=== PATIENT | female | born 1950 | race Caucasian/White ===

== ENCOUNTER → 2017-04-21 | Outpatient (CLI) | payer MEDICARE, OTHER ==
[~2017-04-21] MED LIST: ALPR.5T PO; AMLO5TAB2 PO; BUDE6HFA IH; DULO60CA6 PO; ESTR1TAB24 PO; HYDR-34 PO; LISI-591 PO; LOVA10TA PO; MNTL10T PO; NAPR1TAB21 PO; OXYB10TA PO; RT-ALBUTEROL SULF 2.5 MG/3 ML PRE-MIX VIAL IH ONE
== END ==
LOC: RT 07:52
PROVIDERS: ATTEND Internal Medicine
DX: R06.02 Shortness of breath (principal)
CPT/HCPCS: 94060; 94640; 94726; 94729

== ENCOUNTER 2017-07-07 05:33 | Outpatient (CLI) | payer MEDICARE, OTHER ==
[~2017-07-07] VITALS: Ht 167.6 cm; Wt 76.2 kg
[~2017-07-07 05:33] MED LIST changes: -RT-ALBUTEROL SULF 2.5 MG/3 ML PRE-MIX VIAL IH ONE
[2017-07-07] MEDS ORDERED: TIOT4MIS3 IH (12:23)
[2017-07-07] MEDS ORDERED: HYDR-753 PO (12:23)
[2017-07-07] MEDS ORDERED: NF-ACI30T PO (12:23)
[2017-07-07] MEDS ORDERED: ALEN70TA2 PO (12:23)
[2017-07-07] MEDS ORDERED: LOVA20TA2 PO (12:23)
[2017-07-07] MEDS ORDERED: RANI-515 PO (12:23)
[2017-07-07] MEDS ORDERED: LISI1TAB8 PO (12:23)
[2017-07-07] MEDS ORDERED: DEXT10TA9 PO (12:23)
[2017-07-07] MEDS ORDERED: CYCL10TA9 PO (12:23)
[2017-07-07] MEDS ORDERED: CITA20TA12 PO (12:23)
[2017-07-07] MEDS ORDERED: SULI200T4 PO (12:23)
[2017-07-07] MEDS ORDERED: FLUT9.9S NS (12:23)
[2017-07-07] MEDS ORDERED: MECL-106 PO (12:23)
[2017-07-07] MEDS ORDERED: ESTR2TAB PO (12:23)
[2017-07-07] MEDS ORDERED: RT-ALBUINH IH (12:24)
== END 2017-07-07 12:29 ==
LOC: PREOP 05:33
PROVIDERS: ATTEND Surgery
DX: Z01.818 Encounter for other preprocedural examination (principal); Z12.11 Encounter for screening for malignant neoplasm of colon; Z86.010 Personal history of colon polyps

== ENCOUNTER 2017-07-12 09:50 | Day surgery (SDC) | payer MEDICARE, OTHER ==
[~2017-07-12] VITALS: Ht 167.6 cm; Wt 76.2 kg
[~2017-07-12 09:50] MED LIST changes: +ALEN70TA2 PO; +CITA20TA12 PO; +CYCL10TA9 PO; +DEXT10TA9 PO; +ESTR2TAB PO; +FLUT9.9S NS; +HYDR-753 PO; +LISI1TAB8 PO; +LOVA20TA2 PO; +MECL-106 PO; +NF-ACI30T PO; +RANI-515 PO; +RT-ALBUINH IH; +SULI200T4 PO; +TIOT4MIS3 IH
--- OUTSIDE RECORDS SUMMARY | 2017-07-12 09:54 | XMS REPORT | Continuity of Care Document ---
Author Author [facility] Organization [facility] Address Unknown Phone Unavailable Allergies Active Description Code Type Severity Reaction Onset Reported/Identified Relationship to Patient Clinical Status Yes No Known Drug Allergies [id number] Drug Allergy Unknown N/ A 10/09/2013 Medications Problems Date Dx Coded Attending Type Code Diagnosis Diagnosed By 10/09/2013 LLOYD LAI, RON Barraza Ot V76.51 SCREEN MAL NEOP-COLON 04/12/2017 RON DESAI MD Ot V72.84 EXAM PRE-OPERATIVE NOS 04/21/2017 RON DESAI MD Ot V72.84 EXAM PRE-OPERATIVE NOS 07/07/2017 RON DESAI MD Ot Z01.818 ENCOUNTER FOR OTHER PREPROCEDURAL EXAMIN 07/07/2017 RON DESAI MD Ot Z12.11 ENCOUNTER FOR SCREENING FOR MALIGNANT NE 07/07/2017 RON DESAI MD Ot Z86.010 PERSONAL HISTORY OF COLONIC POLYPS Procedures Results Encounters ACCT No. Visit Date/Time Discharge Status Pt. Type Provider Facility Loc./Unit Complaint [id number] 07/07/2017 05:33:00 2016 12:29:00 DIS Outpatient RON DESAI MD [facility] PREOP HISTORY POLYPS [id number] 04/21/2017 07:52:00 2016 23:59:59 CLS Outpatient NETTA GOYAL MD [facility] RT R06.02 [id number] 10/09/2013 06:41:00 2012 08:55:00 DIS Outpatient RON DESAI MD [facility] SDC SCREENING [id number] 10/05/2013 07:20:00 2012 23:59:59 CLS Outpatient RON DESAI MD [facility] PREOP SCREENING [id number] 07/12/2017 11:30:00 PEN Preadmit LLOYD LAI, RON Barraza [facility] ENDO HISTORY POLYPS
--- OUTSIDE RECORDS SUMMARY | 2017-07-12 09:54 | XMS REPORT ---
Author Author CALI FELIX [facility] Address Unknown Care Team Providers Care Welder Tack Name Role Phone CALI FELIX Unavailable PROBLEMS Unknown Problems ALLERGIES Substance Reaction Event Type Date Status N.K.D.A. Unknown Non Drug Allergy Sep, Unknown SOCIAL HISTORY No smoking Hx information available PLAN OF CARE Activity Details Follow Up prn Reason:SRP VITAL SIGNS Blood pressure systolic 125 mmHg 2016-10-20 Blood pressure diastolic 88 mmHg 2016-10-20 MEDICATIONS Medication Instructions Dosage Frequency Start Date End Date Duration Status Estradiol Active [place] Active Lisinopril Active Zantac Active Amlodipine Besy-Benazepril HCl Active Xanax Active Sulindac Active Aciphex Active Cymbalta Active Adderall Active RESULTS No Results PROCEDURES Procedure Date Ordered Related Diagnosis Body Site COMP ORAL EVALUATION - NEW/EST PT Oct 20, 2016 INTRAORL-PERIAPICAL 1 FILM [id number] Oct 20, 2016 BITEWINGS - FOUR FILMS Oct 20, 2016 INTRAORL-PERIAPICAL EA ADD FILM Oct 20, 2016 INTRAORL-PERIAPICAL EA ADD FILM Oct 20, 2016 INTRAORL-PERIAPICAL EA ADD FILM Oct 20, 2016 INTRAORL-PERIAPICAL EA ADD FILM Oct 20, 2016 IMMUNIZATIONS No Known Immunizations
[2017-07-12] MEDS ORDERED: NS IV 500 ML 500 ML ONE ×2 (10:00→13:45)
[2017-07-12] MEDS ORDERED: NS IV 500 ML 500 ML IV ONE ×2 (10:00→14:15)
[2017-07-12 10:09] VITALS: BP 134/77
[2017-07-12] MEDS ORDERED: MIDAZOLAM 2 MG/2 ML (VERSED) VIAL ONE ×3 (13:19)
[2017-07-12] MEDS ORDERED: fentaNYL INJECTION 100 MCG/2 ML AMP ONE ×2 (13:19→13:55)
--- NOTE | 2017-07-12 13:24 | Conscious Sedation/ASA ---
Conscious Sedation Pre-Proced Time Reviewed: 13:24 ASA Class: 2 Airway Mallampati Classification: (false pass appropriate class) I. II. III, IV Lungs Heart ASA score ASA 1: a normal healthy patient ASA 2: a patient with a mild systemic disease (mid diabetes, controlled hypertension, obesity ASA 3: a patient with a severe systemic disease that limits activity (angina , COPD, prior Myocardial infarction) ASA 4: a patient with an incapacitating disease that is a constant threat to life (CHF, renal failure) ASA 5: a moribund patient not expected to survive 24 hrs. (ruptured aneurysm) ASA 6: a declared brain patient whose organs are being harvested. For emergent operations, add the letter E after the classification Grade 1 Sedation Plan: Discussed options with patient/fam Note The patient is an appropriate candidate to undergo the planned procedure, sedation, and anesthesia. The patient immediately re-assessed prior to indication. RON DESAI MD Jul 12, 2017 1:24 pm
--- NOTE | 2017-07-12 13:24 | History & Physicial ---
History of Present Illness History of Present Illness Reason for visit/HPI to undergo surveillance colonoscopy. Previous history of polyps Date of Admission Date Seen by Provider: Jul 12, 2017 Time Seen by Provider: 13:23 I consulted on this patient on 07/12/17 13:22 Attending Physician Ron Desai MD Admitting Physician Marquise Goode MD Consult Allergies and Home Medications Allergies Coded Allergies: No Known Drug Allergies (Unverified , 10/09/13) Home Medications Albuterol Sulfate 1 Puff Puff, 2 PUFF IH Q4H PRN for WHEEZING, (Reported) 1 PUFF = 90 MCG Alendronate Sodium 70 Mg Tablet, 70 MG PO WEEK, (Reported) Alprazolam 0.5 Mg Tablet, 0.5 MG PO TID, (Reported) Amlodipine Besylate 5 Mg Tablet, 5 MG PO DAILY, (Reported) Citalopram Hydrobromide 20 Mg Tablet, 20 MG PO DAILY, (Reported) Cyclobenzaprine HCl 10 Mg Tablet, 10 MG PO TID, (Reported) Dextroamphetamine/Amphetamine 10 Mg Tablet, 10 MG PO DAILY, (Reported) Duloxetine Hcl 60 Mg Capsule.dr, 60 MG PO DAILY, (Reported) Estradiol 2 Mg Tablet, 2 MG PO DAILY, (Reported) Fluticasone Propionate 9.9 Ml [place].susp, 1 SPRAY NS DAILY, (Reported) Hydrocodone/Acetaminophen 1 Each Tablet, 1 EACH PO Q4H PRN for PAIN-MILD TO MODERATE, (Reported) Lisinopril/Hydrochlorothiazide 1 Each Tablet, 1 EACH PO DAILY, (Reported) Lovastatin 20 Mg Tablet, 20 MG PO DAILY, (Reported) Meclizine HCl 25 Mg Tablet, 25 MG PO BID, (Reported) Rabeprazole Sodium 20 Mg Tablet.dr, 20 MG PO DAILY, (Reported) Ranitidine HCl 150 Mg Tablet, 150 MG PO TID, (Reported) Sulindac 200 Mg Tablet, 200 MG PO BID, (Reported) Tiotropium Br/Olodaterol HCl 4 Gm Mist.inhal, 4 GM IH DAILY, (Reported) Past Lydnsmb-Braann-Aqlmwa Hx Patient Social History Marrital Status: Employed/Student: retired Alcohol Use: Denies Use Recreational Drug Use: No Smoking Status: Never a Smoker Recent Foreign Travel: No Contact w/other who traveled: No Recent Hopitalizations: No Recent Infectious Disease Expo: No Immunizations Up To Date Date of Pneumonia Vaccine: Oct 09, 2006 Seasonal Allergies Seasonal Allergies: Yes Surgeries Gallbladder, Hysterectomy, Tonsillectomy Cardiovascular Hypertension Gastrointestinal Polyps Musculoskeletal Arthritis Constitutional: no symptoms reported EENTM: no symptoms reported Cardiovascular: no symptoms reported Gastrointestinal: no symptoms reported Genitourinary: no symptoms reported Musculoskeletal: no symptoms reported Skin: no symptoms reported Psychiatric/Neurological: No Symptoms Reported Physical Exam Vital Signs Vital Sign - Last 12Hours 07/12/17 10:09 Temp 97.2 Pulse 94 Resp 18 B/P (MAP) 134/77 Pulse Ox 95 O2 Delivery Room Air Capillary Refill : General Appearance: No Apparent Distress HEENT: Normal ENT Inspection Neck: Normal Inspection Respiratory: Lungs Clear Cardiovascular: Regular Rate, Rhythm Gastrointestinal: Non Tender, Soft Rectal: Deferred Neurologic/Psychiatric: Alert, Oriented x3 Skin: Warm/Dry Assessment/Plan Assessment and Plan personal history of polyps. For surveillance colonoscopy Problems: RON DESAI MD Jul 12, 2017 1:24 pm
[2017-07-12] MEDS: fentaNYL INJECTION 100 MCG/2 ML AMP IVP PRN ×3 (13:35→14:00)
[2017-07-12] MEDS: MIDAZOLAM 2 MG/2 ML (VERSED) VIAL IVP PRN ×3 (13:36→13:55)
--- NOTE | 2017-07-12 14:16 | Endo Procedure Record ---
Endo Procedure Report Date of Procedure Jul 12, 2017 Surgeon (s) RON DESAI MD Post Procedure/Op Diagnosis very few sigmoid diverticula Procedure Performed colonoscopy to cecum Description of Procedure Anesthesia Type: Conscious Sedation Specimen(s) collected/removed none Description of the Procedure Indication for procedure: This lady reported a personal history of polyps and therefore returned for surveillance examination. Informed consent was obtained after reviewing the procedure in detail. Description of the procedure: She was placed in left lateral rectus position and her vital signs were monitored. Conscious sedation was achieved using Versed and fentanyl. Digital rectal examination was unremarkable. The colonoscope was then introduced in the rectum and advanced all the way up to cecum The quality of bowel preparation was excellent. The scope was then withdrawn slowly and the mucosa examined in a systematic fashion Finding: Very few sigmoid diverticula. No recurrent polyps were found She tolerated the procedure well and was taken back to the nursing area in a stable condition. Impression: Surveillance colonoscopy. No recurrence. Recommend repeating in 5 years. Copies To: JOSEPH OH MD, XAVIER M MD Jul 12, 2017 2:16 pm
--- NOTE | 2017-07-12 14:18 | Discharge Inst-Simple/Standard ---
Discharge Inst-Standard Discharge Medications New, Converted or Re-Newed RX: Other Patient Instructions/Follow Up Plan of Care/Instructions/FU: repeat colonoscopy in 5 years Activity as Tolerated: Yes Discharge Diet: No Restrictions RON DESAI MD Jul 12, 2017 2:18 pm
[2017-07-12 14:20] VITALS: BP 94/62
[2017-07-12 14:50] VITALS: BP 124/68
[2017-07-12 14:58] VITALS: BP 124/68
== END 2017-07-12 14:58 | disposition home or self-care (01) ==
LOC: ENDO 09:50
PROVIDERS: ATTEND Surgery
DX: K57.30 Diverticulosis of large intestine without perforation or abscess without bleeding (principal); Z86.010 Personal history of colon polyps; Z79.899 Other long term (current) drug therapy

== ENCOUNTER → 2018-03-09 | Outpatient (CLI) | payer MEDICARE, OTHER ==
[~2018-03-09] MED LIST changes: +ALPR0.5T7 PO; +AMLO10TA2 PO; +DULO60CA58 PO; +HYOS0.1281 PO; +NITR-65 PO; +PHEN-640 PO
--- NOTE | 2018-03-09 13:57 | Diagnostic Imaging Report ---
PROCEDURE: CT abdomen and pelvis without contrast. TECHNIQUE: Multiple contiguous axial images were obtained through the abdomen and pelvis without the use of intravenous contrast. INDICATION: One year's history of persistent hematuria. I have no previous for comparison. FINDINGS: There are no opaque kidney stones. There are pelvic phleboliths and gonadal vein phleboliths but no appreciable opaque ureteral stone or collecting system dilatation. The unopacified urinary bladder had an unremarkable appearance. There is tiny calcified granulomata within the nonenlarged spleen. Liver appeared nonfocal. There is no bile duct dilatation. The gallbladder contracted or absent. The adrenals are negative. The pancreas unremarkable. The calcified atherosclerotic aorta is nonaneurysmal. Uterus absent. There is no adnexal lesion. There is no ascites or fluid collection. There is no focal inflammatory process. Lung bases nonacute. IMPRESSION: Nonfocal unobstructed and unremarkable-appearing urinary tracts. No findings to explain the history of hematuria. No acute-appearing abnormality. Dictated by: Dictated on workstation # [id number]
== END ==
LOC: RAD 10:58
PROVIDERS: ATTEND Urology
DX: N02.9 Recurrent and persistent hematuria with unspecified morphologic changes (principal); Z87.440 Personal history of urinary (tract) infections
CPT/HCPCS: 74176

== ENCOUNTER 2018-03-17 13:16 | Outpatient (CLI) | payer MEDICARE, OTHER ==
[~2018-03-17] VITALS: Ht 167.6 cm; Wt 77.4 kg
[~2018-03-17 13:16] MED LIST changes: -ALPR0.5T7 PO; -AMLO10TA2 PO; -DULO60CA58 PO; -HYOS0.1281 PO; -NITR-65 PO; -PHEN-640 PO
[2018-03-17] MEDS ORDERED: AMLO10TA2 PO (13:32)
[2018-03-17] MEDS ORDERED: ALPR0.5T7 PO (13:32)
[2018-03-17] MEDS ORDERED: DULO60CA58 PO (13:32)
== END 2018-03-17 14:11 | disposition home or self-care (01) ==
LOC: PREOP 13:16
PROVIDERS: ATTEND Urology
DX: Z01.818 Encounter for other preprocedural examination (principal); D49.4 Neoplasm of unspecified behavior of bladder; Z11.2 Encounter for screening for other bacterial diseases
CPT/HCPCS: 87081

== ENCOUNTER 2018-03-22 07:00 | Day surgery (SDC) | payer MEDICARE, OTHER ==
[~2018-03-22] VITALS: Ht 167.6 cm; Wt 77.4 kg
[~2018-03-22 07:00] MED LIST changes: +ALPR0.5T7 PO; +AMLO10TA2 PO; +DULO60CA58 PO
--- OUTSIDE RECORDS SUMMARY | 2018-03-22 07:08 | XMS REPORT ---
Author Author KAE Donis Organization [facility] Address Unknown Care Team Providers Care Behavioral Instructor Name Role Phone KAE Donis Unavailable PROBLEMS Unknown Problems ALLERGIES No Known Allergies SOCIAL HISTORY Never Assessed PLAN OF CARE Activity Details Follow Up prn Reason:all left side fillings per Dr VITAL SIGNS Blood pressure systolic 131 mmHg 2017-01-13 Blood pressure diastolic 76 mmHg 2017-01-13 MEDICATIONS Medication Instructions Dosage Frequency Start Date End Date Duration Status Cymbalta Active Xanax Active Sulindac Active Zantac Active Estradiol Active Amlodipine Besy-Benazepril HCl Active Lisinopril Active [place] Active Adderall Active Aciphex Active RESULTS No Results PROCEDURES Procedure Date Ordered Result Body Site LTD ORAL EVALUATION - PROBLEM FOCUS Jan 13, 2017 INTRAORL-PERIAPICAL 1 FILM [id number] Jan 13, 2017 BITEWING - SINGLE FILM Jan 13, 2017 IMMUNIZATIONS No Known Immunizations MEDICAL (GENERAL) HISTORY Type Description Date Medical History angina Medical History asthma Medical History bronchitis Medical History fainting Medical History bone density medication Medical History arthritis Medical History back trouble Medical History high blood pressure Surgical History hernia & stomach repair 08-11-16 Hospitalization History surgery
--- OUTSIDE RECORDS SUMMARY | 2018-03-22 07:08 | XMS REPORT ---
Author Author KAE Donis [facility] Address Unknown Care Team Providers Care Wool Dyer Name Role Phone KAE Donis Unavailable PROBLEMS Unknown Problems ALLERGIES Substance Reaction Event Type Date Status N.K.D.A. Unknown Non Drug Allergy Nov, Unknown SOCIAL HISTORY No smoking Hx information available PLAN OF CARE Activity Details Follow Up prn Reason:surgical extraction VITAL SIGNS Blood pressure systolic 102 mmHg 2016-11-23 Blood pressure diastolic 56 mmHg 2016-11-23 MEDICATIONS Medication Instructions Dosage Frequency Start Date End Date Duration Status [place] Active Lisinopril Active Amlodipine Besy-Benazepril HCl Active Xanax Active Aciphex Active Adderall Active Cymbalta Active Zantac Active Sulindac Active Estradiol Active RESULTS No Results PROCEDURES Procedure Date Ordered Related Diagnosis Body Site LTD ORAL EVALUATION - PROBLEM FOCUS Nov 23, 2016 INTRAORL-PERIAPICAL 1 FILM [id number] Nov 23, 2016 BITEWING - SINGLE FILM Nov 23, 2016 IMMUNIZATIONS No Known Immunizations
--- OUTSIDE RECORDS SUMMARY | 2018-03-22 07:09 | XMS REPORT | Continuity of Care Document ---
Author Author [facility] Organization [facility] Address Unknown Phone Unavailable Allergies Active Description Code Type Severity Reaction Onset Reported/Identified Relationship to Patient Clinical Status Yes No Known Drug Allergies [id number] Drug Allergy Unknown N/A 03/17/2018 Medications There is no data. 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 07/12/2017 RON DESAI MD Ot Z86.010 PERSONAL HISTORY OF COLONIC POLYPS 07/15/2017 RON DESAI MD Ot K57.30 DVRTCLOS OF LG INT W/O PERFORATION OR AB 07/15/2017 RON DESAI MD Ot 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.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 07/15/2017 RON DESAI MD Ot Z86.010 PERSONAL HISTORY OF COLONIC POLYPS 07/19/2017 NETTA GOYAL MD Ot R06.02 SHORTNESS OF BREATH 08/10/2017 NETTA GOYAL MD Ot R06.02 SHORTNESS OF BREATH 03/03/2018 RON DESAI MD Ot V72.84 EXAM PRE-OPERATIVE NOS 03/03/2018 NETTA GOYAL MD Ot R06.02 SHORTNESS OF BREATH 03/10/2018 ARDEN ROLON MD Ot N02.9 RECURRENT AND PERST HEMATURIA W UNSP MOR 03/10/2018 ARDEN ROLON MD Ot Z87.440 PERSONAL HISTORY OF URINARY (TRACT) INFE 03/15/2018 ARDEN ROLON MD Ot N02.9 RECURRENT AND PERST HEMATURIA W UNSP MOR 03/15/2018 ARDEN ROLON MD, Ot Z87.440 PERSONAL HISTORY OF URINARY (TRACT) INFE Procedures There is no data. Results Test Result Range Methicillin resistant Staphylococcus aureus (MRSA) screening culture - 13:50 Methicillin resistant Staphylococcus aureus (MRSA) screening culture NEG NRG Encounters ACCT No. Visit Date/Time Discharge Status Pt. Type Provider Facility Loc./Unit Complaint [id number] 03/17/2018 13:16:00 03/17/2018 14:11:00 DIS Outpatient ARDEN ROLON MD [facility] PREOP LARGE BLADDER TUMOR [id number] 03/09/2018 10:58:00 03/09/2018 23:59:59 CLS Outpatient ARDEN ROLON MD [facility] RAD PERSISTENT HEMATURIA [id number] 07/12/2017 09:50:00 07/12/2017 14:58:00 DIS Outpatient RON DESAI MD [facility] ENDO HISTORY POLYPS [id number] 07/07/2017 05:33:00 07/07/2017 12:29:00 DIS Outpatient RON DESAI MD [facility] PREOP HISTORY POLYPS [id number] 04/21/2017 07:52:00 04/21/2017 23:59:59 CLS Outpatient NETTA GOYAL MD [facility] RT R06.02 [id number] 10/09/2013 06:41:00 10/09/2013 08:55:00 DIS Outpatient RON DESAI MD [facility] SCREENING [id number] 10/05/2013 07:20:00 10/05/2013 23:59:59 CLS Outpatient RON DESAI MD [facility] PREOP SCREENING [id number] 03/22/2018 09:45:00 PEN Preadmit ARDEN ROLON MD [facility] LARGE BLADDER TUMOR
--- OUTSIDE RECORDS SUMMARY | 2018-03-22 07:09 | XMS REPORT ---
Author Author KAE Donis [facility] Address Unknown Care Team Providers Care Warper Tender Name Role Phone KAE Donis Unavailable PROBLEMS Unknown Problems ALLERGIES Substance Reaction Event Type Date Status N.K.D.A. Unknown Non Drug Allergy Nov, Unknown SOCIAL HISTORY No smoking Hx information available PLAN OF CARE Activity Details Follow Up prn Reason:#[address] VITAL SIGNS Blood pressure systolic 132 mmHg 2016-12-08 Blood pressure diastolic 81 mmHg 2016-12-08 MEDICATIONS Medication Instructions Dosage Frequency Start Date End Date Duration Status Xanax Active Estradiol Active Cymbalta Active Sulindac Active [place] Active Aciphex Active Zantac Active Lisinopril Active Adderall Active Amlodipine Besy-Benazepril HCl Active RESULTS No Results PROCEDURES Procedure Date Ordered Related Diagnosis Body Site SURG REMOVAL ERUPTED TOOTH Dec 08, 2016 IMMUNIZATIONS No Known Immunizations
--- OUTSIDE RECORDS SUMMARY | 2018-03-22 07:09 | XMS REPORT ---
Author Author KAE Donis [facility] Address Unknown Care Team Providers Care Machine Crater Name Role Phone KAE Donis Unavailable PROBLEMS Unknown Problems ALLERGIES Substance Reaction Event Type Date Status N.K.D.A. Unknown Non Drug Allergy Nov, Unknown SOCIAL HISTORY No smoking Hx information available PLAN OF CARE VITAL SIGNS Blood pressure systolic 113 mmHg 2016-12-15 Blood pressure diastolic 88 mmHg 2016-12-15 MEDICATIONS Medication Instructions Dosage Frequency Start Date End Date Duration Status Amlodipine Besy-Benazepril HCl Active Adderall Active [place] 5-325 MG Orally every 6 hrs 1 tablet as needed 6h Nov, Nov, 5 days Active [place] Active Lisinopril Active Zantac Active Sulindac Active Cymbalta Active Aciphex Active Xanax Active Estradiol Active RESULTS No Results PROCEDURES Procedure Date Ordered Related Diagnosis Body Site LTD ORAL EVALUATION - PROBLEM FOCUS Dec 15, 2016 INTRAORL-PERIAPICAL 1 FILM [id number] Dec 15, 2016 IMMUNIZATIONS No Known Immunizations
[2018-03-22 07:20] VITALS: BP 129/77
[2018-03-22] MEDS ORDERED: LACTATED RINGERS 1,000 ML IV PRN ×2 (07:43→08:21)
[2018-03-22] MEDS ORDERED: cefTRIAXone INJECTION 1,000 MG in NS (IVPB) 100 ML IV ONE (07:45)
[2018-03-22] MEDS ORDERED: cefTRIAXone 1 GM/NS 100 ML IVPB IV ONE ×2 (07:45)
[2018-03-22] MEDS ORDERED: MIDAZOLAM 2 MG/2 ML (VERSED) VIAL ONE ×2 (08:16→09:23)
[2018-03-22] MEDS ORDERED: FAMOTIDINE 20MG/2ML IV (PEPCID) ONE (08:17)
[2018-03-22] MEDS ORDERED: RT-ALBUTEROL SULF 2.5 MG/3 ML PRE-MIX VIAL ONE (08:17)
--- NOTE | 2018-03-22 08:25 | Progress Note-Pre Operative ---
Pre-Operative Progress Note H&P Reviewed The H&P was reviewed, patient examined and no changes noted. Date Seen by Provider: March 22, 2018 Time Seen by Provider: 08:25 Date H&P Reviewed: March 22, 2018 Time H&P Reviewed: 08:25 Pre-Operative Diagnosis: LARGE BLADDER TUMOR FLOOR ARDEN ROLON MD March 22, 2018 8:25 am
[2018-03-22] MEDS ORDERED: FAMOTIDINE 20MG/2ML IV (PEPCID) IV ONE (08:30)
[2018-03-22] MEDS ORDERED: MIDAZOLAM 2 MG/2 ML (VERSED) VIAL IV ONE (08:30)
[2018-03-22] MEDS ORDERED: RT-ALBUTEROL SULF 2.5 MG/3 ML PRE-MIX VIAL INH ONE (08:30)
[2018-03-22] MEDS ORDERED: fentaNYL INJECTION 100 MCG/2 ML AMP ONE (09:23)
[2018-03-22] MEDS ORDERED: LIDOCAINE PF 2% 5 ML (XYLOCAINE) VIAL ONE (09:38)
[2018-03-22] MEDS ORDERED: SEVOFLURANE (ULTANE) 15 ML INHAL SOLN ONE ×3 (09:38→09:59)
[2018-03-22] MEDS ORDERED: ROCURONIUM 10 MG/ML 5 ML SYRINGE IV ONE (09:38)
[2018-03-22] MEDS ORDERED: proPOfol 200 MG/20 ML (DIPRIVAN) VIAL IV ONE (09:38)
[2018-03-22] MEDS ORDERED: ONDANSETRON 4 MG/2 ML (SDV) Z0FRAN ONE (09:38)
[2018-03-22] MEDS ORDERED: LIDOCAINE JELLY 2% (XYLOCAINE) 5 ML TUBE ONE (09:38)
--- NOTE | 2018-03-22 10:09 | Progress Note-Post Operative ---
Post-Operative Progess Note Surgeon (s)/Wooden Frame Builder (s) Surgeon ARDEN ROLON MD Wooden Frame Builder: N/A Pre-Operative Diagnosis LARGE BLADDER TUMOR FLOOR Post-Operative Diagnosis SAME Procedure & Operative Findings Date of Procedure 03/22/18 Procedure Performed/Findings TURBT Anesthesia Type GENERAL Estimated Blood Loss Estimated blood loss (mL): NEGLIGIBLE Specimens/Packing Specimens Removed 1. BLADDER TUMOR CHIPS 2. B.T BASE Packing: N/A ARDEN ROLON MD March 22, 2018 10:09 am
--- NOTE | 2018-03-22 10:11 | Discharge Inst-Urology ---
Discharge Inst-Urology Discharge Medications New, Converted, or Re-newed RX: RX on Chart Patient Instructions/Follow Up Plan Please make appointment to been seen in office in 2 weeks. Increase oral fluids for 48 hours and then as needed. Diet and Activity as tolerated. If questions or concerns contact your physician Or seek help at emergency department. ARDEN ROLON MD March 22, 2018 10:11 am
[2018-03-22] MEDS ORDERED: morphine INJ 10 MG/ML 1ML (SYR OR VIAL) IVP PRN (10:15)
[2018-03-22] MEDS ORDERED: ONDANSETRON 4 MG/2 ML (SDV) Z0FRAN IVP PRN (10:15)
[2018-03-22] MEDS ORDERED: MEPERIDINE (DEMEROL) INJ 50 MG/ML IVP PRN (10:15)
[2018-03-22 11:15] VITALS: BP 148/98
[2018-03-22 11:16] VITALS: BP 148/98
[2018-03-22] MEDS ORDERED: HYOS0.1281 PO (11:34)
[2018-03-22] MEDS ORDERED: NITR-65 PO (11:34)
[2018-03-22] MEDS ORDERED: PHEN-640 PO (11:34)
[2018-03-22 11:45] VITALS: BP 157/97
--- NOTE | 2018-03-22 12:08 | Anesthesia-General Post-Op ---
General Patient Condition Mental Status/LOC: Same as Preop Cardiovascular: Satisfactory Nausea/Vomiting: Absent Respiratory: Satisfactory Pain: Controlled Complications: Absent Post Op Complications Complications None Follow Up Care/Instructions Patient Instructions None needed. Anesthesia/Patient Condition Patient Condition Patient is doing well, no complaints, stable vital signs, no apparent adverse anesthesia problems. No complications reported per nursing. RICKY WALKER CRNA March 22, 2018 12:08
[2018-03-22 12:15] VITALS: BP 158/84
--- NOTE | 2018-03-22 18:52 | OPERATIVE REPORT ---
DATE OF SERVICE: 03/22/2018 PREOPERATIVE DIAGNOSIS: Large bladder tumor floor. POSTOPERATIVE DIAGNOSIS: Large bladder tumor floor. OPERATION PERFORMED: Transurethral resection of bladder tumor. SURGEON: Mikie Rolon MD ANESTHESIA: General. COMPLICATIONS: None. DESCRIPTION OF PROCEDURE: Under satisfactory general anesthesia, the patient in lithotomy position, genitalia were prepped and draped in the usual sterile fashion. Again, as noted the vaginal prolapse noted in the office. A resectoscope was introduced in the bladder again visualized a large bladder tumor involving the floor of the bladder starting from the left side, but a little bit more on the right side and just proximal to the right ureteral orifice. I went ahead and completely resected the tumor, obtained 3 bladder base biopsies for checking invasion, cauterized the bleeder and hemostasis was complete. There was no need for catheter. The bladder was evacuated and the resectoscope was removed. The patient tolerated the procedure and anesthesia well and was sent to recovery room in stable condition. Job ID: [id number] DocumentID: [id number] Dictated Date: 03/22/2018 10:13:06 Push Bench Operator Helper Date: 03/22/2018 18:52:23 Dictated By: MIKIE ROLON MD
== END 2018-03-22 12:20 | disposition home or self-care (01) ==
LOC: SDC 07:00
PROVIDERS: ATTEND Urology
DX: C67.0 Malignant neoplasm of trigone of bladder (principal); I10 Essential (primary) hypertension; E78.00 Pure hypercholesterolemia, unspecified; J45.909 Unspecified asthma, uncomplicated; F41.9 Anxiety disorder, unspecified; F32.9 Major depressive disorder, single episode, unspecified; K21.9 Gastro-esophageal reflux disease without esophagitis; M19.91 Primary osteoarthritis, unspecified site; Z79.899 Other long term (current) drug therapy
CPT/HCPCS: 88307

== ENCOUNTER → 2020-07-31 | Outpatient (CLI) | payer MEDICARE, OTHER ==
[~2020-07-31] MED LIST changes: -AMLO10TA2 PO; +AMLO10TA7 PO; -DULO60CA58 PO; +DULO60CA59 PO; +HYDR-4196 PO; -HYDR-753 PO; +HYOS0.1281 PO; +LISI1TAB46 PO; -LISI1TAB8 PO; -MECL-106 PO; +MECL-149 PO; +NITR-65 PO; +PHEN-640 PO; -RANI-515 PO; +RANI-609 PO
--- NOTE | 2020-07-31 15:07 | Diagnostic Imaging Report ---
INDICATION: Leukocytosis. COMPARISON: CT dated 03/09/2018 FINDINGS: 2 supine radiograph views of the abdomen were obtained and show nondistended loops of small bowel. Moderate air and stool is noted scattered throughout the colon. There is no large collection of free intraperitoneal air. Multiple extraosseous calcifications are noted projecting over the pelvis, bilaterally. No unexpected radiopaque foreign bodies are seen. 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 Included portions of lung bases are clear. IMPRESSION: 1. Nonobstructed small gas pattern. 2. Probable multiple pelvic phleboliths, although distal ureteral calculi cannot be entirely excluded. 3. Moderate colonic air and stool. Please correlate for constipation. Dictated by: Dictated on workstation # [id number]
== END ==
LOC: RAD 14:20
PROVIDERS: ATTEND Urology
DX: N20.1 Calculus of ureter (principal); D72.829 Elevated white blood cell count, unspecified
CPT/HCPCS: 74018

== ENCOUNTER → 2021-06-04 | Outpatient (CLI) | payer MEDICARE, OTHER ==
[~2021-06-04] MED LIST changes: +AMLO-251 PO; -AMLO10TA7 PO
[2021-06-04 15:23] LABS: BILIRUBIN,URINE NEGATIVE (NEGATIVE); CLARITY,URINE SL CLOUDY; COLOR,URINE DARK YELLOW; GLUCOSE, URINE (UA) NEGATIVE (NEGATIVE); KETONES,URINE NEGATIVE (NEGATIVE); LEUKOCYTE ESTERASE ,URINE NEGATIVE (NEGATIVE); NITRITE,URINE NEGATIVE (NEGATIVE); PH,URINE 5.5 (5-9); PROTEIN,URINE TRACE (NEGATIVE)
[2021-06-04 15:31] LABS: BACTERIA,URINE TRACE /HPF; RBC,URINE TNTC /HPF; SQUAMOUS EPITHELIAL CELL,UR 0-2 /HPF
== END ==
LOC: LAB 15:11
PROVIDERS: ATTEND Urology
DX: R82.5 Elevated urine levels of drugs, medicaments and biological substances (principal); R31.9 Hematuria, unspecified; Z85.51 Personal history of malignant neoplasm of bladder
CPT/HCPCS: 81000; 87088

== ENCOUNTER → 2021-06-13 | Outpatient (CLI) | payer MEDICARE, OTHER ==
--- NOTE | 2021-06-13 13:21 | Diagnostic Imaging Report ---
PROCEDURE: CT abdomen and pelvis without contrast. TECHNIQUE: Multiple contiguous axial images were obtained through the abdomen and pelvis without the use of intravenous contrast. Auto Exposure Controls were utilized during the CT exam to meet ALARA standards for radiation dose reduction. INDICATION: Gross hematuria. COMPARISON: 03/09/2018. FINDINGS: The heart is unremarkable. The lung bases are clear. Scattered calcified granulomas are again noted. The kidneys have an unremarkable noncontrast CT appearance without evidence of hydronephrosis or renal calculi. No perinephric fat stranding is seen. The urinary bladder is nondistended. No bladder calculi are seen. No evidence of intraluminal bladder mass on this noncontrast study. The liver, spleen, pancreas, and adrenal glands have a normal appearance. There is no pathologically enlarged mesenteric or retroperitoneal adenopathy. The bowel loops are nondilated. Scattered diverticuli are seen in the descending and sigmoid colon without evidence of acute diverticulitis There is no free fluid or free air. No acute osseous abnormalities. Endplate sclerotic changes are visualized at the L1-L2 level. There is minimal grade 1 anterolisthesis of L4 on L5. There is calcified aortic and iliac atherosclerotic plaque without aneurysm. There is no free air, loculated collection, or adenopathy in the pelvis. IMPRESSION: 1. Unremarkable noncontrast CT appearance of the kidneys and urinary bladder. No evidence of calculi or mass. No inflammatory changes. 2. Scattered diverticuli in the descending and sigmoid colon without evidence of acute diverticulitis. Dictated by: Dictated on workstation # [id number]
== END ==
LOC: RAD 12:15
PROVIDERS: ATTEND Urology
DX: K57.31 Diverticulosis of large intestine without perforation or abscess with bleeding (principal)
CPT/HCPCS: 74176

== ENCOUNTER 2022-11-24 20:03 | Emergency (ER) | payer MEDICARE, OTHER ==
[~2022-11-24 20:03] MED LIST changes: +ALBU8.5H6 IH; -ALEN70TA2 PO; +ALEN70TA85 PO; +CYCL10TA25 PO; -CYCL10TA9 PO; -ESTR2TAB PO; +ESTR2TAB3 PO; -RT-ALBUINH IH
[2022-11-24] MEDS ORDERED: ASPIRIN 81 MG CHEW (CHILDREN'S ASA) PO ONE (20:15)
[2022-11-24 20:21] LABS: BASOPHILS # (AUTO) 0.1 10^3/uL (0.0-0.1); BASOPHILS % (AUTO) 1 % (0-10); EOSINOPHILS # (AUTO) 0.2 10^3/uL (0.0-0.3); EOSINOPHILS % (AUTO) 2 % (0-10); HEMATOCRIT 34 % (35-52); HEMOGLOBIN 11.1 g/dL (11.5-16.0); LYMPHOCYTES # (AUTO) 2.1 10^3/uL (1.0-4.0); LYMPHOCYTES % (AUTO) 18 % (12-44); MEAN CORPUSCULAR HEMOGLOBIN 28 pg (25-34); MEAN CORPUSCULAR HGB CONC 33 g/dL (32-36); MEAN CORPUSCULAR VOLUME 84 fL (80-99); MEAN PLATELET VOLUME 10.1 fL (9.0-12.2); MONOCYTES # (AUTO) 0.8 10^3/uL (0.0-1.0); MONOCYTES % (AUTO) 7 % (0-12); NEUTROPHILS # (AUTO) 8.2 10^3/uL (1.8-7.8); NEUTROPHILS % (AUTO) 71 % (42-75); PLATELET COUNT 403 10^3/uL (130-400); WHITE BLOOD COUNT 11.6 10^3/uL (4.3-11.0)
--- NOTE | 2022-11-24 20:23 | ED Chest Pain ---
General Chief Complaint: Cardiac/General Problems Stated Complaint: CP,PAIN IN BOTH ARMS Nursing Triage Note: Pt complaining of bilateral shoulder tightness. Pt states the pain has been going on a couple of weeks, but progressed tonight. 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 It started at least a month ago was pain in her upper arms. Over the last couple of weeks it is progressed up into her shoulder area as well as the neck area. She describes this as a tightness. Denies any specific chest pain but has had some shortness of breath since she had COVID just before . No current fevers chills cough. No abdominal pain or change in bowel or bladder habits. She did have a nitroglycerin at home prior to arrival and states her pain is completely resolved at this time. Allergies and Home Medications Allergies Coded Allergies: No Known Drug Allergies (Unverified , 03/17/18) Patient Home Medication List Home Medication List Reviewed: Yes Albuterol Sulfate (Ventolin Hfa) 1 Puff Puff, 2 PUFF IH Q4H PRN for WHEEZING, (Reported) Entered as Reported by: JAYE LUTHER on 07/07/17 1224 Alendronate Sodium (Fosamax) 70 Mg Tablet, 70 MG PO WEEK, (Reported) Entered as Reported by: JAYE LUTHER on 07/07/17 1223 Alprazolam (Alprazolam) 0.5 Mg Tablet, 0.5 MG PO TID PRN for ANXIETY, (Reported) Entered as Reported by: RIRI VILLARREAL on 03/17/18 1332 Amlodipine Besylate (Amlodipine Besylate) 10 Mg Tablet, 10 MG PO DAILY, (Reported) Entered as Reported by: RIRI VILLARREAL on 03/17/18 1332 Dextroamphetamine/Amphetamine (Adderall 10 mg Tablet) 10 Mg Tablet, 10 MG PO DAILY, (Reported) Entered as Reported by: JAYE LUTHER on 07/07/17 1223 Duloxetine HCl (Duloxetine HCl) 60 Mg Capsule.dr, 60 MG PO DAILY, (Reported) Entered as Reported by: RIRI VILLARREAL on 03/17/18 1332 Estradiol (Estradiol Tablet) 2 Mg Tablet, 2 MG PO DAILY, (Reported) Entered as Reported by: JAYE LUTHER on 07/07/17 1223 Fluticasone Propionate (Flonase Allergy Relief) 9.9 Ml [place].susp, 1 SPRAY NS DAILY, (Reported) Entered as Reported by: JAYE LUTHER on 07/07/17 1223 Hydrocodone/Acetaminophen ([place] 10-325 Tablet) 1 Each Tablet, 1 EACH PO Q4H PRN for PAIN-MILD TO MODERATE, (Reported) Entered as Reported by: JAYE LUTHER on 07/07/17 1223 Hyoscyamine Sulfate (Levsin) 0.125 Mg Tablet, 1-2 TAB PO Q4H PRN for CRAMPS Prescribed by: JORJE VILLEGAS on 03/22/18 1134 Lisinopril/Hydrochlorothiazide (Lisinopril-Hctz 20-12.5 mg Tab) 1 Each Tablet, 1 EACH PO DAILY, (Reported) Entered as Reported by: JAYE LUTHER on 07/07/17 1223 Lovastatin (Lovastatin) 20 Mg Tablet, 20 MG PO DAILY, (Reported) Entered as Reported by: JAYE LUTHER on 07/07/17 1223 Meclizine HCl (Meclizine HCl) 25 Mg Tablet, 25 MG PO BID PRN for DIZZINESS, (Reported) Entered as Reported by: JAYE LUTHER on 07/07/17 1223 Nitrofurantoin Monohyd/M-Cryst (Macrobid 100 mg Capsule) 100 Mg Capsule, 1 TAB PO BID Prescribed by: JORJE VILLEGAS on 03/22/18 1134 Phenazopyridine HCl (Pyridium) 200 Mg Tablet, 1 TAB PO TID PRN for PAIN-MODERATE Prescribed by: JORJE VILLEGAS on 03/22/18 1134 Rabeprazole Sodium (Aciphex) 20 Mg Tablet.dr, 20 MG PO DAILY, (Reported) Entered as Reported by: JAYE LUTHER on 07/07/17 1223 Ranitidine HCl (Acid Welding Equipment Sales Representative (RANITIDINE)) 150 Mg Tablet, 150 MG PO TID, (Reported) Entered as Reported by: JAYE LUTHER on 07/07/17 1223 Sulindac (Sulindac) 200 Mg Tablet, 200 MG PO BID, (Reported) Entered as Reported by: JAYE LUTHER on 07/07/17 1223 Tiotropium Br/Olodaterol HCl (Stiolto Respimat Inhal [place]) 4 Gm Mist.inhal, 4 GM IH DAILY, (Reported) Entered as Reported by: JAYE LUTHER on 07/07/17 1223 Review of Systems Review of Systems Constitutional: no symptoms reported EENTM: No Symptoms Reported Respiratory: No Symptoms Reported Cardiovascular: No Symptoms Reported Gastrointestinal: No Symptoms Reported Genitourinary: No Symptoms Reported Musculoskeletal: no symptoms reported, other (Bilateral shoulder arm and neck pain) Skin: no symptoms reported Psychiatric/Neurological: No Symptoms Reported Endocrine: No Symptoms Reported Hematologic/Lymphatic: No Symptoms Reported Past Cmapakb-Lziejo-Jnjkle Hx Patient Social History Tobacco Use?: No Substance use?: No Alcohol Use?: No Pt feels they are or have been: No Immunizations Up To Date Tetanus Booster (TDap): Unknown PED Vaccines UTD: No Seasonal Allergies Seasonal Allergies: No Past Medical History Gallbladder, Hysterectomy, Tonsillectomy Asthma Hypertension, Irregular Heartbeat Seizure Disorder Reproductive Disorders: No 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 9.0oz. 77.094949nd; 27.5 BMI Method: General Appearance: No Apparent Distress, WD/WN HEENT: Normal ENT Inspection, Pharynx Normal Neck: Full Range of Motion, Normal Inspection, Non Tender, Supple Respiratory: Chest Non Tender, Lungs Clear, Normal Breath Sounds, No Accessory Muscle Use, No Respiratory Distress Cardiovascular: Regular Rate, Rhythm, No Edema, No Murmur, Normal Peripheral Pulses Gastrointestinal: Normal Bowel Sounds, No Organomegaly, No Pulsatile Mass, Non Tender, Soft Extremity: Normal Capillary Refill, Normal Inspection, Normal Range of Motion, Non Tender, No Calf Tenderness Neurologic/Psychiatric: Alert, Oriented x3, No Motor/Sensory Deficits Skin: Normal Color, Warm/Dry Progress/Results/Core Measures Results/Orders Lab Results Laboratory Tests Test 11/24/22 20:15 Range/Units White Blood Count 11.6 H 4.3-11.0 10^3/uL Red Blood Count 4.04 3.80-5.11 10^6/uL Hemoglobin 11.1 L 11.5-16.0 g/dL Hematocrit 34 L 35-52 % Mean Corpuscular Volume 84 80-99 fL Mean Corpuscular Hemoglobin 28 25-34 pg Mean Corpuscular Hemoglobin Concent 33 32-36 g/dL Red Cell Distribution Width 17.5 H 10.0-14.5 % Platelet Count 403 H 130-400 10^3/uL Mean Platelet Volume 10.1 9.0-12.2 fL Immature Granulocyte % (Auto) 2 % Neutrophils (%) (Auto) 71 42-75 % Lymphocytes (%) (Auto) 18 12-44 % Monocytes (%) (Auto) 7 0-12 % Eosinophils (%) (Auto) 2 0-10 % Basophils (%) (Auto) 1 0-10 % Neutrophils # (Auto) 8.2 H 1.8-7.8 10^3/uL Lymphocytes # (Auto) 2.1 1.0-4.0 10^3/uL Monocytes # (Auto) 0.8 0.0-1.0 10^3/uL Eosinophils # (Auto) 0.2 0.0-0.3 10^3/uL Basophils # (Auto) 0.1 0.0-0.1 10^3/uL Immature Granulocyte # (Auto) 0.2 H 0.0-0.1 10^3/uL Sodium Level 137 135-145 MMOL/L Potassium Level 4.2 3.6-5.0 MMOL/L Chloride Level 99 98-107 MMOL/L Carbon Dioxide Level 28 21-32 MMOL/L Anion Gap 10 5-14 MMOL/L Blood Urea Nitrogen 9 7-18 MG/DL Creatinine 1.02 0.60-1.30 MG/DL Estimat Glomerular Filtration Rate 58 BUN/Creatinine Ratio 9 Glucose Level 108 H 70-105 MG/DL Calcium Level 9.2 8.5-10.1 MG/DL Corrected Calcium 9.2 8.5-10.1 MG/DL Total Bilirubin < 0.2 0.1-1.0 MG/DL Aspartate Amino Transf (AST/SGOT) 18 5-34 U/L Alanine Aminotransferase (ALT/SGPT) 18 0-55 U/L Alkaline Phosphatase 62 40-136 U/L Troponin I < 0.30 <0.30 NG/ML Total Protein 6.5 6.4-8.2 GM/DL Albumin 4.0 3.2-4.5 GM/DL My Orders Orders - JUVENAL PENA DO Cbc With Automated Diff (11/24/22 20:14) Chest 1 View Ap/Pa Only (11/24/22 20:14) Comprehensive Metabolic Panel (11/24/22 20:14) Aspirin Chewable Tablet (Baby Aspirin Ch (11/24/22 20:15) Ed Iv/Invasive Line Start (11/24/22 20:14) Troponin I Fs (11/24/22 20:14) Ekg Tracing (11/24/22 20:19) Ketorolac Injection (Toradol Injection) (11/24/22 20:45) Medications Given in ED Current Medications Medications Dose Ordered Sig/Brynn Route Start Time Stop Time Status Last Admin Dose Admin Aspirin 324 mg ONCE ONCE PO 11/24/22 20:15 11/24/22 20:16 DC 11/24/22 20:21 324 MG Vital Signs/I&O 11/24/22 20:06 Pulse 91 Resp 20 B/P (MAP) 153/95 (114) Pulse Ox 98 O2 Delivery Room Air Blood Pressure Mean: 114 Comment Sinus rhythm with a rate of 90 bpm. Normal intervals. Normal axis. No ST or T wave abnormalities. No ectopy. No STEMI. Diagnostic Imaging Comments AP chest x-ray: Negative for any acute findings on my read Departure Communication (Admissions) The patient is hemodynamically stable. Heart score is 3. EKG is nonischemic, troponin is negative. She has had symptoms upward of 1 month. Believe her risk of major adverse cardiac events in the next 30 days is exceedingly low. Chest x-ray is negative, no evidence for pneumothorax, pneumonia or other acute medical condition. She has no evidence for PE. Believe her pain is musculoskeletal. She is treated with some Toradol which did improve her symptoms some. This was administered only after verifying her creatinine is normal. There is no evidence for for aortic dissection.. Impression Primary Impression: Bilateral shoulder pain Qualified Codes: M25.511 - Pain in right shoulder; M25.512 - Pain in left shoulder Disposition: 01 HOME, SELF-CARE Condition: Stable Departure-Patient Inst. Referrals: SELF,WILL LAI (PCP/Family) Primary Care Physician Patient Instructions: Chest Pain That Is Not Caused by the Heart (DC) Add. Discharge Instructions: Increase your fluids at home and rest. Alternate Tylenol Motrin as needed for pain. There is no indication that this is coming from your heart at this time. Your chest x-ray is normal with no pneumonia or other significant findings. Should your symptoms persist I recommend you follow-up with your primary care doctor for further evaluation and treatment recommendations. Return to the [facility] department should your symptoms change in any way concerning to you. All discharge instructions reviewed with patient and/or family. Voiced understanding. JUVENAL PENA DO Nov 24, 2022 20:23
--- NOTE | 2022-11-24 20:41 | Diagnostic Imaging Report ---
INDICATION: Chest pain. Time of Exam: 8:17 PM No prior studies are available for comparison. Heart size is normal. There appears to be a calcified nodule in the right base. Lungs are clear. No infiltrates are seen. There is no effusion or pneumothorax. IMPRESSION: No acute cardiopulmonary process is detected. Dictated by: Dictated on workstation # [id number]
[2022-11-24 20:43] LABS: CARBON DIOXIDE 28 MMOL/L (21-32); CHLORIDE 99 MMOL/L (98-107); POTASSIUM 4.2 MMOL/L (3.6-5.0); SODIUM 137 MMOL/L (135-145)
[2022-11-24 20:44] LABS: ALANINE AMINOTRANSFERASE 18 U/L (0-55); ALKALINE PHOSPHATASE 62 U/L (40-136); BILIRUBIN,TOTAL < 0.2 MG/DL (0.1-1.0); BUN/CREATININE RATIO 9; CALCIUM 9.2 MG/DL (8.5-10.1); CREATININE SERUM 1.02 MG/DL (0.60-1.30); GFR ESTIMATED 58; GLUCOSE 108 MG/DL (70-105); TOTAL PROTEIN 6.5 GM/DL (6.4-8.2)
[2022-11-24] MEDS ORDERED: KETOROLAC 15 MG/ML VIAL IVP ONE (20:45)
[2022-11-24 20:52] VITALS: BP 168/72
== END 2022-11-24 21:01 | disposition home or self-care (01) ==
LOC: EDUNIT# 20:03 → ER FS 20:05
DX: M25.511 Pain in right shoulder (principal); M25.512 Pain in left shoulder; Z28.310 Unvaccinated for COVID-19
CPT/HCPCS: 36415; 71045; 80053; 84484; 85025; 93005

== ENCOUNTER 2023-05-02 01:38 | Emergency (ER) | payer MEDICARE, OTHER ==
[~2023-05-02] VITALS: Ht 167.7 cm; Wt 81.2 kg
[2023-05-02] MEDS ORDERED: IOHEXOL 350 MG/ML 100 ML (OMNIPAQUE 350) VIAL IV ONE (02:15)
[2023-05-02] MEDS ORDERED: HOLD METFORMIN - RECEIVED CONTRAST 20 ML VIAL IV SCH (02:15)
[2023-05-02] MEDS ORDERED: CATHETER FLUSH 10 ML SYR IV PRN (02:15)
[2023-05-02] MEDS ORDERED: NS 100 ML (IVPB) BAG IV ONE (02:15)
--- NOTE | 2023-05-02 02:15 | ED Neurological Problem ---
General Chief Complaint: Neuro-Stroke Like Symptoms Stated Complaint: GENERAL Nursing Triage Note: PT TO FS 05 VIA [facility] FROM HOME W C/O LEFT SIDED WEAKNESS AND NUMBNESS SX 1900 YESTERDAY. PT A&O. EMS INITIATED 20G LEFT FS SL PATENT UPON ARRIVAL TO ED. Source: patient, family, EMS Exam Limitations: no limitations History of Present Illness Date Seen by Provider: May 02, 2023 Time Seen by Provider: 01:42 Initial Comments 72-year-old female with past medical history most notable for hypertension and dementia coming in via EMS from home due to left-sided weakness and numbness. She says she has had intermittent symptoms of numbness and weakness throughout her body for the past couple of weeks that gets better rapidly. Around 7 PM tonight, left side of her body began getting numb, and was more weak than usual. She took a total of 6 baby aspirin today, because she states this is helped in the past. Denies taking any blood thinners. Otherwise denies any history of strokes or trauma to her head. Denies any chest pain, shortness of breath, abdominal pain, nausea, vomiting, diarrhea, vision changes, headache, neck stiffness, or any other concerns. Allergies and Home Medications Allergies Coded Allergies: No Known Drug Allergies (Unverified , 03/17/18) Patient Home Medication List Home Medication List Reviewed: Yes Albuterol Sulfate (Ventolin Hfa) 1 Puff Puff, 2 PUFF IH Q4H PRN for WHEEZING, (Reported) Entered as Reported by: JAYE LUTHER on 07/07/17 1224 Alendronate Sodium (Fosamax) 70 Mg Tablet, 70 MG PO WEEK, (Reported) Entered as Reported by: JAYE LUTHER on 07/07/17 1223 Alprazolam (Alprazolam) 0.5 Mg Tablet, 0.5 MG PO TID PRN for ANXIETY, (Reported) Entered as Reported by: RIRI VILLARREAL on 03/17/18 1332 Amlodipine Besylate (Amlodipine Besylate) 10 Mg Tablet, 10 MG PO DAILY, (Reported) Entered as Reported by: RIRI VILLARREAL on 03/17/18 1332 Dextroamphetamine/Amphetamine (Adderall 10 mg Tablet) 10 Mg Tablet, 10 MG PO DAILY, (Reported) Entered as Reported by: JAYE LUTHER on 07/07/17 1223 Duloxetine HCl (Duloxetine HCl) 60 Mg Capsule.dr, 60 MG PO DAILY, (Reported) Entered as Reported by: RIRI VILLARREAL on 03/17/18 1332 Estradiol (Estradiol Tablet) 2 Mg Tablet, 2 MG PO DAILY, (Reported) Entered as Reported by: JAYE LUTHER on 07/07/17 1223 Fluticasone Propionate (Flonase Allergy Relief) 9.9 Ml Beatrice.susp, 1 SPRAY NS DAILY, (Reported) Entered as Reported by: JAYE LUTHER on 07/07/17 1223 Hydrocodone/Acetaminophen ([place] 10-325 Tablet) 1 Each Tablet, 1 EACH PO Q4H PRN for PAIN-MILD TO MODERATE, (Reported) Entered as Reported by: JAYE LUTHER on 07/07/17 1223 Hyoscyamine Sulfate (Levsin) 0.125 Mg Tablet, 1-2 TAB PO Q4H PRN for CRAMPS Prescribed by: JORJE VILLEGAS on 03/22/18 1134 Lisinopril/Hydrochlorothiazide (Lisinopril-Hctz 20-12.5 mg Tab) 1 Each Tablet, 1 EACH PO DAILY, (Reported) Entered as Reported by: JAYE LUTHER on 07/07/17 1223 Lovastatin (Lovastatin) 20 Mg Tablet, 20 MG PO DAILY, (Reported) Entered as Reported by: JAYE LUTHER on 07/07/17 1223 Meclizine HCl (Meclizine HCl) 25 Mg Tablet, 25 MG PO BID PRN for DIZZINESS, (Reported) Entered as Reported by: JAYE LUTHER on 07/07/17 1223 Nitrofurantoin Monohyd/M-Cryst (Macrobid 100 mg Capsule) 100 Mg Capsule, 1 TAB PO BID Prescribed by: JORJE VILLEGAS on 03/22/18 1134 Phenazopyridine HCl (Pyridium) 200 Mg Tablet, 1 TAB PO TID PRN for PAIN-MODERATE Prescribed by: JORJE VILLEGAS on 03/22/18 1134 Rabeprazole Sodium (Aciphex) 20 Mg Tablet.dr, 20 MG PO DAILY, (Reported) Entered as Reported by: JAYE LUTHER on 07/07/17 1223 Ranitidine HCl (Acid Scientist Propagator (RANITIDINE)) 150 Mg Tablet, 150 MG PO TID, (Reported) Entered as Reported by: JAYE LUTHER on 07/07/17 1223 Sulindac (Sulindac) 200 Mg Tablet, 200 MG PO BID, (Reported) Entered as Reported by: JAYE LUTHER on 07/07/17 1223 Tiotropium Br/Olodaterol HCl (Stiolto Respimat Inhal Beatrice) 4 Gm Mist.inhal, 4 GM IH DAILY, (Reported) Entered as Reported by: JAYE LUTHER on 07/07/17 1223 Review of Systems Review of Systems Constitutional: No fever Eyes: No Symptoms Reported Ears, Nose, Mouth, Throat: no symptoms reported Respiratory: no symptoms reported Cardiovascular: no symptoms reported Gastrointestinal: no symptoms reported Genitourinary: no symptoms reported Musculoskeletal: no symptoms reported Skin: no symptoms reported Psychiatric/Neurological: See HPI Past Capyclk-Hsuciq-Xpibmv Hx Patient Social History Tobacco Use?: No Use of E-Cig and/or Vaping dev: No Substance use?: No Alcohol Use?: No Immunizations Up To Date Tetanus Booster (TDap): Unknown PED Vaccines UTD: No Influenza Vaccine Up-to-Date: No; Not Current First/Initial COVID19 Vaccinat: 2020 Second COVID19 Vaccination Santana: NONE Third COVID19 Vaccination Date: NONE COVID19 Vaccine Bus Assistant: REGLA Davis Seasonal Allergies Seasonal Allergies: No Past Medical History Gallbladder, Hysterectomy, Tonsillectomy Asthma Hypertension, Irregular Heartbeat Seizure Disorder Reproductive Disorders: No 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 9.0oz. [id number]; 28.00 BMI Method: General Appearance: WD/WN, no apparent distress HEENT: PERRL/EOMI, normal ENT inspection, pharynx normal Neck: non-tender, full range of motion, supple, normal inspection Respiratory: chest non-tender, lungs clear, normal breath sounds, no respiratory distress, no accessory muscle use Cardiovascular: regular rate, rhythm, no edema, no murmur Gastrointestinal: normal bowel sounds, non tender, soft; No distended, No guarding, No rebound Back: normal inspection, no CVA tenderness, no vertebral tenderness Extremities: normal range of motion, non-tender, normal inspection, no pedal edema, no calf tenderness, normal capillary refill Neurologic/Psychiatric: director environmental II-XII nml as tested, alert, normal mood/affect, oriented x 3 Crainal Nerves: normal hearing, normal speech, PERRL Coordination/Gait: normal finger to nose Motor/Sensory: pronator drift (L), sensory deficit, weak motor strength LLE Skin: normal color, warm/dry Stroke Onset of Symptoms Date of Onset of Symptoms: May 01, 2023 Time of Symptom Onset: 19:00 Onset of Symptoms: Yes NIH Stroke Scale Assessment Select: Initial Level of Consciousness: 0=Alert (0), Level of Consciousness-Questions: 0=Answers both month/age (0), LOC Commands: 0=Performs both tasks (0), Gaze: Normal (0), Visual Reyez: 0=No visual loss (0), Facial Movement (Facial Paresis): 0=Normal symmetrical mnt (0), Motor Function-Arms Right: 0=No drift (0), Motor Function-Arms Left: 1=Drift (1), Motor Function-Legs Right: 0=No drift (0), Motor Function-Legs Left: 1=Drift (1), Limb Ataxia: 1=Present in one limb LUE with some difficulty with finger to nose (1), Sensory: 1=Mild to Moderate loss (1), Best Language: 0=No aphasia (0), Dysarthria: 0=Normal (0), Extinction & Inattention: 0=No abnormality (0), Total: 4 Stroke Thrombolytic Exclusion Age 18 or Over: Yes TPA Contraindication: Yes (more than 4 hours since start of symptoms) IV - TPa Received IV - TPa Procedure Performed?: No Progress/Results/Core Measures Results/Orders Lab Results Laboratory Tests Test 05/02/23 01:44 05/02/23 02:40 Range/Units White Blood Count 11.3 H 4.3-11.0 10^3/uL Red Blood Count 4.28 3.80-5.11 10^6/uL Hemoglobin 12.6 11.5-16.0 g/dL Hematocrit 38 35-52 % Mean Corpuscular Volume 88 80-99 fL Mean Corpuscular Hemoglobin 29 25-34 pg Mean Corpuscular Hemoglobin Concent 33 32-36 g/dL Red Cell Distribution Width 13.2 10.0-14.5 % Platelet Count 417 H 130-400 10^3/uL Mean Platelet Volume 10.5 9.0-12.2 fL Immature Granulocyte % (Auto) 1 % Neutrophils (%) (Auto) 76 H 42-75 % Lymphocytes (%) (Auto) 12 12-44 % Monocytes (%) (Auto) 8 0-12 % Eosinophils (%) (Auto) 3 0-10 % Basophils (%) (Auto) 1 0-10 % Neutrophils # (Auto) 8.6 H 1.8-7.8 10^3/uL Lymphocytes # (Auto) 1.3 1.0-4.0 10^3/uL Monocytes # (Auto) 0.9 0.0-1.0 10^3/uL Eosinophils # (Auto) 0.3 0.0-0.3 10^3/uL Basophils # (Auto) 0.1 0.0-0.1 10^3/uL Immature Granulocyte # (Auto) 0.1 0.0-0.1 10^3/uL Prothrombin Time 13.0 12.2-14.7 SEC INR Comment 0.9 0.8-1.4 Activated Partial Thromboplast Time 30 24-35 SEC Sodium Level 136 135-145 MMOL/L Potassium Level 4.0 3.6-5.0 MMOL/L Chloride Level 101 98-107 MMOL/L Carbon Dioxide Level 22 21-32 MMOL/L Anion Gap 13 5-14 MMOL/L Blood Urea Nitrogen 10 7-18 MG/DL Creatinine 0.64 0.60-1.30 MG/DL Estimat Glomerular Filtration Rate 94 BUN/Creatinine Ratio 16 Glucose Level 125 H 70-105 MG/DL Calcium Level 8.8 8.5-10.1 MG/DL Corrected Calcium 9.1 8.5-10.1 MG/DL Total Bilirubin 0.3 0.1-1.0 MG/DL Aspartate Amino Transf (AST/SGOT) 28 5-34 U/L Alanine Aminotransferase (ALT/SGPT) 21 0-55 U/L Alkaline Phosphatase 73 40-136 U/L Troponin I < 0.30 <0.30 NG/ML Total Protein 6.0 L 6.4-8.2 GM/DL Albumin 3.6 3.2-4.5 GM/DL Urine Color YELLOW Urine Clarity SLIGHTLY CLOUDY Urine pH 6.0 5-9 Urine Specific [place] 1.015 L 1.016-1.022 Urine Protein NEGATIVE NEGATIVE Urine Glucose (UA) NEGATIVE NEGATIVE Urine Ketones NEGATIVE NEGATIVE Urine Nitrite NEGATIVE NEGATIVE Urine Bilirubin NEGATIVE NEGATIVE Urine Urobilinogen 0.2 < = 1.0 MG/DL Urine Leukocyte Esterase NEGATIVE NEGATIVE Urine RBC (Auto) 2+ H NEGATIVE Urine RBC 5-10 H /HPF Urine WBC 10-25 H /HPF Urine Squamous Epithelial Cells 10-25 H /HPF Urine Crystals NONE /LPF Urine Bacteria LARGE H /HPF Urine Casts NONE /LPF Urine Mucus NEGATIVE /LPF Urine Culture Indicated YES My Orders Orders - GOGO GREWAL MD Cbc With Automated Diff (05/02/23 02:03) Protime With Inr (05/02/23 02:03) Partial Thromboplastin Time (05/02/23 02:03) Comprehensive Metabolic Panel (05/02/23 02:03) Troponin I Fs (05/02/23 02:03) Ua Culture If Indicated (05/02/23 02:03) Chest 1 View Ap/Pa Only (05/02/23 02:03) Ekg Tracing (05/02/23 02:03) Accucheck Stat ONCE (05/02/23 02:03) Ed Iv/Invasive Line Start (05/02/23 02:03) Ed Iv/Invasive Line Start (05/02/23 02:03) Vital Signs Stroke Patient Q15M (05/02/23 02:03) O2 (05/02/23 02:03) Intake & Output 06,14,22 (05/02/23 02:03) Monitor-Rhythm Ecg Trace Only (05/02/23 02:03) Dysphagia Screening Tool Q10MX1 (05/02/23 02:03) Ct Angio Head/Neck (05/02/23 02:03) Iohexol Injection (Omnipaque 350 Mg/Ml 1 (05/02/23 02:15) Received Contrast (Hold Metformin- Contr (05/02/23 02:15) Sodium Chloride Flush (Catheter Flush Sy (05/02/23 02:15) Ns (Ivpb) (Sodium Chloride 0.9% Ivpb Bag (05/02/23 02:15) Urine Culture (05/02/23 02:40) Medications Given in ED Current Medications Medications Dose Ordered Sig/Brynn Route Start Time Stop Time Status Last Admin Dose Admin Iohexol 100 ml ONCE ONCE IV 05/02/23 02:15 05/02/23 02:16 DC 05/02/23 02:40 75 ML Sodium Chloride 10 ml NEEDED PRN IV 05/02/23 02:15 05/02/23 02:40 10 ML Sodium Chloride 100 ml ONCE ONCE IV 05/02/23 02:15 05/02/23 02:16 DC 05/02/23 02:40 100 ML Vital Signs/I&O 05/02/23 01:40 Temp 36.6 Pulse 93 Resp 20 B/P (MAP) 142/89 (106) Pulse Ox 95 O2 Delivery Room Air Blood Pressure Mean: 106 FSBG Bedside Testing Finger Stick Blood Glucose: 150 Progress Progress Note : Progress Note 72-year-old female with above history coming in due to left-sided weakness and numbness. ABCs were intact and vitals were stable on presentation. Physical exam with an NIH of 4 due to drift in her left upper and lower extremity as well as loss of sensation moderately on her left upper and lower extremity. She does have some potential ataxia with her left upper extremity with her [id number], difficult to tell with her weakness. Glucose was 150. EKG on my interpretation showing sinus rhythm with no acute ischemic changes. An IV was placed and basic labs were obtained and were significant for normal creatinine, normal white blood cell count, negative troponin. Chest x-ray ordered and interpreted by me showing no obvious pneumonia. CT head and CTA head and neck ordered and on my interpretation I do not see any obvious intracranial hemorrhage. I discussed the case with the overnight stat rad radiologist, CT head negative, CTA head negative, CTA head neck with 60% luminal narrowing of the right ICA. I contacted the stroke neurologist at [facility], Dr. Garcia. He states that there is no large vessel occlusion, he would recommend loading with Plavix 300 mg now followed by 75 mg daily. He also recommends an echo and an MRI being admitted to the hospital. Unfortunately we do not have any MedSurg beds available tonight, and patient is threatening to leave AGAINST MEDICAL ADVICE because she wants to go to [facility]. I contacted again, and they are willing to admit her to the telemetry unit. Transport is not available right now in our [place], all helicopter crew was denied due to weather, and the patient's son is willing to drive her. If we wait for potential transport via our EMS or helicopter, she likely will not be up to [facility] until roughly 10 in the morning. If we have her son come pick her up, she would be able to be to [facility] by likely just after 6 AM. The patient will be a tier 2 stroke alert at [facility], and timing is critical, I believe it is most prudent to have her go with her son to get her there sooner so that she could potentially have intervention sooner if needed. Also, given she is not requiring any medication drips, vitals have been unremarkable, and she has been stable since arrival with no changes, I think this is the most reasonable option. Additionally, the patient was again stating she was going to leave AGAINST MEDICAL ADVICE if we did not let her son take her. I think the best thing for this patient in this moment would be to allow this so that she will get the care that she needs. Initial ECG Impression Date: May 02, 2023 Initial ECG Impression Time: 02:45 Initial ECG Rate: 83 Initial ECG Rhythm: Normal Sinus Comment Narrow QRS, normal axis, no significant ST changes or T wave abnormalities Diagnostic Imaging Diagonstic Imaging: Xray (chest), CT (head, CTA head and neck) Comments Stat rad read reviewed by me showing a CT head with no acute findings, CT angio head with no acute findings, CT angio neck with 60% luminal narrowing of the right ICA. Departure Impression Primary Impression: Ischemic stroke Disposition: 02 XFER SHT-TRM HOSP Condition: Stable Admissions Decision to Admit/Date: May 02, 2023 Time/Decision to Admit Time: 03:15 Transfer Transfer Reason: Exceeds level of care (no med surg beds at our facility tonight, also patient stating she will only go to [facility] otherwise will leave AMA) Time Spoke to Accepting Phy: 03:20 Transfer Progress Notes Spoke with the stroke neurologist Dr. Garcia who accepted the patient for transfer. [facility] unable to transport for several hours. [employer] unable to fly due to weather/fog predictions. Due to concern for delay in a time sensitive issue with her ischemic stroke, the fastest way the patient will be able to get up there will be via her son taking her private vehicle. Transfer Facility: [facility] Method of Transfer: Private Vehicle Departure-Patient Inst. Referrals: SELF,WILL LAI (PCP/Family) Primary Care Physician GOGO GREWAL MD May 02, 2023 02:15
[2023-05-02 02:32] LABS: BASOPHILS # (AUTO) 0.1 10^3/uL (0.0-0.1); BASOPHILS % (AUTO) 1 % (0-10); EOSINOPHILS # (AUTO) 0.3 10^3/uL (0.0-0.3); EOSINOPHILS % (AUTO) 3 % (0-10); HEMATOCRIT 38 % (35-52); HEMOGLOBIN 12.6 g/dL (11.5-16.0); LYMPHOCYTES # (AUTO) 1.3 10^3/uL (1.0-4.0); LYMPHOCYTES % (AUTO) 12 % (12-44); MEAN CORPUSCULAR HEMOGLOBIN 29 pg (25-34); MEAN CORPUSCULAR HGB CONC 33 g/dL (32-36); MEAN CORPUSCULAR VOLUME 88 fL (80-99); MEAN PLATELET VOLUME 10.5 fL (9.0-12.2); MONOCYTES # (AUTO) 0.9 10^3/uL (0.0-1.0); MONOCYTES % (AUTO) 8 % (0-12); NEUTROPHILS # (AUTO) 8.6 10^3/uL (1.8-7.8); NEUTROPHILS % (AUTO) 76 % (42-75); PLATELET COUNT 417 10^3/uL (130-400); WHITE BLOOD COUNT 11.3 10^3/uL (4.3-11.0)
[2023-05-02 02:50] LABS: INR 0.9 (0.8-1.4)
[2023-05-02 02:53] LABS: BILIRUBIN,URINE NEGATIVE (NEGATIVE); COLOR,URINE YELLOW; GLUCOSE, URINE (UA) NEGATIVE (NEGATIVE); KETONES,URINE NEGATIVE (NEGATIVE); LEUKOCYTE ESTERASE ,URINE NEGATIVE (NEGATIVE); NITRITE,URINE NEGATIVE (NEGATIVE); PROTEIN,URINE NEGATIVE (NEGATIVE)
[2023-05-02 02:56] LABS: BACTERIA,URINE LARGE /HPF; CLARITY,URINE SLIGHTLY CLOUDY
[2023-05-02 02:58] LABS: ALANINE AMINOTRANSFERASE 21 U/L (0-55); ALKALINE PHOSPHATASE 73 U/L (40-136); BILIRUBIN,TOTAL 0.3 MG/DL (0.1-1.0); BUN/CREATININE RATIO 16; CALCIUM 8.8 MG/DL (8.5-10.1); CARBON DIOXIDE 22 MMOL/L (21-32); CHLORIDE 101 MMOL/L (98-107); CREATININE SERUM 0.64 MG/DL (0.60-1.30); GFR ESTIMATED 94; GLUCOSE 125 MG/DL (70-105); SODIUM 136 MMOL/L (135-145)
[2023-05-02 02:59] LABS: ALBUMIN 3.6 GM/DL (3.2-4.5)
[2023-05-02 04:48] VITALS: BP 118/76
--- NOTE | 2023-05-02 06:46 | Diagnostic Imaging Report ---
PROCEDURE: CT angiography of the head and CT angiography of the neck with and without contrast. TECHNIQUE: Contiguous noncontrast images were obtained from the skull base through the vertex. After intravenous contrast administration, helical CT angiography of the neck was performed. Source data was reformatted into 3D MIP projections. Delayed post contrast acquisition was also obtained. Auto Exposure Controls were utilized during the CT exam to meet ALARA standards for radiation dose reduction. INDICATION: Left-sided weakness and numbness. Precontrast portions of the brain does show the ventricles and sulci to be within normal limits. No sulcal effacement or midline shift is identified. No acute intra-axial or extra-axial hemorrhage is detected. Cisterns are patent. The visualized paranasal sinuses are clear. No abnormal enhancement is identified on the delayed postcontrast imaging. CT angiographic portion of the study demonstrates a three-vessel branching pattern to the aortic arch. Common carotid arteries are patent. There is a large amount of plaque at the right carotid bifurcation and proximal right ICA approximately 60% narrowing of the proximal right ICA. Distal right internal carotid artery is moderately tortuous but patent. Left ICA is widely patent. The left vertebral artery is dominant. Right vertebral artery is very small. Basilar artery is patent. Right and left posterior cerebral arteries are patent. Right and left middle cerebral arteries are widely patent. No large vessel occlusion or thromboembolism is identified. Right and left anterior cerebral arteries are widely patent. IMPRESSION: 1. No evidence of thromboembolism or large vessel occlusion. 2. Moderate calcified plaque at the right carotid bifurcation and proximal right ICA producing approximately 60% diameter stenosis of the proximal right ICA. Dictated by: Dictated on workstation # [id number]
--- NOTE | 2023-05-02 07:54 | Diagnostic Imaging Report ---
Indication: Stroke. Time of Exam: 2:43 AM Correlation is made with prior chest 11/24/2022. Heart size normal. Calcific granuloma right lower lobe is noted. Lungs are clear of acute infiltrates. There is no effusion or pneumothorax. IMPRESSION: No acute cardiopulmonary process is detected. Dictated by: Dictated on workstation # [id number]
== END 2023-05-02 04:48 | disposition short-term general hospital (02) ==
LOC: EDUNIT# 01:38 → ER FS 01:40
DX: I63.9 Cerebral infarction, unspecified (principal); G81.94 Hemiplegia, unspecified affecting left nondominant side; R27.0 Ataxia, unspecified; I10 Essential (primary) hypertension; R29.704 NIHSS score 4; I65.21 Occlusion and stenosis of right carotid artery; Z28.311 Partially vaccinated for COVID-19
CPT/HCPCS: 36415; 70496; 70498; 71045; 80053; 81000; 84484; 85025; 85610; 85730; 87088; 93005; 93041

== ENCOUNTER 2023-05-05 10:46 | Inpatient (IN) | payer MEDICARE, OTHER ==
[~2023-05-05] VITALS: Ht 167 cm; Wt 77.6 kg
--- NOTE | 2023-05-05 12:21 | PM&R Post Admission Assessment ---
PM&R Date of Visit: May 05, 2023 Time of Visit: 16:00 History of Present Illness Chief complaint: Debility from CVA HPI: This is a 72-year-old female clinic patient of Dr. Olvera who presented from following an acute ischemic stroke of the right thalamus due to small vessel occlusion. She remained on telemetry to monitor for any arrhythmia. She continues to have left-sided weakness and numbness. She has a past medical history of a CVA and hypertension and a stomach ulcer. Currently she is able to walk 25 feet with a 4 wheeled walker and prior level of functioning was living home alone with no assistive devices. I have restarted all of her medications from . Her son and grandson are at the bedside. She does have irritable bowel syndrome and she has been having a diarrhea episode. Imodium will be maintained. Past Tsnwfex-Dvitzn-Rikchk Hx Past Med/Social Hx: Reviewed Nursing Past Med/Soc Hx, Reviewed and Corrections made Patient Social History Marrital Status: Employed/Student: retired Alcohol Use: Denies Use Smoking Status: Former Smoker Recent Hopitalizations: No Immunizations Up To Date Tetanus Booster (TDap): Unknown Pediatric: No Date of Pneumonia Vaccine: Sep 06, 2017 Date of Influenza Vaccine: Sep 06, 2017 Seasonal Allergies Seasonal Allergies: No Past Medical History Surgeries: Gallbladder, Hysterectomy, Tonsillectomy Cardiac: Hypertension, Irregular Heartbeat Neurological: Seizure Disorder, Stroke Reproductive: No Sexually Transmitted Disease: No HIV/AIDS: No Hysterectomy Genitourinary: UTI-Chronic Gastrointestinal: Gastroesophageal Reflux, Chronic Constipation, Chronic Diarrhea, Polyps, Ulcer Musculoskeletal: Arthritis, Chronic Back Pain Loss of Vision: Bilateral Hearing Impairment: Denies Psychosocial: Anxiety, Depression Adverse Reaction to Blood Hernandez: No (N/A) Family History No Pertinent Family Hx PM&R Allergy/Meds/Data Review Allergies Coded Allergies: No Known Drug Allergies (Unverified , 03/17/18) Home Medications Scheduled Amlodipine Besylate (Amlodipine Besylate), 5 MG PO DAILY, (Reported) Aspirin (Aspirin EC), 81 MG PO DAILY W/FOOD, (Reported) Atorvastatin Calcium (Atorvastatin Calcium), 40 MG PO DAILY, (Reported) Bupropion HCl (Bupropion HCl), 37.5 MG PO DAILY, (Reported) Calcium Carbonate (Calcium), 500 MG PO DAILY, (Reported) Cetirizine HCl (Cetirizine HCl), 10 MG PO DAILY, (Reported) Cholecalciferol (Vitamin D3) (Vitamin D3), 50 MCG PO DAILY, (Reported) Clopidogrel Bisulfate (Plavix), 75 MG PO DAILY, (Reported) Cyanocobalamin (Cyanocobalamin Injection), 1,000 MCG IM MONTHLY, (Reported) Diclofenac Sodium (Diclofenac Sodium), 2-4 GM TP QID, (Reported) Donepezil HCl (Donepezil HCl), 10 MG PO HS, (Reported) Duloxetine HCl (Duloxetine HCl), 60 MG PO DAILY, (Reported) Duloxetine HCl (Duloxetine HCl), 30 MG PO DAILY, (Reported) Estrogens, Conjugated (Premarin), 0.625 MG PO DAILY, (Reported) Famotidine (Famotidine), 20 MG PO HS, (Reported) Fluticasone Propionate (Fluticasone Propionate), 1 SPRAY NSEACH DAILY, (Reported) Gabapentin (Gabapentin), 200 MG PO Q8H, (Reported) Lidocaine (Lidocaine 5% Patch), 1 EACH TD DAILY, (Reported) Lisinopril (Lisinopril), 20 MG PO DAILY, (Reported) Potassium Gluconate (Potassium), 99 MG PO DAILY, (Reported) Quinine Sulfate (Quinine Sulfate), 324 MG PO HS, (Reported) Rabeprazole Sodium (Rabeprazole Sodium), 20 MG PO DAILY, (Reported) Sulindac (Sulindac), 200 MG PO Q12H, (Reported) Tiotropium Br/Olodaterol HCl (Stiolto Respimat Inhal [place]), 2 PUFF IH DAILY, (Reported) Vibegron (Gemtesa), 75 MG PO DAILY, (Reported) Scheduled PRN Acetaminophen (Tylenol 8 Hour), 1,850 MG PO Q4H PRN for PAIN-MILD (1-4), (R eported) Artificial Tears (Artificial Tears), 1-2 DROPS OU UD PRN for DRY EYES, (Reported) Cyclobenzaprine HCl (Cyclobenzaprine HCl), 10 MG PO DAILY PRN for MUSCLE CRAMPS, (Reported) Loperamide HCl (Anti-Diarrheal), 2 MG PO UD PRN for DIARRHEA, (Reported) Nitroglycerin (Nitroglycerin), 0.4 MG SL UD PRN for CHEST PAIN, (Reported) Ondansetron HCl (Ondansetron HCl), 4 MG PO Q8H PRN for NAUSEA/VOMITING-1ST LINE, (Reported) Tramadol HCl (Tramadol HCl), 150 MG PO Q8H PRN for PAIN-MODERATE (5-7), (Reported) Discontinued Medications Albuterol Sulfate (Ventolin Hfa), 2 PUFF IH Q4H PRN for WHEEZING, (Reported) Discontinued Reason: No Longer Taking Alendronate Sodium (Fosamax), 70 MG PO WEEK, (Reported) Discontinued Reason: No Longer Taking Alprazolam (Alprazolam), 0.5 MG PO TID PRN for ANXIETY, (Reported) Discontinued Reason: No Longer Taking Amlodipine Besylate (Amlodipine Besylate), 10 MG PO DAILY, (Reported) Discontinued Reason: No Longer Taking Dextroamphetamine/Amphetamine (Adderall 10 mg Tablet), 10 MG PO DAILY, (Reported) Discontinued Reason: No Longer Taking Estradiol (Estradiol Tablet), 2 MG PO DAILY, (Reported) Discontinued Reason: No Longer Taking Fluticasone Propionate (Flonase Allergy Relief), 1 SPRAY NS DAILY, (Reported) Discontinued Reason: No Longer Taking Hydrocodone/Acetaminophen (Walling 10-325 Tablet), 1 EACH PO Q4H PRN for PAIN-MILD TO MODERATE, (Reported) Discontinued Reason: No Longer Taking Hyoscyamine Sulfate (Levsin), 1-2 TAB PO Q4H PRN for CRAMPS Discontinued Reason: No Longer Taking Lisinopril/Hydrochlorothiazide (Lisinopril-Hctz 20-12.5 mg Tab), 1 EACH PO DAILY, (Reported) Discontinued Reason: No Longer Taking Lovastatin (Lovastatin), 20 MG PO DAILY, (Reported) Discontinued Reason: No Longer Taking Meclizine HCl (Meclizine HCl), 25 MG PO BID PRN for DIZZINESS, (Reported) Discontinued Reason: No Longer Taking Nitrofurantoin Monohyd/M-Cryst (Macrobid 100 mg Capsule), 1 TAB PO BID Discontinued Reason: No Longer Taking Phenazopyridine HCl (Pyridium), 1 TAB PO TID PRN for PAIN-MODERATE Discontinued Reason: No Longer Taking Rabeprazole Sodium (Aciphex), 20 MG PO DAILY, (Reported) Discontinued Reason: No Longer Taking Ranitidine HCl (Acid Manager Administration (RANITIDINE)), 150 MG PO TID, (Reported) Discontinued Reason: No Longer Taking Current Medications Current Medications Reviewed Review of Systems Constitutional: see HPI, malaise, weakness EENTM: no symptoms reported Respiratory: no symptoms reported, dyspnea on exertion Cardiovascular: no symptoms reported Gastrointestinal: diarrhea Genitourinary: no symptoms reported Musculoskeletal: no symptoms reported Skin: no symptoms reported Psychiatric/Neurological: Anxiety, Numbness, Tremors, Weakness All Other Systems Reviewed Negative Unless Noted: Yes Physical Exam Physical Exam Vital Signs Capillary Refill : Height, Weight, BMI Height: 5'6.00" Weight: 170lbs. 9.0oz. 77.617089pv; 28.00 BMI Method: General Appearance: No Apparent Distress, WD/WN, Chronically ill Eyes: Bilateral Eye Normal Inspection, Bilateral Eye PERRL HEENT: PERRL/EOMI, Normal ENT Inspection, Pharynx Normal Neck: Full Range of Motion, Normal Inspection, Non Tender, Supple, Carotid Bruit Respiratory: Chest Non Tender, Lungs Clear, Normal Breath Sounds, No Accessory Muscle Use, No Respiratory Distress Cardiovascular: Regular Rate, Rhythm, No Edema, No Gallop, No JVD, No Murmur, Normal Peripheral Pulses Gastrointestinal: Normal Bowel Sounds, No Organomegaly, No Pulsatile Mass, Non Tender, Soft Back: Normal Inspection, No CVA Tenderness, No Vertebral Tenderness Extremity: Normal Capillary Refill, Normal Inspection, Normal Range of Motion, Non Tender, No Calf Tenderness, No Pedal Edema Neurologic/Psychiatric: Alert, Oriented x3, Normal Mood/Affect, 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 professor 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 Norm as Tested, Abnormal Gait, Depressed Affect, Motor Weakness (Left-sided weakness 3/5 upper and lower extremities) Skin: Normal Color, Warm/Dry Lymphatic: No Adenopathy PM&R Medical Assessment & Plan REHAB/MEDICAL ASSESSMENT AND PLAN: REHAB IMPAIRMENT GROUP: CVA ETIOLOGIC DIAGNOSIS: CVA The comorbidities that impact the patients function and/or functional outcome by: hypertension, bladder cancer, history of CVA, left-sided weakness REHAB PLAN: The patient is being admitted to our comprehensive inpatient rehabilitation facility and can tolerate the intensity of service consisting of at least: 180 minutes of therapy a day, 5 out of 7 days a week Rehab treatment will consist of: PT and OT will focus on use of assistive devices in order to increase stamina with ambulation and increase independence in ADLs The patient/family has a good understanding of our discharge process and will benefit from an interdisciplinary inpatient rehabilitation program. The patient has potential to make improvement and is in need of at least two of the following multidisciplinary therapies including but not limited to physical, occupational, speech, and prosthetics and orthotics. Additionally the patient will need services from respiratory, nutritional services, wound care, psychology, etc. (Customize this to each patient). Given the patients complex condition and risk of further medical complications, rehabilitation services cannot be safely or effectively provided at a lower level of care such as a group home facility. BARRIERS TO DISCHARGE: lives alone ESTIMATED LOS: 7 days DISPOSITION: home RELEVANT CHANGES SINCE PREADMISSION SCREENING: I have compared the patients medical and functional status at the time of the preadmission screening and there are: no changes PROGNOSIS: good good REHABILITATION GOALS: 1. PT and OT will focus on use of assistive devices in order to increase stamina with ambulation and increase independence in ADLs All the above goals were reviewed with the patient and he/she is in agreement. By signing this document, I acknowledge that I have personally performed a full physical examination on this patient within 24 hours of admission to this [facility] rehabilitation facility and have determined the patient to be able to tolerate the above course of treatment at an intensive level for a reasonable period of time. I will be completing a detailed individualized Plan of Care for this patient by day #4 of the patients stay based upon the Preadmission Screen, the Post-Admission Evaluation, and the therapy evaluations. Admission Dx/Comorbidities: (1) Ischemic stroke Status: Acute ICD Codes: I63.9 - Cerebral infarction, unspecified Assessment/Plan Assessment and Plan Assess & Plan/Chief Complaint Assessment: CVA with left-sided weakness History of CVA Hypertension Bladder cancer Stomach ulcer history Irritable bowel syndrome Plan: Supportive care Blood pressure Imodium PT and OT JOHN AGUIRRE DO May 05, 2023 12:21
[2023-05-05] MEDS ORDERED: CALCIUM CARBONATE 500 MG (TUMS) TAB.CHEW PO PRN (12:30)
[2023-05-05] MEDS ORDERED: diphenhydrAMINE 25 MG TAB (BENADRYL) PO PRN (12:30)
[2023-05-05] MEDS ORDERED: ONDANSETRON 4 MG (ZOFRAN) ORAL DISSOLVE TAB PO PRN ×2 (12:30→18:15)
[2023-05-05] MEDS ORDERED: FLEET ENEMA ADULT 1 EA BTL PR PRN (12:30)
[2023-05-05] MEDS ORDERED: DOCUSATE SODIUM 100 MG (COLACE) CAP PO PRN (12:30)
[2023-05-05] MEDS ORDERED: LACTULOSE SYRUP 10GM/15ML (ENULOSE) 30ML UDC PO PRN (12:30)
[2023-05-05] MEDS ORDERED: ACETAMINOPHEN 325 MG TABLET PO PRN (12:30)
[2023-05-05] MEDS ORDERED: LOPERAMIDE 2 MG (IMODIUM) TABLET PO PRN ×2 (12:30→17:30)
[2023-05-05] MEDS ORDERED: ALPRAZolam 0.25 MG (XANAX) TAB PO PRN (12:30)
[2023-05-05] MEDS ORDERED: guaiFENesin/CODEINE (ROBITUSSIN AC) 10ML UDC PO PRN (12:30)
[2023-05-05] MEDS ORDERED: BISACODYL 10 MG SUPP (DULCOLAX) PR PRN (12:30)
[2023-05-05] MEDS ORDERED: RABE20TA30 PO (14:16)
[2023-05-05] MEDS ORDERED: LOPE2CAP14 PO (14:16)
[2023-05-05] MEDS ORDERED: POLY15DR27 OU (14:16)
[2023-05-05] MEDS ORDERED: ESTR0.62 PO (14:16)
[2023-05-05] MEDS ORDERED: VIBE75TA PO (14:16)
[2023-05-05] MEDS ORDERED: TRM50T PO (14:16)
[2023-05-05] MEDS ORDERED: DICL100G13 TP (14:16)
[2023-05-05] MEDS ORDERED: CLOP-31 PO (14:16)
[2023-05-05] MEDS ORDERED: CYCL10TA25 PO (14:16)
[2023-05-05] MEDS ORDERED: ATOR40TA70 PO (14:16)
[2023-05-05] MEDS ORDERED: ASPI-1238 PO (14:16)
[2023-05-05] MEDS ORDERED: QUIN324C4 PO (14:16)
[2023-05-05] MEDS ORDERED: DONE10TA41 PO (14:16)
[2023-05-05] MEDS ORDERED: CHOL20003 PO (14:16)
[2023-05-05] MEDS ORDERED: LISI20TA26 PO (14:16)
[2023-05-05] MEDS ORDERED: FLUT16SP22 NSEACH (14:16)
[2023-05-05] MEDS ORDERED: BUPR-168 PO (14:16)
[2023-05-05] MEDS ORDERED: CETI10TA17 PO (14:16)
[2023-05-05] MEDS ORDERED: CALC-823 PO (14:16)
[2023-05-05] MEDS ORDERED: AMLO-250 PO (14:16)
[2023-05-05] MEDS ORDERED: GABA-486 PO (14:16)
[2023-05-05] MEDS ORDERED: NITR0.4T39 SL (14:16)
[2023-05-05] MEDS ORDERED: ACET-2840 PO (14:16)
[2023-05-05] MEDS ORDERED: LIDO700A45 TD (14:16)
[2023-05-05] MEDS ORDERED: FAMO20TA5 PO (14:16)
[2023-05-05] MEDS ORDERED: ONDA-105 PO (14:16)
[2023-05-05] MEDS ORDERED: CNC1KV IM (14:16)
[2023-05-05 15:30] VITALS: BP 151/76
[2023-05-05] MEDS ORDERED: POTA99TA26 PO (15:51)
[2023-05-05] MEDS ORDERED: DULO30CA49 PO (15:51)
--- OUTSIDE RECORDS SUMMARY | 2023-05-05 16:16 | XMS REPORT | Clinical Summary ---
Author Author [facility] Organization [facility] Address Unknown Phone Unavailable Care Team Providers Care Marketing Intern Name Role Phone Marquise Goode MD PCP Allergies No known active allergies Medications End Date Status Medication Sig Dispensed Refills Start Date Active NAPROXEN/ESOMEPRAZOLE MAG Take by mouth 0 (VIMOVO ORAL) 2 (two) times a day. Active amLODIPine (NORVASC) 5 MG Take 5 mg by 0 tablet mouth daily. Active DULoxetine (CYMBALTA) 60 Take 60 mg by 0 MG capsule mouth daily. Active dextroamphetamine-ampheta Take 10 mg by 0 mine (ADDERALL) 10 mg mouth daily. tablet Active oxybutynin (DITROPAN-XL) Take 10 mg by 0 10 MG 24 hr tablet mouth daily. Active cetirizine (ZYRTEC) 10 MG Take 10 mg by 0 tablet mouth as needed. Active ALPRAZolam (XANAX) 0.25 Take 0.5 mg 0 MG tablet by mouth 3 (three) times a day. Active citalopram (CELEXA) 20 MG Take 20 mg by 0 tablet mouth daily. Active GLYCOPYRROLATE (ROBINUL Take by 0 ORAL) mouth. Active lovastatin (MEVACOR) 20 Take 20 mg by 0 MG tablet mouth nightly. Active estradiol (ESTRACE) 2 MG Take 4 mg by 0 tablet mouth daily. Active MECLIZINE HCL (MOTION Take 25 mg by 0 RELIEF, MECLIZINE, ORAL) mouth 2 (two) times a day. Active ranitidine (ZANTAC) 150 Take 150 mg 0 MG tablet by mouth 2 (two) times a day. Active BUDESONIDE/FORMOTEROL Inhale as 0 FUMARATE (SYMBICORT INHL) needed. Active ALBUTEROL, REFILL, INHL Inhale. 0 Active lisinopril-hydrochlorothi Take by mouth 0 azide (ZESTORETIC daily. 09/02.5) combination tablet Active RABEPRAZOLE SODIUM Take by 0 (ACIPHEX ORAL) mouth. Active cyclobenzaprine Take 10 mg by 0 (FLEXERIL) 10 MG tablet mouth 3 (three) times a day as needed for muscle spasms. Active HYDROcodone-acetaminophen Take 2 40 tablet 0 (NORCO) 10-325 mg per tablets by 6 tablet mouth every 6 (six) hours as needed for pain. Active cyclobenzaprine Take 1 tablet 30 tablet 0 08/14/20 1 (FLEXERIL) 10 MG (10 mg total) 6 tabletIndications: Back by mouth 3 pain, unspecified back (three) times location, unspecified a day as back pain laterality, needed for unspecified chronicity muscle spasms. Active Problems Problem Noted Date Diagnosed Date Hiatal hernia 08/11/2016 Emesis 07/10/2016 Dysphagia 07/10/2016 Family History Medical History Relation Name Comments Diabetes Brother Heart disease Brother Diabetes Mother Heart disease Mother Diabetes Son Relation Name Status Comments Brother Mother Son Social History Date Tobacco Use Types Packs/Day Years Used Smoking Tobacco: Never Smokeless Tobacco: Never Comments Alcohol Use Standard Drinks/Week No 0 (1 standard drink = 0.6 o z pure alcohol) Date Recorded Sex and Gender Information Value Sex Assigned at Not on file Gender Identity Not on file Sexual Orientation Not on file Last Filed Vital Signs Reading Time Taken Comments Vital Sign 123/80 08/25/2016 11:03 AM CDT Blood Pressure 93 08/25/2016 11:03 AM CDT Pulse 36.6 C (97.8 F) 08/13/2016 1:04 PM CDT Temperature 18 08/13/2016 1:04 PM CDT Respiratory Rate 96% 08/13/2016 1:04 PM CDT Oxygen Saturation - - Inhaled Oxygen Concentration 79.4 kg (175 lb) 08/25/2016 11:03 AM CDT Weight 167.6 cm (5' 6") 08/25/2016 11:03 AM CDT Height 28.25 08/25/2016 11:03 AM CDT Body Mass Index Plan of Treatment Health Maintenance Due Date Last Done Comments Td/Tdap# 1950 Zoster Vaccine# (1 of 2) 2000 Fall Risk Assessment # 2015 Pneumococcal Vaccine: 65+ 2015 Years (1 - PCV) Influenza Vaccine (Season 08/22/2023 Ended) Medical Devices Device Identifier Shelf Expiration Date Model / Serial / L ot Implanted Type Area Manufactur er 02/19/2018 [id number] / [id number] Implant Graft Recon Tissue Matrix Non-Tissue N/A: Abdomen LIFE CELL Strattice Pliable 6cm X 8cm Porcine Implant [id number] - [id number] Implanted: Qty: 1 on 08/11/2016 by Gregg Pabon MD at [facility] Results Not on filefrom Last 3 Months Insurance Type Payer Benefit Subscriber ID Effective Phone Address Plan / Dates Group Medicare RAILROAD MEDICARE RAILROAD [id number] 2015-P [phone] [address]ARE [address] [address] [place] [address] COMMERCIAL-NONCONTRACTED [facility] [place] [id number] 2015-P [phone] [address] [place] [address] Advance Directives For more information, please contact: [phone] Date Inactivated Comments Code Status Date Activated 08/13/2016 6:15 PM Full Code 08/11/2016 6:56 PM Care Teams Start Date End Date Marketing Intern Relationship Specialty 12/20/15 Marquise Goode MD PCP - General Family Medicine [address] [place] [id number]
--- OUTSIDE RECORDS SUMMARY | 2023-05-05 16:17 | XMS REPORT ---
Author Author [facility] Address Unknown Phone Unavailable Care Team Providers Care Monogram And Letter Paster Name Role Phone WILL CASIANO Unavailable PROBLEMS Type Condition ICD9-CM Code QVD34-LP Code Onset Dates Condition S tatus W/U Status Risk SNOMED Code Notes Problem Mixed hyperlipidemia E78.2 confirmed 540942784 Problem Nocturnal leg cramps G47.62 confirmed 440782289 Problem Anxiety F41.9 confirmed 13505931 Problem Essential hypertension I10 confirmed 54869684 Problem Arthritis M19.90 confirmed 4262116 Problem Coronary artery disease with angina pectoris, unspecified vessel or lesion type, unspecified whether [place] or transplanted heart I25.1 19 confirmed 904337680 Problem Primary osteoarthritis of left hip M16.12 confirmed [id number] Problem Primary insomnia F51.01 confirmed 397 2004 Problem History of bladder cancer Z85.51 confirmed 188915717 Problem Tension headache G44.209 confirmed 39 0945394 Problem Mild intermittent asthma without complication J45.20 confirmed 277371544 Problem Mild asthma with exacerbation, unspecified whether per sistent J45.901 confirmed 300328044 Problem Arthritis of shoulder region, right M19.011 confirmed [id number] Problem COPD exacerbation J44.1 confirmed 19 7705422 Problem Hypoglycemia E16.2 confirmed 5602794 03 Problem Major depressive disorder, s dimitrios episode, 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 confirmed 74388722 Problem Bulging lumbar disc M51.36 confirmed 834797161 Problem Irritable bowel syndrome with diarrhea K58.0 confirmed 346895957 Problem Overactive bladder N32.81 confirmed 7 [id number] ALLERGIES No Known Allergies ENCOUNTERS from 1950 to 2023-03-27 Encounter Location Date Provider Diagnosis [facility] [place] [facility] [address] [facility] [id number] [place] [address] March, WILL SELF IMMUNIZATIONS Vaccine Route Administration Date Status prevnar pcv 13 (history) Unknown Sep 07, 2017 Adminis tered COVID-19 Moderna (history) Unknown February 04, 2021 Admin istered influenza (history) Unknown Aug 26, 2020 Administered SOCIAL HISTORY Sex Assigned At : Social History Observation Description Sex Assigned At Female PHQ2 Question Answer Notes In the last 2 weeks, how often have you had little interest or pleasure in doing things? Nearly every day In the last 2 weeks, how often have you been feeling down, depressed, or hopeless? Nearly every day Total PHQ2 Score 6 REASON FOR REFERRAL No Information VITAL SIGNS No information MEDICATIONS Medication SIG (Take, Route, Frequency, Duration) Notes Start Da te End Date Status Sulindac 200 MG TAKE ONE TABLET BY MOUTH TWICE A DAY WITH FOOD for 90 Active Cyclobenzaprine HCl 10 MG TAKE ONE HALF (1/2) TO ONE ( 1) TABLET BY MOUTH DAILY NEEDED for 30 days Active Magnesium 500 MG 1 tablet with a meal Orally Once a day Active RABEprazole Sodium 20 MG 1 tablet Orally Once a day Active traMADol HCl 50 MG 2 tablet as needed Orally 3 times a day Active Famotidine 20 MG TAKE ONE TABLET BY MOUTH EVERY NIGHT AT BEDTIME for 90 days Active Benzonatate 200 MG 1 capsule Orally Three times a day for 7 days May cause drowsiness, use caution when driving. Dec, Ac tive buPROPion HCl 75 MG TAKE 1/2 TABLET BY MOUTH DAILY for 90 Active DULoxetine HCl 60 MG 1 capsule Orally Twice a day for 90 days Active Aspirin 81 81 MG 1 tablet Orally every other day Active DULoxetine HCl 30 MG TAKE ONE (1) CAPSULE BY MOUTH ONCE DAILY for 90 Active Diphenoxylate-Atropine 2.5-0.025 MG 2 tablets Orally F our times a day for 3 days PRN Oct, Active Ondansetron HCl 4 MG 1 tablet as needed Orally every 6 hours for 7 da ys PRN Active quiNINE Sulfate 324 MG 1 capsules with food Orally at bedtime as needed for 90 days Active Xanax 0.5 MG 1 tablet Orally Twice a day for 28 days 10 Ap r, 2023 Active Diclofenac Sodium 1 % 2-4 grams Transdermal Four times a day for 30 day(s) Jan, Active Sucralfate 1 GM 1/2 tablet Orally 4 times a day for 30 day(s) Active amLODIPine Besylate 5 MG 1 tablet Orally Once a day for 90 days Active Nitroglycerin 0.4 MG as directed Sublingual Once a day for 30 da ys PRN Dec, Active Aricept 5 MG 1 tablet at bedtime Orally Once a day Active Stiolto Respimat 2.5-2.5 MCG/ACT 2 puffs Inhalation Once a day f or 90 days Dec, Active Fluticasone Propionate 50 MCG/ACT SPRAY ONE SPRAY IN E ACH NOSTRIL ONCE DAILY for 60 Active Meclizine HCl 25 MG 1 tablet as needed Orally 3 times a day Active Albuterol Sulfate (2.5 MG/3ML) 0.083% 3 mL as needed I nhalation every 6 hrs for 5 days Dec, Active Gabapentin 300 MG 1 capsule Orally 3 times a day for 30 da ys put on hold, pt will call when ready for refill Active Glucocard Expression Monitor w/Device as directed once daily as needed for 3 days Asset Tag [id number] Oct, Active Gemtesa 75 MG TAKE 1 TABLET BY MOUTH ONCE DAILY for 30 Active Lasix 20 MG 0.5-1 tablet as needed Orally Once a day for 30 days PRN Sep, Active Lovastatin 20 MG 1 tablet with the evening meal Orally Once a day Active PROCEDURES No Information RESULTS No Results REASON FOR VISIT Controlled Med Refill* MEDICAL (GENERAL) HISTORY Type Description Date Medical History angina Medical History asthma Medical History bronchitis Medical History fainting Medical History bone density medication Medical History arthritis Medical History back trouble Medical History high blood pressure Surgical History hernia & stomach repair 08-11-16 Surgical History hysterectomy Surgical History cholecystectomy Surgical History nasal reconstruction Surgical History bladder cancer removed 09/25/2021 Hospitalization History surgery Goals Section No Information Health Concerns No Information MEDICAL EQUIPMENT No Information MENTAL STATUS No Information FUNCTIONAL STATUS No Information ASSESSMENTS No Information PLAN OF TREATMENT Medication Medication Name Sig Start Date Stop Date Fluticasone Propionate 50 MCG/ACT SPRAY ONE SPRAY IN E ACH NOSTRIL ONCE DAILY for 60 Xanax 0.5 MG 1 tablet Orally Twice a day for 28 days Feb, Sulindac 200 MG TAKE ONE TABLET BY MOUTH TWICE A DAY WITH FOOD f or 90 Diclofenac Sodium 1 % 2-4 grams Transdermal Four times a day for 30 day(s) Jan, buPROPion HCl 75 MG TAKE 1/2 TABLET BY MOUTH DAILY for 90 Cyclobenzaprine HCl 10 MG TAKE ONE HALF (1/2) TO ONE ( 1) TABLET BY MOUTH DAILY NEEDED for 30 days Insurance Providers Payer Name Payer Address Payer Phone Insured Name Patient Relati onship to Insured Coverage Start Date Coverage End Date Subscriber Number [facility] Part A [address] [place] [phone] Cheryl Parkinson Self - patient is the insured [id number] AARP Medicare Advantage Choice Plan 2 (PPO) [address] [facility] [id number] Cheryl Parkinson Self - patient is the insured [id number] MEDICATIONS ADMINISTERED Medication Instructions Date of Administration Dosage Rocephin Feb, 1 g Rocephin Feb, 1 g Dexamethasone Apr, 4 mg methylPREDNISolone Acetate Jan, 40 mg DEPO-Medrol Jan, 1 mL Dexamethasone Sep, 4 mg methylPREDNISolone Acetate Sep, 40 mg cefTRIAXone Sodium Dec, 1 g Dexamethasone Jul, 1 mL DEPO-Medrol Jul, 1 mL Rocephin Feb, 1 g methylPREDNISolone Acetate Apr, 80 mg Dexamethasone Jan, 4 mg Dexamethasone Jan, 1 mL
--- OUTSIDE RECORDS SUMMARY | 2023-05-05 16:17 | XMS REPORT ---
Author Author [facility] Address Unknown Phone Unavailable Care Team Providers Care Stores Despatch Hand Name Role Phone WILL CASIANO Unavailable PROBLEMS Type Condition ICD9-CM Code BQT30-NO Code Onset Dates Condition S tatus W/U Status Risk SNOMED Code Notes Problem Mixed hyperlipidemia E78.2 confirmed 432685337 Problem Nocturnal leg cramps G47.62 confirmed 765916669 Problem Anxiety F41.9 confirmed 71794382 Problem Essential hypertension I10 confirmed 82912888 Problem Arthritis M19.90 confirmed 8831492 Problem Coronary artery disease with angina pectoris, unspecified vessel or lesion type, unspecified whether [place] or transplanted heart I25.1 19 confirmed 478727542 Problem Primary osteoarthritis of left hip M16.12 confirmed [id number] Problem Primary insomnia F51.01 confirmed 397 2004 Problem History of bladder cancer Z85.51 confirmed 262291729 Problem Tension headache G44.209 confirmed 39 8870018 Problem Mild intermittent asthma without complication J45.20 confirmed 171223924 Problem Mild asthma with exacerbation, unspecified whether per sistent J45.901 confirmed 645804523 Problem Arthritis of shoulder region, right M19.011 confirmed [id number] Problem COPD exacerbation J44.1 confirmed 19 0321980 Problem Hypoglycemia E16.2 confirmed 5125102 03 Problem Major depressive disorder, s dimitrios episode, 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 confirmed 08077638 Problem Bulging lumbar disc M51.36 confirmed 404530958 Problem Irritable bowel syndrome with diarrhea K58.0 confirmed 284292949 Problem Overactive bladder N32.81 confirmed 7 [id number] ALLERGIES No Known Allergies ENCOUNTERS from 1950 to 2023-04-25 Encounter Location Date Provider [facility] [id number] [place] [address] [facility] Vaccine Route Administration Date Status COVID-19 Moderna (history) Unknown February 04, 2021 Admin istered influenza (history) Unknown Aug 26, 2020 Administered prevnar pcv 13 (history) Unknown Sep 07, 2017 Adminis tered SOCIAL HISTORY Sex Assigned At : Social [...] Notes Start Da te End Date Status Xanax 0.5 MG 1 tablet Orally Twice a day for 28 days 2022 Active Cyclobenzaprine HCl 10 MG TAKE ONE HALF (1/2) TO ONE ( 1) TABLET BY MOUTH DAILY NEEDED for 30 days Active Sulindac 200 MG TAKE ONE TABLET BY MOUTH TWICE A DAY WITH FOOD for 90 Active RABEprazole Sodium 20 MG 1 tablet [...] TABLET BY MOUTH DAILY for 90 Active Diphenoxylate-Atropine 2.5-0.025 MG 2 tablets Orally F our times a day for 3 days PRN Oct, Active Aspirin 81 81 MG 1 tablet Orally every other day Active DULoxetine HCl 30 MG TAKE ONE (1) CAPSULE BY MOUTH ONCE DAILY for 90 Active Gemtesa 75 MG TAKE 1 TABLET BY MOUTH ONCE DAILY for 30 days Active Nitroglycerin 0.4 MG as directed Sublingual Once a day for 30 da ys PRN Dec, Active quiNINE Sulfate 324 MG 1 capsules with food Orally at bedtime as needed for 90 days Active Stiolto Respimat 2.5-2.5 MCG/ACT 2 puffs Inhalation Once a day f or 90 days Dec, Active Meclizine HCl 25 MG 1 tablet as needed Orally 3 times a day Active Aricept 5 MG 1 tablet at bedtime Orally Once a day Active amLODIPine Besylate 5 MG 1 tablet Orally Once a day for 90 days Active Diclofenac Sodium 1 % 2-4 grams Transdermal Four times a day for 30 day(s) Jan, Active DULoxetine HCl 60 MG 1 capsule Orally Twice a day for 90 days Active Sucralfate 1 GM 1/2 tablet Orally 4 times a day for 30 day(s) Active Fluticasone Propionate 50 MCG/ACT SPRAY ONE SPRAY IN E ACH NOSTRIL ONCE DAILY for 60 Active Magnesium 500 MG 1 tablet with a meal Orally Once a day Active Albuterol Sulfate (2.5 MG/3ML) 0.083% 3 mL as needed I nhalation every 6 hrs for 5 days Dec, Active Gabapentin 300 MG 1 capsule Orally 3 times a day for 30 da ys put on hold, pt will call when ready for refill Active Lasix 20 MG 0.5-1 tablet as needed Orally Once a day for 30 days PRN Sep, Active Glucocard Expression Monitor w/Device as directed once daily as needed for 3 days Asset Tag [id number] Oct, Active Ondansetron HCl 4 MG 1 tablet as needed Orally every 6 hours for 7 da ys PRN Active Lovastatin 20 MG 1 tablet with [...] Medication Name Sig Start Date Stop Date Stiolto Respimat 2.5-2.5 MCG/ACT 2 puffs Inhalation Once a d ay for 90 days Dec, Ondansetron HCl 4 MG 1 tablet as needed Orally every 6 hours for 7 days Diclofenac Sodium 1 % 2-4 grams Transdermal Four times a day for 30 day(s) Jan, Fluticasone Propionate 50 MCG/ACT SPRAY ONE SPRAY IN E ACH NOSTRIL ONCE DAILY for 60 Gemtesa 75 MG TAKE 1 TABLET BY MOUTH ONCE DAILY for 30 days buPROPion HCl 75 MG TAKE 1/2 TABLET BY MOUTH DAILY for 90 Xanax 0.5 MG 1 tablet Orally Twice a day for 28 days March, Sulindac 200 MG TAKE ONE TABLET BY MOUTH TWICE A DAY WITH FOOD f or 90 Cyclobenzaprine HCl 10 MG TAKE ONE HALF (1/2) TO ONE ( 1) TABLET BY MOUTH DAILY NEEDED for 30 days DULoxetine HCl 60 MG 1 capsule Orally Twice a day for 90 days Insurance Providers Payer Name Payer Address Payer Phone Insured Name Patient Relati onship to Insured Coverage Start Date Coverage End Date Subscriber Number Group Nu mber [facility] Part A [address] [place] [address] Cheryl Parkinson E Self - patient is the insured [id number] [employer] Medicare Advantage Choice Plan 2 (PPO) [address] [facility] [id number] Cheryl Parkinson E Self - patient is the insured [id number] MEDICATIONS ADMINISTERED Medication Instructions Date of Administration Dosage DEPO-Medrol Jan, 1 mL Rocephin Feb, 1 g Rocephin Feb, 1 g Dexamethasone Sep, 4 mg DEPO-Medrol Jul, 1 mL Dexamethasone Apr, 4 mg methylPREDNISolone Acetate Sep, 40 mg methylPREDNISolone Acetate Jan, 40 mg cefTRIAXone Sodium Dec, 1 g methylPREDNISolone Acetate Apr, 80 mg Dexamethasone Jul, 1 mL Rocephin Feb, 1 g Dexamethasone Jan, 4 mg Dexamethasone Jan, 1 mL
--- OUTSIDE RECORDS SUMMARY | 2023-05-05 16:17 | XMS REPORT | Encounter Summary ---
Author Author [facility] Organization [facility] Address Unknown Phone Unavailable Care Team Providers Care Track Broom Operator Name Role Phone Self, Pawel LAI PCP Mikie Garrett MD Unavailable Colette Ontiveros MD Unavailable King Downing MD Unavailable Reason for Visit * Auth/Cert (Routine) Diagnoses / Procedures Referred By Contact Referred To Conta ct Specialty Diagnoses Acute ischemic stroke (HCC) Ischemic Stroke Referral ID Status Reason Start Date Expiration Visits Vi sits Date Requested Authorized [id number] 1 1 Encounter Details Care Team Description Date Type Department Oriana Villagomez, DO [address] [place] [address] 05/02/2023 Hospital Vascular Access Tea m: 7:55 AM Encounter [facility] CDT [address] [place] [address] Social History Date Tobacco Use Types Packs/Day Years Used Smoking Tobacco: Never Smokeless Tobacco: Never Comments Alcohol Use Standard Drinks/Week Not Currently 0 (1 standard drink = 0.6 o z pure alcohol) Date Recorded Alcohol Use Answer Alcohol Use No Male: 9+ ounces (15+ Standard Drinks) per week Not o n file Threshold Female: 4.8+ ounces (8+ Standard Drinks) per week 0 Threshold Date Recorded Sex and Gender Information Value 09/15/2021 9:30 AM CDT Sex Assigned at Female 09/15/2021 9:30 AM CDT Gender Identity Female Sexual Orientation Not on file documented as of this encounter Plan of Treatment Not on filedocumented as of this encounter Goals Goal Patient Associated Recent Progress Patient-Stat Aut hor Goal Type Problems ed? Recover from illness Hospital On track (05/03/2023 No Carisa Valverde, 11:22 AM CDT) RN Note: Get stronger and get out of here documented as of this encounter Procedures Comments Procedure Name Priority Date/Time Associated Diag nosis CONSULT VASCULAR ACCESS Routine 05/02/2023 TEAM 6:56 AM CDT documented in this encounter Visit Diagnoses Not on filedocumented in this encounter Orders First Ordered Date Procedures Count Last Ordered Date CONSULT VASCULAR ACCESS TEAM 1 3 documented in this encounter Additional Health Concerns Noted Time Assessment 05/02/2023 8:20 PM CDT A fall risk assessment has been complet ed for the patient documented as of this encounter Care Teams Start Date End Date Track Broom Operator Relationship Specialty 08/04/21 Pawel Olvera MD PCP - General Family [address] [address] 08/09/21 Mikie Garrett MD Urology [address] [place] [id number] 08/09/21 Colette Ontiveros MD Cardiovascul ar Disease [address] [place] [address] 08/09/21 King Downing MD Internal [address] [address] documented as of this encounter
--- OUTSIDE RECORDS SUMMARY | 2023-05-05 16:17 | XMS REPORT ---
Author Author [facility] Address Unknown Phone Unavailable Care Team Providers Care Mulcher Operator Name Role Phone PAWEL OLVERA Unavailable PROBLEMS Type Condition ICD9-CM Code DEX22-ZE Code Onset Dates Condition S tatus W/U Status Risk SNOMED Code Notes Problem Mixed hyperlipidemia E78.2 confirmed 755639130 Problem Nocturnal leg cramps G47.62 confirmed 831141459 Problem Anxiety F41.9 confirmed 60186966 Problem Essential hypertension I10 confirmed 39140453 Problem Arthritis M19.90 confirmed 9958621 Problem Coronary artery disease with angina pectoris, unspecified vessel or lesion type, unspecified whether [place] or transplanted heart I25.1 19 confirmed 898875167 Problem Primary osteoarthritis of left hip M16.12 confirmed 515854071282970 Problem Primary insomnia F51.01 confirmed 397 2004 Problem History of bladder cancer Z85.51 confirmed 895708267 Problem Tension headache G44.209 confirmed 39 6323336 Problem Mild intermittent asthma without complication J45.20 confirmed 047454631 Problem Mild asthma with exacerbation, unspecified whether per sistent J45.901 confirmed 660660089 Problem Arthritis of shoulder region, right M19.011 confirmed 6794974407501008 Problem COPD exacerbation J44.1 confirmed 19 2225132 Problem Hypoglycemia E16.2 confirmed 2578104 03 Problem Major depressive disorder, s dimitrios episode, 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 confirmed 47172853 Problem Bulging lumbar disc M51.36 confirmed 402995944 Problem Irritable bowel syndrome with diarrhea K58.0 confirmed 987615615 Problem Overactive bladder N32.81 confirmed 7 34970388 ALLERGIES No Known Allergies ENCOUNTERS from 1950 to 2023-03-28 Encounter Location Date Provider Diagnosis [facility] [address] [facility] [id number] [place] [address] March, PAWEL SELF Other prison (cur rent) drug therapy Z79.899 ; Encounter for Medicare annual wellness exam Z00.00 ; Essential hypertension I10 ; Mixed hyperlipidemia E78.2 ; Anxiety F41.9 ; Coronary artery disease with angina pectoris, unspecified vessel or lesion type, unspecified whether [place] or transplanted heart I25.119 and Situational depression F43.21 IMMUNIZATIONS Vaccine Route Administration Date Status COVID-19 [...] REASON FOR REFERRAL No Information VITAL SIGNS Height 5'4" in March, Height-cm 162.56 cm March, Weight 166 lbs March, Weight-kg 75.3 kg March, Temperature 97.5 degrees Fahrenheit March, Heart Rate 92 bpm March, Respiratory Rate 20 bpm March, Oximetry 99 % March, BMI 28.49 kg/m2 March, Blood pressure systolic 122 mmHg March, Blood pressure diastolic 70 mmHg March, MEDICATIONS Medication SIG (Take, Route, Frequency, Duration) [...] a day for 28 days 2022 Active Diclofenac Sodium 1 % 2-4 grams [...] as needed for 3 days Asset Tag [id number] Oct, Active Gemtesa 75 MG TAKE 1 TABLET BY MOUTH ONCE DAILY for 30 Active Lasix 20 MG 0.5-1 tablet as needed Orally Once a day for 30 days PRN Sep, Active Lovastatin 20 MG 1 tablet with the evening meal Orally Once a day Active PROCEDURES No Information RESULTS No Results REASON FOR VISIT MAWV-6 mo f/u (Patrick Miramontes MA), needs updated contract et PDM Letitia MARTINEZ, needs phq -9 MEDICAL (GENERAL) HISTORY Type Description Date Medical [...] No Information FUNCTIONAL STATUS No Information ASSESSMENTS Encounter Date Diagnosis Assessment Notes Treatment Notes Treatm ent Clinical Notes March, Encounter for Medicare annual wellness exam (ICD -10 - Z00.00) doing ok having some situational depression vitals reviewed medicare questions reviewed March, Other prison (current) drug therapy ( ICD-10 - Z79.899) March, Essential hypertension (ICD-10 - I10) stable no changes continue same medications March, Mixed hyperlipidemia (ICD-10 - E78.2) will get labs will call with results/rec March, Anxiety (ICD-10 - F41.9) stable no changes continue same medications March, Coronary artery disease with angina pectoris, unspecified vessel or lesion type, unspecified whether [place] or transplanted heart (ICD-10 - I25.119) no changes March, Situational depression (ICD-10 - F43.21) phq score 19 discussed with patient lost son 3 months ago has cancer rec increase Duloxetine to bid March, Other This progress n ote was scribed by Morena Pelaez MA under the direct supervision of Dr Pawel Olvera who directed the entire visit and performed the physical exam. PLAN OF TREATMENT Medication Medication Name Sig Start Date Stop Date Fluticasone Propionate 50 MCG/ACT SPRAY ONE SPRAY IN E ACH NOSTRIL ONCE DAILY for 60 Xanax 0.5 MG 1 tablet Orally Twice a day for 28 days Feb, Sulindac 200 MG TAKE ONE TABLET BY MOUTH TWICE A DAY WITH FOOD or 90 Diclofenac Sodium 1 % 2-4 grams Transdermal Four times a day for 30 day(s) Jan, buPROPion HCl 75 MG TAKE 1/2 TABLET BY MOUTH DAILY for 90 Cyclobenzaprine HCl 10 MG TAKE ONE HALF (1/2) TO ONE ( 1) TABLET BY MOUTH DAILY NEEDED for 30 days Treatment Notes Assessment Notes Clinical Notes Encounter for Medicare annual wellness exam doing ok having some situational depression vitals reviewed medicare questions reviewed Essential hypertension stable no changes continue same medications Mixed hyperlipidemia will get labs will call with results/rec Anxiety stable no changes continue same medications Coronary artery disease with angina pect marilee, unspecified vessel or lesion type, unspecified whether [place] or transplanted heart no changes Situational depression phq score 19 discussed with patient lost son 3 months ago has cancer rec increase Duloxetine to bid Future Test Test Name Order Date LIPID PANEL [id number] CBC w/AUTO DIFF [id number] CMP [id number] Next Appt Details 4 Weeks Reason:fu depression & labs prio r Follow Up:4 Weeksfu depression & labs prior Insurance Providers Payer Name Payer Address Payer Phone Insured Name Patient Relati onship to Insured Coverage Start Date Coverage End Date Subscriber Number Group Nu mber [facility] Medicare Advantage Choice Plan 2 (PPO) [address] [facility] [id number] Cheryl Parkinson E Self - patient is the insured [id number] [facility] Part A [address] [place] [address] Cheryl Parkinson E Self - patient is the insured [id number] MEDICATIONS ADMINISTERED Medication Instructions Date of Administration [...]
--- OUTSIDE RECORDS SUMMARY | 2023-05-05 16:17 | XMS REPORT | Encounter Summary ---
Author Author [facility] Organization [facility] Address Unknown Phone Unavailable Care Team Providers Care Accounts Payable Analyst Name Role Phone Self, Pawel LAI PCP Mikie Garrett MD Unavailable Colette Ontiveros MD Unavailable King Downing MD Unavailable Reason for Visit * Auth/Cert (Routine) Diagnoses / Procedures Referred By Contact Referred To Conta ct Specialty Diagnoses Acute ischemic stroke (HCC) Ischemic Stroke Referral ID Status Reason Start Date Expiration Visits Vi sits Date Requested Authorized [id number] 1 1 Encounter Details Care Team Description Date Type Department Manny Garcia MD [address] [place] [address] Oriana Villagomez DO [address] [place] [address] Mau Kohler MD [address] [place] [address] Thalamic stroke (HCC) Discharge Disposition: Rehab Facility (Not [facility]) 05/02/2023 Hospital Patient Care Unit C A6: 6:48 AM Encounter Lizzy Yee Cleary T - [address] [facility] 05/05/2023 Level 6 12:49 PM [place], [place] CDT [id number] Social History Date Tobacco Use Types Packs/Day [...] on file documented as of this encounter Last Filed Vital Signs Reading Time Taken Comments Vital Sign 159/86 05/05/2023 9:37 AM CDT Blood Pressure 90 05/05/2023 9:37 AM CDT Pulse 36.7 C (98.1 F) 05/05/2023 9:37 AM CDT Temperature - - Respiratory Rate 98% 05/05/2023 9:37 AM CDT Oxygen Saturation - - Inhaled Oxygen Concentration 78 kg (172 lb) 05/03/2023 9:34 AM CDT Weight 162.6 cm (5' 4") 05/03/2023 9:34 AM CDT Height 29.52 05/03/2023 9:34 AM CDT Body Mass Index documented in this encounter Functional Status Date of Assessment Functional Status Response 05/03/2023 Does the patient have a hearing impairment: No documented as of this encounter Discharge Summaries * Payton Pugh - 05/05/2023 11:14 AM CDT CRUSHER LOADER OPERATOR Note: Printed and placed transfer packet in the pt's wall unit per request from BEN Stuart. Payton Pugh Screen Tender Helper For additional assistance please contact [facility] * * Yaima Moore - 05/05/2023 7:56 AM CDT Case Management Progress Note NAME:Cheryl Parkinson :1949 AGE: 72 y.o. ADMISSION DATE: 05/02/2023 DAYS ADMITTED: LOS: 2 days Today's Date: 05/05/2023 PLAN: Pt will dc to [facility] in [place] at 1230 via family transport. Expected Discharge Date: 05/05/2023 Is Patient Medically Stable: Yes Are there Barriers to Discharge? no INTERVENTION/DISPOSITION: Discharge Planning Discharge Planning: Inpatient Rehabilitation BEN reviewed EMR and met with NCM and Neuro Stroke team for huddle to discuss ramesh n of care. Pt is stable for dc. SW was informed by February at [facility] that pt has been approved by marito gautam. She reported that pt must be at facility by 1500. SW contacted pt's son to discuss transportation. He reported that able to pick-u p pt at 1230. SW updated pt. She was agreeable with dc plan. SW updated medical team. SW updated bedside RN. BEN tasked CRUSHER LOADER OPERATOR to make and deliver transfer packet. RN report: [phone] Fax dc orders: [phone] SW faxed dc orders to [facility]. SW will continue to remain available and assist with discharge needs as they denisse se. Transportation Does the Patient Need Case Management to Arrange Discharge Transport ? (ex: facility, ambulance, wheelchair/stretcher, Medicaid, cab, other): No Will the Patient Use Family Transport?: Yes Transportation Name, Phone and Availability #1: Casey Valderrama ([phone]) Support Info or Referral Positive SDOH Domains and Potential Barriers Medication Needs Financial Legal Other Discharge Disposition Selected Continued Care - Admitted Since 05/02/2023 [facility] Destination Coordination complete. Service Provider Selected Services Address Phone Fax Patient Preferred [facility] Inpatient Rehabilitation [address] [place] [address] [phone] -- Yaima Moore LMSW Inpatient [employer] Laminator General Neurology/Epilepsy [facility] Available via Vo[employer] * Melanie Guillory - 05/04/2023 9:25 AM CDT CRUSHER LOADER OPERATOR Note: Checked IPR auth request through [employer] online portal per request of KIM Castillo. Status is still pending. [employer] auth ID: [id number] Plan Auth ID: [id number] Melanie Guillory Screen Tender Helper For additional assistance please contact [facility] * Yaima Moore - 05/04/2023 9:14 AM CDT Case Management Progress Note NAME:Cheryl Parkinson :1949 AGE: 72 y.o. ADMISSION DATE: 05/02/2023 DAYS ADMITTED: LOS: 1 day Today's Date: 05/04/2023 PLAN: Anticipate dc to [facility] in [place], pending insurance auth. Expected Discharge Date: 05/05/2023 Is Patient Medically Stable: Yes Are there Barriers to Discharge? no INTERVENTION/DISPOSITION: Discharge Planning Discharge Planning: Inpatient Rehabilitation SW reviewed EMR and met with NCM and Neuro Stroke team for huddle to discuss ramesh n of care. Pt is stable for dc. SW inquired about family transporting pt to [facility]. Medical team and RN agreed that pt would be able to transport via POV. BEN tasked CRUSHER LOADER OPERATOR to check [place] auth status. It is pending. SW updated February at [facility] ([phone]) that auth is pendin g and family will transport. She verified. Update: BEN tasked CRUSHER LOADER OPERATOR to check NH auth. It is still pending. BEN updated pt. SW updated pt's son. SW will continue to remain available and assist with discharge needs as they denisse se. Transportation Does the Patient Need Case Management to Arrange Discharge Transport ? (ex: facility, ambulance, wheelchair/stretcher, Medicaid, cab, other): No Will the Patient Use Family Transport?: Yes Transportation Name, Phone and Availability #1: Casey Valderrama ([phone]) Support Info or Referral Positive SDOH Domains and Potential Barriers Medication Needs Financial Legal Other Discharge Disposition Selected Continued Care - Admitted Since 05/02/2023 [facility] Destination Coordination complete. Service Provider Selected Services Address Phone Fax Patient Preferred [facility] Inpatient Rehabilitation [address] [place] [address] [phone] -- Yaima Moore LMSW Inpatient [employer] Laminator General Neurology/Epilepsy [facility] Available via [employer] * Payton Pugh - 05/03/2023 3:38 PM CDT [facility] Note: Request from KIM Ramirez to start a [employer] auth for IPR. Payton Pugh Screen Tender Helper For additional assistance please contact [facility] * * Rafaela Ball LMSW - 05/03/2023 8:52 AM CDT Case Management Progress Note NAME:Cheryl Parkinson :1949 AGE: 72 y.o. ADMISSION DATE: 05/02/2023 DAYS ADMITTED: LOS: 0 days Today's Date: 05/03/2023 PLAN: Anticipate d/c to [facility] pending insurance [facility]. Expected Discharge Date: 05/04/2023 Is Patient Medically Stable: Yes Are there Barriers to Discharge? Yes (pending insurance auth for IPR) INTERVENTION/DISPOSITION: Discharge Planning Discharge Planning: Inpatient Rehabilitation BEN reviewed EMR and participated in huddle. Pt still needs ECHO to complete stroke work-up, but primary team anticipates she will be medically stable for d/ c later today. PT is recommending IP setting and rehab medicine consult. Recomme ndations from OT and rehab medicine consult team are still pending. BEN met with pt at bedside to complete CM assessment (see below) and discuss d/c planning. SW reviewed recommendation for IP setting and provided education o n IPR level of care. Pt was agreeable. SW provided her with CM IPR list with [employer] data for review, and pt voiced preference for [facility]. SW faxed referral via [employer]. UPDATE SW received message from February ([phone]) at [facility] stating facility can clinically accept referral and has beds available . SW tasked [facility] to submit IPR auth request for [facility] g through [employer]. SW met with pt at bedside again to discuss d/c planning. Pt's son, sg Peña s also present for the discussion. SW informed them that [facility] has accepted referral and insurance auth is pending. They voiced a greement with d/c plan. Casey would like to drive pt to IPR at d/c if approved b y PT/OT. SW continuing to follow and assist with d/c planning. Transportation Does the Patient Need Case Management to Arrange Discharge Transport ? (ex: facility, ambulance, wheelchair/stretcher, Medicaid, cab, other): No Will the Patient Use Family Transport?: Yes Transportation Name, Phone and Availability #1: Casey Valderrama ([phone]) Support Info or Referral Positive SDOH Domains and Potential Barriers Medication Needs Financial Legal Other Discharge Disposition Selected Continued Care - Admitted Since 05/02/2023 [facility] Destination Coordination complete. Service Provider Selected Services Address Phone Fax Patient Preferred [facility] Inpatient Rehabilitation [address] [facility] [address] [phone] -- Case Management Admission Assessment NAME:Cheryl Parkinson : [birth year] AGE: 72 y.o. ADMISSION DATE: 05/02/2023 DAYS ADMITTED: LOS: 0 days Todays Date: 05/03/2023 Source of Information: Patient and EMR Plan Plan: Case Management Assessment, Assist PRN with SW/NCM Services, Discharge Ramesh nning for Post-Acute Facility Most recent therapy recommendations: o PT: IP setting; recommend rehab medicine consult o OT: IP setting; recommend rehab medicine consult o ST: Not consulted o Rehab medicine: Consult pending CM needs are not fully known but may include IPR vs. SNF placement. SW/NCM will continue to follow pt's POC via EMR and team huddle and will ass ist with d/c planning needs as indicated. Notes This CM met with pt at bedside for assessment on this date. Provided contact information and explanation of SW/NCM roles. Provided opportunity for questions and discussion. Pt/family encouraged to contact Case Management team with quest ions and concerns during hospitalization and until patient is able to transition back to the patient's primary care physician. Pt lives alone in house with 2STE. Pt's bedroom and bathroom (walk-in shower ) are on main level. Pt is typically independent with ADLs and uses shower chair for bathing. Pt utilized OP PT services in the past, but pt has no hx of HH, NH, SNF, IPR , LTACH, or hospice. Pt does not have DPOA and declined to complete at this time. Pt's PCP is Pawel Olvera and last appointment was 3mos ago. Pt has [facility] Medicare coverage. Pt will have support from her son, brother, and nieces at d/c if needed. Patient Address/Phone [address] [facility] [address] (home) Emergency Contact Extended Emergency Contact Information Primary Emergency Contact: Lavelle, Casey Mobile Relation: Son Healthcare Directive Healthcare Directive: No, patient does not have a healthcare directive Would patient like to fill out a (a new) Healthcare Directive?: No, patient decl ined Psych Advance Directive (Psych unit only): No, patient does not have a Psych Adv ance Directive Transportation Does the Patient Need Case Management to Arrange Discharge Transport? (ex: facil ity, ambulance, wheelchair/stretcher, Medicaid, cab, other): No Will the Patient Use Family Transport?: Yes Transportation Name, Phone and Availability #1: Casey Valderrama ([phone]) Expected Discharge Date 05/04/2023 Living Situation Prior to Admission Living Arrangements Type of Residence: Home, independent Living Arrangements: Alone Bathroom Shower / Tub: Walk-in Shower How many levels in the residence?: 1 Can patient live on one level if needed?: Yes Does residence have entry and/or inside stairs?: Yes (2STE) Assistance needed prior to admit or anticipated on discharge: Yes Who provides assistance or could if needed?: Pt's son, brother, and nieces Are they in good health?: Yes Can support system provide 24/7 care if needed?: Yes Level of Function Prior level of function: Independent Cognitive Abilities Cognitive Abilities: Alert and Oriented, Engages in problem solving and planning , Participates in decision making Financial Resources Coverage Primary Insurance: Medicare Replacement Secondary Insurance: Commercial insurance Additional Coverage: RX Source of Income Source Of Income: Other fdc income Financial Assistance Needed? No Psychosocial Needs Mental Health Mental Health History: No Substance Use History Substance Use History Screen: No Other N/A Current/Previous Services PCP Self, Pawel, , Pharmacy [facility] [phone] - [facility] [address] [facility] [address] [facility] [place] [address] [facility] [address] [facility], [address] [facility] [address] Durable Medical Equipment Durable Medical Equipment at home: Shower Chair Home Health Receiving home health: No Hemodialysis or Peritoneal Dialysis Undergoing hemodialysis or peritoneal dialysis: No Tube/Enteral Feeds Receive tube/enteral feeds: No Infusion Receive infusions: No Private Duty Private duty help used: No Home and Community Based Services Home and community based services: No Drew Russell White: N/A Hospice Hospice: No Outpatient Therapy PT: In the past When did patient receive care?: Unk Name of rehab location/group: Unk OT: No EMOTIONAL DISABILITIES TEACHER: No Half-Way Facility/Snf SNF: No NH: No Inpatient Rehab IPR: No Long-Term Acute Care Hospital LTACH: No Acute Hospital Stay Acute Hospital Stay: In the past Was patient's stay within the last 30 days?: No Rafaela Ball LMSW Available on [employer] documented in this encounter Medications at Time of Discharge Start Date End Date Medication Sig Dispensed Refills acetaminophen SR (TYLENOL Take 1,850 mg 0 8 HOUR) 650 mg tablet by mouth every 4 hours as needed for Pain. amLODIPine (NORVASC) 5 mg Take one 0 tablet tablet by mouth daily. 05/05/2023 aspirin EC 81 mg tablet Take one 30 tablet 0 tablet by mouth daily. Take with food. Take aspirin 81 mg daily and clopidogrel 75 mg daily for 21 days, then stop clopidogrel and just take aspirin 81 mg daily thereafter. 05/05/2023 atorvastatin (LIPITOR) 40 Take one 30 tablet 0 mg tablet tablet by mouth daily. 08/12/2021 buPROPion HCL one-half 0 (WELLBUTRIN) 75 mg tablet tablet every 24 hours. CALCIUM PO Take 1 tablet 0 by mouth daily. cetirizine (ZYRTEC) 10 mg Take one 0 tablet tablet by mouth every morning. 05/05/2023 clopiDOGreL (PLAVIX) 75 Take one 18 tablet 0 mg tablet tablet by mouth daily. Take aspirin 81 mg daily and clopidogrel 75 mg daily for 21 days, then stop clopidogrel and just take aspirin 81 mg daily thereafter. cyanocobalamin (vit B-12) Inject 1 mL 0 (RUBRAMIN PC) 1,000 into the mcg/mL injection solution muscle every 30 days. cyclobenzaprine Take one 0 (FLEXERIL) 10 mg tablet tablet by mouth daily as needed for Muscle Cramps. dext Place 1-2 0 70/polycarbophil/peg/NaCl drops into or (ARTIFICIAL TEAR SOLUTION around eye(s) OP) daily as needed. diclofenac sodium Apply two g 0 (VOLTAREN) 1 % topical to four g gel topically to affected area four times daily. donepeziL (ARICEPT) 10 mg Take one 0 tablet tablet by mouth at bedtime daily. duloxetine DR (CYMBALTA) Take two 0 30 mg capsule capsules by mouth daily. duloxetine DR (CYMBALTA) Take one 0 60 mg capsule capsule by mouth twice daily. ergocalciferol (vitamin Take 1 tablet 0 D2) (VITAMIN D PO) by mouth daily. estrogens, conjugated Take 0.625 mg 0 (PREMARIN PO) by mouth daily. famotidine (PEPCID) 20 mg Take one 0 tablet tablet by mouth at bedtime daily. 10/18/2017 fluticasone propionate Apply one 0 (FLONASE) 50 spray to each mcg/actuation nasal nostril as spray, suspension directed every 24 hours. gabapentin (NEURONTIN) Take two 0 100 mg capsule capsules by mouth every 8 hours. lidocaine (LIDODERM) 5 % Apply one 0 topical patch patch topically to affected area daily. Apply patch for 12 hours, then remove for 12 hours before repeating. 05/06/2023 lisinopriL (ZESTRIL) 20 Take one 30 tablet 0 mg tablet tablet by mouth daily. loperamide (IMODIUM A-D) Take one 0 2 mg capsule capsule by mouth as Needed for Diarrhea. 01/15/2018 nitroglycerin (NITROSTAT) as Needed. 0 0.4 mg tablet ondansetron HCL (ZOFRAN) Take one 0 4 mg tablet tablet by mouth every 8 hours as needed for Nausea or Vomiting. POTASSIUM PO Take 1 tablet 0 by mouth daily. quiNINE sulfate Take one 0 (QUALAQUIN) 324 mg capsule by capsule mouth at bedtime daily. 08/16/[address] (ACIPHEX) Take one 0 20 mg tablet tablet by mouth every morning. sulindac (CLINORIL) 200 Take one 0 mg tablet tablet by mouth every 12 hours. tiotropium-olodateroL Inhale two 0 (STIOLTO RESPIMAT) puffs by 2.5-2.5 mcg/actuation mouth into inhaler the lungs daily. traMADoL (ULTRAM) 50 mg Take three 0 tablet tablets by mouth every 8 hours as needed for Pain. vibegron (GEMTESA) 75 mg Take one 0 tablet tablet by mouth daily. documented as of this encounter Ordered Prescriptions Start Date End Date Prescription Sig Dispensed Refills 05/06/2023 lisinopriL (ZESTRIL) 20 Take one 30 tablet 0 mg tablet tablet by mouth daily. 05/05/2023 aspirin EC 81 mg tablet Take one 30 tablet 0 tablet by mouth daily. Take with food. Take aspirin 81 mg daily and clopidogrel 75 mg daily for 21 days, then stop clopidogrel and just take aspirin 81 mg daily thereafter. 05/05/2023 clopiDOGreL (PLAVIX) 75 Take one 18 tablet 0 mg tablet tablet by mouth daily. Take aspirin 81 mg daily and clopidogrel 75 mg daily for 21 days, then stop clopidogrel and just take aspirin 81 mg daily thereafter. 05/05/2023 atorvastatin (LIPITOR) 40 Take one 30 tablet 0 mg tablet tablet by mouth daily. documented in this encounter Discharge Disposition Code Departure Means Destination Disposition Wheelchair Rehab Facility (Not [facility]) documented in this encounter Progress Notes * Luiz Rodriguez RN - 05/05/2023 12:49 PM CDT I have reviewed the notes, assessment, and/or procedures performed by MICHELLE Haddad and concur with her/his documentation unless otherwise noted. * Kandi Galeana RN - 05/04/2023 7:43 PM CDT I have reviewed the notes, assessments, and/or procedures performed by Daniel waldron RN, and concur with her/his documentation unless otherwise noted. * KiaSharon, PT - 05/04/2023 1:48 PM CDT PHYSICAL THERAPY PROGRESS NOTE Name: Cheryl Parkinson : 1950 Age: 72 y.o. Admission Date: 05/02/2023 LOS: 1 day Date of Service: 05/04/2023 Mobility Patient Turn/Position: Self Progressive Mobility Level: Walk in hallway Distance Walked (feet): 250 ft Level of Assistance: Assist X1 Assistive Device: Hand Held Activity Limited By: Fatigue Subjective Significant hospital events: Admitted from OSH with new L sided weakness. Strok e response activated. MRI "Small recent right thalamic infarct. No evidence of h emorrhagic conversion or significant mass effect" Mental / Cognitive Status: Alert;Cooperative;Follows Commands Persons Present: Nursing Staff Pain: Patient has no complaint of pain Pain Interventions: Patient agrees to participate in therapy;Patient assisted in to position of comfort Ambulation Assist: Independent Mobility in Community without Device Home Situation: Lives Alone Type of Home: House Entry Stairs: 1-2 Stairs In-Home Stairs: No Stairs Comments: Pt reports that she has a hx of R knee arthritis that sometimes limits her tolerance to longer distance mobility. Does have some access to equipment from spouse. Reports fall last night immediately prior to admission fr om new L sided weakness Bed Mobility/Transfer Bed Mobility: Supine to Sit: Modified Independent;Head of Bed Elevated Bed Mobility: Sit to Supine: Modified Independent;HOB Elevated Transfer Type: Sit to/from Stand Transfer: Assistance Level: To/From;Bed;Minimal Assist (Contact guard) Transfer: Assistive Device: Hand Hold Assist Transfers: Type Of Assistance: For Safety Considerations End Of Activity Status: In Bed;Nursing Notified;Instructed Patient to Request As sist with Mobility;Instructed Patient to Use Call Light (bed alarm active, all n eeds met) Gait Gait Distance: 250 feet Gait: Assistance Level: Minimal Assist;Safety Considerations Gait: Assistive Device: Hand Hold Assist Gait: Descriptors: Decreased foot clearance LLE;Decreased heel strike LLE Comments: Left knee mildly soft in stance phase however no overt buckling noted. Decreased control during heel strike resulting in harder foot contact, decreased eccentric control of dorsiflexors. Likely due to general fatigue. Activity Limited By: Complaint of Fatigue Assessment/Progress Impaired Mobility Due To: Medical Status Limitation;Decreased Strength;Impaired Balance Assessment/Progress: Should Improve w/ Continued PT AM-PAC 6 Clicks Basic Mobility Inpatient Turning from your back to your side while in a flat bed without using bed rails: None Moving from lying on your back to sitting on the side of a flat bed without usin g bedrails : None Moving to and from a bed to a chair (including a wheelchair): A Little Standing up from a chair using your arms (e.g. wheelchair, or bedside chair): A Little To walk in hospital room: A Little Climbing 3-5 steps with a railing: A Lot Basic Mobility Inpatient Raw Score: 19 Standardized (T-scale) Score: 42.48 AM-PAC Basic Mobility Functional Stage: 34-51 Limited Mobility Indoors Goals Goal Formulation: With Patient Patient Will Go Supine To/From Sit: Independently Patient Will Transfer Bed/Chair: Independently Patient Will Transfer Sit to Stand: Independently Patient Will Ambulate: Greater than 200 Feet, Independently Patient Will Go Up / Down Stairs: 1-2 Stairs, w/ Stand By Assist Plan Treatment Interventions: Mobility Training;Balance Activities;Neuromuscular Hai ucation Plan Frequency: 5 Days per Week PT Plan for Next Visit: gait quality/tolerance, sit <> stand reps for strengthening, stairs PT Discharge Recommendations Recommendation: Inpatient setting (Discharging to [facility] pending insura nce) Patient Currently Requires Physical Assist With: Ambulation;In and out of house; Stairs;Transfers Patient Currently Requires Supervision For: Mobility Therapist: [place] [id number] Date: 05/04/2023 * Luiz Rodriguez RN - 05/04/2023 1:00 PM CDT Patient Health Questionnaire - 2 (PHQ2): The patient completed the PHQ2 questionnaire with a score of 0 (? 3 indicating p otential depression). The patient scored less than 3 and requires no further fo llow-up at this time. Stroke Education : The patient was given the stroke education informational booklet which was subse quently reviewed with the patient.. Stroke Risk Factors Form: The patient was provided with the Stroke Risk Factors Form. This form was revie wed with the patient. and completed by the patient, with the assistance of this RN, to the best of their ability.. * Asmita More, OT - 05/04/2023 9:10 AM CDT OCCUPATIONAL THERAPY PROGRESS NOTE Name: Cheryl Parkinson : 1950 Age: 72 y.o. Admission Date: 05/02/2023 LOS: 1 day Date of Service: 05/04/2023 Mobility Patient Turn/Position: Weight shifted (Bed) Progressive Mobility Level: Walk in hallway Distance Walked (feet): 250 ft Level of Assistance: Assist X1 Assistive Device: None Activity Limited By: Fatigue Subjective Pertinent Dx per Physician: Admitted from OSH with new L sided weakness. Stroke response activated. MRI "Small recent right thalamic infarct. No evidence of he morrhagic conversion or significant mass effect" Precautions: Falls Pain / Complaints: Patient agrees to participate in therapy;Patient has no c/o p ain Pain Level Current: No pain Comments: Pt pleasant and agreeable to therapy. Objective Psychosocial Status: Willing and Cooperative to Participate Home Living Type of Home: House Home Layout: One Level Bathroom Shower / Tub: Walk-in Shower Bathroom Equipment: Shower Chair Home Equipment: Cane Prior Function Level Of [place]: Independent with ADLs and functional transfers;Independen t with homemaking w/ ambulation Lives With: Alone Receives Help From: Family Other Function Comments: Patient reports that she lives alone, however, her neic e lives across the street and her son lives in a different town. Both are able t o assist if/when needed. Reports that she is able to discharge to her Son's hous e and her son's is able to provide consistent assist. Vision Current Vision: Wears Glasses All of the Time Comment: Reports no acute changes in vision. ADL's Eating Assist: Independent Eating Deficits: No Assist Needed Grooming Assist: Stand By Assist Grooming Deficits: Wash/Dry Hands;Brushing Hair LE Dressing Assist: Stand By Assist LE Dressing Deficits: Don/Doff R Sock;Don/Doff L Sock Toileting Assist: Stand By Assist Toileting Deficits: Clothing Management Up;Clothing Management Down;Perineal Hyg iene;Grab Bar Use ADL Mobility Bed Mobility: Supine to Sit: Modified independent Bed Mobility: Sit to Supine: Modified independent Transfer Type: Sit to/from stand Transfer: Assistance Level: To/from;Bed;Standby assist Transfer: Assistive Device: None Transfer: Type of Assistance: For safety considerations End of Activity Status: In bed;Instructed patient to request assist with mobilit y;Instructed patient to use call light;Nursing notified Sitting Balance: Standby assist Standing Balance: 2 UE support;Standby assist Gait Distance: 250 feet Gait: Assistance Level: Minimal assist Gait: Assistive Device: None Gait Comments: steady gait with no device, decreased left foot clearance but pt states shes working on quality of gait because now she has to consciously think about walking Activity Tolerance Endurance: 4/5 Tolerates 30+ Minutes Exercise W/O Fatigue Cognition Overall Cognitive Status: WFL to Adequately Complete Self Care Tasks Safely Orientation: Alert & Oriented x4 Attention: Awake/Alert ROM R UE ROM: WFL R UE ROM Method: Active L UE ROM: WFL L UE ROM Method: Active R LE ROM: WFL L LE ROM: WFL Coordination: Mild Delay ROM Comments: Mild delay in LUE with AROM. Sensory Overall Sensory: L UE Decreased/Impaired UE Strength / Tone R UE Strength: WFL R LE Strength: WFL L LE Strength: Not WFL L Hip Flexion: 2-/5 L Hip Abduction: 2+/5 L Knee Flexion: 2/5 L Knee Extension: 2/5 L Ankle Dorsiflexion: 2/5 L Ankle Plantarflexion: 2/5 Strength Comments: LUE grossly 3/5. Dynamometer Um Nurse Assessment: 3 Trial Average L Hand (lbs) R Hand (lbs) Trial 1 33 45 Trial 2 41 38 Trial 3 38 39 Average 37.3 40.6 Um Nurse Assessment norms according to age grouping: Female: 70-74 R AV.6; SD: 11.7 -- L AV.5; SD: 10.2 Um Nurse strength testing is the one of the most sensitive assessments of the upper extremity and can be a good prognostic factor for recovery in acute stroke. Education Persons Educated: Patient Barriers To Learning: None Noted Teaching Methods: Verbal Instruction;Demonstration;Provided Printed Instructions Patient Response: Verbalized and Demo Understanding Topics: Role of OT, Goals for Therapy;Home safety;UE Exercises Home Exercise Program: Theraputty Therex;UE Home Exer Program Goal Formulation: With Patient Assessment Assessment: Decreased ADL Status;Decreased Endurance;Decreased UE Strength;Decre ased Self-Care Trans;Decreased High-Level ADLs Prognosis: Good;w/Cont OT s/p Acute Discharge Goal Formulation: Patient Comments: Patient is currently limited by weakness and change in sensation. Anti cipate patient will benefit from ongoing skilled OT to address ADL's and functio nal mobility. AM-PAC 6 Clicks Daily Activity Inpatient Putting on and taking off regular lower body clothes: A Little Bathing (Including washing, rinsing, drying): A Little Toileting, which includes using toilet, bedpan, or urinal: None Putting on and taking off regular upper body clothing: None Taking care of personal grooming such as brushing teeth: None Eating meals: None Daily Activity Raw Score: 22 Standardized (T-scale) Score: 47.1 Plan OT Frequency: 5x/week OT Plan for Next Visit: progress mobility, LB dressing, sensory compensatory str ategies ADL Goals Patient Will Perform All ADL's: w/ Modified [place] Functional Transfer Goals Pt Will Perform All Functional Transfers: Modified Independent Arm Goals Other Arm Goal 1: Pt will complete LUE coordinaton activities x5 sets of 10 with good signs of activity tolerance OT Discharge Recommendations Recommendation: Inpatient setting;Recommend rehab medicine consult Therapist: ELIZABETH Jones/L Date: 05/04/2023 * Donis Romeo MD - 05/04/2023 7:53 AM CDT Neurology Progress Note Admission Date: 05/02/2023 LOS: 1 day Assessment/Plan: Cheryl Parkinson is a 72 y.o. female with a PMH significant for HTN who presented to an OSH with left sided weakness/numbness and speech changes and was subsequen tly stroke activated. Initial NIHSS of 5. OSH CT head w/o contrast showed no acu te intracranial abnormality. OSH CTA head/neck showed R proximal ICA stenosis of 60%. She received a Plavix load prior to transfer to [facility] for MRI and stroke wo rkup. Acute ischemic stroke of right thalamus - Patient presented with left face, arm, and leg weakness/numbness with speech c hanges - NIHSS: 4 - Suspected localization of Stroke Sx: Right thalamus - Suspected etiology: Small - Vessel Occlusion - Pre-event mRS: 0 - No symptoms at all - MRI head without contrast: acute ischemic stroke of right thalamus - Vessel imaging at OSH showed R proximal ICA stenosis 60%, repeat carotid doppl ers here showed ~50% stenosis bilaterally - Echo (TTE): LVEF 60%, no PFO, no chamber enlargement. Plan: > Stroke risk factor modification: HLD: LDL goal <70, (not at goal with LDL 113) HgbA1c goal <7.0 (at goal with HgbA1c 5.8) HTN: long-term SBP goal of 130/80 Tobaccoism: encouraged continued abstinence Continue telemetry while admitted > Antiplatelet therapy: DAPT with aspirin 81 mg daily and clopidogrel 75 mg daily for 21 day course, and then continue aspirin monotherapy thereafter. > PT/OT/EMOTIONAL DISABILITIES TEACHER consult eval and treat > Rehab consult for assessment of post stroke care: recommending acute inpatient rehabilitation. HTN > Amlodipine 5 mg daily > Lisinopril 10 mg daily HLD > Atorvastatin 40 mg daily MDD > LOAN SECRETARY Duloxetine 90 mg daily and gabapentin 200 mg TID FEN: no IVF, repleting electrolytes PRN, NPO until speech eval PPX: Lovenox and SCDs Code Status: Full Code (discussed at admission on 05/02). Dispo: Medically stable for discharge to [facility]. Patient seen and discussed with Dr. Kohler. Samy Romeo MD Neurology Resident, PGY2 Available on Voalte Subjective: No acute events overnight. Patient seen at bedside. She continues to note improv ement on her left side. Her sensation is almost back to normal and her strength is better today. She has had some looser stools though this she has chronic IBS. She has some nausea that responds to Zofran which is also usual for her. She is looking forward to more rehabilitation. Patient denies headache, visual changes, hearing changes, or vomiting. Scheduled Meds:amLODIPine (NORVASC) tablet 5 mg, 5 mg, Oral, QDAY aspirin chewable tablet 81 mg, 81 mg, Oral, QDAY atorvastatin (LIPITOR) tablet 40 mg, 40 mg, Oral, QDAY clopiDOGreL (PLAVIX) tablet 75 mg, 75 mg, Oral, QDAY donepeziL (ARICEPT) tablet 10 mg, 10 mg, Oral, QHS duloxetine DR (CYMBALTA) capsule 90 mg, 90 mg, Oral, QDAY enoxaparin (LOVENOX) syringe 40 mg, 40 mg, Subcutaneous, QDAY(21) gabapentin (NEURONTIN) capsule 200 mg, 200 mg, Oral, Q8H lisinopriL (ZESTRIL) tablet 10 mg, 10 mg, Oral, QDAY melatonin tablet 5 mg, 5 mg, Oral, QHS pantoprazole DR (PROTONIX) tablet 40 mg, 40 mg, Oral, QDAY(21) senna/docusate (SENOKOT-S) tablet 1 tablet, 1 tablet, Oral, QDAY Continuous Infusions: PRN and Respiratory Meds:acetaminophen Q6H PRN, loperamide PRN, ondansetron Q6H PRN OR ondansetron (ZOFRAN) IV Q6H PRN, polyethylene glycol 3350 QDAY PRN, s imethicone Q6H PRN, traZODone QHS PRN Review of Systems: A comprehensive 14 point review of systems was reviewed and negative except as i n HPI. Vital Signs: Last Filed in 24 hours Vital Signs: 24 hour Range BP: 150/82 (05/04 512) Temp: 36.7 C (98.1 F) (05/04 512) Pulse: 88 (05/04 512) Respirations: 16 PER MINUTE (05/04 512) SpO2: 98 % (05/04 512) O2 Device: None (Room air) (05/04 512) Height: 162.6 cm (5' 4") (05/03 0934) BP: (125-180)/(75-90) Temp: [36.7 C (98 F)-37.2 C (98.9 F)] Pulse: [88-92] Respirations: [14 PER MINUTE-18 PER MINUTE] SpO2: [97 %-99 %] O2 Device: None (Room air) Physical Exam: General physical exam: General appearance: alert, no acute distress HEENT: normocephalic, eyes open with no discharge, nares patent, oropharynx is c lear with no lesions, palate intact Carotids: No bruits CV: regular rate and rhythm, no murmur, distal pulses palpable Chest: normal configuration, lungs are clear bilaterally Ab: soft, non-tender, no masses, no organomegaly Skin: no rashes or lesions Neuro exam: Mental status: Awake, alert, and oriented to person, place, time and location/si tuation Speech: Normal Abnormal Fluency x Comprehension x Articulation x Repetition Naming Cranial Nerves: Normal Abnormal II Pupils equal (3mm), round, reactive. III, IV, EOMI, no nystagmus V Intact to LT in V1-3 VII Face symmetrical, eye closure symmetrical VIII Hearing intact to finger rub IX, X Uvula midline and palate elevation symmetrical XI Shrug equal XII Tongue midline Muscle/motor: Tone: nml Bulk: nml Fasciculations: none No abnormal movements, rigidity or spasticity NF NE SA EF EE WF WE FF FE Patricia TAb HF HE HAb KF KE DF PF TE TF R 5 5 5 5 5 5 5 5 5 L 5- 5 4+ 5 4 4 5 4 5 Sensation: Normal RUE LUE RLE LLE Light Touch x Pin Prick Temperature x Vibration Proprioception Coordination: Normal Abnormal Right Abnormal Left Finger to Nose x Rapid alternating Heel to [place] x Finger tap Foot tap Gait and Station: deferred Lab/Radiology/Other Diagnostic Tests: 24-hour labs: Results for orders placed or performed during the hospital encounter of 05/02/23 (from the past 24 hour(s)) CBC Collection Time: 05/04/23 5:37 AM Result Value Ref Range White Blood Cells 9.1 4.5 - 11.0 K/UL RBC 4.30 4.0 - 5.0 M/UL Hemoglobin 12.8 12.0 - 15.0 GM/DL Hematocrit 38.4 36 - 45 % MCV 89.4 80 - 100 FL MCH 29.8 26 - 34 PG MCHC 33.3 32.0 - 36.0 G/DL RDW 14.1 11 - 15 % Platelet Count 363 150 - 400 K/UL MPV 8.1 7 - 11 FL BASIC METABOLIC PANEL Collection Time: 05/04/23 5:37 AM Result Value Ref Range Sodium 136 (L) 137 - 147 MMOL/L Potassium 3.0 (L) 3.5 - 5.1 MMOL/L Chloride 102 98 - 110 MMOL/L CO2 23 21 - 30 MMOL/L Anion Gap 11 3 - 12 Glucose 170 (H) 70 - 100 MG/DL Blood Urea Nitrogen 6 (L) 7 - 25 MG/DL Creatinine 0.73 0.4 - 1.00 MG/DL Calcium 8.4 (L) 8.5 - 10.6 MG/DL eGFR >60 >60 mL/min Pertinent radiology reviewed. 2D + DOPPLER ECHO Final Result US DUPLEX SCAN CAROTID BILATERAL Final Result No hemodynamically significant CCA or ICA stenosis. Calcified plaque in both car otid bulbs and bifurcations results in up to 50% luminal narrowing. Finalized by Lilia Oliva M.D. on 05/03/2023 11:38 AM. Dictated by Jose Alejandro Linda on 05/03/2023 8:59 AM. MRI HEAD WO CONTRAST Final Result 1. Small recent right thalamic infarct. No evidence of hemorrhagic conversion o r significant mass effect. 2. Mild generalized cerebral volume loss and supratentorial white matter FLAIR hyperintense foci, unspecific, though likely related to chronic microvascular is chemic changes. Dr. Smith discussed these findings with Dr. Romeo via phone at 12:29 PM. By my electronic signature, I attest that I have personally reviewed the images for this examination and formulated the interpretations and opinions expressed i n this report Finalized by Pearl Schroeder D.O. on 05/02/2023 12:32 PM. Dictated by Randal Smith M.D. on 05/02/2023 12:20 PM. Associated attestation - Mau Kohler MD - 05/04/2023 1:03 PM CDT ATTESTATION I personally performed the santos portions of the E/M visit, discussed case with re sident and concur with resident documentation of history, physical exam, assessm ent, and treatment plan unless otherwise noted. 72 y o with h/o HTN, HLD presented with acute onset L sided numbness, weakness. Small R thalamic infarct. Small vessel disease. DAPT for 3 weeks followed by asp irin. Lipitor 40 mg. Exam with mild sensory appendicular ataxia, able to walk with minimal assistance . PT/OT, pending disposition Staff name: Mau Kohler MD Date: 05/04/2023 * Kandi Galeana RN - 05/03/2023 10:54 PM CDT I have reviewed the notes, assessments, and/or procedures performed by Daniel waldron RN, and concur with her/his documentation unless otherwise noted. * Mago Ballesteros PT - 05/03/2023 2:48 PM CDT PHYSICAL THERAPY PROGRESS NOTE Name: Cheryl Parkinson : 1950 Age: 72 y.o. Admission Date: 05/02/2023 LOS: 0 days Date of Service: 05/03/2023 Mobility Patient Turn/Position: Self Progressive Mobility Level: Walk in hallway Distance Walked (feet): 125 ft Level of Assistance: Assist X1 Assistive Device: Hand Held Subjective Significant hospital events: Admitted from OSH with new L sided weakness. Strok e response activated. MRI "Small recent right thalamic infarct. No evidence of h emorrhagic conversion or significant mass effect" Pain: Patient does not rate pain (Chronic back pain) Pain Interventions: Treatment altered to patient's pain tolerance;Patient assist ed into position of comfort Ambulation Assist: Independent Mobility in Community without Device Home Situation: Lives Alone Type of Home: House Entry Stairs: 1-2 Stairs In-Home Stairs: No Stairs Comments: Pt reports that she has a hx of R knee arthritis that sometimes limits her tolerance to longer distance mobility. Does have some access to equipment from spouse. Reports fall last night immediately prior to admission fr om new L sided weakness Bed Mobility/Transfer Bed Mobility: Supine to Sit: Standby Assist;Head of Bed Elevated Bed Mobility: Sit to Supine: Standby Assist;HOB Elevated Transfer Type: Sit to/from Stand Transfer: Assistance Level: To/From;Bed;Minimal Assist Transfer: Assistive Device: Hand Hold Assist Gait Gait Distance: 125 feet Gait: Assistance Level: Minimal Assist Gait: Assistive Device: Hand Hold Assist Gait: Descriptors: Decreased step length;Pace: Slow Assessment/Progress Impaired Mobility Due To: Medical Status Limitation;Decreased Strength;Impaired Balance Assessment/Progress: Should Improve w/ Continued PT AM-PAC 6 Clicks Basic Mobility Inpatient Turning from your back to your side while in a flat bed without using bed rails: None Moving from lying on your back to sitting on the side of a flat bed without usin g bedrails : A Little Moving to and from a bed to a chair (including a wheelchair): A Little Standing up from a chair using your arms (e.g. wheelchair, or bedside chair): A Little To walk in hospital room: A Little Climbing 3-5 steps with a railing: A Lot Basic Mobility Inpatient Raw Score: 18 Standardized (T-scale) Score: 41.05 AM-PAC Basic Mobility Functional Stage: 34-51 Limited Mobility Indoors Goals Goal Formulation: With Patient/Family Patient Will Go Supine To/From Sit: Independently Patient Will Transfer Bed/Chair: Independently Patient Will Transfer Sit to Stand: Independently Patient Will Ambulate: Greater than 200 Feet, Independently Patient Will Go Up / Down Stairs: 1-2 Stairs, w/ Stand By Assist Plan Treatment Interventions: Mobility Training;Balance Activities;Neuromuscular Hai ucation Plan Frequency: 5-7 Days per Week PT Plan for Next Visit: gait quality/tolerance, sit <> stand reps for strengthening, stairs PT Discharge Recommendations Recommendation: Inpatient setting;Recommend rehab medicine consult Therapist: Mago Ballesteros, PT Date: 05/03/2023 * Donis Romeo MD - 05/03/2023 12:06 PM CDT Neurology Progress Note Admission Date: 05/02/2023 LOS: 0 days Assessment/Plan: Cheryl Parkinson is a 72 y.o. female with a PMH significant for HTN who presented to an OSH with left sided weakness/numbness and speech changes and was subsequen tly stroke activated. Initial NIHSS of 5. OSH CT head w/o contrast showed no acu te intracranial abnormality. OSH CTA head/neck showed R proximal ICA stenosis of 60%. She received a Plavix load prior to transfer to [facility] for MRI and stroke wo rkup. Acute ischemic stroke of right thalamus - Patient presented with left face, arm, and leg weakness/numbness with speech c hanges - NIHSS: 4 - Suspected localization of Stroke Sx: Right thalamus - Suspected etiology: Small - Vessel Occlusion - Pre-event mRS: 0 - No symptoms at all - MRI head without contrast: acute ischemic stroke of right thalamus - Vessel imaging at OSH showed R proximal ICA stenosis 60%, repeat carotid doppl ers here showed ~50% stenosis bilaterally - Echo (TTE): LVEF 60%, no PFO, no chamber enlargement. Plan: > Stroke risk factor modification: HLD: LDL goal <70, (not at goal with LDL 113) HgbA1c goal <7.0 (at goal with HgbA1c 5.8) HTN: long-term SBP goal of 130/80 Tobaccoism: encouraged continued abstinence Continue telemetry while admitted > Antiplatelet therapy: DAPT with aspirin 81 mg daily and clopidogrel 75 mg daily for 21 day course, and then continue aspirin monotherapy thereafter. > PT/OT/EMOTIONAL DISABILITIES TEACHER consult eval and treat > Rehab consult for assessment of post stroke care: patient may qualify for inpatient rehab HTN > Amlodipine 5 mg daily > Lisinopril 10 mg daily HLD > Atorvastatin 40 mg daily MDD > LOAN SECRETARY Duloxetine 90 mg daily and gabapentin 200 mg TID FEN: no IVF, repleting electrolytes PRN, NPO until speech eval PPX: Lovenox and SCDs Code Status: Full Code (discussed at admission on 05/02). Dispo: Medically stable for discharge to [facility]. Patient seen and discussed with Dr. Kohler. Samy Romeo MD Neurology Resident, PGY2 Available on Voalte Subjective: No acute events overnight. Patient seen at bedside. The patient reports her left sided symptoms continue to improve. Her numbness is nearly gone in her face and her arm. She still notices the weakness but it is also improving. She is looking forward to more rehabilitation. Patient denies headache, visual changes, hearing changes, nausea, or vomiting. Scheduled Meds:aspirin chewable tablet 81 mg, 81 mg, Oral, QDAY atorvastatin (LIPITOR) tablet 40 mg, 40 mg, Oral, QDAY clopiDOGreL (PLAVIX) tablet 75 mg, 75 mg, Oral, QDAY donepeziL (ARICEPT) tablet 10 mg, 10 mg, Oral, QHS duloxetine DR (CYMBALTA) capsule 90 mg, 90 mg, Oral, QDAY enoxaparin (LOVENOX) syringe 40 mg, 40 mg, Subcutaneous, QDAY(21) melatonin tablet 5 mg, 5 mg, Oral, QHS pantoprazole DR (PROTONIX) tablet 40 mg, 40 mg, Oral, QDAY(21) senna/docusate (SENOKOT-S) tablet 1 tablet, 1 tablet, Oral, QDAY Continuous Infusions: PRN and Respiratory Meds:acetaminophen Q6H PRN, ondansetron Q6H PRN OR ondan setron (ZOFRAN) IV Q6H PRN, polyethylene glycol 3350 QDAY PRN, simethicone Q6H P RN, traZODone QHS PRN Review of Systems: A comprehensive 14 point review of systems was reviewed and negative except as i n HPI. Vital Signs: Last Filed in 24 hours Vital Signs: 24 hour Range BP: 179/90 (05/03 934) Temp: 36.7 C (98.1 F) (05/03 934) Pulse: 88 (05/03 934) Respirations: 18 PER MINUTE (05/03 934) SpO2: 99 % (05/03 934) O2 Device: None (Room air) (05/03 934) Height: 162.6 cm (5' 4") (06/12 0934) BP: (146-179)/(77-97) Temp: [36.5 C (97.7 F)-36.8 C (98.2 F)] Pulse: [81-88] Respirations: [18 PER MINUTE-19 PER MINUTE] SpO2: [95 %-99 %] O2 Device: None (Room air) Physical Exam: General physical exam: General appearance: alert, no acute distress HEENT: normocephalic, eyes open with no discharge, nares patent, oropharynx is c lear with no lesions, palate intact Carotids: No bruits CV: regular rate and rhythm, no murmur, distal pulses palpable Chest: normal configuration, lungs are clear bilaterally Ab: soft, non-tender, no masses, no organomegaly Skin: no rashes or lesions Neuro exam: Mental status: Awake, alert, and oriented to person, place, time and location/si tuation Speech: Normal Abnormal Fluency x Comprehension x Articulation x Repetition Naming Cranial Nerves: Normal Abnormal II Pupils equal (3mm), round, reactive. III, IV, EOMI, no nystagmus V Intact to LT in R V1-3 Dec to LT in L V1-V3 VII Face symmetrical, eye closure symmetrical VIII Hearing intact to finger rub IX, X Uvula midline and palate elevation symmetrical XI Shrug equal XII Tongue midline Muscle/motor: Tone: nml Bulk: nml Fasciculations: none No abnormal movements, rigidity or spasticity NF NE SA EF EE WF WE FF FE Patricia TAb HF HE HAb KF KE DF PF TE TF R 5 5 5 5 5 5 5 5 5 L 4 5- 4 4 4 4 5 4 5 Sensation: Normal RUE LUE RLE LLE Light Touch Normal Dec Normal Dec Pin Prick Temperature Vibration Proprioception Coordination: Normal Abnormal Right Abnormal Left Finger to Nose x Rapid alternating Heel to [place] x Finger tap Foot tap Gait and Station: deferred Lab/Radiology/Other Diagnostic Tests: 24-hour labs: Results for orders placed or performed during the hospital encounter of 05/02/23 (from the past 24 hour(s)) LIPID PROFILE Collection Time: 05/03/23 5:54 AM Result Value Ref Range Cholesterol 170 <200 MG/DL Triglycerides 271 (H) <150 MG/DL HDL 37 (L) >40 MG/DL LDL 113 (H) <100 mg/dL VLDL 54 MG/DL Non HDL Cholesterol 133 MG/DL CBC Collection Time: 05/03/23 5:54 AM Result Value Ref Range White Blood Cells 8.5 4.5 - 11.0 K/UL RBC 4.23 4.0 - 5.0 M/UL Hemoglobin 12.5 12.0 - 15.0 GM/DL Hematocrit 37.4 36 - 45 % MCV 88.3 80 - 100 FL MCH 29.5 26 - 34 PG MCHC 33.4 32.0 - 36.0 G/DL RDW 14.2 11 - 15 % Platelet Count 346 150 - 400 K/UL MPV 8.5 7 - 11 FL BASIC METABOLIC PANEL Collection Time: 05/03/23 5:54 AM Result Value Ref Range Sodium 136 (L) 137 - 147 MMOL/L Potassium 3.3 (L) 3.5 - 5.1 MMOL/L Chloride 101 98 - 110 MMOL/L CO2 22 21 - 30 MMOL/L Anion Gap 13 (H) 3 - 12 Glucose 146 (H) 70 - 100 MG/DL Blood Urea Nitrogen 8 7 - 25 MG/DL Creatinine 0.59 0.4 - 1.00 MG/DL Calcium 8.6 8.5 - 10.6 MG/DL eGFR >60 >60 mL/min CHEM 7 ADD ON Collection Time: 05/03/23 5:54 AM Result Value Ref Range Total Protein 5.9 (L) 6.0 - 8.0 G/DL Total Bilirubin 0.3 0.3 - 1.2 MG/DL Albumin 3.3 (L) 3.5 - 5.0 G/DL Alk Phosphatase 57 25 - 110 U/L AST (SGOT) 27 7 - 40 U/L ALT (SGPT) 19 7 - 56 U/L MAGNESIUM Collection Time: 05/03/23 5:54 AM Result Value Ref Range Magnesium 1.7 1.6 - 2.6 mg/dL Pertinent radiology reviewed. 2D + DOPPLER ECHO Final Result US DUPLEX SCAN CAROTID BILATERAL Final Result No hemodynamically significant CCA or ICA stenosis. Calcified plaque in both car otid bulbs and bifurcations results in up to 50% luminal narrowing. Finalized by Lilia Oliva M.D. on 05/03/2023 11:38 AM. Dictated by Jose Alejandro Linda on 05/03/2023 8:59 AM. MRI HEAD WO CONTRAST Final Result 1. Small recent right thalamic infarct. No evidence of hemorrhagic conversion o r significant mass effect. 2. Mild generalized cerebral volume loss and supratentorial white matter FLAIR hyperintense foci, unspecific, though likely related to chronic microvascular is chemic changes. Dr. Smith discussed these findings with Dr. Romeo via phone at 12:29 PM. By my electronic signature, I attest that I have personally reviewed the images for this examination and formulated the interpretations and opinions expressed i n this report Finalized by Pearl Schroeder D.O. on 05/02/2023 12:32 PM. Dictated by Randal Smith M.D. on 05/02/2023 12:20 PM. Associated attestation - Mau Kohler MD - 05/04/2023 1:03 PM CDT ATTESTATION I personally performed the santos portions of the E/M visit, discussed case with re sident and concur with resident documentation of history, physical exam, assessm ent, and treatment plan unless otherwise noted. GARRETT 05/03/2023 72 y o with h/o HTN, HLD presented with acute onset L sided numbness, weakness. Small R thalamic infarct. Small vessel disease. DAPT for 3 weeks followed by asp irin. LDL 110, Lipitor 40 mg. Resume home meds - amlo, losartan for HTN. Exam with mild sensory appendicular ataxia PT/OT, pending disposition Staff name: Mau Kohler MD Date: 05/04/2023 * Brynn Vogt, OT - 05/03/2023 9:10 AM CDT OCCUPATIONAL THERAPY ASSESSMENT NOTE Name: Cheryl Parkinson : 1950 Age: 72 y.o. Admission Date: 05/02/2023 LOS: 0 days Date of Service: 05/03/2023 Mobility Patient Turn/Position: Chair Progressive Mobility Level: Walk in room Distance Walked (feet): 30 ft Level of Assistance: Assist X1 Assistive Device: Walker Activity Limited By: Weakness Subjective Pertinent Dx per Physician: Admitted from OSH with new L sided weakness. Stroke response activated. MRI "Small recent right thalamic infarct. No evidence of he morrhagic conversion or significant mass effect" Precautions: Falls Pain / Complaints: Patient agrees to participate in therapy;Patient has no c/o p ain Pain Level Current: No pain Comments: RN cleared patient for OT session. Patient up in chair at departure wi th chair alarm activated and call light within reach. Objective Psychosocial Status: Willing and Cooperative to Participate Persons Present: Nursing Staff Home Living Type of Home: House Home Layout: One Level Bathroom Shower / Tub: Walk-in Shower Bathroom Equipment: Shower Chair Home Equipment: Cane Prior Function Level Of [place]: Independent with ADLs and functional transfers;Independen t with homemaking w/ ambulation Lives With: Alone Receives Help From: Family Other Function Comments: Patient reports that she lives alone, however, her neic e lives across the street and her son lives in a different town. Both are able t o assist if/when needed. Reports that she is able to discharge to her Son's zaheer e and her son's is able to provide consistent assist. Vision Current Vision: Wears Glasses All of the Time Comment: Reports no acute changes in vision. ADL's Where Assessed: In Bathroom;Standing at Sink Grooming Assist: Stand By Assist Grooming Deficits: Wash/Dry Hands;Brushing Hair Toileting Assist: Stand By Assist Toileting Deficits: Clothing Management Up;Clothing Management Down;Perineal Hyg iene;Grab Bar Use Comment: Patient completed toileting with close standby assist. Able to manage c lothign up/down maintaining good balance. Uses hand rail for sit to stand. ADL Mobility Bed Mobility Comments: Patient ambulating to bathroom with nursing staff upon ar rival, up in chair at departure. Transfer Type: Sit to stand Transfer: Assistance Level: From;Toilet;Standby assist Transfer: Assistive Device: Roller walker Transfer: Type of Assistance: For safety considerations Other Transfer Type: Stand pivot Other Transfer: Assistance Level: To;Bedside chair;Minimal assist (CGA) Other Transfer: Assistive Device: Roller walker Other Transfer: Type of Assistance: For safety considerations End of Activity Status: Up in chair;Instructed patient to request assist with mo bility;Instructed patient to use call light;Nursing notified Sitting Balance: Standby assist Standing Balance: 2 UE support;Standby assist Gait Distance: 30 feet Gait: Assistance Level: Minimal assist Gait: Assistive Device: Roller walker Gait Comments: Slow gait, verbal cues for walker management with turns to the le ft. Activity Tolerance Endurance: 3/5 Tolerates 25-30 Minutes Exercise w/Multiple Rests Cognition Overall Cognitive Status: WF to Adequately Complete Self Care Tasks Safely Orientation: Alert & Oriented x4 Attention: Awake/Alert ROM R UE ROM: WFL R UE ROM Method: Active L UE ROM: WFL L UE ROM Method: Active Coordination: Mild Delay ROM Comments: Mild delay in LUE with AROM. Sensory Comment: Reports numbness/tingling in LLE and buttocks. Reports "I know that I a m sitting, but I don't feel the chair underneath me." UE Strength / Tone R UE Strength: WFL Strength Comments: LUE grossly 3/5. Education Persons Educated: Patient Teaching Methods: Verbal Instruction Patient Response: Verbalized Understanding Topics: Role of OT, Goals for Therapy;Home safety Goal Formulation: With Patient Assessment Assessment: Decreased ADL Status;Decreased Endurance;Decreased UE Strength;Decre ased Self-Care Trans;Decreased High-Level ADLs Prognosis: Good;w/Cont OT s/p Acute Discharge Goal Formulation: Patient Comments: Patient is currently limited by weakness and change in sensation. Anti cipate patient will benefit from ongoing skilled OT to address ADL's and functio nal mobility. AM-PAC 6 Clicks Daily Activity Inpatient Putting on and taking off regular lower body clothes: A Little Bathing (Including washing, rinsing, drying): A Little Toileting, which includes using toilet, bedpan, or urinal: None Putting on and taking off regular upper body clothing: None Taking care of personal grooming such as brushing teeth: None Eating meals: None Daily Activity Raw Score: 22 Standardized (T-scale) Score: 47.1 Plan OT Frequency: 5x/week OT Plan for Next Visit: Outcome measure, progress mobility, LB dressing. ADL Goals Patient Will Perform All ADL's: w/ Modified [place] Functional Transfer Goals Pt Will Perform All Functional Transfers: Modified Independent OT Discharge Recommendations Recommendation: Inpatient setting;Recommend rehab medicine consult Patient Currently Requires Physical Assist With: All home functioning ADLs;Ambul ation Patient Currently Requires Supervision For: ADLs;Mobility Patient Currently Requires Equipment: Walker with wheels Comments: If patient were to discharge home, would require consistent assist upo n discharge. Patient requires the use of a walker with wheels to complete ADLs in the home in cluding meal preparation, ambulation to the bathroom for toileting, bathing and grooming, and safe home mobility. Patient is unable to complete these ADLs with a cane or crutch and can safely use the walker. Therapist: Brynn Vogt OTR/L [id number] Date: 05/03/2023 * Negin Palacios, PT - 05/02/2023 1:50 PM CDT PHYSICAL THERAPY ASSESSMENT Name: Cheryl Parkinson : 1950 Age: 72 y.o. Admission Date: 05/02/2023 LOS: 0 days Date of Service: 05/02/2023 Mobility Patient Turn/Position: Self;Supine Progressive Mobility Level: Walk in room Distance Walked (feet): 25 ft Level of Assistance: Assist X1 Assistive Device: Walker Activity Limited By: Weakness Subjective Significant hospital events: Admitted from OSH with new L sided weakness. Strok e response activated. MRI "Small recent right thalamic infarct. No evidence of h emorrhagic conversion or significant mass effect" Mental / Cognitive Status: Alert;Cooperative;Follows Commands Persons Present: Son Pain: Patient has no complaint of pain Ambulation Assist: Independent Mobility in Community without Device Home Situation: Lives Alone Type of Home: House Entry Stairs: 1-2 Stairs In-Home Stairs: No Stairs Comments: Pt reports that she has a hx of R knee arthritis that sometimes limits her tolerance to longer distance mobility. Does have some access to equipment from spouse. Reports fall last night immediately prior to admission fr om new L sided weakness. Lives alone but has a niece that lives across the stre et from her home who could provide some intermittent PRN assist or a supportive son who lives in a different town but does voice that pt could come and stay wit h him at [place] if needed. ROM R LE ROM: WFL L LE ROM: WFL Strength R LE Strength: WFL L LE Strength: Not WFL L Hip Flexion: 2-/5 L Hip Abduction: 2+/5 L Knee Flexion: 2/5 L Knee Extension: 2/5 L Ankle Dorsiflexion: 2/5 L Ankle Plantarflexion: 2/5 Posture/Neurological Clonus L Ankle: None Clonus R Ankle: None Posture/Neuro Comments: Pt endorses new numbness in entire L leg and bottom. R LE intact Bed Mobility/Transfer Bed Mobility: Supine to Sit: Standby Assist Bed Mobility: Sit to Supine: Standby Assist Transfer Type: Sit to/from Stand Transfer: Assistance Level: To/From;Bed;Minimal Assist Transfer: Assistive Device: None;Roller Walker Transfers: Type Of Assistance: For Safety Considerations;For Strength Deficit Other Transfer Type: Stand Pivot Other Transfer: Assistance Level: To/From;Bed;Minimal Assist Other Transfer: Assistive Device: Hand Hold Assist;Roller Walker Other Transfer: Type Of Assistance: For Safety Considerations;For Balance;For St rength Deficit End Of Activity Status: In Bed;Instructed Patient to Request Assist with Mobilit y;Instructed Patient to Use Call Light;Nursing Notified Comments: Transfers completed without AD and later with RW. RW added to provide some increased stability and safety with transfers Balance Standing Balance: Dynamic Standing Balance;2 UE support;Minimal Assist [place] Balance Scale: Assessed Sit to Stand: Needs minimal aid to stand or to stabilize Standing Unsupported: Unable to stand 30 seconds unsupported Sitting w/o Back Support, Feet Supported: Able to sit safely and securely 2 min utes Stand to Sit: Sits independently. but has uncontrolled descent Transfers: Needs one person to assist Standing Unsupported Eyes Closed: Needs help to keep from falling Standing Unsupported Feet Together: Needs help to attain position and unable to hold for 15 seconds Reaching Forward While Standing: Loses balance while trying/requires external nunez pport Binding Bench Worker Object From Floor While Standing: Unable to try/needs assist to keep fro m losing balance or falling Standing, Looking Over L/R Shoulders: Needs assist to keep from losing balance o r falling Turn 360 Degrees: Needs assistance while turning Alternate Foot on Step, Standing Unsuppo: Needs assistance to keep from falling/ unable to try Tandem Standing: Loses balance while stepping or standing Single Leg Stance: Unable to try or needs assist to prevent fall [place] Balance Score: 7 out of 56 [place] Balance Score (Old Row): 7 [place] Fall Risk: At Risk for Falls Gait Gait Distance: 25 feet (x 2 bouts) Gait: Assistance Level: Minimal Assist Gait: Assistive Device: Hand Hold Assist;Roller Walker Comments: Gait x 25' wit JIG FITTER and minimal assist. Greatly decreased L step lengt h and foot clearance with pt reaching R hand out for additional external support duirng gait. Trial RW x 25' with minimal assist however noting pt appears more stable with use and displays a greater ability to weight shift for L LE advance. L knee remains soft during mobility tasks and further distances deferred due to increasing instability during gait activities (fall risk). Activity/Exercise Sit Edge Of Bed Assist: Stand By Assist Education Persons Educated: Patient/Family Patient Barriers To Learning: Anxiety Interventions: Family Education;Repetition of Instructions Teaching Methods: Verbal Instruction Patient Response: Verbalized Understanding;More Instruction Required Topics: Plan/Goals of PT Interventions;Use of Assistive Device/Orthosis;Mobility Progression;Safety Awareness;Up with Assist Only;Recommend Continued Therapy Assessment/Progress Impaired Mobility Due To: Medical Status Limitation;Decreased Strength;Impaired Balance Assessment/Progress: Should Improve w/ Continued PT Pt with new L sided LE weakness impacting her functional independence. Anticipa te while she may have some spontaneous recovery over the next several days, she will likely require a brief post acute rehabilitations stay prior to DC to [facility] her functional independence as pt was living alone and fully independent vidhya or to this admission. Current [place]A score 7/56 indicating high risk for falls. AM-PAC 6 Clicks Basic Mobility Inpatient Turning from your back to your side while in a flat bed without using bed rails: None Moving from lying on your back to sitting on the side of a flat bed without usin g bedrails : A Little Moving to and from a bed to a chair (including a wheelchair): A Little Standing up from a chair using your arms (e.g. wheelchair, or bedside chair): A Little To walk in hospital room: A Little Climbing 3-5 steps with a railing: A Lot Basic Mobility Inpatient Raw Score: 18 Standardized (T-scale) Score: 41.05 AM-PAC Basic Mobility Functional Stage: 34-51 Limited Mobility Indoors Goals Goal Formulation: With Patient/Family Patient Will Go Supine To/From Sit: Independently Patient Will Transfer Bed/Chair: Independently Patient Will Transfer Sit to Stand: Independently Patient Will Ambulate: Greater than 200 Feet, Independently, w/ Walker Patient Will Go Up / Down Stairs: 1-2 Stairs, w/ Stand By Assist Plan Treatment Interventions: Mobility Training;Balance Activities;Neuromuscular Hai ucation Plan Frequency: 5-7 Days per Week PT Plan for Next Visit: continue gait- consider chair follow for increased dista nces pending L knee control, transfer progression, sit <> stand reps for strengthening, stairs, consider 10MWT vs TUG PT Discharge Recommendations Recommendation: Inpatient setting;Recommend rehab medicine consult Patient Currently Requires Physical Assist With: All mobility If DC to home, would recommend consistent assistance, RW and continued HHPT Patient Currently Requires Equipment: Walker with wheels Patient requires the use of a walker with wheels to complete ADLs in the home in cluding meal preparation, ambulation to the bathroom for toileting, bathing and grooming, and safe home mobility. Patient is unable to complete these ADLs with a cane or crutch and can safely use the walker. Therapist Negin Palacios, PT Date 05/02/2023 * Lis Neves RN - 05/02/2023 9:30 AM CDT Vascular Access Team consulted to obtain lab specimen. Ultrasound Used: Yes How Many Attempts: 1 Location of Unsuccessful Attempts: na At 0811 approximately 4 ml of blood obtained from newly inserted PIV in LFA. Pat ient tolerated the procedure well. Specimen labeled and sent to lab. documented in this encounter H&P Notes * Donis Romeo MD - 05/02/2023 12:09 PM CDT For full H&P with plan, please see my Acute Stroke Response note from 05/02. Samy Romeo MD Neurology Resident, PGY2 Available on Voalte (preferred) documented in this encounter Consult Notes * Herminio Mojica MD - 05/03/2023 9:48 AM CDTAssociated Order(s): CONSULT REHABILITATION MEDICINE PHYSICIAN Physical Medicine & Rehabilitation Consult Service Name: Cheryl Parkinson : 1950 Age: 72 y.o. Admission Date: 05/02/2023 LOS: 0 days Date of Service: 05/03/2023 Date of Service: 05/03/2023 Financial Class: Payor: [facility] MEDICARE / Plan: [facility] MEDICARE REPLACEMENT - LIFE1 / Product Type: Medicare / Referring Physician: Mau Kohler, * Reason for Consult: evaluate for Post-Acute Rehab/Placement Precautions: Fall Weight Bearing Precautions: WBAT Assessment & Plan: Principal Problem: Acute ischemic stroke (HCC) Active Problems: Acute ischemic cerebrovascular accident (CVA) involving internal carotid arter y territory (HCC) Gait abnormality Impaired mobility/ADLs Impaired transfers Cognitive Deficits Cheryl Parkinson is a 72 y.o. year old female admitted to [facility] on 05/02/2023 with the following issues: R thalamic stroke Impairments: cognitive impairments, hemiplegia, loss of coordination, neurogenic bladder, neurogenic bowel and weakness Activity Limitations: grooming, bathing, dressing - lower, toileting, transfers , ambulation, stairs, problem solving and memory Participation Restrictions: unable to return home safely Family / Patient Dispositional Goals: return home to previous level of function Overall Functional Goals Gait and mobility Independent Transfers Independent Upper body dressing Independent Lower body dressing Independent Toileting Independent Bathing Independent Cognition / Communication Speech therapy will evaluate and treat cognition and c ommunication deficits and assess for safe swallow Recommendations: Post-acute care rehabilitation needs: acute inpatient rehabilitation Patient s medical complexity in the setting of R thalamic stroke and additional comorbid ities warrants daily physician oversight, and she has functional goals consisten t with intensive rehabilitation in acute inpatient rehabilitation. Barriers/Facilitators: Barriers: High burden of care Facilitators: improving strength / endurance and improving medical condition Rehabilitation Prognosis: Good Tolerance for three hours of therapy a day: Good Impaired gait/mobility/transfers: The patient will benefit from continued work with PT to address mobility deficit s Impaired ADLs: The patient will benefit from ongoing OT to address functional deficits Thank you for this consultation. Please call our consult pager with questions o r concerns. Herminio Mojica MD Available on Voalte History of Present Illness: CC: Weakness Hospital Course: Ms. Parkinson is a pleasant 72 y.o. female with PMH of arthriti s, bladder cancer, hypertension, stroke, GI ulcer, who presented as a transfer f rom an outside hospital with new onset left-sided weakness on 05/02. Stroke resp onse was activated. MRI demonstrated a small recent right thalamic infarct. Th ere is no evidence of hemorrhagic conversion or significant mass effect. She wa s admitted to the neurology stroke service on telemetry for further work-up and management. The primary team has consulted PT and OT, and will continue working with therapi es to address functional and mobility deficits, rehab is now consulted for post- acute rehab/placement recommendations. The patient's family/social support consists of: Family members who live nearby, including a niece who lives across the street who to provide intermittent nate tance on discharge, along with a son who lives out of town but may be able to st ay and provide support if needed. Medical History: Diagnosis Date Arthritis Bladder cancer (HCC) Blood clotting disorder (HCC) Hypertension Stroke (HCC) Ulcer of the stomach and intestine Vision abnormalities Surgical History: Procedure Laterality Date CYSTOURETHROSCOPY WITH FULGURATION/ RESECTION BLADDER TUMOR N/A 09/18/2021 Performed by Don Melvin MD at [facility] OR gemcitabine instillation N/A 09/18/2021 Performed by Don Melvin MD at [facility] OR bilateral retrograde pyelograms Bilateral 09/18/2021 Performed by Don Melvin MD at [facility] OR HX APPENDECTOMY HX CHOLECYSTECTOMY HX HYSTERECTOMY Social History Socioeconomic History Marital status: Tobacco Use Smoking status: Never Smokeless tobacco: Never Substance and Sexual Activity Alcohol use: Not Currently Drug use: Never Family history reviewed; non-contributory Scheduled Meds:aspirin chewable tablet 81 mg, 81 mg, Oral, QDAY clopiDOGreL (PLAVIX) tablet 75 mg, 75 mg, Oral, QDAY donepeziL (ARICEPT) tablet 10 mg, 10 mg, Oral, QHS duloxetine DR (CYMBALTA) capsule 90 mg, 90 mg, Oral, QDAY enoxaparin (LOVENOX) syringe 40 mg, 40 mg, Subcutaneous, QDAY(21) melatonin tablet 5 mg, 5 mg, Oral, QHS pantoprazole DR (PROTONIX) tablet 40 mg, 40 mg, Oral, QDAY(21) senna/docusate (SENOKOT-S) tablet 1 tablet, 1 tablet, Oral, QDAY Continuous Infusions: PRN and Respiratory Meds:acetaminophen Q6H PRN, ondansetron Q6H PRN OR ondan setron (ZOFRAN) IV Q6H PRN, polyethylene glycol 3350 QDAY PRN, traZODone QHS PRN No Known Allergies Prior Level of Function: The patient was independent for all mobility/ambulation and activities of daily living. Home Environment: Home Situation: Lives Alone (05/02/2023 2:00 PM) No data recorded Type of Home: House (05/02/2023 2:00 PM) Entry Stairs: 1-2 Stairs (05/02/2023 2:00 PM) In-Home Stairs: No Stairs (05/02/2023 2:00 PM) Comments: Pt reports that she has a hx of R knee arthritis that sometimes limits her tolerance to longer distance mobility. Does have some access to equipment from spouse. Reports fall last night immediately prior to admission fr om new L sided weakness (05/02/2023 2:00 PM) No data recorded [address] [facility] [id number] Current Level Of Function: PT Gait:Gait Distance: 25 feet (x 2 bouts) Gait: Assistance Level: Minimal Nate t Gait: Assistive Device: Hand Hold Assist, Roller Walker Bed Mobility/Transfers Bed Mobility: Supine to Sit: Standby Assist Bed Mobility: Sit to Supine: Standby Assist Transfer Type: Sit to/from Stand Transfer: Assistance Level: To/From, Bed, Minimal Assist Transfer: Assistive Device: None, Roller Walker Transfers: Type Of Assistance: For Safety Considerations, For Strength Deficit Other Transfer Type: Stand Pivot Other Transfer: Assistance Level: To/From, Bed, Minimal Assist Other Transfer: Assistive Device: Hand Hold Assist, Roller Walker Other Transfer: Type Of Assistance: For Safety Considerations, For Balance, For Strength Deficit End Of Activity Status: In Bed, Instructed Patient to Request Assist with Mobili ty, Instructed Patient to Use Call Light, Nursing Notified Comments: Transfers completed without AD and later with RW. 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 Gen: Alert & Oriented X 3 HEENT: EOMI Neck: Supple, no elevated JVP Heart: Extremities well perfused Lungs: non labored breathing Abdomen: Soft, non-distended : - Rae Skin: no gross lesions appreciated Ext: purposeful movement of extremities MS: Root Right Left Shoulder Abduction C5 5 4 Elbow Flexion C5 5 4 Elbow Extension C7 5 4 Wrist Extension C6 5 4 Finger Flexion C8 5 4 Finger Abduction T1 5 4 Hip Flexion L2 4 3 Knee Flexion L5/S1 4 3 Knee Extension L3 4 3 Dorsiflexion L4 5 3 Plantarflexion S1 5 3 EHL Extension L5 5 3 Neuro: Cranial Nerves Diminished sensation to light touch throughout L face DTR's 1+ throughout Babinski Plantar Reflex is Downgoing Bilaterally Upper Extremity Tone Normal Lower Extremity Tone Normal Upper Extremity Sensation Intact to light touch bilaterally Lower Extremity Sensation Intact to light touch bilaterally Clonus Negative Bilaterally Memory/Cognition/Speech Within limits in casual conversation No intake or output data in the 24 hours ending 05/03/23947 Hematology: Lab Results Component Value Date HGB 12.5 05/03/2023 HCT 37.4 05/03/2023 PLTCT 346 05/03/2023 WBC 8.5 05/03/2023 MCV 88.3 05/03/2023 MCHC 33.4 05/03/2023 MPV 8.5 05/03/2023 RDW 14.2 05/03/2023 , Coagulation: No results found for: PT, PTT, INR and General Chemistry: Lab Results Component Value Date NA 136 05/03/2023 K 3.3 05/03/2023 CL 101 05/03/2023 GAP 13 05/03/2023 BUN 8 05/03/2023 CR 0.59 05/03/2023 GLU 146 05/03/2023 CA 8.6 05/03/2023 ALBUMIN 3.3 05/03/2023 MG 1.7 05/03/2023 TOTBILI 0.3 05/03/2023 Radiology: Reviewed Herminio Mojica MD Associated attestation - Alli Richards MD - 05/03/2023 3:11 PM CDT Rehabilitation Medicine Attending Physician Attestation: I personally performed santos portions of the history and exam. I discussed the foreign e with the resident and agree with the resident's documentation of history, phys ical assessment and treatment plan unless otherwise noted. Thank you for allowing us to participate in the care of this patient. Gregory Richards MD Rehabilitation Medicine documented in this encounter Miscellaneous Notes * Care Plan - Luiz Rodriguez RN - 05/05/2023 12:49 PM CDT Problem: Discharge Planning Goal: Participation in plan of care Flowsheets (Taken 05/03/[id number] by Kandi Galeana, RN) Participation in Plan of Care: Involve patient/caregiver in care planning decisi on making Goal: Knowledge regarding plan of care Flowsheets (Taken 05/03/[id number] by Kandi Galeana, RN) Knowledge regarding plan of care: Provide procedural and treatment education Provide admission education to parent/caregiver Provide infection prevention education Provide medication management education Provide fall prevention education Provide plan of care education Goal: Prepared for discharge Flowsheets (Taken 05/03/20232241 by Kandi Galeana, RN) Prepared for discharge: Provide safe use medical equipment education Complete ADL ability assessment Provide diet and oral health education Collaborate with multidisciplinary team for hospital discharge coordination Problem: Neurological Status, Impaired/Altered Goal: Progress toward maximizing functional outcomes Flowsheets (Taken 05/03/2023245 by Bety Chavez, MICHELLE) Progress toward maximizing functional outcomes: Establish therapeutic relationship Provide safety precautions education Provide stroke risk factors, warning signs and symptoms education Observe patient activities Promote functional status Address etiologies Manage environmental safety Goal: Cognitive status restored to baseline Flowsheets (Taken 05/03/2023245 by Bety Chavez, RN) Cognitive status restored to baseline: Assess patient history Reduce delirium risk Observe patient acitvities Complete delirium assessment scale Promote rest Problem: High Fall Risk Goal: High Fall Risk Flowsheets (Taken 05/03/2023245 by Bety Chavez, MICHELLE) High Fall Risk: All patients will receive: High fall risk sign, yellow wristband, yellow socks, gait belt, and shower shoes Engage bed alarm - middle setting Engage chair alarm Stay with the patient while toileting/showering PT/OT consult for fall prevention assessment if scoring in Unsteady Gait or Vis ual or Auditory impairment Remove excess equipment/supplies Educate patient to use call-light if tethered Maximize bed functionality (optimize bed height, firm/flat surface) Use safe patient handling equipment as appropriate RN provided discharge paperwork and reviewed with RN. Pt has no concerns about t ransfer to [facility]. Report called to accepting facility, all questions answered and unit number provided. PIV removed and tele returned and pt left via WC to family transport with discharge packet. * Care Plan - Kandi Galeana RN - 05/04/2023 11:02 PM CDT Problem: Discharge Planning Goal: Participation in plan of care Outcome: Goal Ongoing Flowsheets (Taken 05/03/20232241) Participation in Plan of Care: Involve patient/caregiver in care planning decisi on making Goal: Knowledge regarding plan of care Outcome: Goal Ongoing Flowsheets (Taken 05/03/20232241) Knowledge regarding plan of care: Provide procedural and treatment education Provide admission education to parent/caregiver Provide infection prevention education Provide medication management education Provide fall prevention education Provide plan of care education Goal: Prepared for discharge Outcome: Goal Ongoing Flowsheets (Taken 05/03/20232241) Prepared for discharge: Provide safe use medical equipment education Complete ADL ability assessment Provide diet and oral health education Collaborate with multidisciplinary team for hospital discharge coordination Problem: Neurological Status, Impaired/Altered Goal: Progress toward maximizing functional outcomes Outcome: Goal Ongoing Flowsheets (Taken 05/03/2023 0246 by Bety Chavez, RN) Progress toward maximizing functional outcomes: Establish therapeutic relationship Provide safety precautions education Provide stroke risk factors, warning signs and symptoms education Observe patient activities Promote functional status Address etiologies Manage environmental safety Goal: Cognitive status restored to baseline Outcome: Goal Ongoing Flowsheets (Taken 05/03/2023 024 by Bety Chavez, RN) Cognitive status restored to baseline: Assess patient history Reduce delirium risk Observe patient acitvities Complete delirium assessment scale Promote rest Problem: High Fall Risk Goal: High Fall Risk Outcome: Goal Ongoing Flowsheets (Taken 05/03/2023245 by Bety Chavez, RN) High Fall Risk: All patients will receive: High fall risk sign, yellow wristband, yellow socks, gait belt, and shower shoes Engage bed alarm - middle setting Engage chair alarm Stay with the patient while toileting/showering PT/OT consult for fall prevention assessment if scoring in Unsteady Gait or Vis ual or Auditory impairment Remove excess equipment/supplies Educate patient to use call-light if tethered Maximize bed functionality (optimize bed height, firm/flat surface) Use safe patient handling equipment as appropriate * Care Plan - Kandi Galeana RN - 05/03/2023 10:43 PM CDT Problem: Discharge Planning Goal: Participation in plan of care Outcome: Goal Ongoing Flowsheets (Taken 05/03/20232241) Participation in Plan of Care: Involve patient/caregiver in care planning decisi on making Goal: Knowledge regarding plan of care Outcome: Goal Ongoing Flowsheets (Taken 05/03/20232241) Knowledge regarding plan of care: Provide procedural and treatment education Provide admission education to parent/caregiver Provide infection prevention education Provide medication management education Provide fall prevention education Provide plan of care education Goal: Prepared for discharge Outcome: Goal Ongoing Flowsheets (Taken 05/03/2023 2242) Prepared for discharge: Provide safe use medical equipment education Complete ADL ability assessment Provide diet and oral health education Collaborate with multidisciplinary team for hospital discharge coordination Problem: Neurological Status, Impaired/Altered Goal: Progress toward maximizing functional outcomes Outcome: Goal Ongoing Flowsheets (Taken 05/03/2023 024 by Bety Chavez, RN) Progress toward maximizing functional outcomes: Establish therapeutic relationship Provide safety precautions education Provide stroke risk factors, warning signs and symptoms education Observe patient activities Promote functional status Address etiologies Manage environmental safety Goal: Cognitive status restored to baseline Outcome: Goal Ongoing Flowsheets (Taken 05/03/2023245 by Bety Chavez, RN) Cognitive status restored to baseline: Assess patient history Reduce delirium risk Observe patient acitvities Complete delirium assessment scale Promote rest Problem: High Fall Risk Goal: High Fall Risk Outcome: Goal Ongoing Flowsheets (Taken 05/03/2023245 by Bety Chavez, RN) High Fall Risk: All patients will receive: High fall risk sign, yellow wristband, yellow socks, gait belt, and shower shoes Engage bed alarm - middle setting Engage chair alarm Stay with the patient while toileting/showering PT/OT consult for fall prevention assessment if scoring in Unsteady Gait or Vis ual or Auditory impairment Remove excess equipment/supplies Educate patient to use call-light if tethered Maximize bed functionality (optimize bed height, firm/flat surface) Use safe patient handling equipment as appropriate * Care Plan - Bety Chavez RN - 05/03/2023 2:47 AM CDT Problem: Neurological Status, Impaired/Altered Goal: Progress toward maximizing functional outcomes Outcome: Goal Ongoing Flowsheets (Taken 05/03/2023245) Progress toward maximizing functional outcomes: Establish therapeutic relationship Provide safety precautions education Provide stroke risk factors, warning signs and symptoms education Observe patient activities Promote functional status Address etiologies Manage environmental safety Goal: Cognitive status restored to baseline Outcome: Goal Ongoing Flowsheets (Taken 05/03/2023 024) Cognitive status restored to baseline: Assess patient history Reduce delirium risk Observe patient acitvities Complete delirium assessment scale Promote rest Problem: High Fall Risk Goal: High Fall Risk Outcome: Goal Ongoing Flowsheets (Taken 05/03/2023 0246) High Fall Risk: All patients will receive: High fall risk sign, yellow wristband, yellow socks, gait belt, and shower shoes Engage bed alarm - middle setting Engage chair alarm Stay with the patient while toileting/showering PT/OT consult for fall prevention assessment if scoring in Unsteady Gait or Vis ual or Auditory impairment Remove excess equipment/supplies Educate patient to use call-light if tethered Maximize bed functionality (optimize bed height, firm/flat surface) Use safe patient handling equipment as appropriate * Acute Stroke Response - Donis Romeo MD - 05/02/2023 12:08 PM CDT NAME:Cheryl Parkinson : 1950 AGE: 72 y.o. ADMISSION DATE: 05/02/2023 DAYS ADMITTED: LOS: 0 days Date of Service: 05/02/2023 Allergies: Patient has no known allergies. Type of Acute Stroke Response Team note: H&P Stroke Activation Tier: Tier 2 Assessment & Plan Chief Complaint: Left sided weakness/numbness Assessment: Cheryl Parkinson is a 72 y.o. female with a PMH significant for HTN wh o presented to an OSH with left sided weakness/numbness and speech changes and w as subsequently stroke activated. Initial NIHSS of 5. OSH CT head w/o contrast s howed no acute intracranial abnormality. OSH CTA head/neck showed R proximal ICA stenosis of 60%. She received a Plavix load prior to transfer to [facility] for MRI a nd stroke workup. Acute ischemic stroke of right thalamus - NIHSS: 4 - Suspected localization of Stroke Sx: Right thalamus - Suspected etiology: Small - Vessel Occlusion - Pre-event mRS: 0 - No symptoms at all Plan: > Admit to neurology stroke on telemetry > MRI head without contrast: acute ischemic stroke of right thalamus > Stroke risk factor assessment Labs to include FLP, A1c Echocardiogram Vascular Imaging: completed at OSH Telemetry to monitor for arrhythmia Evaluation of smoking history and smoking cessation consult if tobaccoism prese nt Antiplatelet therapy: DAPT with aspirin 81 mg daily and Plavix 75 mg daily > CBC, BMP routine > PT/OT/EMOTIONAL DISABILITIES TEACHER consult eval and treat > Rehab consult for assessment of post stroke care FEN: no IVF, repleting electrolytes PRN, NPO until speech eval PPX: Lovenox and SCDs Code Status: Full Code (discussed at admission on 05/02). The patient was seen and discussed with Dr. Villagomez. Samy Romeo MD Neurology Resident, PGY2 Available on Voal[employer] History of Present Ilness History of Present Illness: Cheryl Parkinson is a 72 y.o. female with a PMH signif icant for HTN who presented to an OSH with left sided weakness/numbness and spee ch changes and was subsequently stroke activated. Initial NIHSS of 5. OSH CT hea d w/o contrast showed no acute intracranial abnormality. OSH CTA head/neck showe d R proximal ICA stenosis. She received a Plavix load prior to transfer to [facility] for MRI and stroke workup. She reports 5 episodes of transient neurologic deficits including R arm weakness , R hemibody numbness, dizziness, and L sided weakness that have occurred over t he last 3-4 weeks. She started taking a baby aspirin every day with these sympto ms over the last month. The episodes all resolved up until her left sided weakne ss/numbness began. Patient denies dysarthria, diplopia, dysphagia, or headache. Review of Systems A comprehensive 14 point ROS was negative except as in HPI. Stroke Activation Summary ASRT Arrival: 0800 Location of Response: [id number] Page Received: N/A Clinical Presentation: Left sided numbness/weakness CT/CTP/CTA: OSH CT head w/o contrast showed no acute intracranial abnormality. O CTA head/neck showed no LVO. BP: 151/77 (05/02 1348) Temp: 36.5 C (97.7 F) (05/02 134) Pulse: 81 (05/02 134) Respirations: 18 PER MINUTE (05/02 134) SpO2: 98 % (05/02 1348) O2 Device: None (Room air) (05/02 1348) NIHSS Completed at: 0810 NIH Stroke Scale Item Scoring Definition Score 1a. LOC 0=alert and responsive 1=arousable to minor stimulation 2=arousable only to painful stimulation 3=reflex responses or unrousable 0 1b. LOC questions-as patients age and month. Must be exact. 0=both correct 1=one correct (or dysarthria, intubated, foreign language) 2=neither correct 0 1c. Commands-open/close eyes, sports book writer and release non-paretic hand (other 1 step co mmands or mimic OK) 0=both correct (ok if impaired by weakness) 1=one correct 2=neither correct 0 2. Best Gaze-horizontal EOM by voluntary or Dolls 0=normal 1=partial gaze palsy (abnormal gaze in one or both eyes) 2=forced eye deviation or total paresis which cannot be overcome by Dolls 0 3. Visual Field-use visual threat if necessary. If monocular, score field of goo d eye 0=no visual loss 1=partial hemianopia, quadrantanopia, extinction 2=complete hemianopia 3=bilateral hemianopia or blindness 0 4. Facial Palsy-if stuporous, check symmetry of grimace to pain 0=normal 1=minor paralysis, flat NLF, asymm smile 2=partial paralysis (lower face=UMN) 3=complete paralysis (upper and lower face) 0 5. Motor Arm-arms outstretched 90 deg (sitting) or 45 deg (supine) for 10 second s. Encourage best effort. 0=no drift x 10 seconds 1=drift but doesnt hit bed 2=some antigravity effort, but cant sustain 3=no antigravity effort, but even minimal mvt counts 4=no movement at all X=unable to assess due to amputation, fusion, etc L/R 1/0 6. Motor Leg-raise leg to 30 degrees supine x 5 seconds 0=no drift x 5 seconds 1=drift but doesnt hit bed 2=some antigravity effort, but cant sustain 3=no antigravity effort, but even minimal mvt counts 4=no movement at all X=unable to assess due to amputation, fusion, etc L/R 1/0 7. Limb Ataxia-check finger-nose- finger; heel-lunsford; and score only if out of pr oportion to paralysis 0=no ataxia (or aphasic, hemiplegic) 1=ataxia in upper or lower extremity 2=ataxia in upper AND lower extremity X=unable to assess due to amputation, fusion, etc 0 8. Sensory-use safety pin. Check grimace or withdrawal if stuporous. Score only stroke- related losses 0=normal 1=mild-mod unilateral loss but patient aware of touch (or aphasic, confused) 2=total loss, pt unaware of touch. Coma, bilateral loss 1 9. Best Language-describe cookie jar picture, name objects, read sentences. May use repeating, writing, stereognosis 0=normal 1=mild-mod aphasia (diff but partly comprehensible) 2=severe aphasia (almost no info exchanged) 3=mute, global aphasia, coma. No 1 step commands 0 10. Dysarthria-read list of words 0=normal 1=mild-mod; slurred but intelligible 2=severe; unintelligible or mute 0 11. Extinction/Neglect- simultaneously touch patient on both hands, show fingers in both visual farris, ask about deficit, left hand 0=normal, none detected. ( visual loss alone) 1=neglects or extinguishes to double simult stimulation in any modality 2=profound neglect in more than one modality 0 Score 3 Was the patient 4.5-9 hrs from last known well or a wake-up stroke? No Was IV thrombolytic given? No The patient was not a thrombolytic candidate due to Time of onset of symptoms or last known normal >4.5 hours Advanced imaging was interpreted at the OSH The patient was not a thrombectomy candidate due to no LVO. Dysphagia screen: Did Patient Pass The Swallow Screen Part I?: Yes Performed by nursing staff and passed Cardiac rhythm on presentation: Sinus Health History Medical History: Diagnosis Date Arthritis Bladder cancer (HCC) Blood clotting disorder (HCC) Hypertension Stroke (HCC) Ulcer of the stomach and intestine Vision abnormalities Surgical History: Procedure Laterality Date CYSTOURETHROSCOPY WITH FULGURATION/ RESECTION BLADDER TUMOR N/A 09/18/2021 Performed by Don Melvin MD at [facility] OR gemcitabine instillation N/A 09/18/2021 Performed by Don Melvin MD at [facility] OR bilateral retrograde pyelograms Bilateral 09/18/2021 Performed by Don Melvin MD at [facility] OR HX APPENDECTOMY HX CHOLECYSTECTOMY HX HYSTERECTOMY Family History Problem Relation Age of Onset Cancer Mother Heart Disease Mother Hypertension Mother Cancer Father Heart Disease Father Hypertension Father Stroke Father Social History Socioeconomic History Marital status: Tobacco Use Smoking status: Never Smokeless tobacco: Never Substance and Sexual Activity Alcohol use: Not Currently Drug use: Never No current facility-administered medications on file prior to encounter. Current Outpatient Medications on File Prior to Encounter Medication Sig Dispense Refill ALPRAZolam (XANAX) 0.5 mg tablet every 12 hours. amLODIPine-benazepriL (LOTREL) 10-40 mg capsule buPROPion HCL (WELLBUTRIN) 75 mg tablet every 24 hours. donepeziL (ARICEPT) 5 mg tablet Take 10 mg by mouth at bedtime daily. duloxetine DR (CYMBALTA) 30 mg capsule 60 mg daily. estradioL (ESTRACE) 2 mg tablet every 24 hours. fluticasone propionate (FLONASE) 50 mcg/actuation nasal spray, suspension ev willie 24 hours. gabapentin (NEURONTIN) 100 mg capsule every 8 hours. hyoscyamine sulfate (LEVSIN) 0.125 mg tablet as Needed. hyoscyamine sulfate (LEVSIN/SL) 0.[address] one tablet under tongue every 4 hours as needed for Cramps. 30 tablet 0 lovastatin (MEVACOR) 20 mg tablet Take 20 mg by mouth daily with dinner. meclizine (ANTIVERT) 25 mg tablet every 8 hours. nitroglycerin (NITROSTAT) 0.4 mg tablet as Needed. phenazopyridine (PYRIDIUM) 200 mg tablet Take one tablet by mouth three time s daily as needed for Pain. Take after meals for up to 2 days. 6 tablet 0 quinapriL (ACCUPRIL) 10 mg tablet Take 10 mg by mouth at bedtime daily. RABEprazole DR (ACIPHEX) 20 mg tablet every 24 hours. sulindac (CLINORIL) 200 mg tablet every 12 hours. traMADoL (ULTRAM) 50 mg tablet every 8 hours. Physical Exam HEENT: normocephalic, eyes open with no discharge, nares patent, oropharynx is c lear with no lesions, palate intact CV: regular rate, distal pulses palpable Chest: normal configuration, equal chest rise bilaterally Ab: soft, non-tender, no masses, no organomegaly Skin: no rashes or lesions Extended Neuro Exam: Mental status: alert, oriented to person/place/time Speech: Normal Abnormal Fluency x Comprehension x Articulation x Repetition x Naming x Cranial Nerves: Normal Abnormal II x III, IV, x V Normal to LT in R V1-V3 Dec to LT in L V1-V3 VII x VIII x IX, X x XI x XII x Muscle/motor: Tone: nml Bulk: nml Fasciculations: none No abnormal movements, rigidity or spasticity NF NE SA EF EE WF WE FF FE Patricia TAb HF HE HAb KF KE DF PF TE TF R 5 5 5 5 5 5 5 5 5 L 4 5- 4 4 4 4 5 4 5 Sensation: Normal RUE LUE RLE LLE Light Touch Normal Dec Normal Dec Pin Prick Temperature Vibration Proprioception Coordination: Normal Abnormal Right Abnormal Left Finger to Nose x Rapid alternating Heel to Lunsford x Finger tap Foot tap Gait and Station: deferred Lab/Radiology/Other Diagnostic Tests: 24-hour labs: Results for orders placed or performed during the hospital encounter of 05/02/23 (from the past 24 hour(s)) HEMOGLOBIN A1C Collection Time: 05/02/23 8:11 AM Result Value Ref Range Hemoglobin A1C 5.8 (H) 4.0 - 5.7 % MAGNESIUM Collection Time: 05/02/23 8:11 AM Result Value Ref Range Magnesium 1.9 1.6 - 2.6 mg/dL PHOSPHORUS Collection Time: 05/02/23 8:11 AM Result Value Ref Range Phosphorus 3.8 2.0 - 4.5 MG/DL TSH WITH FREE T4 REFLEX Collection Time: 05/02/23 8:11 AM Result Value Ref Range TSH 2.91 0.35 - 5.00 MCU/ML Glucose: 93 (03/09/22 0928) POC Glucose (Download): 98 (03/09/22 0969) Pertinent radiology reviewed. MRI HEAD WO CONTRAST Final Result 1. Small recent right thalamic infarct. No evidence of hemorrhagic conversion o r significant mass effect. 2. Mild generalized cerebral volume loss and supratentorial white matter FLAIR hyperintense foci, unspecific, though likely related to chronic microvascular is chemic changes. Dr. Smith discussed these findings with Dr. Romeo via phone at 12:29 PM. By my electronic signature, I attest that I have personally reviewed the images for this examination and formulated the interpretations and opinions expressed i n this report Finalized by Pearl Schroeder D.O. on 05/02/2023 12:32 PM. Dictated by Randal Smith M.D. on 05/02/2023 12:20 PM. 2D + DOPPLER ECHO (Results Pending) Associated attestation - Oriana Villagomez DO - 05/02/2023 6:42 PM CDT I personally performed the santos portions of the E/M visit, reviewed vitals, labs, and pertinent radiological imaging. I have discussed the case and concur with the documentation of the history, physical exam, assessment, and plan of care as outlined below unless otherwise noted. documented in this encounter Plan of Treatment Not on filedocumented as of this encounter Goals Goal Patient Associated Recent Progress Patient-Stat Aut hor Goal Type Problems ed? Recover from illness Hospital On track (05/03/2023 No Carisa Valverde, 11:22 AM CDT) RN Note: Get stronger and get out of here documented as of this encounter Procedures Comments Procedure Name Priority Date/Time Associated Diag nosis CBC Routine 05/05/2023 6:01 AM CDT MAGNESIUM Routine 05/05/2023 6:01 AM CDT BASIC METABOLIC PANEL Routine 05/05/2023 6:01 AM CDT HC CBC,AUTOMATED Routine 05/04/2023 5:37 AM CDT HC MAGNESIUM Add on 05/04/2023 5:37 AM CDT HC BASIC METABOLIC PANEL Routine 05/04/2023 5:37 AM CDT 2D + DOPPLER ECHO W/ Routine 05/03/2023 CONTRAST 9:55 AM CDT CHEM 7 ADD ON Add on 05/03/2023 5:54 AM CDT HC CBC,AUTOMATED Routine 05/03/2023 5:54 AM CDT HC MAGNESIUM Add on 05/03/2023 5:54 AM CDT HC Routine 05/03/2023 LIPID-5:CHOL/TRG/HDL/LDL+ 5:54 AM CDT VLDL HC BASIC METABOLIC PANEL Routine 05/03/2023 5:54 AM CDT US DUPLEX SCAN CAROTID Routine 05/02/2023 BILATERAL 5:55 PM CDT MRI HEAD WO CONTRAST Routine 05/02/2023 12:01 PM CDT HC TSH SCREEN Routine 05/02/2023 8:11 AM CDT HC PHOSPHOROUS, SERUM Routine 05/02/2023 8:11 AM CDT HC MAGNESIUM Routine 05/02/2023 8:11 AM CDT HC HEMOGLOBIN A1C Routine 05/02/2023 8:11 AM CDT CONSULT VASCULAR ACCESS Routine 05/02/2023 TEAM 6:56 AM CDT TELEMETRY STRIPS-SCAN 05/02/2023 12:00 AM CDT TELEMETRY STRIPS-SCAN 05/02/2023 12:00 AM CDT TELEMETRY STRIPS-SCAN 05/02/2023 12:00 AM CDT TELEMETRY STRIPS-SCAN 05/02/2023 12:00 AM CDT TELEMETRY STRIPS-SCAN 05/02/2023 12:00 AM CDT TELEMETRY STRIPS-SCAN 05/02/2023 12:00 AM CDT TELEMETRY STRIPS-SCAN 05/02/2023 12:00 AM CDT TELEMETRY STRIPS-SCAN 05/02/2023 12:00 AM CDT TELEMETRY STRIPS-SCAN 05/02/2023 12:00 AM CDT TELEMETRY STRIPS-SCAN 05/02/2023 12:00 AM CDT TELEMETRY STRIPS-SCAN 05/02/2023 12:00 AM CDT documented in this encounter Results * CBC (05/05/2023 6:01 AM CDT) Pathologist Signature Component Value Ref Test Method Analysis Performed A t Range Time White Blood Cells 9.2 4.5 - 05/05/2023 [facility] PT PATH AND 11.0 6:31 AM LAB MEDICINE K/UL CDT RBC 4.42 4.0 - 05/05/2023 [facility] DEPT PAT H AND 5.0 M/UL 6:31 AM LAB MEDICINE CDT Hemoglobin 13.2 12.0 - 05/05/2023 [facility] PAT H AND 15.0 6:31 AM LAB MEDICINE GM/DL CDT Hematocrit 40.0 36 - 45 05/05/2023 [facility] DEPT PAT H AND % 6:31 AM LAB MEDICINE CDT MCV 90.3 80 - 100 05/05/2023 [facility] PAT H AND FL 6:31 AM LAB MEDICINE CDT MCH 29.8 26 - 34 05/05/2023 [facility] DEPT PAT H AND PG 6:31 AM LAB MEDICINE CDT MCHC 33.0 32.0 - 05/05/2023 [facility] DEPT PAT H AND 36.0 6:31 AM LAB MEDICINE G/DL CDT RDW 14.4 11 - 15 05/05/2023 [facility] DEPT PAT H AND % 6:31 AM LAB MEDICINE CDT Platelet Count 362 150 - 05/05/2023 [facility] PATH AND 400 K/UL 6:31 AM LAB MEDICINE CDT MPV 8.0 7 - 11 05/05/2023 [facility] DEPT PAT H AND FL 6:31 AM LAB MEDICINE CDT Anatomical Location / Laterality Collection Method / Volume Andres ection Time Received Time Specimen (Source) BLOOD / Unknown 05/05/2023 6:01 AM CDT 05/05/20 6:02 AM CDT Mau Gay LABORATORY ORDERABLES Edita LAI City/State/ZIP Code Phone Number Performing [place] [address] [facility] DEPT PATH AND [address] [facility] LAB MEDICINE * (ABNORMAL) BASIC METABOLIC PANEL (05/05/2023 6:01 AM CDT) Pathologist Signature Component Value Ref Test Method Analysis Performed A t Range Time Sodium 139 137 - 05/05/2023 [facility] DEPT PAT H AND 147 6:56 AM LAB MEDICINE MMOL/L CDT Potassium 3.8 3.5 - 05/05/2023 [facility] DEPT PAT H AND 5.1 6:56 AM LAB MEDICINE MMOL/L CDT Chloride 104 98 - 110 05/05/2023 [facility] DEPT PAT H AND MMOL/L 6:56 AM LAB MEDICINE CDT CO2 22 21 - 30 05/05/2023 [facility] DEPT PAT H AND MMOL/L 6:56 AM LAB MEDICINE CDT Anion Gap 13 (H) 3 - 12 05/05/2023 [facility] PAT H AND 6:56 AM LAB MEDICINE CDT Glucose 121 (H) 70 - 100 05/05/2023 [facility] DEPT PAT H AND MG/DL 6:56 AM LAB MEDICINE CDT Blood Urea Nitrogen 7 7 - 25 05/05/2023 [facility] DEPT PATH AND MG/DL 6:56 AM LAB MEDICINE CDT Creatinine 0.64 0.4 - 05/05/2023 [facility] PAT H AND 1.00 6:56 AM LAB MEDICINE MG/DL CDT Calcium 8.3 (L) 8.5 - 05/05/2023 [facility] PAT H AND 10.6 6:56 AM LAB MEDICINE MG/DL CDT eGFR >60 >60 05/05/2023 [facility] PAT H AND mL/min 6:56 AM LAB MEDICINE CDT Comment: eGFR calculated using the CKD-EPIcr_R equation Anatomical Location / Laterality Collection Method / Volume Andres ection Time Received Time Specimen (Source) BLOOD / Unknown 05/05/2023 6:01 AM CDT 05/05/20 6:02 AM CDT Mau Gay LABORATORY ORDERABLES Edita LAI City/State/ZIP Code Phone Number Performing [place] [address] [facility] DEPT PATH AND [address] LAB MEDICINE * MAGNESIUM (05/05/2023 6:01 AM CDT) Pathologist Signature Component Value Ref Test Method Analysis Performed A t Range Time Magnesium 2.0 1.6 - 05/05/2023 [facility] DEPT PAT H AND 2.6 6:56 AM LAB MEDICINE mg/dL CDT Anatomical Location / Laterality Collection Method / Volume Andres ection Time Received Time Specimen (Source) BLOOD / Unknown 05/05/2023 6:01 AM CDT 05/05/20 6:02 AM CDT Mau Gay LABORATORY ORDERABLES Edita LAI City/State/ZIP Code Phone Number Performing [place] [address] [facility] AND [address] LAB MEDICINE * MAGNESIUM (05/04/2023 5:37 AM CDT) Pathologist Signature Component Value Ref Test Method Analysis Performed A t Range Time Magnesium 1.7 1.6 - 05/04/2023 [facility] DEPT PAT H AND 2.6 8:15 AM LAB MEDICINE mg/dL CDT Anatomical Location / Laterality Collection Method / Volume Andres ection Time Received Time Specimen (Source) 05/04/2023 5:37 AM CDT 05/04/20 5:38 AM CDT Caty Tamayo DO LABORATORY ORDERABLES City/State/ZIP Code Phone Number Performing [place] [address] [facility] AND [address] [facility] LAB MEDICINE * (ABNORMAL) BASIC METABOLIC PANEL (05/04/2023 5:37 AM CDT) Pathologist Signature Component Value Ref Test Method Analysis Performed A t Range Time Sodium 136 (L) 137 - 05/04/2023 [facility] DEPT PAT H AND 147 6:37 AM LAB MEDICINE MMOL/L CDT Potassium 3.0 (L) 3.5 - 05/04/2023 [facility] DEPT PAT H AND 5.1 6:37 AM LAB MEDICINE MMOL/L CDT Chloride 102 98 - 110 05/04/2023 [facility] DEPT PAT H AND MMOL/L 6:37 AM LAB MEDICINE CDT CO2 23 21 - 30 05/04/2023 [facility] DEPT PAT H AND MMOL/L 6:37 AM LAB MEDICINE CDT Anion Gap 11 3 - 12 05/04/2023 [facility] DEPT PAT H AND 6:37 AM LAB MEDICINE CDT Glucose 170 (H) 70 - 100 05/04/2023 [facility] DEPT PAT H AND MG/DL 6:37 AM LAB MEDICINE CDT Blood Urea Nitrogen 6 (L) 7 - 25 05/04/2023 [facility] DEPT PATH AND MG/DL 6:37 AM LAB MEDICINE CDT Creatinine 0.73 0.4 - 05/04/2023 [facility] DEPT PAT H AND 1.00 6:37 AM LAB MEDICINE MG/DL CDT Calcium 8.4 (L) 8.5 - 05/04/2023 [facility] DEPT PAT H AND 10.6 6:37 AM LAB MEDICINE MG/DL CDT eGFR >60 >60 05/04/2023 [facility] DEPT PAT H AND mL/min 6:37 AM LAB MEDICINE CDT Comment: eGFR calculated using the CKD-EPIcr_R equation Anatomical Location / Laterality Collection Method / Volume Andres ection Time Received Time Specimen (Source) BLOOD / Unknown 05/04/2023 5:37 AM CDT 05/04/20 5:38 AM CDT Manny Garcia MD LABORATORY ORDERABLES City/State/ZIP Code Phone Number Performing [place] [address] [facility] DEPT PATH AND [address] [facility] LAB MEDICINE * CBC (05/04/2023 5:37 AM CDT) Pathologist Signature Component Value Ref Test Method Analysis Performed A t Range Time White Blood Cells 9.1 4.5 - 05/04/2023 [facility] DE PT PATH AND 11.0 6:14 AM LAB MEDICINE K/UL CDT RBC 4.30 4.0 - 05/04/2023 [facility] DEPT PAT H AND 5.0 M/UL 6:14 AM LAB MEDICINE CDT Hemoglobin 12.8 12.0 - 05/04/2023 [facility] DEPT PAT H AND 15.0 6:14 AM LAB MEDICINE GM/DL CDT Hematocrit 38.4 36 - 45 05/04/2023 [facility] DEPT PAT H AND % 6:14 AM LAB MEDICINE CDT MCV 89.4 80 - 100 05/04/2023 [facility] DEPT PAT H AND FL 6:14 AM LAB MEDICINE CDT MCH 29.8 26 - 34 05/04/2023 [facility] DEPT PAT H AND PG 6:14 AM LAB MEDICINE CDT MCHC 33.3 32.0 - 05/04/2023 [facility] DEPT PAT H AND 36.0 6:14 AM LAB MEDICINE G/DL CDT RDW 14.1 11 - 15 05/04/2023 [facility] DEPT PAT H AND % 6:14 AM LAB MEDICINE CDT Platelet Count 363 150 - 05/04/2023 [facility] DEPT PATH AND 400 K/UL 6:14 AM LAB MEDICINE CDT MPV 8.1 7 - 11 05/04/2023 [facility] DEPT PAT H AND FL 6:14 AM LAB MEDICINE CDT Anatomical Location / Laterality Collection Method / Volume Andres ection Time Received Time Specimen (Source) BLOOD / Unknown 05/04/2023 5:37 AM CDT 05/04/20 5:38 AM CDT Manny Garcia MD LABORATORY ORDERABLES City/State/ZIP Code Phone Number Performing [place] [address] [facility] [address] [facility] LAB MEDICINE * 2D + DOPPLER ECHO W/ CONTRAST (05/03/2023 9:55 AM CDT) Pathologist Signature Component Value Ref Test Method Analysis Performed A t Range Time Left Ventricle 101.00 46 - 106 OTHER OUTSIDE L AB Diastolic Volume mL Left Ventricle 32.00 14 - 42 OTHER OUTSIDE L AB Systolic Volume mL IVS 1.00 0.6 - OTHER OUTSIDE L AB 0.9 cm LVIDD 4.00 3.8 - OTHER OUTSIDE L AB 5.2 cm LVIDS 2.70 2.2 - OTHER OUTSIDE L AB 3.5 cm LVOT diameter 2.00 cm OTHER OUTSIDE L AB LVOT peak VTI 24.80 cm OTHER OUTSIDE L AB PW 1.00 0.6 - OTHER OUTSIDE L AB 0.9 cm TDI lateral e' 0.09 m/s OTHER OUTSIDE L AB TDI Medial e' 0.08 m/s OTHER OUTSIDE L AB LA volume 39.50 22 - 52 OTHER OUTSIDE L AB mL LA size 4.10 2.7 - OTHER OUTSIDE L AB 3.8 cm AV peak velocity 1.30 m/s OTHER OUTSIDE LAB Sinus 2.80 2.4 - OTHER OUTSIDE L AB 3.6 cm E wave decelartion 213.00 ms OTHER OUTSI DE LAB time MV Peak A Luz 1.12 m/s OTHER OUTSIDE L AB MV Peak E Luz PW 0.63 m/s OTHER OUTSIDE LAB Right Heart Systolic 1.98 >1.7 cm OTHER OUT SIDE LAB Mmode TAPSE Right Ventricular 2.40 1.9 - OTHER OUTSID E LAB Mid Diameter 3.5 cm Right Ventricular 2.70 2.5 - OTHER OUTSID E LAB Basal Diameter 4.1 cm Right Atrial Area 7.88 <18 cm2 OTHER OUTSID E LAB Right Heart Systolic 0.13 m/s OTHER OUT SIDE LAB TDI S' BSA 1.88 m2 OTHER OUTSIDE L AB CV ECHO PV SUPPORT MICHELLE Bryant OTHER OUTSIDE LAB STAFF FS 32.50 28 - 44 OTHER OUTSIDE L AB % Teichholtz 55.25 % OTHER OUTSIDE L AB LV mass 127 67 - 162 OTHER OUTSIDE L AB g RWT 0.50 <=0.42 OTHER OUTSIDE L AB AV index (ak chin) 0.85 OTHER OUTSIDE LAB E/A ratio 0.56 OTHER OUTSIDE LAB LVOT area 3.14 cm2 OTHER OUTSIDE L AB LVOT peak luz 1.1 m/s OTHER OUTSIDE L AB LVOT stroke volume 77.91 cm3 OTHER OUTSI DE LAB Lateral E/E' ratio 7.00 OTHER OUTSIDE LAB Left Atrium Index 21.01 16 - 34 OTHER OUTSID E LAB mL/m2 Cardiology Haley Epiq OTHER OUTSIDE LAB Ultrasound Machine Left Ventricle Mass 68 43 - 95 OTHER OUTS JAMIN LAB Index g/m2 Left Ventricle 54 29 - 61 OTHER OUTSIDE L AB Diastolic Volume mL/m2 Index Left Ventricle 17 8 - 24 OTHER OUTSIDE L AB Systolic Volume mL/m2 Index Medial E/E' ratio 7.88 OTHER OUTSIDE LAB ECHO EF 65 % OTHER OUTSIDE L AB RA PRESSURE 3 OTHER OUTSIDE LAB AV Stroke Volume 42 OTHER OUTSIDE LAB Index Modality Anatomical Region Laterality Ultrasound Anatomical Location / Laterality Collection Method / Volume Andres ection Time Received Time Specimen (Source) Narrative 05/03/2023 10:08 AM CDT 1. Normal left ventricular cavitary dimensions with concentric remodeling 2. Normal left ventricular systolic func tion with a visually estimated ejection fraction of ~60-65%. 3. Normal right ventricular cavitary siz e and systolic function. 4. Mild/grade 1 LV diastolic dysfunction with normal left atrial pressure. 5. No left ventricular focal regional wa ll motion abnormality. 6. No chamber enlargement. 7. No hemodynamically significant valvul ar stenosis or regurgitation. 8. No obvious intracardiac vegetation 9. No LV apical mural thrombus 10. Agitated saline bubble infusion with and without Valsalva failed to demonstrate evidence of right to left interatrial shunting. No color Doppler evidence of interatrial shunting either 11. Suboptimal TR jet precludes precise estimation of PA systolic pressure. 12. No pericardial effusion. No prior transthoracic echocardiograms available for direct visual comparison. Left Ventricle The left ventricular size is normal. Wall thickness is increased. Concentric remodeling. The left ventricular systolic function is normal. The visually estimated ejection fraction is 65%. There are no segmental wall motion abnormalities. Grade I (mild) left ventricular diastolic dysfunction. Normal left atrial pressure. Right Ventricle The right ventricular size, wall thickness and systolic function are normal. Left Atrium Normal size. There is no interatrial shunting by color flow Doppler and saline contrast studies. Right Atrium Normal size. IVC/SVC Normal central venous pressure (0-5 mm Hg). Mitral Valve Mild regurgitation. There is mitral annular calcification without stenosis. Tricuspid Valve Normal valve structure. No stenosis. Trace regurgitation. Aortic Valve The valve is sclerotic and is calcified. No stenosis. No regurgitation. Pericardium No pericardial effusion. Pulmonary The pulmonic valve was not seen well but no Doppler evidence of stenosis. No regurgitation. Aorta The aorta was not well seen. Wall Scoring Resting Score Index: 1.000 Percent Normal: 100.0% The left ventricular wall motion is normal. Manny Garcia MD ECHO ORDERABLES * MAGNESIUM (05/03/2023 5:54 AM CDT) Pathologist Signature Component Value Ref Test Method Analysis Performed A t Range Time Magnesium 1.7 1.6 - 05/03/2023 [facility] DEPT PAT H AND 2.6 9:10 AM LAB MEDICINE mg/dL CDT Anatomical Location / Laterality Collection Method / Volume Andres ection Time Received Time Specimen (Source) 05/03/2023 5:54 AM CDT 05/03/20 23 5:55 AM CDT Caty Tamayo DO LABORATORY ORDERABLES City/State/ZIP Code Phone Number Performing [place] [address] [facility] DEPT PATH AND [address] [facility]. LAB MEDICINE * (ABNORMAL) CHEM 7 ADD ON (05/03/2023 5:54 AM CDT) Pathologist Signature Component Value Ref Test Method Analysis Performed A t Range Time Total Protein 5.9 (L) 6.0 - 05/03/2023 [facility] DEPT P ATH AND 8.0 G/DL 9:10 AM LAB MEDICINE CDT Total Bilirubin 0.3 0.3 - 05/03/2023 [facility] DEPT PATH AND 1.2 9:10 AM LAB MEDICINE MG/DL CDT Albumin 3.3 (L) 3.5 - 05/03/2023 [facility] DEPT PAT H AND 5.0 G/DL 9:10 AM LAB MEDICINE CDT Alk Phosphatase 57 25 - 110 05/03/2023 [facility] DEPT PATH AND U/L 9:10 AM LAB MEDICINE CDT AST (SGOT) 27 7 - 40 05/03/2023 [facility] DEPT PAT H AND U/L 9:10 AM LAB MEDICINE CDT ALT (SGPT) 19 7 - 56 05/03/2023 [facility] DEPT PAT H AND U/L 9:10 AM LAB MEDICINE CDT Anatomical Location / Laterality Collection Method / Volume Andres ection Time Received Time Specimen (Source) 05/03/2023 5:54 AM CDT 05/03/20 5:55 AM CDT Caty LOMELI LABORATORY City/State/ZIP Code Phone Number Performing [place] [address] [facility] DEPT PATH AND [address] [facility] LAB MEDICINE * (ABNORMAL) BASIC METABOLIC PANEL (05/03/2023 5:54 AM CDT) Pathologist Signature Component Value Ref Test Method Analysis Performed A t Range Time Sodium 136 (L) 137 - 05/03/2023 [facility] DEPT PAT H AND 147 7:11 AM LAB MEDICINE MMOL/L CDT Potassium 3.3 (L) 3.5 - 05/03/2023 [facility] DEPT PAT H AND 5.1 7:11 AM LAB MEDICINE MMOL/L CDT Chloride 101 98 - 110 05/03/2023 [facility] DEPT PAT H AND MMOL/L 7:11 AM LAB MEDICINE CDT CO2 22 21 - 30 05/03/2023 [facility] DEPT PAT H AND MMOL/L 7:11 AM LAB MEDICINE CDT Anion Gap 13 (H) 3 - 12 05/03/2023 [facility] DEPT PAT H AND 7:11 AM LAB MEDICINE CDT Glucose 146 (H) 70 - 100 05/03/2023 [facility] DEPT PAT H AND MG/DL 7:11 AM LAB MEDICINE CDT Blood Urea Nitrogen 8 7 - 25 05/03/2023 [facility] DEPT PATH AND MG/DL 7:11 AM LAB MEDICINE CDT Creatinine 0.59 0.4 - 05/03/2023 [facility] DEPT PAT H AND 1.00 7:11 AM LAB MEDICINE MG/DL CDT Calcium 8.6 8.5 - 05/03/2023 [facility] DEPT PAT H AND 10.6 7:11 AM LAB MEDICINE MG/DL CDT eGFR >60 >60 05/03/2023 [facility] DEPT PAT H AND mL/min 7:11 AM LAB MEDICINE CDT Comment: eGFR calculated using the CKD-EPIcr_R equation Anatomical Location / Laterality Collection Method / Volume Andres ection Time Received Time Specimen (Source) BLOOD / Unknown 05/03/2023 5:54 AM CDT 05/03/20 5:55 AM CDT Manny Garcia MD LABORATORY ORDERABLES City/State/ZIP Code Phone Number Performing [place] [address] [facility] DEPT PATH AND [address] [facility] LAB MEDICINE * CBC (05/03/2023 5:54 AM CDT) Pathologist Signature Component Value Ref Test Method Analysis Performed A t Range Time White Blood Cells 8.5 4.5 - 05/03/2023 [facility] DE PT PATH AND 11.0 6:47 AM LAB MEDICINE K/UL CDT RBC 4.23 4.0 - 05/03/2023 [facility] DEPT PAT H AND 5.0 M/UL 6:47 AM LAB MEDICINE CDT Hemoglobin 12.5 12.0 - 05/03/2023 [facility] DEPT PAT H AND 15.0 6:47 AM LAB MEDICINE GM/DL CDT Hematocrit 37.4 36 - 45 05/03/2023 [facility] DEPT PAT H AND % 6:47 AM LAB MEDICINE CDT MCV 88.3 80 - 100 05/03/2023 [facility] DEPT PAT H AND FL 6:47 AM LAB MEDICINE CDT MCH 29.5 26 - 34 05/03/2023 [facility] DEPT PAT H AND PG 6:47 AM LAB MEDICINE CDT MCHC 33.4 32.0 - 05/03/2023 [facility] DEPT PAT H AND 36.0 6:47 AM LAB MEDICINE G/DL CDT RDW 14.2 11 - 15 05/03/2023 [facility] DEPT PAT H AND % 6:47 AM LAB MEDICINE CDT Platelet Count 346 150 - 05/03/2023 [facility] DEPT PATH AND 400 K/UL 6:47 AM LAB MEDICINE CDT MPV 8.5 7 - 11 05/03/2023 [facility] DEPT PAT H AND FL 6:47 AM LAB MEDICINE CDT Anatomical Location / Laterality Collection Method / Volume Andres ection Time Received Time Specimen (Source) BLOOD / Unknown 05/03/2023 5:54 AM CDT 05/03/20 5:55 AM CDT Manny Garcia MD LABORATORY ORDERABLES City/State/ZIP Code Phone Number Performing [place] [address] [facility] DEPT PATH AND [address] [facility]. LAB MEDICINE * (ABNORMAL) LIPID PROFILE (05/03/2023 5:54 AM CDT) Pathologist Signature Component Value Ref Test Method Analysis Performed A t Range Time Cholesterol 170 <200 05/03/2023 [facility] DEPT PAT H AND MG/DL 7:11 AM LAB MEDICINE CDT Triglycerides 271 (H) <150 05/03/2023 [facility] DEPT P ATH AND MG/DL 7:11 AM LAB MEDICINE CDT HDL 37 (L) >40 05/03/2023 [facility] DEPT PAT H AND MG/DL 7:11 AM LAB MEDICINE CDT LDL 113 (H) <100 05/03/2023 [facility] DEPT PAT H AND mg/dL 7:11 AM LAB MEDICINE CDT VLDL 54 MG/DL 05/03/2023 [facility] DEPT PAT H AND 7:11 AM LAB MEDICINE CDT Non HDL Cholesterol 133 MG/DL 05/03/2023 [facility] DEPT PATH AND 7:11 AM LAB MEDICINE CDT Comment: Calculated non-HDL Cholesterol (non-HDL-C) indirectly measures LDL-C, Lp(a), IDL-C, and VLDL-C. It is a surrogate marker for Apoprotein B. Goal should be less than 130 mg/dL. Anatomical Location / Laterality Collection Method / Volume Andres ection Time Received Time Specimen (Source) BLOOD / Unknown 05/03/2023 5:54 AM CDT 05/03/20 5:55 AM CDT Manny Garcia MD LABORATORY ORDERABLES City/State/ZIP Code Phone Number Performing [place] [address] [facility] [address] [facility] MEDICINE * US DUPLEX SCAN CAROTID BILATERAL (05/02/2023 5:55 PM CDT) Modality Anatomical Region Laterality Ultrasound NECK/VASC Bilateral Anatomical Location / Laterality Collection Method / Volume Andres ection Time Received Time Specimen (Source) 05/03/2023 8:59 AM CDT Bilateral Impressions 05/03/2023 11:38 AM CDT No hemodynamically significant CCA or ICA stenosis. Calcified plaque in both carotid bulbs and bifurcations results in up to 50% luminal narrowing. Finalized by Lilia Oliva M.D. on 05/03/2023 11:38 AM. Dictated by Lilia Oliva M.D. on 05/03/2023 8:59 AM. Narrative 05/03/2023 11:38 AM CDT CAROTID DOPPLER CLINICAL INDICATION: Female, 72 years old; right ICA stenosis TECHNIQUE: Multiple grayscale, color Doppler and spectral Doppler ultrasound images were obtained throughout both carotid systems. COMPARISON: None FINDINGS: RIGHT: CCA PSV: 61 cm/s ECA PSV: 76 cm/s ICA PSV: 75 cm/s ICA EDV: 19 cm/s ICA/CCA Ratio: 1.2 Vertebral artery: Antegrade, low resistive waveform. Grayscale images demonstrate densely calcified, irregular plaque in the bulb and proximal bifurcation. This visibly results in up to 50% luminal narrowing. However, there is no velocity elevation to indicate hemodynamically significant stenosis. LEFT: CCA PSV: 71 cm/s ECA PSV: 70 cm/s ICA PSV: 82 cm/s ICA EDV: 28 cm/s ICA/CCA ratio: 1.2 Vertebral artery: Antegrade, low resistive waveform. Grayscale images demonstrate mild, calcified plaque at the bulb and proximal bifurcation, visibly less than 50% luminal narrowing. Spectral analysis demonstrates no hemodynamically significant CCA or ICA stenosis. Procedure Note Lilia Oliva MD - 05/03/2023 CAROTID DOPPLER CLINICAL INDICATION: Female, 72 years old; right ICA stenosis TECHNIQUE: Multiple grayscale, color Doppler and spectral Doppler ultrasound images were obtained throughout both carotid systems. COMPARISON: None FINDINGS: RIGHT: CCA PSV: 61 cm/s ECA PSV: 76 cm/s ICA PSV: 75 cm/s ICA EDV: 19 cm/s ICA/CCA Ratio: 1.2 Vertebral artery: Antegrade, low resistive waveform. Grayscale images demonstrate densely calcified, irregular plaque in the bulb and proximal bifurcation. This visibly results in up to 50% luminal narrowing. However, there is no velocity elevation to indicate hemodynamically significant stenosis. LEFT: CCA PSV: 71 cm/s ECA PSV: 70 cm/s ICA PSV: 82 cm/s ICA EDV: 28 cm/s ICA/CCA ratio: 1.2 Vertebral artery: Antegrade, low resistive waveform. Grayscale images demonstrate mild, calcified plaque at the bulb and proximal bifurcation, visibly less than 50% luminal narrowing. Spectral analysis demonstrates no hemodynamically significant CCA or ICA stenosis. IMPRESSION No hemodynamically significant CCA or ICA stenosis. Calcified plaque in both carotid bulbs and bifurcations results in up to 50% luminal narrowing. Finalized by Lilia Oliva M.D. on 05/03/2023 11:38 AM. Dictated by Lilia Oliva M.D. on 05/03/2023 8:59 AM. Oriana T Hernando DO ORDERABLES * MRI HEAD WO CONTRAST (05/02/2023 12:01 PM CDT) Modality Anatomical Region Laterality Magnetic Resonance Head Anatomical Location / Laterality Collection Method / Volume Andres ection Time Received Time Specimen (Source) 05/02/2023 12:20 PM CDT Impressions 05/02/2023 12:32 PM CDT 1. Small recent right thalamic infarct . No evidence of hemorrhagic conversion or significant mass effect. 2. Mild generalized cerebral volume lo ss and supratentorial white matter FLAIR hyperintense foci, unspecific, though likely related to chronic microvascular ischemic changes. Dr. Smith discussed these findings with Dr. Romeo via phone at 12:29 PM. By my electronic signature, I attest that I have personally reviewed the images for this examination and formulated the interpretations and opinions expressed in this report Finalized by [place] Schroeder D.O. on 05/02/2023 12:32 PM. Dictated by Randal Smith M.D. on 05/02/2023 12:20 PM. Narrative 05/02/2023 12:32 PM CDT EXAM: MRI BRAIN HISTORY: right ica occlusion, stroke, left sided weakness TECHNIQUE: Multiplanar and multisequence MR imaging of the head was performed. COMPARISON: External CT-CTA head 05/02/2023 FINDINGS: Mildly motion degraded exam. Small focus of diffusion restriction and FLAIR hyperintensity within the right thalamus, consistent with recent infarct, likely hours to days in age. No evidence of hemorrhagic conversion or significant mass effect. Additional mild scattered foci of FLAIR hyperintensity within the supratentorial white matter. No midline shift or herniation. Mild generalized cerebral volume loss with concordant prominence of the ventricles and extra-axial spaces. The major dural intracranial flow voids are preserved. Opacification of the left anterior ethmoid air cell. Procedure Note [place] Schroeder, DO - 05/02/2023 EXAM: MRI BRAIN HISTORY: right ica occlusion, stroke, left sided weakness TECHNIQUE: Multiplanar and multisequence MR imaging of the head was performed. COMPARISON: External CT-CTA head 05/02/2023 FINDINGS: Mildly motion degraded exam. Small focus of diffusion restriction and FLAIR hyperintensity within the right thalamus, consistent with recent infarct, likely hours to days in age. No evidence of hemorrhagic conversion or significant mass effect. Additional mild scattered foci of FLAIR hyperintensity within the supratentorial white matter. No midline shift or herniation. Mild generalized cerebral volume loss with concordant prominence of the ventricles and extra-axial spaces. The major dural intracranial flow voids are preserved. Opacification of the left anterior ethmoid air cell. IMPRESSION 1. Small recent right thalamic infarct. No evidence of hemorrhagic conversion or significant mass effect. 2. Mild generalized cerebral volume los s and supratentorial white matter FLAIR hyperintense foci, unspecific, though likely related to chronic microvascular ischemic changes. Dr. Smith discussed these findings with Dr. Romeo via phone at 12:29 PM. By my electronic signature, I attest that I have personally reviewed the images for this examination and formulated the interpretations and opinions expressed in this report Finalized by [place] Schroeder D.O. on 05/02/2023 12:32 PM. Dictated by Randal Smith M.D. on 05/02/2023 12:20 PM. Manny Garcia MD MR ORDERABLES * (ABNORMAL) HEMOGLOBIN A1C (05/02/2023 8:11 AM CDT) Pathologist Signature Component Value Ref Test Method Analysis Performed A t Range Time Hemoglobin A1C 5.8 (H) 4.0 - 05/02/2023 [facility] DEPT PATH AND 5.7 % 9:57 AM LAB MEDICINE CDT Comment: The ADA recommends that most patients with type 1 and type 2 diabetes maintain an A1c level <7%. Anatomical Location / Laterality Collection Method / Volume Andres ection Time Received Time Specimen (Source) BLOOD / Unknown 05/02/2023 8:11 AM CDT 05/02/20 8:21 AM CDT Manny Garcia MD LABORATORY ORDERABLES City/State/ZIP Code Phone Number Performing [place] [address] [facility] DEPT PATH AND [address] LAB MEDICINE * TSH WITH FREE T4 REFLEX (05/02/2023 8:11 AM CDT) Pathologist Signature Component Value Ref Test Method Analysis Performed A t Range Time TSH 2.91 0.35 - 05/02/2023 [facility] DEPT PAT H AND 5.00 9:22 AM LAB MEDICINE MCU/ML CDT Anatomical Location / Laterality Collection Method / Volume Andres ection Time Received Time Specimen (Source) BLOOD / Unknown 05/02/2023 8:11 AM CDT 05/02/20 8:21 AM CDT Manny Garcia MD LABORATORY ORDERABLES [facility]/State/ZIP Code Phone Number Performing [place] [address] [facility] DEPT PATH AND [address] LAB MEDICINE * PHOSPHORUS (05/02/2023 8:11 AM CDT) Pathologist Signature Component Value Ref Test Method Analysis Performed A t Range Time Phosphorus 3.8 2.0 - 05/02/2023 [facility] DEPT PAT H AND 4.5 9:11 AM LAB MEDICINE MG/DL CDT Anatomical Location / Laterality Collection Method / Volume Andres ection Time Received Time Specimen (Source) BLOOD / Unknown 05/02/2023 8:11 AM CDT 05/02/20 8:21 AM CDT Manny Garcia MD LABORATORY ORDERABLES City/State/ZIP Code Phone Number Performing [place] [address] [facility] DEPT PATH AND [address] [facility]. LAB MEDICINE * MAGNESIUM (05/02/2023 8:11 AM CDT) Pathologist Signature Component Value Ref Test Method Analysis Performed A t Range Time Magnesium 1.9 1.6 - 05/02/2023 [facility] DEPT PAT H AND 2.6 9:11 AM LAB MEDICINE mg/dL CDT Anatomical Location / Laterality Collection Method / Volume Andres ection Time Received Time Specimen (Source) BLOOD / Unknown 05/02/2023 8:11 AM CDT 05/02/20 8:21 AM CDT Manny Garcia MD LABORATORY ORDERABLES City/State/ZIP Code Phone Number Performing [place] [address] [facility] [address] [facility] LAB MEDICINE * TELEMETRY STRIPS-SCAN (05/02/2023 12:00 AM CDT) Narrative 05/02/2023 12:00 AM CDT Ordered by an unspecified provider. Scanned Document PROCEDURE DUMMY ORDERS * TELEMETRY STRIPS-SCAN (05/02/2023 12:00 AM CDT) Narrative 05/02/2023 12:00 AM CDT Ordered by an unspecified provider. Scanned Document PROCEDURE DUMMY ORDERS * TELEMETRY STRIPS-SCAN (05/02/2023 12:00 AM CDT) Narrative 05/02/2023 12:00 AM CDT Ordered by an unspecified provider. Scanned Document PROCEDURE DUMMY ORDERS * TELEMETRY STRIPS-SCAN (05/02/2023 12:00 AM CDT) Narrative 05/02/2023 12:00 AM CDT Ordered by an unspecified provider. Scanned Document PROCEDURE DUMMY ORDERS * TELEMETRY STRIPS-SCAN (05/02/2023 12:00 AM CDT) Narrative 05/02/2023 12:00 AM CDT Ordered by an unspecified provider. Scanned Document PROCEDURE DUMMY ORDERS * TELEMETRY STRIPS-SCAN (05/02/2023 12:00 AM CDT) Narrative 05/02/2023 12:00 AM CDT Ordered by an unspecified provider. Scanned Document PROCEDURE DUMMY ORDERS * TELEMETRY STRIPS-SCAN (05/02/2023 12:00 AM CDT) Narrative 05/02/2023 12:00 AM CDT Ordered by an unspecified provider. Scanned Document PROCEDURE DUMMY ORDERS * TELEMETRY STRIPS-SCAN (05/02/2023 12:00 AM CDT) Narrative 05/02/2023 12:00 AM CDT Ordered by an unspecified provider. Scanned Document PROCEDURE DUMMY ORDERS * TELEMETRY STRIPS-SCAN (05/02/2023 12:00 AM CDT) Narrative 05/02/2023 12:00 AM CDT Ordered by an unspecified provider. Scanned Document PROCEDURE DUMMY ORDERS * TELEMETRY STRIPS-SCAN (05/02/2023 12:00 AM CDT) Narrative 05/02/2023 12:00 AM CDT Ordered by an unspecified provider. Scanned Document PROCEDURE DUMMY ORDERS * TELEMETRY STRIPS-SCAN (05/02/2023 12:00 AM CDT) Narrative 05/02/2023 12:00 AM CDT Ordered by an unspecified provider. Scanned Document PROCEDURE DUMMY ORDERS documented in this encounter Visit Diagnoses Diagnosis Thalamic stroke (HCC) - Primary Acute ischemic stroke (HCC) Unspecified cerebral artery occlusion w ith cerebral infarction Acute ischemic cerebrovascular accident (CVA) involving internal carotid artery territory (HCC) Acute ischemic stroke (HCC) Unspecified cerebral artery occlusion w ith cerebral infarction Primary hypertension Unspecified essential hypertension Mixed hyperlipidemia Asymptomatic stenosis of right carotid artery documented in this encounter Admitting Diagnoses Diagnosis Acute ischemic stroke (HCC) Unspecified cerebral artery occlusion w ith cerebral infarction documented in this encounter Administered Medications Action Date Dose Rate Site Medication Order MAR Action 05/05/2023 9:39 AM CDT 650 mg acetaminophen (TYLENOL) tablet 650 mg Given 650 mg, Oral, EVERY 6 HOURS PRN, Starting on Wed05/02/23 at 0649, Until Wed05/05/23 at 1449, Pain non-opioid: may be used alone or in combination wit h opioid analgesia, TOTAL ACETAMINOPHEN DOSE NOT TO EXCEED 4GM DAILY, Admission/Obs/Extended Recovery 650 mg Given 05/04/2023 9:30 PM CDT 650 mg Given 05/04/2023 9:12 AM CDT 650 mg Given 05/03/2023 9:24 PM CDT 650 mg Given 05/03/2023 12:08 PM CDT 650 mg Given 05/03/2023 5:13 AM CDT 05/05/2023 9:40 AM CDT 5 mg amLODIPine (NORVASC) tablet 5 mg Given 5 mg, Oral, DAILY, First dose on Wed05/03/23 at 1430, Until Discontinued, NURSING: Please educate patient and document: Do not give with grapefruit juice. 5 mg Given 05/04/2023 9:12 AM CDT 5 mg Given 05/03/2023 2:11 PM CDT 05/05/2023 9:39 AM CDT 81 mg aspirin chewable tablet 81 mg Given 81 mg, Oral, DAILY, First dose on Wed05/02/23 at 2000, Until Discontinued, If patient received IV thrombolytic, DO NO T give this medication until 24 hours after infusion completed., Admission/Obs/Extended Recovery 81 mg Given 05/04/2023 9:12 AM CDT 81 mg Given 05/03/2023 8:53 AM CDT 81 mg Given 05/02/2023 8:27 PM CDT 05/05/2023 9:43 AM CDT 40 mg atorvastatin (LIPITOR) tablet 40 mg Given 40 mg, Oral, DAILY, First dose on Wed05/03/23 at 1315, Until Discontinued 40 mg Given 05/04/2023 9:12 AM CDT 40 mg Given 05/03/2023 1:13 PM CDT 05/05/2023 9:40 AM CDT 75 mg clopiDOGreL (PLAVIX) tablet 75 mg Given 75 mg, Oral, DAILY, First dose on Wed05/02/23 at 2000, Until Discontinued, If patient received IV thrombolytic, DO NO T give this medication until 24 hours after infusion completed. This Medication can increase the risk of bleeding and may need to be held prior to surgery or invasive procedures. Consult physician in advance., Admission/Obs/Extended Recovery 75 mg Given 05/04/2023 9:12 AM CDT 75 mg Given 05/03/2023 8:53 AM CDT 75 mg Given 05/02/2023 8:27 PM CDT 05/04/2023 9:33 PM CDT 10 mg donepeziL (ARICEPT) tablet 10 mg Given 10 mg, Oral, AT BEDTIME DAILY, First dose on Wed05/02/23 at 2100, Until Discontinued 10 mg Given 05/03/2023 9:24 PM CDT 10 mg Given 05/02/2023 8:27 PM CDT 05/05/2023 9:40 AM CDT [address] (CYMBALTA) capsule 90 mg Given 90 mg, Oral, DAILY, First dose on Wed05/02/23 at 1800, Until Discontinued 90 mg Given 05/04/2023 9:12 AM CDT 90 mg Given 05/03/2023 8:53 AM CDT 90 mg Given 05/02/2023 6:37 PM CDT 05/04/2023 9:31 PM CDT 40 mg Abdomina l Tissue enoxaparin (LOVENOX) syringe 40 mg Given 40 mg, Subcutaneous, DAILY, First dose on Wed05/02/23 at 2100, Until Discontinued, For patients undergoing surgery: Consult physician in advance - - enoxaparin is an anticoagulant and may need to be held for 12hr prior to surgery or invasive procedures. NOTE: This is a HIGH ALERT Medication., Admission/Obs/Extended Recovery 40 mg Abdominal Tissue Given 05/03/2023 9:25 PM CDT 40 mg Abdominal Tissue Given 05/02/2023 8:28 PM CDT 05/05/2023 6:00 AM CDT 200 mg gabapentin (NEURONTIN) capsule 200 mg Given 200 mg, Oral, EVERY 8 HOURS, First dos e on 05/03/23 at 1445, Until Discontinued, Capsules may be opened an d mixed with liquid or sprinkled on food 200 mg Given 05/04/2023 9:31 PM CDT 200 mg Given 05/04/2023 1:52 PM CDT 200 mg Given 05/04/2023 5:07 AM CDT 200 mg Given 05/03/2023 9:24 PM CDT 200 mg Given 05/03/2023 2:11 PM CDT 05/03/2023 7:30 AM CDT 1 suppository hydrocortisone acetate (ANUSOL-HC) Given rectal suppository 1 suppository 1 suppository, Rectal, ONCE, 1 dose, On Wed05/03/23 at 0545 05/03/2023 2:12 PM CDT 1 suppository hydrocortisone acetate (ANUSOL-HC) Given rectal suppository 1 suppository 1 suppository, Rectal, ONCE, 1 dose, On Wed05/03/23 at 1400 05/04/2023 9:12 AM CDT 10 mg lisinopriL (ZESTRIL) tablet 10 mg Given 10 mg, Oral, DAILY, First dose on Wed05/03/23 at 1430, Until Discontinued, Admission/Obs/Extended Recovery 10 mg Given 05/03/2023 2:11 PM CDT 05/05/2023 9:39 AM CDT 20 mg lisinopriL (ZESTRIL) tablet 20 mg Given 20 mg, Oral, DAILY, First dose (after last modification) on Wed05/05/23 at 0900, Until Discontinued, Admission/Obs/Extended Recovery 05/05/2023 10:21 AM CDT 2 mg loperamide (IMODIUM A-D) capsule 2 mg Given 2 mg, Oral, NEEDED, Starting on Wed05/03/23 at 1330, Until Wed05/05/23 at 1449, Diarrhea, GIVE WITH EACH LOOSE STOOL; NOT TO EXCEED 16MG/24HRS 2 mg Given 05/04/2023 10:37 PM CDT 2 mg Given 05/04/2023 1:48 PM CDT 2 mg Given 05/04/2023 9:12 AM CDT 2 mg Given 05/04/2023 5:07 AM CDT 2 mg Given 05/03/2023 2:58 PM CDT 2 mg Given 05/03/2023 1:13 PM CDT 05/04/2023 11:12 AM CDT 1 g 25 mL/hr magnesium sulfate 1 g/D5W 100 mL IVPB Given - New 1 g, Intravenous, 100 mL, Administer Bag over 4 Hours, EVERY 4 HOURS, 1 dose, First dose on Wed05/04/23 at 1045, Each 1gm delivers 8.1 mEq Magnesium. 05/04/2023 3:06 PM CDT 1 g 25 mL/hr magnesium sulfate 1 g/D5W 100 mL IVPB Given - New 1 g, Intravenous, 100 mL, Administer Bag over 4 Hours, EVERY 4 HOURS, 1 dose, First dose on Wed05/04/23 at 1445, Each 1gm delivers 8.1 mEq Magnesium. 05/04/2023 9:30 PM CDT 5 mg melatonin tablet 5 mg Given 5 mg, Oral, AT BEDTIME DAILY, First dos e on Wed05/02/23 at 2100, Until Discontinued, Admission/Obs/Extended Recovery 5 mg Given 05/03/2023 9:24 PM CDT 5 mg Given 05/02/2023 8:27 PM CDT 05/03/2023 4:46 AM CDT 4 mg ondansetron (ZOFRAN ODT) rapid dissolve Given tablet 4 mg 4 mg, Oral, EVERY 6 HOURS PRN, Startin g on Wed05/02/23 at 0649, Until Wed05/05/23 at 1449, Nausea/Vomiting PO, Nausea/Vomiting - First Line, Place on tongue and allow to dissolve., Admission/Obs/Extended Recovery 05/05/2023 6:03 AM CDT 4 mg ondansetron (ZOFRAN) injection 4 mg Given 4 mg, Intravenous, EVERY 6 HOURS PRN, Starting on Wed05/02/23 at 0649, Until Wed05/05/23 at 1449, Nausea/Vomiting Injectable, Nausea/Vomiting - First Line, Admission/Obs/Extended Recovery 4 mg Given 05/04/2023 10:36 PM CDT 4 mg Given 05/04/2023 4:25 PM CDT 4 mg Given 05/04/2023 8:27 AM CDT 4 mg Given 05/04/2023 1:21 AM CDT 4 mg Given 05/03/2023 7:29 PM CDT 4 mg Given 05/03/2023 11:11 AM CDT 05/04/2023 9:31 PM CDT [address] (PROTONIX) tablet 40 mg Given 40 mg, Oral, DAILY, First dose on Wed05/02/23 at 2100, Until Discontinued, Do not crush or chew tablet. 40 mg Given 05/03/2023 9:24 PM CDT 40 mg Given 05/02/2023 8:28 PM CDT 05/03/2023 8:52 AM CDT 1.2 Diluted mL perflutren lipid microspheres (DEFINITY) Given injection 1-10 Diluted mL 1-10 Diluted mL, Intravenous, ONCE PRN, 1 dose, Starting on Wed05/03/23 at 0847 , Until Wed05/03/23 at 0852, For Procedure, A millinery blocker may only administer Definity through a saline lock. If IV is in use or a port, PICC, or central line is being used a nurse must administer. NOTE: This is a HIGH ALERT Medication., MAC Procedure Area Only - Medications 05/03/2023 8:52 AM CDT 40 mEq potassium chloride SR (K-DUR) tablet 40 Given mEq 40 mEq, Oral, ONCE, 1 dose, On Wed05/03/23 at 0915, - Tablet may be dispersed in water. Place tab in 30 mL of water for 40-60 seconds. - Gently swirl until fully dispersed. If particles remain after admin, add small amount of water and admin remaining content. - DO NOT CRUSH. Tablet may be split in half. Give with meal or full glass of water 05/04/2023 9:12 AM CDT 60 mEq potassium chloride SR (K-DUR) tablet 60 Given mEq 60 mEq, Oral, ONCE, 1 dose, On Wed05/04/23 at 0845, - Tablet may be dispersed in water. Place tab in 30 mL of water for 40-60 seconds. - Gently swirl until fully dispersed. If particles remain after admin, add small amount of water and admin remaining content. - DO NOT CRUSH. Tablet may be split in half. Give with meal or full glass of water 05/05/2023 9:39 AM CDT 80 mg simethicone (MYLICON) chew tablet 80 mg Given 80 mg, Oral, EVERY 6 HOURS PRN, Starting on Wed05/03/23 at 1133, Until Wed05/05/23 at 1449, Flatulence 80 mg Given 05/04/2023 8:27 AM CDT 80 mg Given 05/03/2023 12:08 PM CDT 05/04/2023 11:13 AM CDT 250 mL 30 mL/hr SODIUM CHLORIDE 0.9 % IV SOLP (Cabinet Given - New Override) Bag NOW, 1 dose, On Wed05/04/23 at 1115, Created by gerardinet override, Created by cabinet override traZODone (DESYREL) tablet 25 mg 25 mg, Oral, AT BEDTIME PRN, Starting o n 05/02/23 at 1655, Until Wed05/05/23 at 1449, Insomnia documented in this encounter Discontinued Medications Start Date End Date Medication Sig Discontinue Reason 05/03/2023 donepeziL (ARICEPT) 5 mg Take 10 mg Removed from tablet by mouth at [facility] Med List bedtime daily. 05/03/2023 MUPIROCIN TP Apply Removed from topically to [facility] Med List affected area twice daily. Apply to right side of nostril 05/03/2023 quinapriL (ACCUPRIL) 10 Take 10 mg Removed from mg tablet by mouth at [facility] Med List bedtime daily. 05/04/2023 amLODIPine-benazepriL Removed from (LOTREL) 10-40 mg capsule [facility] Med List 09/24/2017 05/04/2023 estradioL (ESTRACE) 2 mg every 24 Removed from tablet hours. [facility] Med List 03/22/2018 05/05/2023 hyoscyamine sulfate as Needed. Removed from (LEVSIN) 0.125 mg tablet [facility] Med List 09/18/2021 05/05/[address] one Removed from (LEVSIN/SL) 0.125 mg tablet under [facility] Med List sublingual tablet tongue every 4 hours as needed for Cramps. 05/05/2023 meclizine (ANTIVERT) 25 every 8 Removed from mg tablet hours. [facility] Med List 05/05/2023 naproxen sodium (ALEVE) Take two Removed from 220 mg tablet tablets by [facility] [facility] Med List mouth three times daily. Take with food. 09/18/2021 05/05/2023 phenazopyridine Take one Removed from (PYRIDIUM) 200 mg tablet tablet by [facility] Med List mouth three times daily as needed for Pain. Take after meals for up to 2 days. 05/16/2018 05/05/2023 ALPRAZolam (XANAX) 0.5 mg Take one tablet tablet by mouth twice daily as needed. 05/05/2023 lovastatin (MEVACOR) 20 Take one mg tablet tablet by mouth daily with dinner. 05/05/2023 magnesium hydroxide Take 1 (MAGNESIA PO) tablet by mouth daily. 05/04/2023 aspirin EC 81 mg tablet Take one Reorder tablet by mouth daily. Take with food. 05/05/[address] one Removed from (SUBUTEX) 8 mg sublingual tablet under [facility] [facility] Med List tablet tongue every 24 hours. documented as of this encounter Historical Medications * This list may reflect changes made after this encounter. Start Date End Date Medication Sig Dispensed Refills ergocalciferol (vitamin Take 1 tablet 0 D2) (VITAMIN D PO) by mouth daily. CALCIUM PO Take 1 tablet 0 by mouth daily. POTASSIUM PO Take 1 tablet 0 by mouth daily. lidocaine (LIDODERM) 5 % Apply one 0 topical patch patch topically to affected area daily. Apply patch for 12 hours, then remove for 12 hours before repeating. cyanocobalamin (vit B-12) Inject 1 mL 0 (RUBRAMIN PC) 1,000 into the mcg/mL injection solution muscle every 30 days. loperamide (IMODIUM A-D) Take one 0 2 mg capsule capsule by mouth as Needed for Diarrhea. dext Place 1-2 0 70/polycarbophil/peg/NaCl drops into or (ARTIFICIAL TEAR SOLUTION around eye(s) OP) daily as needed. cetirizine (ZYRTEC) 10 mg Take one 0 tablet tablet by mouth every morning. cyclobenzaprine Take one 0 (FLEXERIL) 10 mg tablet tablet by mouth daily as needed for Muscle Cramps. acetaminophen SR (TYLENOL Take 1,850 mg 0 8 HOUR) 650 mg tablet by mouth every 4 hours as needed for Pain. famotidine (PEPCID) 20 mg Take one 0 tablet tablet by mouth at bedtime daily. ondansetron HCL (ZOFRAN) Take one 0 4 mg tablet tablet by mouth every 8 hours as needed for Nausea or Vomiting. quiNINE sulfate Take one 0 (QUALAQUIN) 324 mg capsule by capsule mouth at bedtime daily. diclofenac sodium Apply two g 0 (VOLTAREN) 1 % topical to four g gel topically to affected area four times daily. tiotropium-olodateroL Inhale two 0 (STIOLTO RESPIMAT) puffs by 2.5-2.5 mcg/actuation mouth into inhaler the lungs daily. vibegron (GEMTESA) 75 mg Take one 0 tablet tablet by mouth daily. estrogens, conjugated Take 0.625 mg 0 (PREMARIN PO) by mouth daily. duloxetine DR (CYMBALTA) Take one 0 60 mg capsule capsule by mouth twice daily. donepeziL (ARICEPT) 10 mg Take one 0 tablet tablet by mouth at bedtime daily. amLODIPine (NORVASC) 5 mg Take one 0 tablet tablet by mouth daily. 05/05/2023 magnesium hydroxide Take 1 tablet 0 (MAGNESIA PO) by mouth daily. 05/04/2023 aspirin EC 81 mg tablet Take one 0 tablet by mouth daily. Take with food. 05/05/2023 naproxen sodium (ALEVE) Take two 0 220 mg tablet tablets by mouth three times daily. Take with food. 05/03/2023 MUPIROCIN TP Apply 0 topically to affected area twice daily. Apply to right side of nostril 05/05/[address] one 0 (SUBUTEX) 8 mg sublingual tablet under tablet tongue every 24 hours. added in this encounter Active and Recently Administered Medications Times are shown in CDT. 05/04/2023 05/05/2023 Medication Order 05/03/2023 0912 (Given - Provider: Luiz Rodriguez RN) 0940 (Given - Provider: Luiz Rodriguez RN) amLODIPine (NORVASC) tablet 5 mg 1411 (Given - 5 mg, Oral, DAILY, First dose on Mon Provider: Kandi delgado 05/03/23 at 1430, Until Discontinued, MICHELLE Rodriguez) NURSING: Please educate patient and document: Do not give with grapefruit juice. 0912 (Given - Provider: Luiz Rodriguez RN) 0939 (Given - Provider: Luiz Rodriguez RN) aspirin chewable tablet 81 mg 0853 (Given - 81 mg, Oral, DAILY, First dose on Sun Provider: Jourdan yi 05/02/23 at 2000, Until Discontinued, If MICHELLE Rodriguez) patient received IV thrombolytic, DO NO T give this medication until 24 hours after infusion completed., Admission/Obs/Extended Recovery 0912 (Given - Provider: Luiz Rodriguez RN) 0939 (Wasted - Provider: Luiz Rodriguez RN - Comment: dropped)0943 (Given - Provider: Luiz Rodriguez RN - Comment: dropped, second encounter) atorvastatin (LIPITOR) tablet 40 mg 1313 (Given - 40 mg, Oral, DAILY, First dose on Mon Provider: Jourdan yi 05/03/23 at 1315, Until Discontinued MICHELLE Rodriguez) 0912 (Given - Provider: Luiz Rodriguez RN) 0940 (Given - Provider: Luiz Rodriguez RN) clopiDOGreL (PLAVIX) tablet 75 mg 0853 (Given - 75 mg, Oral, DAILY, First dose on [place] Provider: Jourdan yi 05/02/23 at 2000, Until Discontinued, If MICHELLE Rodriguez) patient received IV thrombolytic, DO NO T give this medication until 24 hours after infusion completed. This Medication can increase the risk of bleeding and may need to be held prior to surgery or invasive procedures. Consult physician in advance., Admission/Obs/Extended Recovery 2132 (Given - Provider: Daniel Rodríguez RN ) donepeziL (ARICEPT) tablet 10 mg 2123 (Given - 10 mg, Oral, AT BEDTIME DAILY, First Provider: Daniel dose on [place] 05/02/23 at 2100, Until MICHELLE Rodríguez) Discontinued 09 (Given - Provider: Luiz Rodriguez RN) 0940 (Given - Provider: Luiz Rodriguez RN) duloxetine DR (CYMBALTA) capsule 90 mg 0853 (Given - 90 mg, Oral, DAILY, First dose on [place] Provider: Jourdan yi 05/02/23 at 1800, Until Discontinued MICHELLE Rodriguez) 2130 (Given - Provider: Daniel Rodríguez RN ) enoxaparin (LOVENOX) syringe 40 mg 2124 (Given - 40 mg, Subcutaneous, DAILY, First dose Provider: Saurabh cheatham on [place] 05/02/23 at 2100, Until MICHELLE Rodríguez) Discontinued, For patients undergoing surgery: Consult physician in advance - - enoxaparin is an anticoagulant and may need to be held for 12hr prior to surgery or invasive procedures. NOTE: This is a HIGH ALERT Medication., Admission/Obs/Extended Recovery 0507 (Given - Provider: Daniel Rodríguez RN )1352 (Given - Provider: Luiz Rodriguez RN)2130 (Given - Provider: Daniel Rodríguez RN) 0600 (Given - Provider: Daniel Rodríguez RN ) gabapentin (NEURONTIN) capsule 200 mg 1411 (Given - 200 mg, Oral, EVERY 8 HOURS, First dose Provider: Michael matthews on [facility] 05/03/23 at 1445, Until MICHELLE Rodriguez)2123 Discontinued, Capsules may be opened and (Given - Pr ovider: mixed with liquid or sprinkled on food Daniel Rodríguez RN) hydrocortisone acetate (ANUSOL-HC) 0635 (Planned Hol d - rectal suppository 1 suppository Provider: Bety (COMPLETED) MICHELLE Chavez)0730 1 suppository, Rectal, ONCE, 1 dose, On (Given - Pro vider: Wed05/03/23 at 0545 Luiz Rodriguez RN) hydrocortisone acetate (ANUSOL-HC) 1412 (Given - rectal suppository 1 suppository Provider: Luiz (COMPLETED) MICHELLE Rodriguez) 1 suppository, Rectal, ONCE, 1 dose, On Wed05/03/23 at 1400 0912 (Given - Provider: Luiz Rodriguez RN) lisinopriL (ZESTRIL) tablet 10 mg 141 (Given - (CANCELED) Provider: Luiz 10 mg, Oral, DAILY, First dose on Wed MICHELLE Rodriguez) 05/03/23 at 1430, Until Discontinued, Admission/Obs/Extended Recovery 0939 (Given - Provider: Luiz Rodriguez RN) lisinopriL (ZESTRIL) tablet 20 mg 20 mg, Oral, DAILY, First dose (after last modification) on Wed05/05/23 at 0900, Until Discontinued, Admission/Obs/Extended Recovery 1112 (Given - New Bag - Provider: Lupillo Rodriguez RN) magnesium sulfate 1 g/D5W 100 mL IVPB (COMPLETED) 1 g, Intravenous, 100 mL, Administer over 4 Hours, EVERY 4 HOURS, 1 dose, First dose on Wed05/04/23 at 1045, Each 1gm delivers 8.1 mEq Magnesium. 150 (Given - New Bag - Provider: Lupillo Rodriguez RN) magnesium sulfate 1 g/D5W 100 mL IVPB (COMPLETED) 1 g, Intravenous, 100 mL, Administer over 4 Hours, EVERY 4 HOURS, 1 dose, First dose on Wed05/04/23 at 1445, Each 1gm delivers 8.1 mEq Magnesium. 2129 (Given - Provider: Daniel Rodríguez RN ) melatonin tablet 5 mg 2123 (Given - 5 mg, Oral, AT BEDTIME DAILY, First dose Provider: Fe figueroa on Wed05/02/23 at 2100, Until MICHELLE Rodríguez) Discontinued, Admission/Obs/Extended Recovery 2130 (Given - Provider: Daniel Rodríguez RN ) pantoprazole DR (PROTONIX) tablet 40 mg 2123 (Given - 40 mg, Oral, DAILY, First dose on Sun Provider: Monica burgos 05/02/23 at 2100, Until Discontinued, Do MICHELLE Rodríguez) not crush or chew tablet. potassium chloride SR (K-DUR) tablet 40 0852 (Given - mEq (COMPLETED) Provider: Luiz 40 mEq, Oral, ONCE, 1 dose, On Mon MICHELLE Rodriguez) 05/03/23 at 0915, - Tablet may be dispersed in water. Place tab in 30 mL of water for 40-60 seconds. - Gently swirl until fully dispersed. If particles remain after admin, add small amount of water and admin remaining content. - DO NOT CRUSH. Tablet may be split in half. Give with meal or full glass of water 0912 (Given - Provider: Luiz Rodriguez RN) potassium chloride SR (K-DUR) tablet 60 mEq (COMPLETED) 60 mEq, Oral, ONCE, 1 dose, On Wed05/04/23 at 0845, - Tablet may be dispersed in water. Place tab in 30 mL of water for 40-60 seconds. - Gently swirl until fully dispersed. If particles remain after admin, add small amount of water and admin remaining content. - DO NOT CRUSH. Tablet may be split in half. Give with meal or full glass of water 0800 (Med Not Given - Provider: Luiz Rodriguez RN - Reason: Loose stools) 0941 (Med Not Given - Provider: Luiz Rodriguez RN - Reason: Loose stools) senna/docusate (SENOKOT-S) tablet 1 0851 (Med Not Gi jaguar tablet - Provider: Luiz 1 tablet, Oral, DAILY, First dose on Sun MICHELLE Rodriguez - Reason: 05/02/23 at 0900, Until Discontinued, Patient Refused - First and Second Line medications can be Comment: pt replied used concurrently if the patient "oh god no") requests and has not had a bowel movement., Admission/Obs/Extended Recovery 1113 (Given - New Bag - Provider: Lupillo Rodriguez RN - Comment: ivpb) SODIUM CHLORIDE 0.9 % IV SOLP (Cabinet Override) (COMPLETED) NOW, 1 dose, On Wed05/04/23 at 1115, Created by cabinet override, Created by cabinet override 05/04/2023 05/05/2023 Medication Order 05/03/2023 0912 (Given - Provider: Luiz Rodriguez RN)2130 (Given - Provider: Daniel Rodríguez RN) 0939 (Given - Provider: Luiz Rodriguez RN) acetaminophen (TYLENOL) tablet 650 mg 0513 (Given - 650 mg, Oral, EVERY 6 HOURS PRN, Provider: Bety Starting on 05/02/23 at 0649, Until Scott RN) 1208 05/05/23 at 1449, Pain non-opioid: (Given - Provi alex: may be used alone or in combination with Luiz sales, opioid analgesia, TOTAL ACETAMINOPHEN RN)2124 (Given - DOSE NOT TO EXCEED 4GM DAILY, Provider: Daniel Admission/Obs/Extended Recovery MICHELLE Rodríguez) 0507 (Given - Provider: Daniel Rodríguez RN )0912 (Given - Provider: Luiz Rodriguez RN)1348 (Given - Provider: Luiz Rodriguez RN)2237 (Given - Provider: Daniel Rodríguez RN) 1021 (Given - Provider: Luiz Rodriguez RN)1023 (Canceled Entry - Provider: Luiz Rodriguez RN) loperamide (IMODIUM A-D) capsule 2 mg 1313 (Given - 2 mg, Oral, NEEDED, Starting on Mon Provider: [place] porter 05/03/23 at 1330, Until Wed05/05/23 at MICHELLE Rodriguez)145 8 1449, Diarrhea, GIVE WITH EACH LOOSE (Given - Provid er: STOOL; NOT TO EXCEED 16MG/24HRS Luiz Rodriguez RN)1721 (Med Not Given - Provider: Luiz Rodriguez RN - Reason: Patient Refused) 0121 (See Alternative - Provider: Daniel Rodríguez RN)0136 (See Alternative - Provider: Kandi Galeana RN)0827 (See Alternative - Provider: Luiz Rodriguez RN)1625 (See Alternative - Provider: Luiz Rodriguez RN)2236 (See Alternative - Provider: Daniel Rodríguez RN) 0603 (See Alternative - Provider: Daniel Rodríguez RN) ondansetron (ZOFRAN ODT) rapid dissolve 0446 (Given - tablet 4 mg(Linked Group 1) Provider: Bety 4 mg, Oral, EVERY 6 HOURS PRN, Starting Michael Chavez)1111 on 05/02/23 at 0649, Until Wed (See Alternative - 05/05/23 at 1449, Nausea/Vomiting PO, Provider: Kandi delgado Nausea/Vomiting - First Line, Place on MICHELLE Rodriguez)19 29 (See tongue and allow to dissolve., Alternative - Admission/Obs/Extended Recovery Provider: Luiz Rodriguez RN) 0121 (Given - Provider: Daniel Rodríguez, MICHELLE )0136 (Canceled Entry - Provider: Kandi Galeana, MICHELLE)0827 (Given - Provider: Luiz Rodriguez, MICHELLE)1625 (Given - Provider: Luiz Rodriguez, MICHELLE)2236 (Given - Provider: Daniel Rodríguez, MICHELLE) 0603 (Given - Provider: Daniel oRdríguez, MICHELLE ) ondansetron (ZOFRAN) injection 4 0446 (See mg(Linked Group 1) Alternative - 4 mg, Intravenous, EVERY 6 HOURS PRN, Provider: Alena ekvivi Starting on Wed05/02/23 at 0649, Until MICHELLE Chavez) 1111 Wed05/05/23 at 1449, Nausea/Vomiting (Given - Provid er: Injectable, Nausea/Vomiting - First Char Rus[place], 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 If IV is in use or a port, PICC, or central line is being used a nurse must administer. NOTE: This is a HIGH ALERT Medication., MAC Procedure Area Only - Medications polyethylene glycol 3350 (MIRALAX) packet 17 g 17 g (1 packet), Oral, DAILY PRN, Starting on 05/02/23 at 0649, Until Wed05/05/23 at 1449, Constipation PO, Constipation - Second Line, Use Second Line therapy if patient has not had a bowel movement at 60 minutes after Firs t Line agent administration. First and Second Line medications can be used concurrently if the patient requests an d has not had a bowel movement., Admission/Obs/Extended Recovery 0827 (Given - Provider: Luiz Rodriguez RN) 0939 (Given - Provider: Luiz Rodriguez RN) simethicone (MYLICON) chew tablet 80 mg 1208 (Given - 80 mg, Oral, EVERY 6 HOURS PRN, Provider: Luiz Starting on 05/03/23 at 1133, Until MICHELLE Rodriguez) Wed05/05/23 at 1449, Flatulence traZODone (DESYREL) tablet 25 mg 25 mg, Oral, AT BEDTIME PRN, Starting o n 05/02/23 at 1655, Until Wed05/05/23 at 1449, Insomnia Order Group 1: ondansetron (ZOFRAN ODT) rapid dissolve tablet 4 mgJump to med 4 mg, Oral, EVERY 6 HOURS PRN, Startin g on 05/02/23 at 0649, Until Wed05/05/23 at 1449, Nausea/Vomiting PO, Nausea/Vomiting - F irst Line
Place on tongue and allow to dissolve.
Admission/Obs/Extended Rec overy Or ondansetron (ZOFRAN) injection 4 mgJump to med 4 mg, Intravenous, EVERY 6 HOURS PRN, Starting on 05/02/23 at 0649, Until Wed05/05/23 at 1449, Nausea/Vomiting Injectable, Nausea/Vomi ting - First Line, Admission/Obs/Extended Recovery documented in this encounter Orders First Ordered Date Medications Ordered That Might Not Have Count Last Ordered Date Been Administered phenazopyridine (PYRIDIUM) tablet 200 mg 1 05/02/2023 polyethylene glycol 3350 (MIRALAX) 1 09/2023 packet 17 g senna/docusate (SENOKOT-S) tablet 1 1 tablet traZODone (DESYREL) tablet 25 mg 1 05/02 First Ordered Date Procedures Count Last Ordered Date CONSULT VASCULAR ACCESS TEAM 1 3 First Ordered Date Diet Count Last Ordered Date DISCHARGE DIET CARDIAC 1 05/05/2023 First Ordered Date Nursing Count Last Ordered Date DISCHARGE ACTIVITY NORMAL 1 05/05/2023 DISCHARGE CONTACT 1 05/05/2023 DISCHARGE SIGNS/SYMPTOMS 1 05/05/2023 RISK REDUCTION PLAN 1 05/05/2023 First Ordered Date Consult Count Last Ordered Date CONSULT REHABILITATION MEDICINE 1 2022 PHYSICIAN First Ordered Date OT Count Last Ordered Date OT CONSULT OCCUPATIONAL THERAPY 1 2022 First Ordered Date PT Count Last Ordered Date PT CONSULT PHYSICAL THERAPY 1 05/02/2023 First Ordered Date Admission Count Last Ordered Date PLACE PATIENT OBSERVATION CLASS (NO 1 05/02/2023 BED REQUEST) First Ordered Date Discharge Count Last Ordered Date DISCHARGE PATIENT NOW 1 05/05/2023 First Ordered Date Equipment Count Last Ordered Date PUMP IV CONTROL UNIT W/MODULES 1 023 HEATING, MACHINE AK WITH PAD 1 First Ordered Date Vital Signs Count Last Ordered Date VITAL SIGNS 1 05/02/2023 First Ordered Date Activity Count Last Ordered Date MOBILITY 1 05/02/2023 First Ordered Date SPECIALITY EQUIPMENT Count Last Ordered Date FAN 1 05/03/2023 First Ordered Date Order Set Communication Count Last Ordered D ate ADD AGITATE SALINE BUBBLE STUDY TO ECHO 1 05/03/2023 First Ordered Date Intake & Output Count Last Ordered Date INTAKE AND OUTPUT 1 05/02/[address] & Maintain Count Last Ordered Date PLACE AND MAINTAIN SCD 1 05/02/2023 First Ordered Date ADT Patient Update Count Last Ordered Date CHANGE PATIENT CLASS 1 05/03/2023 documented in this encounter Additional Health Concerns Noted Time Assessment 05/05/2023 7:45 AM CDT A fall risk assessment has been complet ed for the patient documented as of this encounter Care Teams Start Date End Date Accounts Payable Analyst Relationship Specialty 08/04/21 Pawel Olvera MD PCP - General Family Medicine [address] [place] [id number] 08/09/21 Mikie Garrett MD Urology [address] [place] [id number] 08/09/21 Colette Ontiveros MD Cardiovascul ar Disease [address] [place] [address] 08/09/21 King Downing MD Internal [address] [address] documented as of this encounter
--- OUTSIDE RECORDS SUMMARY | 2023-05-05 16:17 | XMS REPORT ---
Author Author [facility] Address Unknown Phone Unavailable Care Team Providers Care Sap Senior Developer Name Role Phone WILL CASIANO Unavailable PROBLEMS Type Condition ICD9-CM Code [id number] Code Onset Dates Condition S tatus W/U Status Risk SNOMED Code Notes Problem Mixed hyperlipidemia E78.2 confirmed 407116770 Problem Nocturnal leg cramps G47.62 confirmed 826985508 Problem Anxiety F41.9 confirmed 43746532 Problem Essential hypertension I10 confirmed 72949738 Problem Arthritis M19.90 confirmed 8814907 Problem Coronary artery disease with angina pectoris, unspecified vessel or lesion type, unspecified whether yocha dehe or transplanted heart I25.1 19 confirmed 583704084 Problem Primary osteoarthritis of left hip M16.12 confirmed [id number] Problem Primary insomnia F51.01 confirmed 397 2004 Problem History of bladder cancer Z85.51 confirmed 719951576 Problem Tension headache G44.209 confirmed 39 3601734 Problem Mild intermittent asthma without complication J45.20 confirmed 926471831 Problem Mild asthma with exacerbation, unspecified whether per sistent J45.901 confirmed 390922257 Problem Arthritis of shoulder region, right M19.011 confirmed [id number] Problem COPD exacerbation J44.1 confirmed 19 6316005 Problem Hypoglycemia E16.2 confirmed 4658937 03 Problem Major depressive disorder, s dimitrios episode, 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 confirmed 22294080 Problem Bulging lumbar disc M51.36 confirmed 765887160 Problem Irritable bowel syndrome with diarrhea K58.0 confirmed 691503835 Problem Overactive bladder N32.81 confirmed 7 [id number] ALLERGIES No Known Allergies ENCOUNTERS from 1950 to 2023-03-23 Encounter Location Date Provider Diagnosis [facility] [address] [facility] [id number] [place] [address] March, WILL SELF IMMUNIZATIONS Vaccine Route Administration Date Status COVID-19 [...] as needed for 3 days Asset Tag [id number] Oct, Active Gemtesa 75 MG TAKE 1 TABLET BY MOUTH ONCE DAILY for 30 Active Lasix 20 MG 0.5-1 tablet as needed Orally Once a day for 30 days PRN Sep, Active Lovastatin 20 MG 1 tablet with the evening meal Orally Once a day Active PROCEDURES No Information RESULTS No Results REASON FOR VISIT Status of Order MEDICAL (GENERAL) HISTORY Type Description Date Medical [...] Start Date Coverage End Date Subscriber Number [facility] Nu mber AARP Medicare Advantage Choice Plan 2 (PPO) [address] [facility] [id number] Cheryl Parkinson Self - patient is the insured [id number] [facility] Part A [address] [place] [phone] Cheryl Parkinson Self - patient is the insured [id number] MEDICATIONS ADMINISTERED Medication Instructions Date of Administration Dosage Dexamethasone Sep, 4 mg methylPREDNISolone Acetate Sep, 40 mg Dexamethasone Apr, 4 mg methylPREDNISolone Acetate Apr, 80 mg Dexamethasone Jul, 1 mL Dexamethasone Jan, 1 mL Rocephin Feb, 1 g DEPO-Medrol Jan, 1 mL Rocephin Feb, 1 g Rocephin Feb, 1 g Dexamethasone Jan, 4 mg methylPREDNISolone Acetate Jan, 40 mg cefTRIAXone Sodium Dec, 1 g DEPO-Medrol Jul, 1 mL
--- OUTSIDE RECORDS SUMMARY | 2023-05-05 16:17 | XMS REPORT | Clinical Summary ---
Author Author [facility] Organization [facility] Address Unknown Phone Unavailable Care Team Providers Care Heavy Equipment Rental Manager Name Role Phone Self, Pawel LAI PCP Mikie Garrett MD Unavailable Coeltte Ontiveros MD Unavailable King Downing MD Unavailable Source Comments Some departments are not documenting in the electronic medical record. If you d o not see the information that you expected, contact Release of Information in [facility] [email or web address] Information Management department at [phone] for further assistan ce in locating additional records.[facility] Allergies Comments Active Allergy Reactions Criticality Noted Date Cauliflower URTICARIA Medium 05/03/2023 Medications End Date Status Medication Sig Dispensed Refills Start Date Active buPROPion HCL one-half 0 (WELLBUTRIN) 75 mg tablet tablet every 1 [address] (CYMBALTA) Take two 0 30 mg capsule capsules by mouth daily. Active fluticasone propionate Apply one 0 01 (FLONASE) 50 spray to each 7 mcg/actuation nasal nostril as spray, suspension directed every 24 hours. Active gabapentin (NEURONTIN) Take two 0 100 mg capsule capsules by mouth every 8 hours. Active nitroglycerin (NITROSTAT) as Needed. 0 12/24 0.4 mg tablet [address] (ACIPHEX) Take one 0 08/16 20 mg tablet tablet by 7 mouth every morning. Active sulindac (CLINORIL) 200 Take one 0 mg tablet tablet by mouth every 12 hours. Active traMADoL (ULTRAM) 50 mg Take three 0 tablet tablets by mouth every 8 hours as needed for Pain. Active amLODIPine (NORVASC) 5 mg Take one 0 tablet tablet by mouth daily. Active donepeziL (ARICEPT) 10 mg Take one 0 tablet tablet by mouth at bedtime daily. Active duloxetine DR (CYMBALTA) Take one 0 60 mg capsule capsule by mouth twice daily. Active estrogens, conjugated Take 0.625 mg 0 (PREMARIN PO) by mouth daily. Active vibegron (GEMTESA) 75 mg Take one 0 tablet tablet by mouth daily. Active tiotropium-olodateroL Inhale two 0 (STIOLTO RESPIMAT) puffs by 2.5-2.5 mcg/actuation mouth into inhaler the lungs daily. Active diclofenac sodium Apply two g 0 (VOLTAREN) 1 % topical to four g gel topically to affected area four times daily. Active quiNINE sulfate Take one 0 (QUALAQUIN) 324 mg capsule by capsule mouth at bedtime daily. Active ondansetron HCL (ZOFRAN) Take one 0 4 mg tablet tablet by mouth every 8 hours as needed for Nausea or Vomiting. Active famotidine (PEPCID) 20 mg Take one 0 tablet tablet by mouth at bedtime daily. Active acetaminophen SR (TYLENOL Take 1,850 mg 0 8 HOUR) 650 mg tablet by mouth every 4 hours as needed for Pain. Active cyclobenzaprine Take one 0 (FLEXERIL) 10 mg tablet tablet by mouth daily as needed for Muscle Cramps. Active cetirizine (ZYRTEC) 10 mg Take one 0 tablet tablet by mouth every morning. Active dext Place 1-2 0 70/polycarbophil/peg/NaCl drops into or (ARTIFICIAL TEAR SOLUTION around eye(s) OP) daily as needed. Active loperamide (IMODIUM A-D) Take one 0 2 mg capsule capsule by mouth as Needed for Diarrhea. Active cyanocobalamin (vit B-12) Inject 1 mL 0 (RUBRAMIN PC) 1,000 into the mcg/mL injection solution muscle every 30 days. Active lidocaine (LIDODERM) 5 % Apply one 0 topical patch patch topically to affected area daily. Apply patch for 12 hours, then remove for 12 hours before repeating. Active POTASSIUM PO Take 1 tablet 0 by mouth daily. Active CALCIUM PO Take 1 tablet 0 by mouth daily. Active ergocalciferol (vitamin Take 1 tablet 0 D2) (VITAMIN D PO) by mouth daily. Active atorvastatin (LIPITOR) 40 Take one 30 tablet 0 05/05/202 mg tablet tablet by 3 mouth daily. Active clopiDOGreL (PLAVIX) 75 Take one 18 tablet 0 /202 mg tablet tablet by 3 mouth daily. Take aspirin 81 mg daily and clopidogrel 75 mg daily for 21 days, then stop clopidogrel and just take aspirin 81 mg daily thereafter. Active aspirin EC 81 mg tablet Take one 30 tablet 0 tablet by 3 mouth daily. Take with food. Take aspirin 81 mg daily and clopidogrel 75 mg daily for 21 days, then stop clopidogrel and just take aspirin 81 mg daily thereafter. Active lisinopriL (ZESTRIL) 20 Take one 30 tablet 0 /202 mg tablet tablet by 3 mouth daily. 05/04/2023 Discontinued (Removed from P TA Med List) amLODIPine-benazepriL 0 (LOTREL) 10-40 mg capsule 05/05/2023 Discontinued ALPRAZolam (XANAX) 0.5 mg Take one 0 04/23 tablet tablet by 8 mouth twice daily as needed. 05/04/2023 Discontinued (Removed from P TA Med List) estradioL (ESTRACE) 2 mg every 24 0 09/24 tablet hours. 7 05/05/2023 Discontinued (Removed from P TA Med List) hyoscyamine sulfate as Needed. 0 (LEVSIN) 0.125 mg tablet 8 05/05/2023 Discontinued (Removed from P TA Med List) meclizine (ANTIVERT) 25 every 8 0 mg tablet hours. 05/05/2023 Discontinued lovastatin (MEVACOR) 20 Take one 0 mg tablet tablet by mouth daily with dinner. 05/03/2023 Discontinued (Removed from P TA Med List) quinapriL (ACCUPRIL) 10 Take 10 mg by 0 mg tablet mouth at bedtime daily. 05/05/2023 Discontinued (Removed from P TA Med List) phenazopyridine Take one 6 tablet 0 (PYRIDIUM) 200 mg tablet tablet by 1 mouth three times daily as needed for Pain. Take after meals for up to 2 days. 05/05/2023 Discontinued (Removed from P TA Med List) hyoscyamine sulfate Place one 30 tablet 0 (LEVSIN/SL) 0.125 mg tablet under 1 sublingual tablet tongue every 4 hours as needed for Cramps. 05/03/2023 Discontinued (Removed from P TA Med List) donepeziL (ARICEPT) 5 mg Take 10 mg by 0 tablet mouth at bedtime daily. 05/05/2023 Discontinued (Removed from P TA Med List) buprenorphine HCL Place one 0 (SUBUTEX) 8 mg sublingual tablet under tablet tongue every 24 hours. 05/03/2023 Discontinued (Removed from P TA Med List) MUPIROCIN TP Apply 0 topically to affected area twice daily. Apply to right side of nostril 05/05/2023 Discontinued (Removed from P TA Med List) naproxen sodium (ALEVE) Take two 0 220 mg tablet tablets by mouth three times daily. Take with food. 05/04/2023 Discontinued (Reorder) aspirin EC 81 mg tablet Take one 0 tablet by mouth daily. Take with food. 05/05/2023 Discontinued magnesium hydroxide Take 1 tablet 0 (MAGNESIA PO) by mouth daily. Active Problems Problem Noted Date Diagnosed Date Thalamic stroke 05/04/2023 Primary hypertension 05/04/2023 Mixed hyperlipidemia 05/04/2023 Asymptomatic stenosis of right carotid artery 2022 Acute ischemic cerebrovascular accident (CVA) involvi ng 05/02/2023 internal carotid artery territory Malignant neoplasm of urinary bladder 09/12/2021 Overview: - 71 y/o female who was diagnosed with bladder cancer March 2018, for which she received BCG 6 dose s. May 2021 Ms. Parkinson presented with gross hematuri a, urine cytology revealed no evidence of high grade urot helial carcinoma, abundant benign squamous and urothelial cells, with numerous scattered fungal organisms consistent w ith Janie and abundant blood. Cystoscopy was also co mpleted and no masses or areas of concern was found. CT scan abd/pelvis was completed May 2021 and it was unremark able. She is being referred for a bluelight cystoscopy. S he denies history tobacco use. - 03/22/2018 PATHOLOGY - A. Urinary b ladder, tumor floor and B. Urinary bladder, tumor base: U rinary bladder, transurethral resection of tumor: Pred ominantly low grade papillary urothelial carcinoma with foc al high grade papillary urothelial carcinoma. No adrian dence of lamina propria or muscle wall invasion. - 04/12/2018 - 05/17/2018 Received BCG 6 doses - 07/18/2020 CT SCAN ABD/PELVIS - Enla rged fatty liver. Calcifications in the spleen are unchan ged in suggest remote granulomatous disease. Possible small stones in the distal left ureter. There is no evidence for hydroureter or hydronephrosis. Atherosclerotic diseas e with levoscoliosis and degenerative disc disease. Prior h ysterectomy without evidence for acute intrapelvic patholog y. - 07/31/2020 KUB - Nonobstructed small gas pattern. Probable multiple pelvis phleboliths, a lthough distal ureteral calculi cannot be entirely exc luded. Moderate colonic air and stool. - 04/29/2021 CT SCAN CHEST - Stable ca lcified and noncalcified parenchymal nodules. Stab le calcified mediastinal lymph nodes, suggestive of prior granulomatous exposure. No new or interim pathology. - 06/04/2021 CYTOLOGY - Urine, voided: No evidence of high grade urothelial carcinoma, abundant be nign squamous and urothelial cells, with numerous scatter ed fungal organisms consistent with Janie, mild to modera te acute inflammation and abundant blood. - 06/09/2021 CYSTOSCOPY - WNL - 06/13/2021 CT SCAN ABD/PELVIS - Unre markable non-contrast CT appearance of the kidneys and urinar y bladder. No evidence of calculi or mass. No inflamm atory changes. Scattered diverticuli in the descending and sigmoid colon without evidence of acute diverticuliti s. Last Assessment & Plan: Formatting of t his note might be different from the original. Patient presents for evaluation of fabienne s hematuria in the setting of known bladder cancer. She pr eviously has undergone 6 doses of BCG without a main tenance phase in 2017. Since then has had reportedly neg ative cystoscopy with negative urine cytology and noncontrast ed CT scan in May 2021. Today we discussed various etiolo gies of gross hematuria including concerns for bladde r cancer recurrence. Repeat cystoscopic evaluation in clinic today (09/12) demonstrated a tumor which was visualiz ed. We will plan for obtain a urine cytology and plan for a TURBT, retrograde pyelograms and gemcitabine instillation 09/18. Resolved Problems Resolved Date Problem Noted Date Diagnosed Date 05/04/2023 Acute ischemic stroke 05/02/2023 Encounters Care Team Description Date Type Department Oriana Villagomez DO 05/02/2023 Hospital Vascular Access Tea m: 7:55 AM Encounter [facility] CDT [address], [address] [place] [address] Manny Garcia MD Barkley, Tiffany T, DO Vanguru, Husitha Reddy, MD Thalamic stroke (HCC) Discharge Disposition: Rehab Facility (Not [facility]) 05/02/2023 Hospital Patient Care Unit C A6: 6:48 AM Encounter [facility] A CDT - [address] 05/05/2023 Level 6 12:49 PM [place] CDT [id number] from Last 3 Months Surgical History Surgery Date Site/Laterality Comments HX APPENDECTOMY HX HYSTERECTOMY HX CHOLECYSTECTOMY CYSTOURETHROSCOPY 09/18/2021 N/A CYSTOURETHRO SCOPY WITH FULGURATION/ RESECTION BLADDER TUMOR performed by Don Soto MD at [facility] OR CYSTOSCOPY 09/18/2021 N/A gemcitabine ins tillation performed by Don Melvin MD at [facility] OR CYSTOURETHROSCOPY 09/18/2021 Bilateral bilateral re trograde pyelograms performed by Don Melvin MD at [facility] OR Medical History Medical History Date Comments Bladder cancer (HCC) Arthritis Blood clotting disorder (HCC) Hypertension Ulcer of the stomach and intestine Stroke (HCC) Vision abnormalities Family History Medical History Relation Name Comments Cancer Father Heart Disease Father Hypertension Father Stroke Father Cancer Mother Heart Disease Mother Hypertension Mother Relation Name Status Comments Father Mother Social History Date Tobacco Use Types Packs/Day [...] Identity Female Sexual Orientation Not on file Obstetrics History Last Filed Vital Signs Reading Time Taken [...] 05/03/2023 9:34 AM CDT Body Mass Index Plan of Treatment Health Maintenance Due Date Last Done Comments MEDICARE ANNUAL WELLNESS 1950 VISIT DTAP/TDAP VACCINES (1 - 1968 Tdap) HEPATITIS C SCREENING 1968 PHYSICAL (COMPREHENSIVE) 1968 EXAM BREAST CANCER SCREENING 1990 COLORECTAL CANCER 1995 SCREENING SHINGLES RECOMBINANT 2000 VACCINE (1 of 2) OSTEOPOROSIS 2015 SCREENING/MONITORING PNEUMOCOCCAL VACCINE 65+ 09/07/2018 09/07/2017 YRS (2 - PPSV23 if available, else PCV20) COVID-19 VACCINE (2 - 04/01/2021 02/04/2021 Booster for Moderna series) ADVANCED CARE PLANNING 11/22/2022 DISCUSSION AND DOCUMENTATION DEPRESSION SCREENING 11/22/2022 INFLUENZA VACCINE (Season 08/22/2023 09/06/2020, Ended) 08/26/2020, 10/21/2018, Additional history exists Goals Goal Patient Associated Recent Progress Patient-Stat Aut hor Goal Type Problems ed? Recover from illness Hospital On track (05/03/2023 No Carisa Valverde, 11:22 AM CDT) RN Note: Get stronger and get out of here Procedures Comments Procedure Name Priority Date/Time Associated Diag nosis CBC Routine 05/05/2023 6:01 AM CDT BASIC METABOLIC PANEL Routine 05/05/2023 6:01 AM CDT MAGNESIUM Routine 05/05/2023 6:01 AM CDT HC MAGNESIUM Add on 05/04/2023 5:37 AM CDT HC BASIC METABOLIC PANEL Routine 05/04/2023 5:37 AM CDT HC CBC,AUTOMATED Routine 05/04/2023 5:37 AM CDT 2D + DOPPLER ECHO W/ Routine 05/03/2023 CONTRAST 9:55 AM CDT HC MAGNESIUM Add on 05/03/2023 5:54 AM CDT CHEM 7 ADD ON Add on 05/03/2023 5:54 AM CDT HC BASIC METABOLIC PANEL Routine 05/03/2023 5:54 AM CDT HC CBC,AUTOMATED Routine 05/03/2023 5:54 AM CDT HC Routine 05/03/2023 LIPID-5:CHOL/TRG/HDL/LDL+ 5:54 AM CDT VLDL US DUPLEX SCAN CAROTID Routine 05/02/2023 BILATERAL [...] CDT TELEMETRY STRIPS-SCAN 05/02/2023 12:00 AM CDT from Last 3 Months Results * CBC (05/05/2023 6:01 AM CDT) Only the most recent of 3 results within the time period is included. Pathologist Signature Component Value Ref Test Method Analysis Performed A t Range Time White Blood Cells 9.2 4.5 - 05/05/2023 [facility] DE PT PATH AND 11.0 6:31 AM LAB MEDICINE K/UL CDT RBC 4.42 4.0 - 05/05/2023 [facility] DEPT PAT H AND 5.0 M/UL 6:31 AM LAB MEDICINE CDT Hemoglobin 13.2 12.0 - 05/05/2023 [facility] DEPT PAT H AND 15.0 6:31 AM LAB MEDICINE GM/DL CDT Hematocrit 40.0 36 - 45 05/05/2023 [facility] DEPT PAT H AND % 6:31 AM LAB MEDICINE CDT MCV 90.3 80 - 100 05/05/2023 [facility] DEPT PAT H AND FL 6:31 AM LAB MEDICINE CDT MCH 29.8 26 - 34 05/05/2023 [facility] DEPT PAT H AND PG 6:31 AM LAB MEDICINE CDT MCHC 33.0 32.0 - 05/05/2023 [facility] DEPT PAT H AND 36.0 6:31 AM LAB MEDICINE G/DL CDT RDW 14.4 11 - 15 05/05/2023 [facility] DEPT PAT H AND % 6:31 AM LAB MEDICINE CDT Platelet Count 362 150 - 05/05/2023 [facility] DEPT PATH AND 400 K/UL 6:31 AM LAB MEDICINE CDT MPV 8.0 7 - 11 05/05/2023 [facility] DEPT PAT H AND FL 6:31 AM LAB MEDICINE CDT Anatomical Location / Laterality Collection Method / Volume Andres ection Time Received Time Specimen (Source) BLOOD / Unknown 05/05/2023 6:01 AM CDT 05/05/20 6:02 AM CDT Mau Gay LABORATORY ORDERABLES Edita LAI [facility]/State/ZIP Code Phone Number Performing Address Organization [address] DEPT PATH AND [address] [facility] LAB MEDICINE * MAGNESIUM (05/05/2023 6:01 AM CDT) Only the most recent of 4 results within the time period is included. Pathologist Signature Component Value Ref Test Method Analysis Performed A t Range Time Magnesium 2.0 1.6 - 05/05/2023 [facility] DEPT PAT H AND 2.6 6:56 AM LAB MEDICINE mg/dL CDT Anatomical Location / Laterality Collection Method / Volume Andres ection Time Received Time Specimen (Source) BLOOD / Unknown 05/05/2023 6:01 AM CDT 05/05/20 6:02 AM CDT Mau Gay LABORATORY ORDERABLES Edita LAI [facility]/ZIP Code Phone Number Performing Address [address] [facility] LAB MEDICINE * (ABNORMAL) BASIC METABOLIC PANEL (05/05/2023 6:01 AM CDT) Only the most recent of 3 results within the time period is included. Pathologist Signature Component Value Ref Test Method Analysis Performed A t Range Time Sodium 139 137 - 05/05/2023 [facility] DEPT PAT H AND 147 6:56 AM LAB MEDICINE MMOL/L CDT Potassium 3.8 3.5 - 05/05/2023 [facility] DEPT PAT H AND 5.1 6:56 AM LAB MEDICINE MMOL/L CDT Chloride 104 98 - 110 05/05/2023 [facility] DEPT PAT H AND MMOL/L 6:56 AM LAB MEDICINE CDT CO2 22 21 - 30 05/05/2023 [facility] DEPT PAT H AND MMOL/L 6:56 AM LAB MEDICINE CDT Anion Gap 13 (H) 3 - 12 05/05/2023 [facility] DEPT PAT H AND 6:56 AM LAB MEDICINE CDT Glucose 121 (H) 70 - 100 05/05/2023 [facility] DEPT PAT H AND MG/DL 6:56 AM LAB MEDICINE CDT Blood Urea Nitrogen 7 7 - 25 05/05/2023 [facility] DEPT PATH AND MG/DL 6:56 AM LAB MEDICINE CDT Creatinine 0.64 0.4 - 05/05/2023 [facility] DEPT PAT H AND 1.00 6:56 AM LAB MEDICINE MG/DL CDT Calcium 8.3 (L) 8.5 - 05/05/2023 [facility] DEPT PAT H AND 10.6 6:56 AM LAB MEDICINE MG/DL CDT eGFR >60 >60 05/05/2023 [facility] DEPT PAT H AND mL/min 6:56 AM LAB MEDICINE CDT Comment: eGFR calculated using the CKD-EPIcr_R equation Anatomical Location / Laterality Collection Method / Volume Andres ection Time Received Time Specimen (Source) BLOOD / Unknown 05/05/2023 6:01 AM CDT 05/05/20 6:02 AM CDT Mau Gay LABORATORY ORDERABLES Edita LAI City/State/ZIP Code Phone Number Performing [place] [address] [facility] DEPT PATH AND [address] [facility] LAB MEDICINE * 2D + DOPPLER [...] OUTSI DE LAB time MV Peak A Antione 1.12 m/s OTHER OUTSIDE L AB MV Peak E Antione PW 0.63 m/s OTHER OUTSIDE LAB Right [...] <=0.42 OTHER OUTSIDE L AB AV index ([place]) 0.85 OTHER OUTSIDE LAB E/A ratio 0.56 OTHER OUTSIDE LAB LVOT area 3.14 cm2 OTHER OUTSIDE L AB LVOT peak antione 1.1 m/s OTHER OUTSIDE L AB LVOT [...] normal. Manny Garcia MD ECHO ORDERABLES * (ABNORMAL) CHEM 7 ADD ON (05/03/2023 5:54 AM CDT) Pathologist Signature Component Value Ref Test Method Analysis Performed A t Range Time Total Protein 5.9 (L) 6.0 - 05/03/2023 [facility] DEPT P ATH AND 8.0 G/DL 9:10 [...] CDT 05/03/20 23 5:55 AM CDT Caty LOMELI LABORATORY City/State/ZIP Code Phone Number Performing [place] [address] [facility] DEPT PATH AND [address] [facility] LAB MEDICINE * (ABNORMAL) LIPID PROFILE (05/03/2023 5:54 AM CDT) Pathologist Signature Component Value Ref Test Method Analysis Performed A t Range Time Cholesterol 170 <200 05/03/2023 [facility] DEPT PAT H AND MG/DL 7:11 AM LAB MEDICINE CDT Triglycerides 271 (H) <150 05/03/2023 [facility] DEPT P ATH AND MG/DL 7:11 AM LAB MEDICINE CDT HDL 37 (L) >40 05/03/2023 [facility] DEPT PAT H AND MG/DL 7:11 AM LAB MEDICINE CDT LDL 113 (H) <100 05/03/2023 [facility] DEPT PAT H AND mg/dL 7:11 AM LAB MEDICINE CDT VLDL 54 MG/DL 05/03/2023 [facility] DEPT PAT H AND 7:11 AM LAB MEDICINE CDT Non HDL Cholesterol 133 MG/DL 05/03/2023 [facility] DEPT PATH AND 7:11 AM LAB MEDICINE [...] City/State/ZIP Code Phone Number Performing [place] [address] [facility] DEPT PATH AND [address] [facility] MEDICINE * US DUPLEX SCAN CAROTID [...] Oliva M.D. on 05/03/2023 8:59 AM. Oriana Villagomez DO US ORDERABLES * MRI HEAD WO CONTRAST (05/02/2023 [...] anterior ethmoid air cell. Procedure Note Pearl Schrodeer, DO - 05/02/2023 EXAM: MRI BRAIN HISTORY: [...] PM. Manny Garcia MD MR ORDERABLES * TSH WITH FREE T4 REFLEX (05/02/2023 [...] AM CDT Manny Garcia MD LABORATORY ORDERABLES City/[facility]/ZIP Code Phone Number Performing [place] [address] [email or web address] DEPT PATH AND [address] LAB MEDICINE * PHOSPHORUS (05/02/2023 8:11 AM [...] AM CDT Manny Garcia MD LABORATORY ORDERABLES [facility]/State/ZIP Code Phone Number Performing [place] [address] [email or web address] DEPT PATH AND [address] LAB MEDICINE * (ABNORMAL) HEMOGLOBIN A1C (05/02/2023 8:11 AM [...] City/State/ZIP Code Phone Number Performing [place] [address] [facility] PATH AND [address] [facility] LAB MEDICINE * TELEMETRY STRIPS-SCAN (05/02/2023 [...] unspecified provider. Scanned Document PROCEDURE DUMMY ORDERS from Last 3 Months Insurance Type Payer Benefit Subscriber ID Effective Phone Address Plan / Dates Group Medicare UHC MEDICARE UHC [id number] 2022-P [phone] [address] MEDICARE resent [id number] [address] INDIVIDUAL ASSURANCE INDIVIDUAL [id number] 2020-P [address] COMPANY ASSURANCE resent [id number] [place] [address] [id number] Cheryl Parkinson Personal/F Self 1950 [address] amily (Home) [place] [address] Advance Directives Date Inactivated Comments Code Status Date Activated 05/05/2023 2:54 PM Full Code 05/02/2023 6:49 AM Comments Question Answer Provider has No, more discussion needed discussed Code Status w/Patient or Family? Care Teams Start Date End Date Heavy Equipment Rental Manager Relationship Specialty 08/04/21 Pawel Olvera MD PCP - General Family Medicine [address] [place] [address] [id number] 08/09/21 Mikie Garrett MD Urology [address] [place] [address] 08/09/21 Colette Ontiveros MD Cardiovascul ar Disease [address] [place] [address] 08/09/21 King Downing MD Internal [address] [address]
--- OUTSIDE RECORDS SUMMARY | 2023-05-05 16:19 | XMS REPORT | Encounter Summary ---
Author Author [facility] Organization [facility] Address Unknown Phone Unavailable Care Team Providers Care Bit Tripoler Name Role Phone Self, Pawel LAI PCP Mikie Garrett MD Unavailable Colette Ontiveros MD Unavailable King Downing MD Unavailable Reason for Visit * Auth/Cert (Routine) Diagnoses / Procedures Referred By Contact Referred To Conta ct Specialty Diagnoses Acute ischemic stroke (HCC) Ischemic Stroke Referral ID Status Reason Start Date Expiration Visits Vi sits Date Requested Authorized [id number] 1 1 Encounter Details Care Team Description Date Type Department Oriana Villagomez, DO [address] [place] [address] 05/02/2023 Hospital Vascular Access Tea m: 7:55 AM Encounter [facility] CDT [address] [facility]. [address], [address] [place] [address] Social History Date Tobacco Use Types Packs/Day [...] encounter Care Teams Start Date End Date Bit Tripoler Relationship Specialty 08/04/21 Pawel Olvera MD PCP - General Family [address] [address] 08/09/21 Mikie Garrett MD Urology [address] [place] [address] [phone] 08/09/21 Colette Ontiveros MD Cardiovascul ar Disease [address] [place] [address] 08/09/21 King Downing MD Internal [address] [address] documented as of this encounter
--- OUTSIDE RECORDS SUMMARY | 2023-05-05 16:19 | XMS REPORT | Encounter Summary ---
Author Author [facility] Organization [facility] Address Unknown Phone Unavailable Care Team Providers Care Senior Ui Ux Designer Name Role Phone Self, Pawel LAI PCP Mikie Garrett MD Unavailable Colette Ontiveros MD Unavailable King Downing MD Unavailable Reason for Visit * Auth/Cert (Routine) Diagnoses / Procedures Referred By Contact Referred To Conta ct Specialty Diagnoses Acute ischemic stroke (HCC) Ischemic Stroke Referral ID Status Reason Start Date Expiration Visits Vi sits Date Requested Authorized [id number] 1 1 Encounter Details Care Team Description Date Type Department Manny Garcia MD [address] [place] [address] Oriana Villagomez DO [address] [place] [address] Mau Kohler MD [address] [place] [address] Thalamic stroke (HCC) Discharge Disposition: Rehab Facility (Not [facility]) 05/02/2023 Hospital Patient Care Unit C A6: 6:48 AM Encounter Lizzy Yee Cleary T - [address] [facility] 05/05/2023 Level 6 12:49 PM [place], [place] CDT [id number] Social History Date Tobacco Use Types Packs/Day [...] Payton Pugh - 05/05/2023 11:14 AM CDT PLEATING MACHINE OPERATOR Note: Printed and placed transfer packet in the pt's wall unit per request from BEN Stuart. Payton Pugh Cell Tuber Machine For additional assistance please contact [facility] * * Yaima Moore - 05/05/2023 7:56 AM CDT Case Management Progress Note NAME:Cheryl Parkinson :1949 AGE: 72 y.o. ADMISSION DATE: 05/02/2023 DAYS ADMITTED: LOS: 2 days Today's Date: 05/05/2023 PLAN: Pt will dc to [facility] in [place] at 1230 via family transport. Expected Discharge Date: 05/05/2023 Is Patient Medically Stable: Yes Are there Barriers to Discharge? no INTERVENTION/DISPOSITION: Discharge Planning Discharge Planning: Inpatient Rehabilitation BEN reviewed EMR and met with NCM and Neuro Stroke team for huddle to discuss ramesh n of care. Pt is stable for dc. SW was informed by February at [facility] that pt has been approved by marito gautam. She reported that pt must be at facility by 1500. SW contacted pt's son to discuss transportation. He reported that able to pick-u p pt at 1230. SW updated pt. She was agreeable with dc plan. SW updated medical team. SW updated bedside RN. BEN tasked PLEATING MACHINE OPERATOR to make and deliver transfer packet. RN report: [phone] Fax dc orders: [phone] SW faxed dc orders to [facility]. SW will continue to remain available and assist with discharge needs as they denisse se. Transportation Does the Patient Need Case Management to Arrange Discharge Transport ? (ex: facility, ambulance, wheelchair/stretcher, Medicaid, cab, other): No Will the Patient Use Family Transport?: Yes Transportation Name, Phone and Availability #1: Casey Valderrama ([phone]) Support Info or Referral Positive SDOH Domains and Potential Barriers Medication Needs Financial Legal Other Discharge Disposition Selected Continued Care - Admitted Since 05/02/2023 [facility] Destination Coordination complete. Service Provider Selected Services Address Phone Fax Patient Preferred [facility] Inpatient Rehabilitation [address] [place] [address] [phone] -- Yaima Moore LMSW Inpatient Corporate Specialist General Neurology/Epilepsy [facility] Available via Voalte * Melanie Guillory - 05/04/2023 9:25 AM CDT PLEATING MACHINE OPERATOR Note: Checked IPR auth request through [employer] online portal per request of KIM Castillo. Status is still pending. [employer] auth ID: [id number] Plan Auth ID: [id number] Melanie Guillory Cell Tuber Machine For additional assistance please contact [facility] * Yaima Moore - 05/04/2023 9:14 AM CDT Case Management Progress Note NAME:Cheryl Parkinson :1949 AGE: 72 y.o. ADMISSION DATE: 05/02/2023 DAYS ADMITTED: LOS: 1 day Today's Date: 05/04/2023 PLAN: Anticipate dc to [facility] in [place], pending insurance auth. Expected Discharge Date: 05/05/2023 Is Patient Medically Stable: Yes Are there Barriers to Discharge? no INTERVENTION/DISPOSITION: Discharge Planning Discharge Planning: Inpatient Rehabilitation SW reviewed EMR and met with NCM and Neuro Stroke team for huddle to discuss ramesh n of care. Pt is stable for dc. SW inquired about family transporting pt to [facility]. Medical team and RN agreed that pt would be able to transport via POV. BEN tasked PLEATING MACHINE OPERATOR to check [place] auth status. It is pending. SW updated February at [facility] ([phone]) that auth is pendin g and family will transport. She verified. Update: BEN tasked PLEATING MACHINE OPERATOR to check NH auth. It is [...] Name, Phone and Availability #1: Casey Valderrama ([phone]) Support Info or Referral Positive SDOH Domains and Potential Barriers Medication Needs Financial Legal Other Discharge Disposition Selected Continued Care - Admitted Since 05/02/2023 [facility]U Destination Coordination complete. Service Provider Selected Services Address Phone Fax Patient Preferred [facility] Inpatient Rehabilitation [address] [place] [address] [phone] -- Yaima Moore LMSW Inpatient Corporate Specialist General Neurology/Epilepsy [facility] Available via Voalte * Payton Pugh - 05/03/2023 3:38 PM CDT [facility] Note: Request from KIM Ramirez to start a [employer] auth for IPR. Payton Pugh Cell Tuber Machine For additional assistance please contact [facility] * * Rafaela Ball LMSW - 05/03/2023 8:52 AM CDT Case Management Progress Note NAME:Cheryl Parkinson :1949 AGE: 72 y.o. ADMISSION DATE: 05/02/2023 DAYS ADMITTED: LOS: 0 days Today's Date: 05/03/2023 PLAN: Anticipate d/c to [facility] pending insurance a [facility]. Expected Discharge Date: 05/04/2023 Is Patient Medically [...] her with CM IPR list with [employer] data for review, and pt voiced preference for [facility]. SW faxed referral via [employer]. UPDATE SW received message from February ([phone]) at [facility] stating facility can clinically accept referral and has beds available . SW tasked [facility] to submit IPR auth request for [facility] g through [employer]. SW met with pt at bedside again to discuss d/c planning. Pt's son, sg Peña s also present for the discussion. SW informed them that [facility] has accepted referral and insurance auth is [...] Name, Phone and Availability #1: Casey Valderrama ([phone]) Support Info or Referral Positive SDOH Domains and Potential Barriers Medication Needs Financial Legal Other Discharge Disposition Selected Continued Care - Admitted Since 05/02/2023 KU Destination Coordination complete. Service Provider Selected Services Address Phone Fax Patient Preferred [facility] Inpatient Rehabilitation [address] [facility] [address] [phone] -- Case Management Admission Assessment NAME:Cheryl Parkinson [...] last appointment was 3mos ago. Pt has [facility] Medicare coverage. Pt will have support from her son, brother, and nieces at d/c if needed. Patient Address/Phone [address] [facility] [address] (home) Emergency Contact Extended Emergency [...] Name, Phone and Availability #1: Casey Valderrama ([phone]) Expected Discharge Date 05/04/2023 Living Situation Prior [...] Source of Income Source Of Income: Other usp income Financial Assistance Needed? No Psychosocial Needs Mental Health Mental Health History: No Substance Use History Substance Use History Screen: No Other N/A Current/Previous Services PCP Self, Pawel, , Pharmacy [facility] [phone] - [facility] [place] [address] [facility] [address] [facility] [address] [facility] [address] [facility], [address] [facility] [address] Durable Medical Equipment Durable Medical Equipment at [...] Name of rehab location/group: Unk OT: No MAC ARTIST: No Custodial Facility/Intermediate SNF: No NH: No Inpatient Rehab IPR: No [facility] LTACH: No Acute Hospital Stay Acute Hospital Stay: In the past Was patient's stay within the last 30 days?: No Rafaela Ball LMSW Available on MediaSite documented in this encounter Medications at Time [...] Means Destination Disposition Wheelchair Rehab Facility (Not [facility]) documented in this encounter Progress Notes * [...] Recommendations Recommendation: Inpatient setting (Discharging to [facility] pending insura nce) Patient Currently Requires Physical Assist With: Ambulation;In and out of house; Stairs;Transfers Patient Currently Requires Supervision For: Mobility Therapist: [place] [id number] Date: 05/04/2023 * Luiz Rodriguez RN - [...] Home Equipment: Cane Prior Function Level Of Otoe: Independent with ADLs and functional transfers;Independen t [...] 2/5 Strength Comments: LUE grossly 3/5. Dynamometer Biomedical Engineering Technician Assessment: 3 Trial Average L Hand (lbs) R Hand (lbs) Trial 1 33 45 Trial 2 41 38 Trial 3 38 39 Average 37.3 40.6 Biomedical Engineering Technician Assessment norms according to age grouping: Female: 70-74 R AV.6; SD: 11.7 -- L AV.5; SD: 10.2 Biomedical Engineering Technician strength testing is the one of the [...] Patient Will Perform All ADL's: w/ Modified Otoe Functional Transfer Goals Pt Will Perform All [...] a Plavix load prior to transfer to [facility] for MRI and stroke wo rkup. Acute [...] and then continue aspirin monotherapy thereafter. > PT/OT/MAC ARTIST consult eval and treat > Rehab consult for assessment of post stroke care: recommending acute inpatient rehabilitation. HTN > Amlodipine 5 mg daily > Lisinopril 10 mg daily HLD > Atorvastatin 40 mg daily MDD > VP COMPLIANCE Duloxetine 90 mg daily and gabapentin 200 mg TID FEN: no IVF, repleting electrolytes PRN, NPO until speech eval PPX: Lovenox and SCDs Code Status: Full Code (discussed at admission on 05/02). Dispo: Medically stable for discharge to [facility]. Patient seen and discussed with Dr. Kohler. [...] a Plavix load prior to transfer to [facility] for MRI and stroke wo rkup. Acute [...] and then continue aspirin monotherapy thereafter. > PT/OT/MAC ARTIST consult eval and treat > Rehab consult for assessment of post stroke care: patient may qualify for inpatient rehab HTN > Amlodipine 5 mg daily > Lisinopril 10 mg daily HLD > Atorvastatin 40 mg daily MDD > VP COMPLIANCE Duloxetine 90 mg daily and gabapentin 200 mg TID FEN: no IVF, repleting electrolytes PRN, NPO until speech eval PPX: Lovenox and SCDs Code Status: Full Code (discussed at admission on 05/02). Dispo: Medically stable for discharge to [facility]. Patient seen and discussed with Dr. Kohler. [...] Home Equipment: Cane Prior Function Level Of Otoe: Independent with ADLs and functional transfers;Independen t [...] Patient Will Perform All ADL's: w/ Modified Otoe Functional Transfer Goals Pt Will Perform All [...] use the walker. Therapist: Brynn Vogt OTR/L [id number] Date: 05/03/2023 * Negin Palacios, PT - [...] Loses balance while trying/requires external nunez pport Private Wealth Advisor Object From Floor While Standing: Unable to [...] 56 Escamilla Balance Score (Old Row): 7 Escamilla Fall Risk: At Risk for Falls Gait Gait Distance: 25 feet (x 2 bouts) Gait: Assistance Level: Minimal Assist Gait: Assistive Device: Hand Hold Assist;Roller Walker Comments: Gait x 25' wit ZIPPER REPAIRER and minimal assist. Greatly decreased L step [...] acute rehabilitations stay prior to DC to [facility] her functional independence as pt was living [...] Date of Service: 05/03/2023 Financial Class: Payor: [facility] MEDICARE / Plan: [facility] MEDICARE REPLACEMENT - LIFE1 / Product Type: [...] y.o. year old female admitted to [facility] on 05/02/2023 with the following issues: [...] 09/18/2021 Performed by Don Melvin MD at [facility] OR gemcitabine instillation N/A 09/18/2021 Performed by Don Melvin MD at [facility] OR bilateral retrograde pyelograms Bilateral 09/18/2021 Performed by Don Melvin MD at [facility] OR HX APPENDECTOMY HX CHOLECYSTECTOMY HX HYSTERECTOMY [...] 2:00 PM) No data recorded [address] [facility] [id number] Current Level Of Function: PT Gait:Gait Distance: [...] increased stability and safety with transfers OT MAC ARTIST COGNITIVE EVALUATION SUMMARY PRAGMATICS: BEHAVIOR: AUDITORY COMPREHENSION: [...] plan of care Flowsheets (Taken 05/03/20232241 by Kadni Galeana, RN) Participation in Plan of Care: [...] has no concerns about t ransfer to [facility]. Report called to accepting facility, all questions [...] a Plavix load prior to transfer to [facility] for MRI a nd stroke workup. Acute [...] mg daily > CBC, BMP routine > PT/OT/MAC ARTIST consult eval and treat > Rehab consult [...] a Plavix load prior to transfer to [facility] for MRI and stroke workup. She reports [...] Summary ASRT Arrival: 0800 Location of Response: [id number] Page Received: N/A Clinical Presentation: Left sided [...] language) 2=neither correct 0 1c. Commands-open/close eyes, funeral workers and release non-paretic hand (other 1 step [...] 09/18/2021 Performed by Don Melvin MD at [facility] OR gemcitabine instillation N/A 09/18/2021 Performed by Don Melvin MD at [facility] OR bilateral retrograde pyelograms Bilateral 09/18/2021 Performed by Don Melvin MD at [facility] OR HX APPENDECTOMY HX CHOLECYSTECTOMY HX HYSTERECTOMY [...] (03/09/22 0928) POC Glucose (Download): 98 (03/09/22 0950) Pertinent radiology reviewed. MRI HEAD WO CONTRAST [...] City/State/ZIP Code Phone Number Performing [place] [address] [facility] DEPT PATH AND [address] [facility] LAB MEDICINE * (ABNORMAL) BASIC METABOLIC [...] Glucose 121 (H) 70 - 100 05/05/2023 [facility] DEPT PAT H AND MG/DL 6:56 AM LAB MEDICINE CDT Blood Urea Nitrogen 7 7 - 25 05/05/2023 [facility] DEPT PATH AND MG/DL 6:56 AM LAB [...] City/State/ZIP Code Phone Number Performing [place] [address] [facility] DEPT PATH AND [address] LAB [...] City/State/ZIP Code Phone Number Performing [place] [address] [facility] DEPT PATH AND [address] LAB [...] City/State/ZIP Code Phone Number Performing [place] [address] [facility] DEPT PATH AND [address] LAB MEDICINE * (ABNORMAL) BASIC METABOLIC PANEL [...] City/State/ZIP Code Phone Number Performing [place] [address] [facility] DEPT PATH AND [address] [facility] LAB MEDICINE * CBC (05/04/2023 5:37 AM CDT) Pathologist Signature Component Value Ref Test Method Analysis Performed A t Range Time White Blood Cells 9.1 4.5 - 05/04/2023 [facility] DE PT PATH AND 11.0 6:14 AM LAB MEDICINE K/UL CDT RBC 4.30 4.0 - 05/04/2023 [facility] DEPT PAT H AND 5.0 M/UL 6:14 AM LAB MEDICINE CDT Hemoglobin 12.8 12.0 - 05/04/2023 [facility] DEPT PAT H AND 15.0 6:14 AM [...] CDT RDW 14.1 11 - 15 05/04/2023 [facility] DEPT PAT H AND % 6:14 AM LAB MEDICINE CDT Platelet Count 363 150 - 05/04/2023 [facility] DEPT PATH AND 400 K/UL 6:14 AM LAB MEDICINE CDT MPV 8.1 7 - 11 05/04/2023 [facility] DEPT PAT H AND FL 6:14 AM LAB MEDICINE CDT Anatomical Location / Laterality Collection Method / Volume Andres ection Time Received Time Specimen (Source) BLOOD / Unknown 05/04/2023 5:37 AM CDT 05/04/20 5:38 AM CDT Manny Garcia MD LABORATORY ORDERABLES City/State/ZIP Code Phone Number Performing [place] [address] [facility] [address] [facility] * 2D + DOPPLER [...] <=0.42 OTHER OUTSIDE L AB AV index (bishop paiute) 0.85 OTHER OUTSIDE LAB E/A ratio 0.56 [...] Range Time Magnesium 1.7 1.6 - 05/03/2023 [employer] DEPT PAT H AND 2.6 9:10 AM LAB MEDICINE mg/dL CDT Anatomical Location / Laterality Collection Method / Volume Andres ection Time Received Time Specimen (Source) 05/03/2023 5:54 AM CDT 05/03/20 23 5:55 AM CDT Caty Tamayo DO LABORATORY ORDERABLES City/State/ZIP Code Phone Number Performing [place] [address] [employer] [employer] DEPT PATH AND [address] [facility]. LAB MEDICINE * (ABNORMAL) CHEM 7 ADD ON (05/03/2023 5:54 AM CDT) Pathologist Signature Component Value Ref Test Method Analysis Performed A t Range Time Total Protein 5.9 (L) 6.0 - 05/03/2023 [facility] DEPT P ATH AND 8.0 G/DL 9:10 [...] City/State/ZIP Code Phone Number Performing [place] [address] [facility] DEPT PATH AND [address] [facility] LAB MEDICINE * (ABNORMAL) BASIC METABOLIC [...] City/State/ZIP Code Phone Number Performing [place] [address] [facility] DEPT PATH AND [address] [facility] LAB MEDICINE * CBC (05/03/2023 5:54 AM CDT) Pathologist Signature Component Value Ref Test Method Analysis Performed A t Range Time White Blood Cells 8.5 4.5 - 05/03/2023 [facility] DE PT PATH AND 11.0 6:47 AM [...] City/State/ZIP Code Phone Number Performing [place] [address] [facility] DEPT PATH AND [address] [facility]. LAB MEDICINE * (ABNORMAL) LIPID PROFILE (05/03/2023 [...] City/State/ZIP Code Phone Number Performing [place] [address] [facility] AND [address] [facility] MEDICINE * US DUPLEX SCAN CAROTID [...] City/State/ZIP Code Phone Number Performing [place] [address] [facility] DEPT PATH AND [address] LAB MEDICINE * TSH WITH FREE [...] AM CDT Manny Garcia MD LABORATORY ORDERABLES [facility]/State/ZIP Code Phone Number Performing [place] [address] [facility] DEPT PATH AND [address] LAB MEDICINE * PHOSPHORUS (05/02/2023 8:11 [...] City/State/ZIP Code Phone Number Performing [place] [address] [facility] DEPT PATH AND [address] [facility]. LAB MEDICINE * MAGNESIUM (05/02/2023 8:11 AM CDT) Pathologist Signature Component Value Ref Test Method Analysis Performed A t Range Time Magnesium 1.9 1.6 - 05/02/2023 [facility] DEPT PAT H AND 2.6 9:11 AM LAB MEDICINE mg/dL CDT Anatomical Location / Laterality Collection Method / Volume Andres ection Time Received Time Specimen (Source) BLOOD / Unknown 05/02/2023 8:11 AM CDT 05/02/20 8:21 AM CDT Manny Garcia MD LABORATORY ORDERABLES City/State/ZIP Code Phone Number Performing [place] [address] [facility] [address] [facility] LAB MEDICINE * TELEMETRY STRIPS-SCAN (05/02/2023 [...] Until Wed05/03/23 at 0852, For Procedure, A school child care attendant may only administer Definity through a saline [...] mg Removed from tablet by mouth at VP COMPLIANCE Med List bedtime daily. 05/03/2023 MUPIROCIN TP Apply Removed from topically to VP COMPLIANCE Med List affected area twice daily. Apply to right side of nostril 05/03/2023 quinapriL (ACCUPRIL) 10 Take 10 mg Removed from mg tablet by mouth at VP COMPLIANCE Med List bedtime daily. 05/04/2023 amLODIPine-benazepriL Removed from (LOTREL) 10-40 mg capsule VP COMPLIANCE Med List 09/24/2017 05/04/2023 estradioL (ESTRACE) 2 mg every 24 Removed from tablet hours. VP COMPLIANCE Med List 03/22/2018 05/05/2023 hyoscyamine sulfate as Needed. Removed from (LEVSIN) 0.125 mg tablet VP COMPLIANCE Med List 09/18/2021 05/05/[address] one Removed from (LEVSIN/SL) 0.125 mg tablet under VP COMPLIANCE Med List sublingual tablet tongue every 4 hours as needed for Cramps. 05/05/2023 meclizine (ANTIVERT) 25 every 8 Removed from mg tablet hours. VP COMPLIANCE Med List 05/05/2023 naproxen sodium (ALEVE) Take two Removed from 220 mg tablet tablets by VP COMPLIANCE Med List mouth three times daily. Take with food. 09/18/2021 05/05/2023 phenazopyridine Take one Removed from (PYRIDIUM) 200 mg tablet tablet by VP COMPLIANCE Med List mouth three times daily as [...] from (SUBUTEX) 8 mg sublingual tablet under VP COMPLIANCE Med List tablet tongue every 24 hours. [...] 75 mg, Oral, DAILY, First dose on [place] Provider: Jourdan yi 05/02/23 at 2000, Until [...] BEDTIME DAILY, First Provider: Daniel dose on [place] 05/02/23 at 2100, Until MICHELLE Rodríguez) Discontinued 09 (Given - Provider: Luiz Rodriguez RN) 0940 (Given - Provider: Luiz Rodriguez RN) duloxetine DR (CYMBALTA) capsule 90 mg 0853 (Given - 90 mg, Oral, DAILY, First dose on [place] Provider: Jourdan yi 05/02/23 at 1800, Until Discontinued MICHELLE Rodriguez) 2130 (Given - Provider: Daniel Rodríguez RN ) enoxaparin (LOVENOX) syringe 40 mg 2124 (Given - 40 mg, Subcutaneous, DAILY, First dose Provider: Saurabh cheatham on [place] 05/02/23 at 2100, Until MICHELLE Rodríguez) Discontinued, [...] HOURS, First dose Provider: Michael matthews on [facility] 05/03/23 at 1445, Until MICHELLE Rodriguez)2123 Discontinued, [...] Rodríguez, MICHELLE) 0603 (Given - Provider: Daniel Rodríguez, MICHELLE ) ondansetron (ZOFRAN) injection 4 0446 (See mg(Linked Group 1) Alternative - 4 mg, Intravenous, EVERY 6 HOURS PRN, Provider: Alena ekvivi Starting on Wed05/02/23 at 0649, Until MICHELLE Chavez) 1111 Wed05/05/23 at 1449, Nausea/Vomiting (Given - Provid er: Injectable, Nausea/Vomiting - First Char Russo, Admission/Obs/Extended second rigger)1929 (Given - Provider: Luiz Rodriguez RN) perflutren lipid microspheres (DEFINITY) 0852 (Given - injection 1-10 Diluted mL (COMPLETED) Provider: Jourdan yi 1-10 Diluted mL, Intravenous, ONCE PRN, Michael, MICHELLE) 1 dose, Starting on Wed05/03/23 at 0847 , Until Wed05/03/23 at 2359, For Procedure, A school child care attendant may only administer Definity through a saline [...] encounter Care Teams Start Date End Date Senior Ui Ux Designer Relationship Specialty 08/04/21 Pawel Olvera MD PCP - General Family Medicine [address] [place] [address] 08/09/21 Mikie Garrett MD Urology [address] [place] [address] 08/09/21 Colette Ontiveros MD Cardiovascul ar Disease [address] [place] [address] 08/09/21 King Downing MD Internal [address] [address] documented as of this encounter
[2023-05-05] MEDS: SENNA W/DOCUSATE (SENOKOT S) TABLET PO SCH (16:53)
[2023-05-05] MEDS: DOCUSATE SODIUM 100 MG (COLACE) CAP PO SCH (16:53)
[2023-05-05] MEDS: polyethylene glycoL POWDER 17 GM (MIRALAX) PACK PO SCH (16:53)
[2023-05-05] MEDS ORDERED: NITROGLYCERIN 0.4 MG SL TABS BTL 25'S SL PRN (17:30)
[2023-05-05] MEDS ORDERED: ARTIFICIAL TEARS OU PRN (17:30)
[2023-05-05] MEDS ORDERED: CYANOCOBALAMIN INJ 1000 MCG/ML IM SCH (17:30)
[2023-05-05] MEDS ORDERED: SULINDAC 200 MG PO SCH (17:30)
[2023-05-05] MEDS ORDERED: RX-CYCLOBENZAPRINE 10 MG (FLEXERIL) TAB PPK#3 PO PRN (17:30)
[2023-05-05] MEDS ORDERED: NON-FORMULARY MEDICATION 1 EA EA (Ondansetron HCl 4 MG) PO PRN (17:30)
[2023-05-05] MEDS ORDERED: ARTIFICAL TEARS 0.4 ML UNIT DOSE (REFRESH PLUS) OU PRN (18:00)
[2023-05-05] MEDS ORDERED: CYCLOBENZAPRINE 10 MG (FLEXERIL) TAB PO PRN (18:15)
[2023-05-05] MEDS: ETODOLAC 300 MG (LODINE) CAP PO SCH (19:01)
[2023-05-05 19:47] VITALS: BP 158/77
[2023-05-05] MEDS: QUININE SULF PO SCH (20:01)
[2023-05-05] MEDS: GABAPENTIN 100 MG (NEURONTIN) CAP PO SCH (20:02)
[2023-05-05] MEDS: FAMOTIDINE 20 MG (PEPCID) TABLET PO SCH (20:02)
[2023-05-05] MEDS: DONEPEZIL 10 MG (ARICEPT) TAB PO SCH (20:02)
[2023-05-05] MEDS: LIDOCAINE PATCH REMOVAL TP SCH (20:03)
[2023-05-05] MEDS: ACETAMINOPHEN ER 650 MG (TYLENOL ARTHRITIS) PO PRN (20:03)
[2023-05-05] MEDS: DICLOFENAC 1% GEL 100 GM (VOLTAREN) TUBE TP SCH (20:03)
[2023-05-05] MEDS: MELATONIN 3 MG TABLET PO PRN (22:33)
[2023-05-06 06:04] LABS: BASOPHILS # (AUTO) 0.1 10^3/uL (0.0-0.1); BASOPHILS % (AUTO) 1 % (0-10); EOSINOPHILS # (AUTO) 0.1 10^3/uL (0.0-0.3); EOSINOPHILS % (AUTO) 1 % (0-10); HEMATOCRIT 39 % (35-52); HEMOGLOBIN 13.1 g/dL (11.5-16.0); LYMPHOCYTES # (AUTO) 1.7 10^3/uL (1.0-4.0); LYMPHOCYTES % (AUTO) 19 % (12-44); MEAN CORPUSCULAR HEMOGLOBIN 29 pg (25-34); MEAN CORPUSCULAR HGB CONC 33 g/dL (32-36); MEAN CORPUSCULAR VOLUME 88 fL (80-99); MEAN PLATELET VOLUME 9.8 fL (9.0-12.2); MONOCYTES # (AUTO) 0.7 10^3/uL (0.0-1.0); MONOCYTES % (AUTO) 8 % (0-12); NEUTROPHILS # (AUTO) 6.6 10^3/uL (1.8-7.8); NEUTROPHILS % (AUTO) 71 % (42-75); PLATELET COUNT 413 10^3/uL (130-400); WHITE BLOOD COUNT 9.4 10^3/uL (4.3-11.0)
[2023-05-06 06:09] LABS: ALBUMIN 3.6 GM/DL (3.2-4.5); POTASSIUM 3.6 MMOL/L (3.6-5.0)
[2023-05-06 06:10] LABS: CALCIUM 8.9 MG/DL (8.5-10.1)
[2023-05-06 06:11] LABS: TOTAL PROTEIN 6.1 GM/DL (6.4-8.2)
[2023-05-06 06:13] LABS: BILIRUBIN,TOTAL 0.4 MG/DL (0.1-1.0)
[2023-05-06 06:15] LABS: CREATININE SERUM 0.73 MG/DL (0.60-1.30)
[2023-05-06] MEDS: ACETAMINOPHEN ER 650 MG (TYLENOL ARTHRITIS) PO PRN (06:34)
[2023-05-06 07:20] VITALS: BP 158/77
[2023-05-06 07:21] VITALS: BP 140/71
--- NOTE | 2023-05-06 07:35 | Occupational Therapy Eval ---
OT Evaluation-General/PLF Medical Diagnosis Admission Date May 05, 2023 at 15:15 Medical Diagnosis: CVA Onset Date: May 02, 2023 Therapy Diagnosis Therapy Diagnosis: decreased ADLs, weakness Height/Weight Height (Feet): 5 Height (Inches): 6.00 Weight (Pounds): 170 Weight (Ounces): 9.0 Precautions Precautions/Isolations: Aspiration, Fall Prevention, Standard Precautions Referral Physician: Salome Referral Reason: Evaluation/Treatment Medical History Additional Medical History OA, bladder cancer s/p resection, blood clotting disorder, HTN, CVA, stomach ulcer, arthritis Current History 05/02/23 acute ischemic CVA of R thalamus (etiology small vessel occlusion. No evidence of hemorrhagic conversion or mass effect). L side weakness and numbness. Pt transferred to ARU 05/05/23 Social History Home: Single Level Current Living Status: Alone Entry Into Home: Stairs With Railing (R sided) Steps Into Home: 2 Steps Inside Home: 1 1 step into laundry room. Pt's niece lives across the street, able to help intermittently. ADL-Prior Level of Function SCALE: Activities may be completed with or without assistive devices. 3-Ttfcwnxmvc-vohupnk completes the activity by him/herself with no assistance from a helper. 5-Set-up or Clean-up Assistance-helper sets up or cleans up; patient completes activity. [place] assists only prior to or following the activity. 4-Supervision or Touching Assistance-helper provides verbal cues and/or touching/steadying and/or contact guard assistance as patient completes activity. Assistance may be provided throughout the activity or intermittently. 3-Partial/Moderate Assistance-helper does LESS THAN HALF the effort. [place] lifts, holds or supports trunk or limbs, but provides less than half the effort. 2-Substantial/Maximal Assistance-helper does MORE THAN HALF the effort. [place] lifts or holds trunk or limbs and provides more than half the effort. 2-Kliyouofy-ievgxq does ALL the effort. Patient does none of the effort to complete the activity. Or, the assistance of 2 or more helpers is required for the patient to complete the activity. If activity was not attempted, code reason: 7-Patient Refused. 9-Not Applicable-not attempted and the patient did not perform the activity before the current illness, exacerbation or injury. 10-Not Attempted due to Environmental Limitations-(lack of equipment, weather restraints, etc.). 88-Not Attempted due to Medical Conditions or Safety Concerns. ADL PLOF Comments Pt reports IND with I/ADLs at PLOF, no AD. She carries a cane around in case she needed it, but didn't typically use it. She has a walk in shower, with SC, no GBs. Self Care: Independent Functional Cognition: Independent DME/Equipment: Bath Chair, Shower DME/Equipment Comments cane Drive Self: Yes OT Current Status Subjective Pt agreeable to OT Tx. Mental Status/Objective Patient Orientation: Person, Place, Time, Situation Current Glasses/Contacts: Yes Hearing Aids: No Dentures/Partials: Yes Hand Dominance: Right Upper Extremity ROM BUE WFL, shoulder flexion to approx 160 degrees. Upper Extremity Coordination slightly decreased fine motor coordination LUE Upper Extremity Sensation pt reports LUE "duller" than RUE, but getting better each day. Upper Extremity Strength RUE grossly 4+/5, LUE grossly 4-/5 ADL-Treatment Eating (QC): 6 Oral Hygiene (QC): 6 (Pt able to complete partially seated and partically standing at sink IND. ) Shower/Bathe Self (QC): 4 (Supervision) Upper Body Dressing (QC): 5 Lower Body Dressing (QC): 4 (Supervision) On/Off Footwear (QC): 5 Toileting Hygiene (QC): 4 (Supervision) Other Treatments OT evaluation complete. Pt transferred supine to sit EOB, IND. Sit to stand from EOB, SBA. Pt used FWW to transfer into bathroom, SBA. Pt completed toileting, dressing, grooming, and sponge bath as listed above. Pt completed grooming partially seated and partially standing at sink, IND with sit to/from stands from chair at sink. Pt returned to EOB with FWW. Pt transferred sit to supine independently. Pt did not exhibit any LOB throughout tx. Post tx, pt in bed, call light in reach and all needs met. Education OT Patient Education: Correct positioning, Energy conservation, Modified ADL techniques, Progress toward Goal/Update tx plan, Purpose of tx/functional activities, Rehab process Teaching Recipient: Patient Teaching Methods: Discussion Response to Teaching: Verbalize Understanding BIMS CAM BIMS Expression of Ideas and Wants: Without Difficulty Understanding Verbal Content: Understands IRF CHRISTIAN BIMS: IRF CHRISTIAN BIMS Response (Comments) Value Repitition of Three Words Three 3 Recalls Socks Yes, No Cue Required 2 Recalls Blue Yes, No Cue Required 2 Recalls Bed Yes, No Cue Required 2 Year Correct 3 Month Accurate Within 5 Days 2 Day Correct 1 Total [address] No CAM Mental Status Change/Baseline: 0 Inattention: 0 Disorganized thinkin Altered level of consciousness: 0 OT Prison Goals Interventional Cardiologist Goals Time Frame: May 19, 2023 Eating (QC): 6 Oral Hygiene (QC): 6 Toileting Hygiene (QC): 6 Shower/Bathe Self (QC): 6 Upper Body Dressing (QC): 6 Lower Body Dressing (QC): 6 On/Off Footwear (QC): 6 Additional Goals: 1-Demonstrate ADL Tasks, 2-Verbalize Understanding, 3- ImproveStrength/Luis Enrique 1=Demonstrate adherence to instructed precautions during ADL tasks. 2=Patient will verbalize/demonstrate understanding of assistive brinda naif/modifications for ADL. 3=Patient will improve strength/tolerance for activity to enable patient to perform ADL's. OT Education/Plan Problem List/Assessment Assessment: Decreased Activ Tolerance, Decreased UE Strength, Impaired Funct Balance, Impaired I ADL's, Impaired Self-Care Skills Discharge Recommendations Plan/Recommendations: Continue POC Treatment Plan/Plan of Care Patient would benefit from OT for education, treatment and training to promote independence in ADL's, mobility, safety and/or upper extremity function for ADL' s. Plan of Care: ADL Retraining, Functional Mobility, Group Exercise/Act as Ind, UE Funct Exercise/Act, UE Neuromus Re-Ed/Coord Treatment Duration: May 19, 2023 Frequency: At least 5 of 7 days/Wk (IRF) Estimated Hrs Per Day: 1.5 hours per day Agreement: Yes Rehab Potential: Good Time Start Time: 07:20 Stop Time: 08:50 DATE: May 06, 2023 Total Time Billed (hr/min): 90 Billed Treatment Time 1, EVL (30'), ADL 4 (60') JAMES COREY OT May 06, 2023 07:35
[2023-05-06] MEDS ORDERED: UMECLIDINIUM IH SCH (08:00)
[2023-05-06] MEDS ORDERED: VILANTEROL IH SCH (08:00)
--- NOTE | 2023-05-06 08:06 | PM&R Progress Note ---
Subjective HPI/CC On Admission Date Seen by Provider: May 06, 2023 Time Seen by Provider: 12:00 Subjective/Events-last exam 05/06/2023: Patient doing a lot better No pain is reported Reconciled all home meds Participating in therapy Family visiting Review of Systems General: Fatigue, Malaise Neurological: Weakness Objective Exam Vital Signs Vital Signs Date Time Temp Pulse Resp B/P (MAP) Pulse Ox O2 Delivery O2 Flow Rate FiO2 05/06/23 20:45 Room Air 05/06/23 19:40 83 05/06/23 19:02 36.8 20 134/71 (92) 95 Capillary Refill : General Appearance: No Apparent Distress, WD/WN, Chronically ill HEENT: PERRL/EOMI, Normal ENT Inspection, Pharynx Normal Neck: Full Range of Motion, Normal Inspection, Non Tender, Supple, Carotid Bruit Respiratory: Chest Non Tender, Lungs Clear, Normal Breath Sounds, No Accessory Muscle Use, No Respiratory Distress Cardiovascular: Regular Rate, Rhythm, No Edema, No Gallop, No JVD, No Murmur, Normal Peripheral Pulses Gastrointestinal: Normal Bowel Sounds, No Organomegaly, No Pulsatile Mass, Non Tender, Soft Back: Normal Inspection, No CVA Tenderness, No Vertebral Tenderness Extremity: Normal Capillary Refill, Normal Inspection, Normal Range of Motion, Non Tender, No Calf Tenderness, No Pedal Edema Neurologic/Psychiatric: Alert, Oriented x3, Normal Mood/Affect, quality process lead II-XII Norm as Tested, Abnormal Gait, Depressed Affect, Motor Weakness (Left-sided weakness 3/5 upper and lower extremities) Skin: Normal Color, Warm/Dry Lymphatic: No Adenopathy Results/Procedures Lab Laboratory Tests 05/06/23 05:40 Patient resulted labs reviewed. FIM Transfers Therapy Code Descriptions/Definitions Functional [place] Measure: 0=Not Assessed/NA 4=Minimal Assistance 1=Total Assistance 5=Supervision or Setup 2=Maximal Assistance 6=Modified [place] 3=Moderate Assistance 7=Complete IndependenceSCALE: Activities may be completed with or without assistive devices. 8-Skcjfuodnr-lmhjuwm completes the activity by him/herself with no assistance from a helper. 5-Set-up or Clean-up Assistance-helper sets up or cleans up; patient completes activity. [place] assists only prior to or following the activity. 4-Supervision or Touching Assistance-helper provides verbal cues and/or touching/steadying and/or contact guard assistance as patient completes activity. Assistance may be provided throughout the activity or intermittently. 3-Partial/Moderate Assistance-helper does LESS THAN HALF the effort. [place] lifts, holds or supports trunk or limbs, but provides less than half the effort. 2-Substantial/Maximal Assistance-helper does MORE THAN HALF the effort. [place] lifts or holds trunk or limbs and provides more than half the effort. 5-Iojsquhfr-vpiqvx does ALL the effort. Patient does none of the effort to complete the activity. Or, the assistance of 2 or more helpers is required for the patient to complete the activity. If activity was not attempted, code reason: 7-Patient Refused. 9-Not Applicable-not attempted and the patient did not perform the activity before the current illness, exacerbation or injury. 10-Not Attempted due to Environmental Limitations-(lack of equipment, weather restraints, etc.). 88-Not Attempted due to Medical Conditions or Safety Concerns. ADL-Treatment Eating (QC): 6 Assessment/Plan Assessment and Plan Assess & Plan/Chief Complaint Assessment: CVA with left-sided weakness History of CVA Hypertension Bladder cancer Stomach ulcer history Irritable bowel syndrome Plan: Supportive care Blood pressure Imodium PT and OT 05/06/2023: Continue aggressive rehab Supportive care (1) Ischemic stroke Status: Acute JOHN AGUIRRE DO May 06, 2023 08:06
[2023-05-06] MEDS: ENOXAPARIN 40 MG/0.4 ML (LOVENOX) SYR SC SCH (08:52)
[2023-05-06] MEDS: buPROPion 75 MG (WELLBUTRIN) TAB PO SCH (08:53)
[2023-05-06] MEDS: DULoxetine 30 MG (CYMBALTA) CAP PO SCH (08:53)
[2023-05-06] MEDS: ASPIRIN E.C. 81 MG (ECOTRIN) TAB PO SCH (08:53)
[2023-05-06] MEDS: amLODIPine 5 MG (NORVASC) TAB PO SCH (08:54)
[2023-05-06] MEDS: GABAPENTIN 100 MG (NEURONTIN) CAP PO SCH ×3 (08:54→20:40)
[2023-05-06] MEDS: CLOPIDOGREL 75 MG (PLAVIX) TABLET PO SCH (08:54)
[2023-05-06] MEDS: ESTROGENS CONJ 0.625 MG (PREMARIN) TAB PO SCH (08:54)
[2023-05-06] MEDS: CALCIUM CARBONATE 600 MG (CALCARB) TAB PO SCH (08:54)
[2023-05-06] MEDS: VITAMIN D3 25 MCG (1,000 UNITS) TABLET PO SCH (08:54)
[2023-05-06] MEDS: LORATADINE (CLARITIN) 10 MG TAB PO SCH (08:55)
[2023-05-06] MEDS: SENNA W/DOCUSATE (SENOKOT S) TABLET PO SCH ×2 (08:57→19:17)
[2023-05-06] MEDS: FLUTICASONE NASAL SPRAY (FLONASE) 16 GM BTL NS SCH (08:57)
[2023-05-06] MEDS: LIDOCAINE 4% (SALONPAS) PATCH TP SCH (08:57)
[2023-05-06] MEDS: polyethylene glycoL POWDER 17 GM (MIRALAX) PACK PO SCH ×2 (08:58→19:17)
[2023-05-06] MEDS: DOCUSATE SODIUM 100 MG (COLACE) CAP PO SCH ×2 (08:58→19:17)
[2023-05-06] MEDS ORDERED: NON-FORMULARY MEDICATION 1 EA EA (Cholecalciferol (Vitamin D3) (Vitamin D3) 50 MCG) PO SCH (09:00)
[2023-05-06] MEDS ORDERED: CYANOCOBALAMIN INJ 1000 MCG/ML IM SCH (09:00)
[2023-05-06] MEDS ORDERED: RABEPRAZOLE SODIUM 20 MG PO SCH (09:00)
[2023-05-06] MEDS ORDERED: NON-FORMULARY MEDICATION 1 EA EA (Tiotropium Br/Olodaterol HCl (Stiolto Respimat Inhal Spr IH SCH (09:00)
[2023-05-06] MEDS ORDERED: NON-FORMULARY MEDICATION 1 EA EA (Cetirizine HCl 10 MG) PO SCH (09:00)
[2023-05-06] MEDS ORDERED: NON-FORMULARY MEDICATION 1 EA EA (Potassium Gluconate (Potassium) 99 MG) PO SCH (09:00)
[2023-05-06] MEDS ORDERED: NON-FORMULARY MEDICATION 1 EA EA (Calcium Carbonate (Calcium) 500 MG) PO SCH (09:00)
[2023-05-06] MEDS ORDERED: PANTOPRAZOLE 20 MG TABLET (PROTONIX) PO SCH (09:00)
[2023-05-06] MEDS ORDERED: NON-FORMULARY MEDICATION 1 EA EA (Duloxetine HCl 60 MG) PO SCH (09:00)
[2023-05-06] MEDS: ETODOLAC 300 MG (LODINE) CAP PO SCH ×2 (09:03→17:05)
[2023-05-06] MEDS: lisINopril 20 MG (PRINIVIL) TABLET PO SCH (09:03)
[2023-05-06] MEDS: DICLOFENAC 1% GEL 100 GM (VOLTAREN) TUBE TP SCH ×4 (09:05→20:41)
--- NOTE | 2023-05-06 09:35 | Physical Therapy Evaluation ---
PT Evaluation-General Medical Diagnosis Admission Date May 05, 2023 at 15:15 Medical Diagnosis: CVA Onset Date: May 02, 2023 Therapy Diagnosis Therapy Diagnosis: Weakness, Decreased functional mobility Height/Weight Height (Feet): 5 Height (Inches): 6.00 Weight (Pounds): 170 Weight (Ounces): 9.0 Precautions Precautions/Isolations: Aspiration, Fall Prevention, Standard Precautions Weight Bear Status Right Lower Extremity: Right Full Weight Bearing Left Lower Extremity: Left Full Weight Bearing Referral Physician: Salome Reason for Referral: Evaluation/Treatment Medical History Pertinent Medical History: HTN Additional Medical History OA, bladder cancer s/p resection, blood clotting disorder, HTN, CVA, stomach ulcer, arthritis Current History 05/02/23 acute ischemic CVA of R thalamus (etiology small vessel occlusion. No evidence of hemorrhagic conversion or mass effect). L side weakness and numbness. Pt transferred to ARU 05/05/23 Reviewed History: Yes Social History Home: Single Level Current Living Status: Alone (Family across the street with baby monitor ) Entry Into Home: Stairs With Railing (R side) PT Steps Into Home: 2 PT Steps Inside Home: 1 (1 step down into laundry room with railing ) Pt has a walk-in shower with bench, but no grab bars. Regular toilet Prior Prior Level of Function SCALE: Activities may be completed with or without assistive devices. 4-Xdnjcwathz-nxpjriu completes the activity by him/herself with no assistance from a helper. 5-Set-up or Clean-up Assistance-helper sets up or cleans up; patient completes activity. [place] assists only prior to or following the activity. 4-Supervision or Touching Assistance-helper provides verbal cues and/or touching/steadying and/or contact guard assistance as patient completes activity. Assistance may be provided throughout the activity or intermittently. 3-Partial/Moderate Assistance-helper does LESS THAN HALF the effort. [place] lifts, holds or supports trunk or limbs, but provides less than half the effort. 2-Substantial/Maximal Assistance-helper does MORE THAN HALF the effort. [place] lifts or holds trunk or limbs and provides more than half the effort. 0-Fvpwjllie-cqiund does ALL the effort. Patient does none of the effort to complete the activity. Or, the assistance of 2 or more helpers is required for the patient to complete the activity. If activity was not attempted, code reason: 7-Patient Refused. 9-Not Applicable-not attempted and the patient did not perform the activity before the current illness, exacerbation or injury. 10-Not Attempted due to Environmental Limitations-(lack of equipment, weather restraints, etc.). 88-Not Attempted due to Medical Conditions or Safety Concerns. Bed Mobility: 6 Transfers (B,C,W/C): 6 Gait: 6 Stairs: 6 Wheelchair Mobility: 9 Indoor Mobility (Ambulation): Independent Stairs: Independent Prior Devices Use: Other-see list below Prior Device Use: SPC At [facility], pt was Ind with no AD (pt reports using a SPC at times, but she lost it recently). Still driving PT Evaluation-Current Subjective Pt is agreeable to PT. Denies pain. Pain Numeric Pain Scale: 0-No Pain Location: No Pain Reported Section J - Health Conditions 1. Rarely or not at all 2. Occasionally 3. Frequently 4. Almost constantly 8. Unable to answer Pain Effect on Sleep: 1 Pain Interference with Therapy: 1 Pain Interference w/Day-to-Day: 1 Pt/Family Goals Safely return home Objective Patient Orientation: Person, Place, Time, Situation ROM/Strength ROM Upper Extremities WFL ROM Lower Extremities WFL Strength Upper Extremities WFL Strength Lower Extremities B LE MMT = 4-/5 grossly Integumentary/Posture Integumentary See nurses note Bowel Incontinence: No Bladder Incontinence: No Sensory Vision: Wears Glasses (at times) Hearing: Functional Hand Dominance: Right Sensation Right Upper Extremit: Intact Sensation Left Upper Extremity: Intact Sensation Right Lower Extremit: Intact Sensation Left Lower Extremity: Intact Transfers Roll Left & Right (QC): 4 (SBA) Sit to Lying (QC): 4 (SBA) Lying to Sitting/Side of Bed(Q: 4 (SBA) Sit to Stand (QC): 4 (SBA) Chair/Mtz-mp-Vbqlv Xfer(QC): 4 (SBA) Toilet Transfer (QC): 4 (SBA) Car Transfer (QC): 4 (SBA) Gait Does the Patient Walk?: Yes Mode of Locomotion: Walk Anticipated Mode of Locomotion: Walk Walk 10 feet (QC): 4 (SBA) Walk 50 ft with 2 Turns(QC): 4 (SBA) Walk 150 ft (QC): 4 (SBA) Walking 10ft/uneven surface-QC: 4 (SBA) Distance: 350ft Gait Assistive Device: FWW Wheelchair Training Does the Pt Use a Wheelchair?: No Wheel 50 ft with 2 turns (QC): 9 Wheel 150 ft (QC): 9 Type of Wheelchair: N/A Stairs #of Steps: 12 1 Step (curb) (QC): 4 (SBA) 4 Steps (QC): 4 (SBA) 12 Steps (QC): 4 (SBA) Walking Assistive Device: Walker Balance Sitting Static: Normal Sitting Dynamic: Normal Standing Static: Good Standing Dynamic: Good Picking up an Object (QC): 4 (SBA) Special Test Comments Mod sit to stand test in 30 seconds - 7 reps (goal - 9 reps) Treatment Pt completed bed mobility and functional transfers with SBA. Pt ambulated 350ft with the FWW and SBA/CGA. Pt negotiated 12 steps with B HR and SBA. Pt completed standing B LE Ther Ex x 15 reps each with B UE support and SBA: PF/DF, Marching, Hip abd/ext, HS curls, and Mini-squats. Pt completed 15 min on the Nu-step on l evel 2. Pt back in bed with call light in reach, all needs met, and SW in the room. Assessment/Needs Pt tolerated PT well and would benefit from skilled PT, in order to progress back to PLOF and safely d/c back home. Rehab Potential: Good Equipment Needs FWW? pt reports she may want one when returning home, just to use at night to improve safety PT [facility] Goals [facility] Goals PT [facility] Goals Time Frame: May 13, 2023 Roll Left to Right (QC): 6 (Pt will be Mod I with all aspects of functional mobility with the least restrictive AD. ) Sit to Lying (QC): 6 (Pt will be Mod I with all aspects of functional mobility with the least restrictive AD. ) Lying-Sitting on Side/Bed(QC): 6 (Pt will be Mod I with all aspects of functional mobility with the least restrictive AD. ) Sit to Stand (QC): 6 (Pt will be Mod I with all aspects of functional mobility with the least restrictive AD. ) Chair/Gmr-yb-Bgrqz Xfer(QC): 6 (Pt will be Mod I with all aspects of functional mobility with the least restrictive AD. ) Toilet/Commode Transfer (QC): 6 (Pt will be Mod I with all aspects of functional mobility with the least restrictive AD. ) Car Transfer (QC): 6 (Pt will be Mod I with all aspects of functional mobility with the least restrictive AD. ) Does the Patient Walk: Yes Walk 10 feet (QC): 6 (Pt will be Mod I with all aspects of functional mobility with the least restrictive AD. ) Walk 10ft-Uneven Surface(QC): 6 (Pt will be Mod I with all aspects of fu nctional mobility with the least restrictive AD. ) Walk 50ft with 2 Turns (QC): 6 (Pt will be Mod I with all aspects of functional mobility with the least restrictive AD. ) Walk 150 ft (QC): 6 (Pt will be Mod I with all aspects of functional mobility with the least restrictive AD. ) Does the Pt use WC or Scooter?: No Wheel 50 feet with 2 turns (QC: 9 Type: N/A Wheel 150 feet: 9 Type: N/A 1 Step (curb) (QC): 6 (Pt will be Mod I with all aspects of functional mobility with the least restrictive AD. ) 4 Steps (QC): 6 (Pt will be Mod I with all aspects of functional mobility with the least restrictive AD. ) 12 Steps (QC): 6 (Pt will be Mod I with all aspects of functional mobility with the least restrictive AD. ) Picking up an Object (QC): 6 (Pt will be Mod I with all aspects of functional mobility with the least restrictive AD. ) Sit to stand test goal - 9 reps PT Plan Problem List Problem List: Activity Tolerance, Functional Strength, Safety, Balance, Gait, Transfer, Bed Mobility Treatment/Plan Treatment Plan: Continue Plan of Care Treatment Plan: Bed Mobility, Concurrent Therapy, Education, Functional Activity Luis Enrique, Functional Strength, Group Therapy, Gait, Safety, Therapeutic Exercise, Transfers Treatment Duration: May 13, 2023 Frequency: At least 5 of 7 days/Wk (IRF) Estimated Hrs Per Day: 1.5 hours per day Patient and/or Family Agrees t: Yes Safety Risks/Education Patient Education: Gait Training, Transfer Techniques, Steps, Correct Positioning, Safety Issues Teaching Recipient: Patient Teaching Methods: Demonstration, Discussion Response to Teaching: Verbalize Understanding, Return Demonstration, Reinforcement Needed Discharge Recommendations Therapy Discharge Recommendati: Home & Family Equpiment Recommendations-D/C: Front Wheeled Walker (possibly ) Discharge Status/Home Program Cont per POC Barriers to Progress Weakness Target Placement Home with family support Time Time In: 930 Time Out: 1100 DATE: May 06, 2023 Total Billed Treatment Time: 90 Total Billed Treatment 90 min total [id number] (30 min) = EVL [id number] (60 min) 1 visit GT x 1 EX x 1 FA x 2 DINESH REDDY PT May 06, 2023 09:35
--- NOTE | 2023-05-06 11:54 | ST Cognitive Linguistic Eval ---
Speech Evaluation-General Medical Diagnosis CVA Onset Date: May 02, 2023 Therapy Diagnosis Therapy Diagnosis: CVA Precautions Precautions: Fall, Aspiration Precautions/Isolations: Aspiration, Fall Prevention, Standard Precautions Referral Referring Physician: Dr. Mcmahon Medical History Pertinent Medical History: HTN OA, bladder cancer s/p resection, blood clotting disorder, HTN, CVA, stomach ulcer, arthritis Current History On 05/02/23, pt with acute ischemic CVA of R thalamus (etiology small vessel occlusion. No evidence of hemorrhagic conversion or mass effect). L side weakness and numbness. Pt transferred to ARU at [facility] on 05/05/2023. Reviewed History: Yes Social History Current Living Status: Alone (Family across the street with baby monitor ) Speech PLF-Current Status Prior Level of Function Pt lived alone and completed medication management and money management tasks independently. Pt states she writes checks and uses a debit card to pay her bills. She does not balance her checkbook register. Pt states she uses a pill organizer for her medications that she fill independently. Subjective Pt sitting up in bed with family members present at time of evaluation. Pt alert and oriented. Pt is talkative throughout session. Pt pleasant and cooperative. Language Eval: Auditory Comprehends Simple Yes/No Ques: Functional Follows 1-Step Commands: Functional Follows Complex Directions: Functional Follows General Conversations: Functional Language Eval: Verbal Language Completes Spontaneous Greeting: Functional Word Finding: Functional Requests Basic Needs: Functional States Basic Personal Info: Functional Expresses Complex Ideas: Functional Cognitive Patient Orientation Pt oriented to month, year, date, place, city, and state. Objective Cognitive Domain Attention: WNL Memory: Mild Problem Solving: Functional Executive Functions: WNL Visuospatial Skills: WNL Composite Severity Rating: WNL Clock Drawing Severity Rating: WNL Score: 28 Objective Formal/Standardized Tests SLUMS Results Impression Pt's cognitive skills appear WNL. Pt states she does not feel she has had any cognitive changes since the stroke. Pt is unable to recall 2/5 following short delay with cues. With a verbal cues, pt was then able to recall the remaining two words. Speech Short Term Goals Short Term Goals Short Term Goals Complete medication and money management tasks prior to d/c. Speech-Plan Patient/Family Goals Patient/Family Goals: Pt's goal is to return home at prior level of functioning. Treatment Plan Speech Therapy Treatment Plan: Continue Plan of Care Will complete 1 treatment session to complete medication and money management task as scheduling did not allow for tasks to be completed at same time as evaluation. Frequency: 1 time per week Estimated Hrs Per Day: .25 hour per day Rehab Potential: Good Pt/Family Agrees to Plan: Yes Safety Risks/Education Teaching Recipient: Patient, Family (family members present in room.) Teaching Methods: Discussion Response to Teaching: Verbalize Understanding Education Topics Provided: Pt and family members educated on role of IT COMMUNICATIONS MANAGER, purpose of evaluation, results, and recommendations. Pt and family receptive and verbalize understanding. Time Speech Therapy Time In: 09:11 Speech Therapy Time Out: 09:26 DATE: May 06, 2023 Total Billed Time: 15 Billed Treatment Time S/L Corin Griffin Speech Therapy May 06, 2023 11:54
--- NOTE | 2023-05-06 12:10 | Individualized Plan of Care ---
Individualized Plan of Care Rehab Nursing IPOC Order Admission Date May 05, 2023 at 15:15 Current Orders Orders Admission Order(Inpt,Obs,Sdc) (05/05/23 12:19) Vital Signs: Per Unit Policy ( 08,16,00 (05/05/23 12:19) Charanjit Urbina , (05/05/23 12:19) Sequential Compression Device (05/05/23 12:19) Cardiovascular Lab Director-Inpt Rehab Con (05/05/23 12:19) Rehab Nursing Orders-Ipoc (05/05/23 12:19) Physical Therapy Rehab Orders (05/05/23 12:19) Occupational Therapy Rehab Ord (05/05/23 12:19) Speech Therapy Rehab Orders (05/05/23 12:19) Cbc With Automated Diff (05/06/23 06:00) Comprehensive Metabolic Panel (05/06/23 06:00) Precautions (Aru) (05/05/23 12:19) Weekly Weight WEEK (05/05/23 12:19) Rehab-Intensity Of Therapy (05/05/23 12:19) Initiate Admission Nursing Pro .admission (05/05/23 12:19) Alprazolam Tablet (Xanax Tablet) (05/05/23 12:30) Calcium Carbonate Chew Tablet (Antacid C (05/05/23 12:30) Diphenhydramine Tablet (Benadryl Tablet) (05/05/23 12:30) Docusate Sodium Capsule (Colace Capsule) (05/05/23 21:00) Docusate Sodium Capsule (Colace Capsule) (05/05/23 12:30) Bisacodyl Suppository (Dulcolax Supposit (05/05/23 12:30) Lactulose Oral Solution (Enulose Oral So (05/05/23 12:30) Na Phos/Na Biphos Enema (Fleet Enema Amor (05/05/23 12:30) Guaifenesin/Codeine Syrup (Robitussin Ac (05/05/23 12:30) Loperamide Tablet (Imodium Tablet) (05/05/23 12:30) Melatonin Tablet (Melatonin Tablet) (05/05/23 12:30) Polyethylene Glycol Powder Pkt (Miralax (05/05/23 21:00) Ondansetron Oral Dissolve Tab (Zofran (05/05/23 12:30) Senna S Tablet (Senokot S Tablet) (05/05/23 21:00) Acetaminophen Tablet/Caplet (Tylenol T (05/05/23 12:30) Initiate Admission Nursing Pro .admission (05/05/23 12:19) Admission Arrival Bed Request (05/05/23 16:01) Acetaminophen Arthritis (Tylenol Arthrit (05/05/23 17:30) Amlodipine Tablet (Norvasc Tablet) (05/06/23 09:00) Aspirin Enteric Coated Tablet (Ecotrin T (05/06/23 09:00) Atorvastatin Tablet (Lipitor Tablet) (05/06/23 09:00) Bupropion Tablet (Wellbutrin Tablet) (05/06/23 09:00) Clopidogrel Tablet (Plavix Tablet) (05/06/23 09:00) Cyanocobalamin Injection (Vitamin B-12 I (05/05/23 17:30) Rx-Cyclobenzaprine Tablet (Rx-Flexeril T (05/05/23 17:30) Diclofenac 1% Gel (Voltaren 1% Gel) (05/05/23 21:00) Donepezil Tablet (Aricept Tablet) (05/05/23 21:00) Duloxetine Capsule (Cymbalta Capsule) (05/06/23 09:00) Estrogens Conjugated Tablet (Premarin Ta (05/06/23 09:00) Famotidine Tablet (Pepcid Tablet) (05/05/23 21:00) Fluticasone Nasal [place] (Flonase Nasal S (05/06/23 09:00) Gabapentin Capsule/Tablet (Neurontin Cap (05/05/23 21:00) Lidocaine 4% Patch (Salonpas 4% Patch) (05/06/23 09:00) Lisinopril Tablet (Zestril Tablet) (05/06/23 09:00) Loperamide Tablet (Imodium Tablet) (05/05/23 17:30) Nitroglycerin 0.4 Mg Btl 25's (Nitrostat (05/05/23 17:30) Quinine Sulfate Capsule (Qualaquin Capsu (05/05/23 21:00) Tramadol Tablet (Ultram Tablet) (05/05/23 17:30) (Nf) Artificial Tears (05/05/23 17:30) (Nf) Calcium Carbonate (Calcium) (05/06/23 09:00) (Nf) Cetirizine Hcl (05/06/23 09:00) (Nf) Cholecalciferol (Vitamin D3) (Vitam (05/06/23 09:00) (Nf) Duloxetine Hcl (05/06/23 09:00) (Nf) Ondansetron Hcl (05/05/23 17:30) (Nf) Potassium Gluconate (Potassium) (05/06/23 09:00) (Nf) Rabeprazole Sodium (05/06/23 09:00) (Nf) Sulindac (05/05/23 17:30) (Nf) Tiotropium Br/Olodaterol Hcl (Stiol (05/06/23 09:00) (Nf) Vibegron (Gemtesa) (05/06/23 09:00) Enoxaparin Injection (Lovenox Injection) (05/06/23 09:00) General/Regular (05/05/23 Dinner) Carboxymethylcell Ophth Soln (Refresh Pl (05/05/23 18:00) Pantoprazole Tablet (Protonix Tablet) (05/06/23 09:00) Cholecalciferol Capsule/Tablet (Vitamin (05/06/23 09:00) Patch Removal (Patch Removal) (05/05/23 21:00) Ondansetron Oral Dissolve Tab (Zofran (05/05/23 18:15) Calcium Carbonate Tablet (Calcarb 600 Ta (05/06/23 08:00) Loratadine Tablet (Claritin Tablet) (05/06/23 09:00) Cyclobenzaprine Tablet (Flexeril Tablet) (05/05/23 18:15) Umeclidinium/Vilanterol 62.5/2 (Anoro El (05/06/23 08:00) Etodolac Capsule/Tablet (Lodine Capsule/ (05/05/23 18:15) Cyanocobalamin Injection (Vitamin B-12 I (05/06/23 09:00) Hydrocortisone 1% Cream (Hydrocortisone (05/06/23 21:00) Consult Cardiology (05/06/23 12:54) Patient Visit (05/06/23 ) Pt Eval Low Complexity (05/06/23 ) Gait Training, Ea 15 Min (05/06/23 ) Exercise Therap, Ea 15 Min (05/06/23 ) Functional Activities, Ea 15 (05/06/23 ) Patient Visit (05/06/23 ) Treat. Speech/Lang/Voice (05/06/23 ) Patient Visit (05/06/23 ) Speech Sound Lang Comp (05/06/23 ) Patient May Use Own Med,Single (Patient (05/06/23 15:00) Patient May Use Own Med,Single (Patient (05/06/23 15:15) Patient May Use Own Med,Single (Patient (05/06/23 15:45) Patient May Use Own Med,Single (Patient (05/06/23 15:45) (Nf) Rabeprazole Sodium (05/07/23 09:00) (Nf) Tiotropium Br/Olodaterol Hcl (Stiol (05/07/23 08:00) Telemetry (05/06/23 19:02) Continuous Ekg Monitoring (05/06/23 19:02) Telemetry Nursing Assessment ( (05/06/23 19:02) Rehab Nursing Orders: Ongoing Assess. of Function Status, Bladder Management, Bladder Scan, Bladder Training, Bowel Management, Bowel Training, Disease Management & Educaiton, DVT Prophylaxis, Fall Prevention, Fluid/Electrolyte/Nutrition Mgmt, Infection Prevention, Medication Management & Education, Management of Risks & Complications, Nutrition Management, Pain Management, Patient/Family Support, Safety Management Intensity of Therapy to be met Patient to be seen: Min.3h per day/5 of 7d PT IPOC Problem List: Activity Tolerance, Functional Strength, Safety, Balance, Gait, Transfer, Bed Mobility Treatment Plan: Continue Plan of Care Bed Mobility, Concurrent Therapy, Education, Functional Activity Luis Enrique, Functional Strength, Group Therapy, Gait, Safety, Therapeutic Exercise, Transfers Treatment Duration: May 13, 2023 Frequency: At least 5 of 7 days/Wk (IRF) Estimated Hrs Per Day: 1.5 hours per day OT IPOC Problems: Decreased Activ Tolerance, Decreased UE Strength, Impaired Funct Balance, Impaired I ADL's, Impaired Self-Care Skills OT Treatment, Training and Edu: Yes Plan of Care: ADL Retraining, Functional Mobility, Group Exercise/Act as Ind, UE Funct Exercise/Act, UE Neuromus Re-Ed/Coord Treatment Duration: May 19, 2023 Frequency: At least 5 of 7 days/Wk (IRF) Estimated Hrs Per Day: 1.5 hours per day [facility] Speech Therapy Treatment Plan: Continue Plan of Care Treatment Duration: May 06, 2023 Frequency: 1 time per week Estimated Hrs Per Day: .25 hour per day Cardiovascular Lab Director/Case Mgmt Cardiovascular Lab Director/Case Managemen: Discharge Planning Dietitian/Vocational Rehabilitation Supervisor Dietitian/Vocational Rehabilitation Supervisor to monitor nutritional status and make changes and/or recommendations as needed and work with speech pathology on dietary upgrades as the occur. Physician IP Medical Issues being managed closely and that require the 24 hour availability of a physician: Recent CVA with left-sided weakness will require close monitoring of blood pressure and require cardiology consultation to rule out any source of recurrent stroke. Medical Issues: Bowel/Bladder Function, DVT Prophylaxis, Falls Precautions, Fluid/Electrolyte/Nutrition Balance, Infection Protection, Pain Management Brief Synthesis of Preadmission Screen, Post-Admission Evaluation, and Therapy Evaluations: PT and OT will focus on regaining function with use of assistive devices in order to increase stamina and increase ADL independence Medical Prognosis: Good Anticipated Length of Stay: 10 days JOHN AGUIRRE DO May 06, 2023 12:10
--- NOTE | 2023-05-06 14:50 | Speech Therapy Daily Note ---
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 Pt pleasant and cooperative throughout session. Pain Location: No Pain Reported Objective Pt completes writing a check for a bill. Pt is able to write the check by looking at the bill independently. Pt then carries check and puts it into checkbook register. Pt has mistake with calculation when balancing checkbook register. Pt states she does not balance her checkbook register at home. Pt completes medication management task of putting fake medications in to pill organizer with 100% accuracy independently. Assessment Assessment Current Status: Good Progress Treatment Plan Discontinue ST, Goals Met Speech Short Term Goals Short Term Goals Short Term Goals Complete medication and money management tasks prior to d/c. Speech-Plan Patient/Family Goals Patient/Family Goals: Pt's goal is to return home at PLOF. Treatment Plan Speech Therapy Treatment Plan: Discontinue ST, Goals Met Frequency: 1 time per week Estimated Hrs Per Day: .25 hour per day Rehab Potential: Good Safety Risks/Education Teaching Recipient: Patient Teaching Methods: Discussion Response to Teaching: Verbalize Understanding Education Topics Provided: Pt educated on purpose of therapy tasks and plan to dismiss from speech therapy services. Pt was receptive and verbalized understanding. Time Speech Therapy Time In: 10:25 Speech Therapy Time Out: 10:40 DATE: May 06, 2023 Total Billed Time: 15 Billed Treatment Time S/L Corin Webber Speech Therapy May 06, 2023 14:49
[2023-05-06] MEDS ORDERED: PATIENT MAY USE OWN MED,SINGLE MED PO SCH ×4 (15:00→15:45)
--- NOTE | 2023-05-06 16:34 | Consultation-Cardiology ---
HPI-Cardiology Cardiology Consultation Date of Consultation 05/06/23 Date of Admission Time Seen by Provider: 16:30 Indication: Acute CVA HPI 72-year-old lady with history of TIA in the past, admitted earlier this week with CVA and transferred to . Patient reported that did not require thrombectomy or thrombolytics. She was maintained on aspirin and Plavix and reporting significant improvement. She denied any chest pain or palpitation, has history of hypertension and hyperlipidemia. We were called for evaluation for cardiac source of embolization Home Medications & Allergies Allergies: Coded Allergies: No Known Drug Allergies (Unverified , 03/17/18) Home Medication List Reviewed: Yes ANT-Ziorxl-Etswgj Hx Patient Social History Marital Status: , Employed/Student: retired Smoking Status: Former Smoker Recent Hopitalizations: No Alcohol Use?: No Immunizations Up To Date Tetanus Booster (TDap): Unknown Date of Pneumonia Vaccine: Sep 06, 2017 Date of Influenza Vaccine: Sep 06, 2017 Past Medical History Discussed below Family Medical History Significant Family History: No Pertinent Family Hx Review of Systems-General Review of Systems Constitutional: see HPI, malaise, weakness EENTM: no symptoms reported Respiratory: no symptoms reported, see HPI, dyspnea on exertion Cardiovascular: see HPI; No chest pain, No edema, No Hx of Intervention, No palpitations, No syncope, No vascular heart diseas, No other Gastrointestinal: diarrhea Genitourinary: no symptoms reported Musculoskeletal: no symptoms reported Skin: no symptoms reported Psychiatric/Neurological: Anxiety, Numbness, Tremors, Weakness All Other Systems Reviewed Negative Unless Noted: Yes Reviewed Test Results Reviewed Test Results Lab Laboratory Tests Test 05/06/23 05:40 Range/Units White Blood Count 9.4 4.3-11.0 10^3/uL Red Blood Count 4.45 3.80-5.11 10^6/uL Hemoglobin 13.1 11.5-16.0 g/dL Hematocrit 39 35-52 % Mean Corpuscular Volume 88 80-99 fL Mean Corpuscular Hemoglobin 29 25-34 pg Mean Corpuscular Hemoglobin Concent 33 32-36 g/dL Red Cell Distribution Width 13.0 10.0-14.5 % Platelet Count 413 H 130-400 10^3/uL Mean Platelet Volume 9.8 9.0-12.2 fL Immature Granulocyte % (Auto) 1 % Neutrophils (%) (Auto) 71 42-75 % Lymphocytes (%) (Auto) 19 12-44 % Monocytes (%) (Auto) 8 0-12 % Eosinophils (%) (Auto) 1 0-10 % Basophils (%) (Auto) 1 0-10 % Neutrophils # (Auto) 6.6 1.8-7.8 10^3/uL Lymphocytes # (Auto) 1.7 1.0-4.0 10^3/uL Monocytes # (Auto) 0.7 0.0-1.0 10^3/uL Eosinophils # (Auto) 0.1 0.0-0.3 10^3/uL Basophils # (Auto) 0.1 0.0-0.1 10^3/uL Immature Granulocyte # (Auto) 0.1 0.0-0.1 10^3/uL Sodium Level 138 135-145 MMOL/L Potassium Level 3.6 3.6-5.0 MMOL/L Chloride Level 106 98-107 MMOL/L Carbon Dioxide Level 23 21-32 MMOL/L Anion Gap 9 5-14 MMOL/L Blood Urea Nitrogen 8 7-18 MG/DL Creatinine 0.73 0.60-1.30 MG/DL Estimat Glomerular Filtration Rate 87 BUN/Creatinine Ratio 11 Glucose Level 128 H 70-105 MG/DL Calcium Level 8.9 8.5-10.1 MG/DL Corrected Calcium 9.2 8.5-10.1 MG/DL Total Bilirubin 0.4 0.1-1.0 MG/DL Aspartate Amino Transf (AST/SGOT) 26 5-34 U/L Alanine Aminotransferase (ALT/SGPT) 23 0-55 U/L Alkaline Phosphatase 58 40-136 U/L Total Protein 6.1 L 6.4-8.2 GM/DL Albumin 3.6 3.2-4.5 GM/DL Physical Exam Physical Exam Vital Signs Vital Signs - First Documented 05/05/23 15:30 Temp 36.4 Pulse 97 Resp 18 B/P (MAP) 151/76 (101) Pulse Ox 96 O2 Delivery Room Air Capillary Refill : Height, Weight, BMI Height: 5'6.00" Weight: 170lbs. 9.0oz. [id number]; 28.03 BMI Method: General Appearance: No Apparent Distress, WD/WN, Chronically ill Eyes: Bilateral Eye Normal Inspection, Bilateral Eye PERRL HEENT: PERRL/EOMI, Normal ENT Inspection, Pharynx Normal Neck: Full Range of Motion, Normal Inspection, Non Tender, Supple, Carotid Bruit Respiratory: Chest Non Tender, Lungs Clear, Normal Breath Sounds, No Accessory Muscle Use, No Respiratory Distress Cardiovascular: Regular Rate, Rhythm, No Edema, No Gallop, No JVD, No Murmur, Normal Peripheral Pulses Gastrointestinal: Normal Bowel Sounds, No Organomegaly, No Pulsatile Mass, Non Tender, Soft Back: Normal Inspection, No CVA Tenderness, No Vertebral Tenderness Extremity: Normal Capillary Refill, Normal Inspection, Normal Range of Motion, Non Tender, No Calf Tenderness, No Pedal Edema Neurologic/Psychiatric: Alert, Oriented x3, Normal 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 Maintained on aspirin and Plavix Had work-up done at [facility], did not identify a source of embolization I will place patient on telemetry and we will consider loop monitor implantation Continue on aspirin and Plavix Hypertension, controlled, monitor blood pressure Hyperlipidemia, monitor lipids. ESTEBAN LUTZ MD May 06, 2023 16:34
[2023-05-06] MEDS: GEMTESA 75 MG PO SCH (17:06)
[2023-05-06 19:02] VITALS: BP 134/71
[2023-05-06] MEDS: DONEPEZIL 10 MG (ARICEPT) TAB PO SCH (20:40)
[2023-05-06] MEDS: FAMOTIDINE 20 MG (PEPCID) TABLET PO SCH (20:40)
[2023-05-06] MEDS: QUININE SULF PO SCH (20:40)
[2023-05-06] MEDS: LIDOCAINE PATCH REMOVAL TP SCH (20:41)
[2023-05-06] MEDS: MELATONIN 3 MG TABLET PO PRN (20:45)
[2023-05-06] MEDS ORDERED: HYDROCORTISONE 1% CREAM 30 GM TUBE TOP PRN (21:00)
[2023-05-07] MEDS: RESPIMAT IH SCH (07:00)
[2023-05-07] MEDS: STIOLTO IH SCH (07:00)
[2023-05-07 07:11] VITALS: BP 142/67
[2023-05-07] MEDS: DULoxetine 30 MG (CYMBALTA) CAP PO SCH (08:02)
[2023-05-07] MEDS: ASPIRIN E.C. 81 MG (ECOTRIN) TAB PO SCH (08:02)
[2023-05-07] MEDS: CLOPIDOGREL 75 MG (PLAVIX) TABLET PO SCH (08:02)
[2023-05-07] MEDS: VITAMIN D3 25 MCG (1,000 UNITS) TABLET PO SCH (08:03)
[2023-05-07] MEDS: buPROPion 75 MG (WELLBUTRIN) TAB PO SCH (08:04)
[2023-05-07] MEDS: GABAPENTIN 100 MG (NEURONTIN) CAP PO SCH ×3 (08:04→20:30)
[2023-05-07] MEDS: ACETAMINOPHEN ER 650 MG (TYLENOL ARTHRITIS) PO PRN ×2 (08:05→21:26)
[2023-05-07] MEDS: amLODIPine 5 MG (NORVASC) TAB PO SCH (08:06)
[2023-05-07] MEDS: ESTROGENS CONJ 0.625 MG (PREMARIN) TAB PO SCH (08:06)
[2023-05-07] MEDS: CALCIUM CARBONATE 600 MG (CALCARB) TAB PO SCH (08:06)
[2023-05-07] MEDS: LIDOCAINE 4% (SALONPAS) PATCH TP SCH (08:07)
[2023-05-07] MEDS: LORATADINE (CLARITIN) 10 MG TAB PO SCH (08:09)
[2023-05-07] MEDS: FLUTICASONE NASAL SPRAY (FLONASE) 16 GM BTL NS SCH (08:09)
[2023-05-07] MEDS: ENOXAPARIN 40 MG/0.4 ML (LOVENOX) SYR SC SCH (08:09)
[2023-05-07] MEDS: RABEPRAZOLE 20 MG PO SCH (08:10)
[2023-05-07] MEDS: GEMTESA 75 MG PO SCH (08:11)
[2023-05-07] MEDS: DOCUSATE SODIUM 100 MG (COLACE) CAP PO SCH ×2 (08:11→20:33)
[2023-05-07] MEDS: polyethylene glycoL POWDER 17 GM (MIRALAX) PACK PO SCH ×2 (08:13→20:33)
[2023-05-07] MEDS: SENNA W/DOCUSATE (SENOKOT S) TABLET PO SCH ×2 (08:13→20:33)
[2023-05-07] MEDS: lisINopril 20 MG (PRINIVIL) TABLET PO SCH (09:40)
[2023-05-07] MEDS: ETODOLAC 300 MG (LODINE) CAP PO SCH ×2 (09:40→17:36)
[2023-05-07] MEDS: DICLOFENAC 1% GEL 100 GM (VOLTAREN) TUBE TP SCH ×4 (09:41→20:30)
--- NOTE | 2023-05-07 10:15 | Occupational Ther Daily Note ---
OT Current Status-Daily Note Subjective Pt found sitting in bed in room. Pt agreed to therapy. No pain mentioned. Mental Status/Objective Patient Orientation: Person, Place, Time, Situation ADL-Treatment Pt sat EOB with SBA. Pt ambulated to bathroom with FWW, SBA. Pt completed toilet transfer and toilet hygiene with supervision. Pt completed upper body dressing with set up assist, and lower body dressing with SBA. Pt also donned and doffed socks with set up assist. Pt ambulated to sink with FWW, SBA. Pt was independent with oral hygiene and grooming, standing at sink with walker. In order to increase functional mobility pt ambulated to therapy gym with FWW, SBA. Pt compl eted 8 mins on arm bike with 22 melton resistance. Pt took minimal rest breaks. Pt participated in an activity with thera-putty with medium resistance (red putty), pt located 13 beads, addressing fine motor, dexterity, and coordination. Pt then stood with FWW, at white board and completed a functional activity with magnets, and matching like objects, pt completed 4 activities, working on these things before becoming fatigued. This activity addressed standing balance, endurance, crossing midline, cognition, and fine motor working with small objects. Pt ambulated to bathroom in room, from therapy gym with FWW, SBA. Pt completed toilet hygiene and transfer with supervision. Pt ambulated back to bed with FWW, SBA. Pt was left in room in bed with call light and phone within reach, all needs met in room. Therapy Code Descriptions/Definitions Functional [place] Measure: 0=Not Assessed/NA 4=Minimal Assistance 1=Total Assistance 5=Supervision or Setup 2=Maximal Assistance 6=Modified [place] 3=Moderate Assistance 7=Complete IndependenceSCALE: Activities may be completed with or without assistive devices. 3-Tfkoekopss-ivmiwep completes the activity by him/herself with no assistance from a helper. 5-Set-up or Clean-up Assistance-helper sets up or cleans up; patient completes activity. [place] assists only prior to or following the activity. 4-Supervision or Touching Assistance-helper provides verbal cues and/or touching/steadying and/or contact guard assistance as patient completes activity. Assistance may be provided throughout the activity or intermittently. 3-Partial/Moderate Assistance-helper does LESS THAN HALF the effort. [place] lifts, holds or supports trunk or limbs, but provides less than half the effort. 2-Substantial/Maximal Assistance-helper does MORE THAN HALF the effort. [place] lifts or holds trunk or limbs and provides more than half the effort. 0-Kivmbzddh-egbcrf does ALL the effort. Patient does none of the effort to complete the activity. Or, the assistance of 2 or more helpers is required for the patient to complete the activity. If activity was not attempted, code reason: 7-Patient Refused. 9-Not Applicable-not attempted and the patient did not perform the activity before the current illness, exacerbation or injury. 10-Not Attempted due to Environmental Limitations-(lack of equipment, weather restraints, etc.). 88-Not Attempted due to Medical Conditions or Safety Concerns. Upper Body Dressing (QC): 5 Lower Body Dressing (QC): 4 On/Off Footwear: 5 Toileting Hygiene (QC): 4 Education OT Patient Education: Energy conservation, Home exercise program OT Alf Goals Alf Goals Time Frame: May 19, 2023 Acute change in mental status: 0 Inattention: 0 Disorganized thinkin Altered level of consciousness: 0 Eating (QC): 6 Oral Hygiene (QC): 6 Toileting Hygiene (QC): 6 Shower/Bathe Self (QC): 6 Upper Body Dressing (QC): 6 Lower Body Dressing (QC): 6 On/Off Footwear (QC): 6 Additional Goals: 1-Demonstrate ADL Tasks, 2-Verbalize Understanding, 3-ImproveStrength/Luis Enrique 1=Demonstrate adherence to instructed precautions during ADL tasks. 2=Patient will verbalize/demonstrate understanding of assistive devices/modifications for ADL. 3=Patient will improve strength/tolerance for activity to enable patient to perform ADL's. OT Education/Plan Discharge Recommendations Plan/Recommendations: Continue POC Treatment Plan/Plan of Care Patient would benefit from OT for education, treatment and training to promote independence in ADL's, mobility, safety and/or upper extremity function for ADL's. Plan of Care: ADL Retraining, Functional Mobility, Group Exercise/Act as Ind, UE Funct Exercise/Act, UE Neuromus Re-Ed/Coord Treatment Duration: May 19, 2023 Frequency: At least 5 of 7 days/Wk (IRF) Estimated Hrs Per Day: 1.5 hours per day Agreement: Yes Rehab Potential: Good Time Start Time: 08:00 Stop Time: 10:00 DATE: May 07, 2023 Total Time Billed (hr/min): 120 Billed Treatment Time 1 visit ADL 2 (30), FA 4 (60), EX 2 (30) Jayde Musa COTA May 07, 2023 10:15
--- NOTE | 2023-05-07 11:28 | PM&R Progress Note ---
Subjective HPI/CC On Admission Date Seen by Provider: May 07, 2023 Time Seen by Provider: 11:00 Subjective/Events-last exam 05/07/2023: Patient doing much better Ambulating without cane No falls No pain 05/06/2023: Patient doing a lot better No pain is reported Reconciled all home meds Participating in therapy Family visiting Review of Systems General: Fatigue, Malaise Objective Exam Vital Signs Vital Signs Date Time Temp Pulse Resp B/P (MAP) Pulse Ox O2 Delivery O2 Flow Rate FiO2 05/07/23 19:56 36.2 86 16 172/79 (110) 98 Room Air Capillary Refill : General Appearance: No Apparent Distress, WD/WN, Chronically ill HEENT: PERRL/EOMI, Normal ENT Inspection, Pharynx Normal Neck: Full Range of Motion, Normal Inspection, Non Tender, Supple, Carotid Bruit Respiratory: Chest Non Tender, Lungs Clear, Normal Breath Sounds, No Accessory Muscle Use, No Respiratory Distress Cardiovascular: Regular Rate, Rhythm, No Edema, No Gallop, No JVD, No Murmur, Normal Peripheral Pulses Gastrointestinal: Normal Bowel Sounds, No Organomegaly, No Pulsatile Mass, Non Tender, Soft Back: Normal Inspection, No CVA Tenderness, No Vertebral Tenderness Extremity: Normal Capillary Refill, Normal Inspection, Normal Range of Motion, Non Tender, No Calf Tenderness, No Pedal Edema Neurologic/Psychiatric: Alert, Oriented x3, Normal 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 FIM Transfers Therapy Code Descriptions/Definitions Functional [place] Measure: 0=Not Assessed/NA 4=Minimal Assistance 1=Total Assistance 5=Supervision or Setup 2=Maximal Assistance 6=Modified [place] 3=Moderate Assistance 7=Complete IndependenceSCALE: Activities may be completed with or without assistive devices. 2-Znquujrshv-qiyuqkm completes the activity by him/herself with no assistance fr om a helper. 5-Set-up or Clean-up Assistance-helper sets up or cleans up; patient completes activity. [place] assists only prior to or following the activity. 4-Supervision or Touching Assistance-helper provides verbal cues and/or touching/steadying and/or contact guard assistance as patient completes activity. Assistance may be provided throughout the activity or intermittently. 3-Partial/Moderate Assistance-helper does LESS THAN HALF the effort. [place] lifts, holds or supports trunk or limbs, but provides less than half the effort. 2-Substantial/Maximal Assistance-helper does MORE THAN HALF the effort. [place] lifts or holds trunk or limbs and provides more than half the effort. 1-Umxkturji-cpjvcn does ALL the effort. Patient does none of the effort to complete the activity. Or, the assistance of 2 or more helpers is required for the patient to complete the activity. If activity was not attempted, code reason: 7-Patient Refused. 9-Not Applicable-not attempted and the patient did not perform the activity before the current illness, exacerbation or injury. 10-Not Attempted due to Environmental Limitations-(lack of equipment, weather restraints, etc.). 88-Not Attempted due to Medical Conditions or Safety Concerns. Roll Left to Right (QC): 4 (SBA) Sit to Lying (QC): 4 (SBA) Sit to Stand (QC): 4 (SBA) Chair/Wss-hq-Vopvo Xfer(QC): 4 (SBA) Car Transfer (QC): 4 (SBA) Gait Training Does the Patient Walk?: Yes Walk 10 feet (QC): 4 (SBA) Walk 50 ft with 2 Turns(QC): 4 (SBA) Walk 150 ft (QC): 4 (SBA) Walking 10ft/uneven surface-QC: 4 (SBA) Gait Assistive Device: FWW Wheelchair Training Does the Pt Use a Wheelchair?: No Wheel 50 ft with 2 turns (QC): 9 Wheel 150 ft (QC): 9 Type of Wheelchair: N/A Stair Training #of Steps: 12 1 Step (curb) (QC): 4 (SBA) 4 Steps (QC): 4 (SBA) 12 Steps (QC): 4 (SBA) Balance Picking up an Object (QC): 4 (SBA) ADL-Treatment Eating (QC): 6 Oral Hygiene (QC): 6 (Pt able to complete partially seated and partically standing at sink IND. ) Shower/Bathe Self (QC): 4 (Supervision) Upper Body Dressing (QC): 5 Lower Body Dressing (QC): 4 On/Off Footwear (QC): 5 Toileting Hygiene (QC): 4 Assessment/Plan Assessment and Plan Assess & Plan/Chief Complaint Assessment: CVA with left-sided weakness History of CVA Hypertension Bladder cancer Stomach ulcer history Irritable bowel syndrome Plan: Supportive care Blood pressure Imodium PT and OT 05/06/2023: Continue aggressive rehab Supportive care 05/07/2023: Continue aggressive treatment (1) Ischemic stroke Status: Acute JOHN AGUIRRE DO May 07, 2023 11:27
--- NOTE | 2023-05-07 15:23 | Physical Therapy Daily Note ---
PT Daily Note-Current Subjective Pt reports she is doing well today and is agreeable to PT. Denies pain Pain Numeric Pain Scale: 0-No Pain Location: No Pain Reported Section J - Health Conditions 1. Rarely or not at all 2. Occasionally 3. Frequently 4. Almost constantly 8. Unable to answer Pain Effect on Sleep: 1 Pain Interference with Therapy: 1 Pain Interference w/Day-to-Day: 1 Transfers SCALE: Activities may be completed with or without assistive devices. 8-Zlovfgqmtc-hhavfdt completes the activity by him/herself with no assistance from a helper. 5-Set-up or Clean-up Assistance-helper sets up or cleans up; patient completes activity. [place] assists only prior to or following the activity. 4-Supervision or Touching Assistance-helper provides verbal cues and/or touching/steadying and/or contact guard assistance as patient completes activity. Assistance may be provided throughout the activity or intermittently. 3-Partial/Moderate Assistance-helper does LESS THAN HALF the effort. [place] lifts, holds or supports trunk or limbs, but provides less than half the effort. 2-Substantial/Maximal Assistance-helper does MORE THAN HALF the effort. [place] lifts or holds trunk or limbs and provides more than half the effort. 0-Bkbrryupo-gemuib does ALL the effort. Patient does none of the effort to complete the activity. Or, the assistance of 2 or more helpers is required for the patient to complete the activity. If activity was not attempted, code reason: 7-Patient Refused. 9-Not Applicable-not attempted and the patient did not perform the activity before the current illness, exacerbation or injury. 10-Not Attempted due to Environmental Limitations-(lack of equipment, weather restraints, etc.). 88-Not Attempted due to Medical Conditions or Safety Concerns. Sit to Lying (QC): 4 Lying to Sitting/Side of Bed(Q: 4 Sit to Stand (QC): 4 Toilet Transfer (QC): 4 Weight Bearing Right Lower Extremity: Right Full Weight Bearing Left Lower Extremity: Left Full Weight Bearing Gait Training Does the Patient Walk?: Yes Walk 10 feet (QC): 4 Walk 50 ft with 2 Turns(QC): 4 Walk 150 ft (QC): 4 Gait Persons Needed: 1 Gait Assistive Device: None Wheelchair Training Does the Pt Use a Wheelchair?: No Treatments Pt completed bed mobility with SBA. Pt completed functional transfers with SBA, including toilet transfer. Pt ambulated 75ft and 350ft x 3 with no AD and CGA. P t demo Min unsteadiness during gait training, but no LOB. Pt completed 15 min on the nu-step on level 3. Pt completed standing B LE Ther Ex x 15 reps each. Pt edu on HEP, with handout provided (1 to pt, 1 to folder in room, and 1 in the pts chart). Pt left in bed with call light in reach and all needs met. Assessment Current Status: Good Progress Pt tolerated PT well with good effort Pt would benefit from a FWW at home, secondary to balance issues and to improve safety. With her decreased balance the pt requires a FWW to complete walking tasks and standing tasks independently. Pt is able to safely use the FWW and is Mod I with the FWW during ambulation and standing tasks and improves her safety returning home. PT Research Engineer Goals Fdc Goals PT Research Engineer Goals Time Frame: May 13, 2023 Roll Left & Right (QC): 6 (Pt will be Mod I with all aspects of functional mobility with the least restrictive AD. ) Sit to Lying (QC): 6 (Pt will be Mod I with all aspects of functional mobility with the least restrictive AD. ) Lying-Sitting on Side/Bed(QC): 6 (Pt will be Mod I with all aspects of functional mobility with the least restrictive AD. ) Sit to Stand (QC): 6 (Pt will be Mod I with all aspects of functional mobility with the least restrictive AD. ) Chair/Iup-ic-Wicem Xfer(QC): 6 (Pt will be Mod I with all aspects of functional mobility with the least restrictive AD. ) Toilet Transfer (QC): 6 (Pt will be Mod I with all aspects of functional mobility with the least restrictive AD. ) Car Transfer (QC): 6 (Pt will be Mod I with all aspects of functional mobility with the least restrictive AD. ) Does the Patient Walk: Yes Walk 10 feet (QC): 6 (Pt will be Mod I with all aspects of functional mobility with the least restrictive AD. ) Walk 50ft with 2 Turns (QC): 6 (Pt will be Mod I with all aspects of functional mobility with the least restrictive AD. ) Walk 150 ft (QC): 6 (Pt will be Mod I with all aspects of functional mobility with the least restrictive AD. ) Walking 10ft on Uneven Surface: 6 (Pt will be Mod I with all aspects of functional mobility with the least restrictive AD. ) 1 Step (curb) (QC): 6 (Pt will be Mod I with all aspects of functional mobility with the least restrictive AD. ) 4 Steps (QC): 6 (Pt will be Mod I with all aspects of functional mobility with the least restrictive AD. ) 12 Steps (QC): 6 (Pt will be Mod I with all aspects of functional mobility with the least restrictive AD. ) Picking up an Object (QC): 6 (Pt will be Mod I with all aspects of functional mobility with the least restrictive AD. ) Does the Pt use WC or Scooter?: No Wheel 50 feet with 2 turns (QC: 9 Type: N/A Wheel 150 feet: 9 Type: N/A PT Plan Problem List Problem List: Activity Tolerance, Functional Strength, Safety, Balance, Gait, Transfer, Bed Mobility Treatment/Plan Treatment Plan: Continue Plan of Care Treatment Plan: Bed Mobility, Concurrent Therapy, Education, Functional Activity Luis Enrique, Functional Strength, Group Therapy, Gait, Safety, Therapeutic Exercise, Transfers Treatment Duration: May 13, 2023 Frequency: At least 5 of 7 days/Wk (IRF) Estimated Hrs Per Day: 1.5 hours per day Patient and/or Family Agrees t: Yes Safety Risks/Education Patient Education: Gait Training, Transfer Techniques, Issued Written HEP, Safety Issues Teaching Recipient: Patient Teaching Methods: Demonstration, Discussion Response to Teaching: Verbalize Understanding, Return Demonstration, Reinforcement Needed Discharge Recommendations Therapy Discharge Recommendati: Home & Family Equpiment Recommendations-D/C: Front Wheeled Walker Discharge Status/Home Program cont per POC Barriers to Progress balance Target Placement home Time Time In: 1045 Time Out: 1145 DATE: May 07, 2023 Total Billed Treatment Time: 60 Total Billed Treatment 60 min 1 visit EX x 1 FA x 1 GT x 2 DINESH REDDY PT May 07, 2023 15:23
[2023-05-07 19:56] VITALS: BP 172/79
[2023-05-07] MEDS: DONEPEZIL 10 MG (ARICEPT) TAB PO SCH (20:30)
[2023-05-07] MEDS: FAMOTIDINE 20 MG (PEPCID) TABLET PO SCH (20:30)
[2023-05-07] MEDS: QUININE SULF PO SCH (20:30)
[2023-05-07] MEDS: MELATONIN 3 MG TABLET PO PRN (20:30)
[2023-05-07] MEDS: LIDOCAINE PATCH REMOVAL TP SCH (20:33)
--- NOTE | 2023-05-08 06:49 | PM&R Progress Note ---
Subjective HPI/CC On Admission Date Seen by Provider: May 08, 2023 Time Seen by Provider: 11:00 Subjective/Events-last exam 05/08/2023: Doing very well No major issues No pain Walking well 05/07/2023: Patient doing much better Ambulating without cane No falls No pain 05/06/2023: Patient doing a lot better No pain is reported Reconciled all home meds Participating in therapy Family visiting Review of Systems General: Fatigue, Malaise Objective Exam Vital Signs Vital Signs Date Time Temp Pulse Resp B/P (MAP) Pulse Ox O2 Delivery O2 Flow Rate FiO2 05/08/23 12:43 94 05/08/23 08:36 Room Air 05/08/23 07:37 95 0.00 05/08/23 07:28 36.4 20 142/83 (102) Capillary Refill : General Appearance: No Apparent Distress, WD/WN, Chronically ill HEENT: PERRL/EOMI, Normal ENT Inspection, Pharynx Normal Neck: Full Range of Motion, Normal Inspection, Non Tender, Supple, Carotid Bru it Respiratory: Chest Non Tender, Lungs Clear, Normal Breath Sounds, No Accessory Muscle Use, No Respiratory Distress Cardiovascular: Regular Rate, Rhythm, No Edema, No Gallop, No JVD, No Murmur, Normal Peripheral Pulses Gastrointestinal: Normal Bowel Sounds, No Organomegaly, No Pulsatile Mass, Non Tender, Soft Back: Normal Inspection, No CVA Tenderness, No Vertebral Tenderness Extremity: Normal Capillary Refill, Normal Inspection, Normal Range of Motion, Non Tender, No Calf Tenderness, No Pedal Edema Neurologic/Psychiatric: Alert, Oriented x3, Normal Mood/Affect, tax staff accountant II-XII Norm as 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 FIM Transfers Therapy Code Descriptions/Definitions Functional [place] Measure: 0=Not Assessed/NA 4=Minimal Assistance 1=Total Assistance 5=Supervision or Setup 2=Maximal Assistance 6=Modified [place] 3=Moderate Assistance 7=Complete IndependenceSCALE: Activities may be completed with or without assistive devices. 8-Vjkqmhzbdh-wlxjkbs completes the activity by him/herself with no assistance from a helper. 5-Set-up or Clean-up Assistance-helper sets up or cleans up; patient completes activity. [place] assists only prior to or following the activity. 4-Supervision or Touching Assistance-helper provides verbal cues and/or touchi ng/steadying and/or contact guard assistance as patient completes activity. Assistance may be provided throughout the activity or intermittently. 3-Partial/Moderate Assistance-helper does LESS THAN HALF the effort. [place] lifts, holds or supports trunk or limbs, but provides less than half the effort. 2-Substantial/Maximal Assistance-helper does MORE THAN HALF the effort. [place] lifts or holds trunk or limbs and provides more than half the effort. 8-Pamkqstsb-hsfbao does ALL the effort. Patient does none of the effort to complete the activity. Or, the assistance of 2 or more helpers is required for the patient to complete the activity. If activity was not attempted, code reason: 7-Patient Refused. 9-Not Applicable-not attempted and the patient did not perform the activity before the current illness, exacerbation or injury. 10-Not Attempted due to Environmental Limitations-(lack of equipment, weather restraints, etc.). 88-Not Attempted due to Medical Conditions or Safety Concerns. Roll Left to Right (QC): 4 (SBA) Sit to Lying (QC): 4 Sit to Stand (QC): 4 Chair/Huu-os-Omimz Xfer(QC): 4 (SBA) Car Transfer (QC): 4 (SBA) Gait Training Does the Patient Walk?: Yes Walk 10 feet (QC): 4 Walk 50 ft with 2 Turns(QC): 4 Walk 150 ft (QC): 4 Walking 10ft/uneven surface-QC: 4 (SBA) Gait Persons Needed: 1 Gait Assistive Device: None Wheelchair Training Does the Pt Use a Wheelchair?: No Wheel 50 ft with 2 turns (QC): 9 Wheel 150 ft (QC): 9 Type of Wheelchair: N/A Stair Training #of Steps: 12 1 Step (curb) (QC): 4 (SBA) 4 Steps (QC): 4 (SBA) 12 Steps (QC): 4 (SBA) Balance Picking up an Object (QC): 4 (SBA) ADL-Treatment Eating (QC): 6 Oral Hygiene (QC): 6 (Pt able to complete partially seated and partically standing at sink IND. ) Shower/Bathe Self (QC): 4 (Supervision) Upper Body Dressing (QC): 5 Lower Body Dressing (QC): 4 On/Off Footwear (QC): 5 Toileting Hygiene (QC): 4 Assessment/Plan Assessment and Plan Assess & Plan/Chief Complaint Assessment: CVA with left-sided weakness History of CVA Hypertension Bladder cancer Stomach ulcer history Irritable bowel syndrome Plan: Supportive care Blood pressure Imodium PT and OT 05/06/2023: Continue aggressive rehab Supportive care 05/07/2023: Continue aggressive treatment 05/08/2023: Monitor closely Maintain Tely (1) Ischemic stroke Status: Acute JOHN AGUIRRE DO May 08, 2023 06:49
--- NOTE | 2023-05-08 07:27 | Occupational Ther Daily Note ---
OT Current Status-Daily Note Subjective Pt alert, sitting EOB. Pt agrees to therapy. No c/o pain. VS- BP 142/83, P 89, O2 97. Mental Status/Objective Patient Orientation: Person, Place, Time, Situation Attachments: Telemetry ADL-Treatment Pt independent with toileting and toilet transfer. Pt independent with oral care standing at sink. Pt independent eating. Pt able to gather clothing and talk on phone without using AD for stability, no LOB noted. Pt ambulating with wide LUIS FELIPE when not using FWW and will reach for eleno items when going from room to toilet. Sitting on shower bench 90% of the time, pt completes shower independently. Independent with UBD, LBD and footwear. Pt takes increased time to complete tasks due to loquaciousness and taking multiple recovery breaks. After session, pt in care of PT. All needs met. Therapy Code Descriptions/Definitions Functional [place] Measure: 0=Not Assessed/NA 4=Minimal Assistance 1=Total Assistance 5=Supervision or Setup 2=Maximal Assistance 6=Modified [place] 3=Moderate Assistance 7=Complete IndependenceSCALE: Activities may be completed with or without assistive devices. 3-Ulonmerupw-budjzuk completes the activity by him/herself with no assistance from a helper. 5-Set-up or Clean-up Assistance-helper sets up or cleans up; patient completes activity. [place] assists only prior to or following the activity. 4-Supervision or Touching Assistance-helper provides verbal cues and/or touching/steadying and/or contact guard assistance as patient completes activity. Assistance may be provided throughout the activity or intermittently. 3-Partial/Moderate Assistance-helper does LESS THAN HALF the effort. [place] lifts, holds or supports trunk or limbs, but provides less than half the effort. 2-Substantial/Maximal Assistance-helper does MORE THAN HALF the effort. [place] lifts or holds trunk or limbs and provides more than half the effort. 6-Wllwxsrdg-fycvbx does ALL the effort. Patient does none of the effort to complete the activity. Or, the assistance of 2 or more helpers is required for the patient to complete the activity. If activity was not attempted, code reason: 7-Patient Refused. 9-Not Applicable-not attempted and the patient did not perform the activity before the current illness, exacerbation or injury. 10-Not Attempted due to Environmental Limitations-(lack of equipment, weather restraints, etc.). 88-Not Attempted due to Medical Conditions or Safety Concerns. Eating (QC): 6 Oral Hygiene (QC): 6 Shower/Bathe Self (QC): 6 Upper Body Dressing (QC): 6 Lower Body Dressing (QC): 6 On/Off Footwear: 6 Toileting Hygiene (QC): 6 Toilet Transfer (QC): 6 OT Half-Way Goals Light Armored Reconnaissance Officer Goals Time Frame: May 19, 2023 Acute change in mental status: 0 Inattention: 0 Disorganized thinkin Altered level of consciousness: 0 Eating (QC): 6 Oral Hygiene (QC): 6 Toileting Hygiene (QC): 6 Shower/Bathe Self (QC): 6 Upper Body Dressing (QC): 6 Lower Body Dressing (QC): 6 On/Off Footwear (QC): 6 Additional Goals: 1-Demonstrate ADL Tasks, 2-Verbalize Understanding, 3- ImproveStrength/Luis Enrique 1=Demonstrate adherence to instructed precautions during ADL tasks. 2=Patient will verbalize/demonstrate understanding of assistive devices/modifications for ADL. 3=Patient will improve strength/tolerance for activity to enable patient to perform ADL's. OT Education/Plan Problem List/Assessment Assessment: Decreased Activ Tolerance, Impaired Self-Care Skills Discharge Recommendations Plan/Recommendations: Continue POC Treatment Plan/Plan of Care Patient would benefit from OT for education, treatment and training to promote independence in ADL's, mobility, safety and/or upper extremity function for ADL's. Plan of Care: ADL Retraining, Functional Mobility, Group Exercise/Act as Ind, UE Funct Exercise/Act, UE Neuromus Re-Ed/Coord Treatment Duration: May 19, 2023 Frequency: At least 5 of 7 days/Wk (IRF) Estimated Hrs Per Day: 1.5 hours per day Agreement: Yes Rehab Potential: Good Time Start Time: 07:00 Stop Time: 08:30 DATE: May 08, 2023 Total Time Billed (hr/min): 90 Billed Treatment Time 1 visit-ADL 6 (90 min) HINA PAZ May 08, 2023 07:27
[2023-05-08 07:28] VITALS: BP 142/83
[2023-05-08] MEDS: STIOLTO IH SCH (07:36)
[2023-05-08] MEDS: RESPIMAT IH SCH (07:36)
[2023-05-08] MEDS: amLODIPine 5 MG (NORVASC) TAB PO SCH (09:16)
[2023-05-08] MEDS: buPROPion 75 MG (WELLBUTRIN) TAB PO SCH (09:16)
[2023-05-08] MEDS: CLOPIDOGREL 75 MG (PLAVIX) TABLET PO SCH (09:16)
[2023-05-08] MEDS: ASPIRIN E.C. 81 MG (ECOTRIN) TAB PO SCH (09:16)
[2023-05-08] MEDS: LORATADINE (CLARITIN) 10 MG TAB PO SCH (09:16)
[2023-05-08] MEDS: CALCIUM CARBONATE 600 MG (CALCARB) TAB PO SCH (09:16)
[2023-05-08] MEDS: LIDOCAINE 4% (SALONPAS) PATCH TP SCH (09:17)
[2023-05-08] MEDS: ENOXAPARIN 40 MG/0.4 ML (LOVENOX) SYR SC SCH (09:17)
[2023-05-08] MEDS: DULoxetine 30 MG (CYMBALTA) CAP PO SCH (09:17)
[2023-05-08] MEDS: VITAMIN D3 25 MCG (1,000 UNITS) TABLET PO SCH (09:17)
[2023-05-08] MEDS: GABAPENTIN 100 MG (NEURONTIN) CAP PO SCH ×3 (09:17→20:18)
[2023-05-08] MEDS: DOCUSATE SODIUM 100 MG (COLACE) CAP PO SCH ×2 (09:18→19:45)
[2023-05-08] MEDS: polyethylene glycoL POWDER 17 GM (MIRALAX) PACK PO SCH ×2 (09:18→19:45)
[2023-05-08] MEDS: SENNA W/DOCUSATE (SENOKOT S) TABLET PO SCH ×2 (09:18→19:46)
[2023-05-08] MEDS: DICLOFENAC 1% GEL 100 GM (VOLTAREN) TUBE TP SCH ×4 (09:19→20:19)
[2023-05-08] MEDS: RABEPRAZOLE 20 MG PO SCH (09:20)
[2023-05-08] MEDS: GEMTESA 75 MG PO SCH (09:20)
[2023-05-08] MEDS: FLUTICASONE NASAL SPRAY (FLONASE) 16 GM BTL NS SCH (09:21)
[2023-05-08] MEDS: lisINopril 20 MG (PRINIVIL) TABLET PO SCH (09:50)
[2023-05-08] MEDS: ETODOLAC 300 MG (LODINE) CAP PO SCH ×2 (09:50→17:02)
[2023-05-08] MEDS: ESTROGENS CONJ 0.625 MG (PREMARIN) TAB PO SCH (09:50)
--- NOTE | 2023-05-08 10:11 | Physical Therapy Daily Note ---
PT Daily Note-Current Subjective Pt in bed upon arrival and agrees to PT. No reports of pain. Pain Section J - Health Conditions 1. Rarely or not at all 2. Occasionally 3. Frequently 4. Almost constantly 8. Unable to answer Pain Effect on Sleep: 1 Pain Interference with Therapy: 1 Pain Interference w/Day-to-Day: 1 Mental Status Patient Orientation: Person, Place, Time, Situation Transfers SCALE: Activities may be completed with or without assistive devices. 5-Unhhdkjbgf-bqhcpvu completes the activity by him/herself with no assistance from a helper. 5-Set-up or Clean-up Assistance-helper sets up or cleans up; patient completes activity. [place] assists only prior to or following the activity. 4-Supervision or Touching Assistance-helper provides verbal cues and/or touching/steadying and/or contact guard assistance as patient completes activity. Assistance may be provided throughout the activity or intermittently. 3-Partial/Moderate Assistance-helper does LESS THAN HALF the effort. [place] lifts, holds or supports trunk or limbs, but provides less than half the effort. 2-Substantial/Maximal Assistance-helper does MORE THAN HALF the effort. [place] lifts or holds trunk or limbs and provides more than half the effort. 9-Vzindmwsd-qcflxv does ALL the effort. Patient does none of the effort to complete the activity. Or, the assistance of 2 or more helpers is required for the patient to complete the activity. If activity was not attempted, code reason: 7-Patient Refused. 9-Not Applicable-not attempted and the patient did not perform the activity before the current illness, exacerbation or injury. 10-Not Attempted due to Environmental Limitations-(lack of equipment, weather restraints, etc.). 88-Not Attempted due to Medical Conditions or Safety Concerns. Sit to Stand (QC): 5 Weight Bearing Right Lower Extremity: Right Full Weight Bearing Left Lower Extremity: Left Full Weight Bearing Gait Training Does the Patient Walk?: Yes Distance: 350' x 2 100' x 1 Walk 10 feet (QC): 5 Walk 50 ft with 2 Turns(QC): 5 Walk 150 ft (QC): 5 Exercises Seated Therapy Exercises: Sit to stand, Long arc quads, Hip flexion Seated Reps: 10 Standing: Heel/toe raises, 3 way Ex=Flex, Abd, Ext, Marching, Step-ups, Weight shifts Standing Reps: 20 Treatments Pt amb from room into [place] and around into gym. Pt then performed nustep and then did standing exs in // bars. Pt then needed to use BR and amb back to room. Then amb back to therapy gym and complete other standing exercises. Pt then amb in [place] again then back to room. All needs met and call light nearby as PT departs. Assessment Current Status: Good Progress Pt required verbal cues while doing balance exercises and tolerated treatment well. Pt fatigued following first bout of standing exs but did well w/ entire treatment. PT Engineer Sergeant Goals Engineer Sergeant Goals PT Engineer Sergeant Goals Time Frame: May 13, 2023 Roll Left & Right (QC): 6 (Pt will be Mod I with all aspects of functional mobility with the least restrictive AD. ) Sit to Lying (QC): 6 (Pt will be Mod I with all aspects of functional mobility with the least restrictive AD. ) Lying-Sitting on Side/Bed(QC): 6 (Pt will be Mod I with all aspects of functional mobility with the least restrictive AD. ) Sit to Stand (QC): 6 (Pt will be Mod I with all aspects of functional mobility with the least restrictive AD. ) Chair/Jmf-ue-Twfvy Xfer(QC): 6 (Pt will be Mod I with all aspects of functional mobility with the least restrictive AD. ) Toilet Transfer (QC): 6 (Pt will be Mod I with all aspects of functional mobility with the least restrictive AD. ) Car Transfer (QC): 6 (Pt will be Mod I with all aspects of functional mobility with the least restrictive AD. ) Does the Patient Walk: Yes Walk 10 feet (QC): 6 (Pt will be Mod I with all aspects of functional mobility with the least restrictive AD. ) Walk 50ft with 2 Turns (QC): 6 (Pt will be Mod I with all aspects of functional mobility with the least restrictive AD. ) Walk 150 ft (QC): 6 (Pt will be Mod I with all aspects of functional mobility with the least restrictive AD. ) Walking 10ft on Uneven Surface: 6 (Pt will be Mod I with all aspects of functional mobility with the least restrictive AD. ) 1 Step (curb) (QC): 6 (Pt will be Mod I with all aspects of functional mobility with the least restrictive AD. ) 4 Steps (QC): 6 (Pt will be Mod I with all aspects of functional mobility with the least restrictive AD. ) 12 Steps (QC): 6 (Pt will be Mod I with all aspects of functional mobility with the least restrictive AD. ) Picking up an Object (QC): 6 (Pt will be Mod I with all aspects of functional mobility with the least restrictive AD. ) Does the Pt use WC or Scooter?: No Wheel 50 feet with 2 turns (QC: 9 Type: N/A Wheel 150 feet: 9 Type: N/A PT Plan Problem List Problem List: Activity Tolerance, Functional Strength Treatment/Plan Treatment Plan: Continue Plan of Care Treatment Plan: Bed Mobility, Concurrent Therapy, Education, Functional Activity Luis Enrique, Functional Strength, Group Therapy, Gait, Safety, Therapeutic Exercise, Transfers Treatment Duration: May 13, 2023 Frequency: At least 5 of 7 days/Wk (IRF) Estimated Hrs Per Day: 1.5 hours per day Patient and/or Family Agrees t: Yes Safety Risks/Education Patient Education: Correct Positioning Teaching Methods: Discussion Response to Teaching: Return Demonstration Time Time In: 0830 Time Out: 1000 DATE: May 08, 2023 Total Billed Treatment Time: 90 Total Billed Treatment 1, Ex x 4, GT x 2 TYREE BOO PTA May 08, 2023 10:11
[2023-05-08 19:15] VITALS: BP 125/77
[2023-05-08] MEDS: ACETAMINOPHEN ER 650 MG (TYLENOL ARTHRITIS) PO PRN (20:17)
[2023-05-08] MEDS: QUININE SULF PO SCH (20:17)
[2023-05-08] MEDS: DONEPEZIL 10 MG (ARICEPT) TAB PO SCH (20:17)
[2023-05-08] MEDS: FAMOTIDINE 20 MG (PEPCID) TABLET PO SCH (20:18)
[2023-05-08] MEDS: LIDOCAINE PATCH REMOVAL TP SCH (20:18)
[2023-05-08] MEDS: MELATONIN 3 MG TABLET PO PRN (20:18)
[2023-05-09] MEDS: RESPIMAT IH SCH (07:29)
[2023-05-09] MEDS: STIOLTO IH SCH (07:29)
[2023-05-09 07:45] VITALS: BP 189/86
--- NOTE | 2023-05-09 07:46 | PM&R Progress Note ---
Subjective HPI/CC On Admission Date Seen by Provider: May 09, 2023 Time Seen by Provider: 15:00 Subjective/Events-last exam 05/09/2023: Patient doing really well Ambulating around really well Check meds and labs 05/08/2023: Doing very well No major issues No pain Walking well 05/07/2023: Patient doing much better Ambulating without cane No falls No pain 05/06/2023: Patient doing a lot better No pain is reported Reconciled all home meds Participating in therapy Family visiting Review of Systems General: Fatigue, Malaise Objective Exam Vital Signs Vital Signs Date Time Temp Pulse Resp B/P (MAP) Pulse Ox O2 Delivery O2 Flow Rate FiO2 05/09/23 19:17 36.0 86 18 138/78 (98) 95 Room Air 05/09/23 07:29 0.00 Capillary Refill : General Appearance: No Apparent Distress, WD/WN, Chronically ill HEENT: PERRL/EOMI, Normal ENT Inspection, Pharynx Normal Neck: Full Range of Motion, Normal Inspection, Non Tender, Supple, Carotid Bruit Respiratory: Chest Non Tender, Lungs Clear, Normal Breath Sounds, No Accessory Muscle Use, No Respiratory Distress Cardiovascular: Regular Rate, Rhythm, No Edema, No Gallop, No JVD, No Murmur, Normal Peripheral Pulses Gastrointestinal: Normal Bowel Sounds, No Organomegaly, No Pulsatile Mass, Non Tender, Soft Back: Normal Inspection, No CVA Tenderness, No Vertebral Tenderness Extremity: Normal Capillary Refill, Normal Inspection, Normal Range of Motion, Non Tender, No Calf Tenderness, No Pedal Edema Neurologic/Psychiatric: Alert, Oriented x3, Normal Mood/Affect, shift superintendent caustic cresylate II-XII Norm as 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 FIM Transfers Therapy Code Descriptions/Definitions Functional [place] Measure: 0=Not Assessed/NA 4=Minimal Assistance 1=Total Assistance 5=Supervision or Setup 2=Maximal Assistance 6=Modified [place] 3=Moderate Assistance 7=Complete IndependenceSCALE: Activities may be completed with or without assistive devices. 3-Vdjbzrqwoq-vjwbryu completes the activity by him/herself with no assistance from a helper. 5-Set-up or Clean-up Assistance-helper sets up or cleans up; patient completes activity. [place] assists only prior to or following the activity. 4-Supervision or Touching Assistance-helper provides verbal cues and/or touching/steadying and/or contact guard assistance as patient completes activity. Assistance may be provided throughout the activity or intermittently. 3-Partial/Moderate Assistance-helper does LESS THAN HALF the effort. [place] lifts, holds or supports trunk or limbs, but provides less than half the effort. 2-Substantial/Maximal Assistance-helper does MORE THAN HALF the effort. [place] lifts or holds trunk or limbs and provides more than half the effort. 9-Bfhtmumnb-cfongm does ALL the effort. Patient does none of the effort to complete the activity. Or, the assistance of 2 or more helpers is required for the patient to complete the activity. If activity was not attempted, code reason: 7-Patient Refused. 9-Not Applicable-not attempted and the patient did not perform the activity before the current illness, exacerbation or injury. 10-Not Attempted due to Environmental Limitations-(lack of equipment, weather restraints, etc.). 88-Not Attempted due to Medical Conditions or Safety Concerns. Roll Left to Right (QC): 4 (SBA) Sit to Lying (QC): 4 Sit to Stand (QC): 5 Chair/Cux-na-Xahba Xfer(QC): 4 (SBA) Car Transfer (QC): 4 (SBA) Gait Training Does the Patient Walk?: Yes Distance: 350' x 2 100' x 1 Walk 10 feet (QC): 5 Walk 50 ft with 2 Turns(QC): 5 Walk 150 ft (QC): 5 Walking 10ft/uneven surface-QC: 4 (SBA) Gait Persons Needed: 1 Gait Assistive Device: None Wheelchair Training Does the Pt Use a Wheelchair?: No Wheel 50 ft with 2 turns (QC): 9 Wheel 150 ft (QC): 9 Type of Wheelchair: N/A Stair Training #of Steps: 12 1 Step (curb) (QC): 4 (SBA) 4 Steps (QC): 4 (SBA) 12 Steps (QC): 4 (SBA) Balance Picking up an Object (QC): 4 (SBA) ADL-Treatment Eating (QC): 6 Oral Hygiene (QC): 6 Shower/Bathe Self (QC): 6 Upper Body Dressing (QC): 6 Lower Body Dressing (QC): 6 On/Off Footwear (QC): 6 Toileting Hygiene (QC): 6 Toilet Transfer (QC): 6 Assessment/Plan Assessment and Plan Assess & Plan/Chief Complaint Assessment: CVA with left-sided weakness History of CVA Hypertension Bladder cancer Stomach ulcer history Irritable bowel syndrome Plan: Supportive care Blood pressure Imodium PT and OT 05/06/2023: Continue aggressive rehab Supportive care 05/07/2023: Continue aggressive treatment 05/08/2023: Monitor closely Maintain Tely 05/09/2023: Continue aggressive treatment Monitor blood pressure (1) Ischemic stroke Status: Acute JOHN AGUIRRE DO May 09, 2023 07:46
[2023-05-09 07:56] VITALS: BP 168/77
[2023-05-09] MEDS: LIDOCAINE 4% (SALONPAS) PATCH TP SCH (07:58)
[2023-05-09] MEDS: ESTROGENS CONJ 0.625 MG (PREMARIN) TAB PO SCH (07:59)
[2023-05-09] MEDS: GABAPENTIN 100 MG (NEURONTIN) CAP PO SCH ×3 (07:59→20:27)
[2023-05-09] MEDS: VITAMIN D3 25 MCG (1,000 UNITS) TABLET PO SCH (07:59)
[2023-05-09] MEDS: ASPIRIN E.C. 81 MG (ECOTRIN) TAB PO SCH (07:59)
[2023-05-09] MEDS: LORATADINE (CLARITIN) 10 MG TAB PO SCH (07:59)
[2023-05-09] MEDS: lisINopril 20 MG (PRINIVIL) TABLET PO SCH (07:59)
[2023-05-09] MEDS: amLODIPine 5 MG (NORVASC) TAB PO SCH (08:00)
[2023-05-09] MEDS: CLOPIDOGREL 75 MG (PLAVIX) TABLET PO SCH (08:00)
[2023-05-09] MEDS: CALCIUM CARBONATE 600 MG (CALCARB) TAB PO SCH (08:00)
[2023-05-09] MEDS: buPROPion 75 MG (WELLBUTRIN) TAB PO SCH (08:00)
[2023-05-09] MEDS: DULoxetine 30 MG (CYMBALTA) CAP PO SCH (08:00)
[2023-05-09] MEDS: ETODOLAC 300 MG (LODINE) CAP PO SCH ×2 (08:00→17:02)
[2023-05-09] MEDS: polyethylene glycoL POWDER 17 GM (MIRALAX) PACK PO SCH ×2 (08:01→21:00)
[2023-05-09] MEDS: SENNA W/DOCUSATE (SENOKOT S) TABLET PO SCH ×2 (08:01→21:00)
[2023-05-09] MEDS: ENOXAPARIN 40 MG/0.4 ML (LOVENOX) SYR SC SCH (08:01)
[2023-05-09] MEDS: DOCUSATE SODIUM 100 MG (COLACE) CAP PO SCH ×2 (08:01→21:00)
[2023-05-09] MEDS: FLUTICASONE NASAL SPRAY (FLONASE) 16 GM BTL NS SCH (08:10)
[2023-05-09] MEDS: GEMTESA 75 MG PO SCH (08:11)
[2023-05-09] MEDS: DICLOFENAC 1% GEL 100 GM (VOLTAREN) TUBE TP SCH ×4 (08:11→20:28)
[2023-05-09] MEDS: RABEPRAZOLE 20 MG PO SCH (08:11)
[2023-05-09 09:25] VITALS: BP 158/71
[2023-05-09] MEDS: ACETAMINOPHEN ER 650 MG (TYLENOL ARTHRITIS) PO PRN (14:42)
[2023-05-09 19:17] VITALS: BP 138/78
[2023-05-09] MEDS: QUININE SULF PO SCH (20:27)
[2023-05-09] MEDS: MELATONIN 3 MG TABLET PO PRN (20:27)
[2023-05-09] MEDS: FAMOTIDINE 20 MG (PEPCID) TABLET PO SCH (20:27)
[2023-05-09] MEDS: DONEPEZIL 10 MG (ARICEPT) TAB PO SCH (20:27)
[2023-05-09] MEDS: LIDOCAINE PATCH REMOVAL TP SCH (20:30)
[2023-05-10 05:29] LABS: BASOPHILS # (AUTO) 0.1 10^3/uL (0.0-0.1); BASOPHILS % (AUTO) 1 % (0-10); EOSINOPHILS # (AUTO) 0.3 10^3/uL (0.0-0.3); EOSINOPHILS % (AUTO) 2 % (0-10); HEMATOCRIT 39 % (35-52); HEMOGLOBIN 13.1 g/dL (11.5-16.0); LYMPHOCYTES # (AUTO) 1.9 10^3/uL (1.0-4.0); LYMPHOCYTES % (AUTO) 18 % (12-44); MEAN CORPUSCULAR HEMOGLOBIN 30 pg (25-34); MEAN CORPUSCULAR HGB CONC 34 g/dL (32-36); MEAN CORPUSCULAR VOLUME 88 fL (80-99); MONOCYTES # (AUTO) 0.8 10^3/uL (0.0-1.0); MONOCYTES % (AUTO) 8 % (0-12); NEUTROPHILS # (AUTO) 7.2 10^3/uL (1.8-7.8); NEUTROPHILS % (AUTO) 70 % (42-75); PLATELET COUNT 363 10^3/uL (130-400); WHITE BLOOD COUNT 10.2 10^3/uL (4.3-11.0)
[2023-05-10 05:51] LABS: ALBUMIN 3.6 GM/DL (3.2-4.5)
[2023-05-10 05:52] LABS: POTASSIUM 3.8 MMOL/L (3.6-5.0)
[2023-05-10 05:53] LABS: CALCIUM 8.9 MG/DL (8.5-10.1)
[2023-05-10 05:54] LABS: TOTAL PROTEIN 5.9 GM/DL (6.4-8.2)
[2023-05-10 05:56] LABS: BILIRUBIN,TOTAL 0.3 MG/DL (0.1-1.0)
[2023-05-10 05:58] LABS: CREATININE SERUM 0.75 MG/DL (0.60-1.30)
--- NOTE | 2023-05-10 06:27 | PM&R Progress Note ---
Subjective HPI/CC On Admission Date Seen by Provider: May 10, 2023 Time Seen by Provider: 09:00 Subjective/Events-last exam 05/10/2023: Ready for discharge tomorrow No pain is reported No falls 05/09/2023: Patient doing really well Ambulating around really well Check meds and labs 05/08/2023: Doing very well No major issues No pain Walking well 05/07/2023: Patient doing much better Ambulating without cane No falls No pain 05/06/2023: Patient doing a lot better No pain is reported Reconciled all home meds Participating in therapy Family visiting Review of Systems General: Fatigue, Malaise Neurological: Weakness Objective Exam Vital Signs Vital Signs Date Time Temp Pulse Resp B/P (MAP) Pulse Ox O2 Delivery O2 Flow Rate FiO2 05/10/23 20:07 36.4 83 20 162/88 (112) 98 Room Air 05/09/23 07:29 0.00 Capillary Refill : General Appearance: No Apparent Distress, WD/WN, Chronically ill HEENT: PERRL/EOMI, Normal ENT Inspection, Pharynx Normal Neck: Full Range of Motion, Normal Inspection, Non Tender, Supple, Carotid Bruit Respiratory: Chest Non Tender, Lungs Clear, Normal Breath Sounds, No Accessory Muscle Use, No Respiratory Distress Cardiovascular: Regular Rate, Rhythm, No Edema, No Gallop, No JVD, No Murmur, Normal Peripheral Pulses Gastrointestinal: Normal Bowel Sounds, No Organomegaly, No Pulsatile Mass, Non Tender, Soft Back: Normal Inspection, No CVA Tenderness, No Vertebral Tenderness Extremity: Normal Capillary Refill, Normal Inspection, Normal Range of Motion, Non Tender, No Calf Tenderness, No Pedal Edema Neurologic/Psychiatric: Alert, Oriented x3, Normal Mood/Affect, optical laboratory technician II-XII Norm as Tested, Abnormal Gait, Depressed Affect, Motor Weakness (Left-sided weakness 3/5 upper and lower extremities) Skin: Normal Color, Warm/Dry Lymphatic: No Adenopathy Results/Procedures Lab Laboratory Tests 05/10/23 04:56 Patient resulted labs reviewed. FIM Transfers Therapy Code Descriptions/Definitions Functional [place] Measure: 0=Not Assessed/NA 4=Minimal Assistance 1=Total Assistance 5=Supervision or Setup 2=Maximal Assistance 6=Modified [place] 3=Moderate Assistance 7=Complete IndependenceSCALE: Activities may be completed with or without assistive devices. 5-Gupmtaejib-zpiqvxh completes the activity by him/herself with no assistance from a helper. 5-Set-up or Clean-up Assistance-helper sets up or cleans up; patient completes activity. [place] assists only prior to or following the activity. 4-Supervision or Touching Assistance-helper provides verbal cues and/or touching/steadying and/or contact guard assistance as patient completes activity. Assistance may be provided throughout the activity or intermittently. 3-Partial/Moderate Assistance-helper does LESS THAN HALF the effort. [place] lifts, holds or supports trunk or limbs, but provides less than half the effort. 2-Substantial/Maximal Assistance-helper does MORE THAN HALF the effort. [place] lifts or holds trunk or limbs and provides more than half the effort. 7-Hpanmjehk-ombrsq does ALL the effort. Patient does none of the effort to complete the activity. Or, the assistance of 2 or more helpers is required for the patient to complete the activity. If activity was not attempted, code reason: 7-Patient Refused. 9-Not Applicable-not attempted and the patient did not perform the activity before the current illness, exacerbation or injury. 10-Not Attempted due to Environmental Limitations-(lack of equipment, weather restraints, etc.). 88-Not Attempted due to Medical Conditions or Safety Concerns. Roll Left to Right (QC): 4 (SBA) Sit to Lying (QC): 4 Sit to Stand (QC): 5 Chair/Ukc-jn-Saijt Xfer(QC): 4 (SBA) Car Transfer (QC): 4 (SBA) Gait Training Does the Patient Walk?: Yes Distance: 350' x 2 100' x 1 Walk 10 feet (QC): 5 Walk 50 ft with 2 Turns(QC): 5 Walk 150 ft (QC): 5 Walking 10ft/uneven surface-QC: 4 (SBA) Gait Persons Needed: 1 Gait Assistive Device: None Wheelchair Training Does the Pt Use a Wheelchair?: No Wheel 50 ft with 2 turns (QC): 9 Wheel 150 ft (QC): 9 Type of Wheelchair: N/A Stair Training #of Steps: 12 1 Step (curb) (QC): 4 (SBA) 4 Steps (QC): 4 (SBA) 12 Steps (QC): 4 (SBA) Balance Picking up an Object (QC): 4 (SBA) ADL-Treatment Eating (QC): 6 Oral Hygiene (QC): 6 Shower/Bathe Self (QC): 6 Upper Body Dressing (QC): 6 Lower Body Dressing (QC): 6 On/Off Footwear (QC): 6 Toileting Hygiene (QC): 6 Toilet Transfer (QC): 6 Assessment/Plan Assessment and Plan Assess & Plan/Chief Complaint Assessment: CVA with left-sided weakness History of CVA Hypertension Bladder cancer Stomach ulcer history Irritable bowel syndrome Plan: Supportive care Blood pressure Imodium PT and OT 05/06/2023: Continue aggressive rehab Supportive care 05/07/2023: Continue aggressive treatment 05/08/2023: Monitor closely Maintain Tely 05/09/2023: Continue aggressive treatment Monitor blood pressure 05/10/2023: Continue supportive care Discharge home tomorrow (1) Ischemic stroke Status: Acute JOHN AGUIRRE DO May 10, 2023 06:27
[2023-05-10 07:43] VITALS: BP 187/79
[2023-05-10] MEDS: DULoxetine 30 MG (CYMBALTA) CAP PO SCH (08:15)
[2023-05-10] MEDS: buPROPion 75 MG (WELLBUTRIN) TAB PO SCH (08:15)
[2023-05-10] MEDS: GABAPENTIN 100 MG (NEURONTIN) CAP PO SCH ×3 (08:15→21:50)
[2023-05-10] MEDS: ASPIRIN E.C. 81 MG (ECOTRIN) TAB PO SCH (08:16)
[2023-05-10] MEDS: LORATADINE (CLARITIN) 10 MG TAB PO SCH (08:16)
[2023-05-10] MEDS: CLOPIDOGREL 75 MG (PLAVIX) TABLET PO SCH (08:16)
[2023-05-10] MEDS: CALCIUM CARBONATE 600 MG (CALCARB) TAB PO SCH (08:16)
[2023-05-10] MEDS: ESTROGENS CONJ 0.625 MG (PREMARIN) TAB PO SCH (08:16)
[2023-05-10] MEDS: amLODIPine 5 MG (NORVASC) TAB PO SCH (08:16)
[2023-05-10] MEDS: VITAMIN D3 25 MCG (1,000 UNITS) TABLET PO SCH (08:16)
[2023-05-10] MEDS: RABEPRAZOLE 20 MG PO SCH (08:19)
[2023-05-10] MEDS: LIDOCAINE 4% (SALONPAS) PATCH TP SCH (08:21)
[2023-05-10] MEDS: ENOXAPARIN 40 MG/0.4 ML (LOVENOX) SYR SC SCH (08:21)
[2023-05-10] MEDS: FLUTICASONE NASAL SPRAY (FLONASE) 16 GM BTL NS SCH (08:22)
[2023-05-10] MEDS: RESPIMAT IH SCH (08:22)
[2023-05-10] MEDS: STIOLTO IH SCH (08:22)
[2023-05-10] MEDS: GEMTESA 75 MG PO SCH (08:23)
[2023-05-10] MEDS: DICLOFENAC 1% GEL 100 GM (VOLTAREN) TUBE TP SCH ×4 (08:24→21:53)
[2023-05-10] MEDS: polyethylene glycoL POWDER 17 GM (MIRALAX) PACK PO SCH ×2 (08:24→21:53)
[2023-05-10] MEDS: DOCUSATE SODIUM 100 MG (COLACE) CAP PO SCH ×2 (08:24→21:53)
[2023-05-10] MEDS: SENNA W/DOCUSATE (SENOKOT S) TABLET PO SCH ×2 (08:24→21:53)
[2023-05-10] MEDS: ETODOLAC 300 MG (LODINE) CAP PO SCH ×2 (09:02→17:34)
[2023-05-10] MEDS: lisINopril 20 MG (PRINIVIL) TABLET PO SCH (09:02)
[2023-05-10] MEDS ORDERED: ACETAMINOPHEN ER 650 MG (TYLENOL ARTHRITIS) PO PRN (10:15)
--- NOTE | 2023-05-10 10:58 | Physical Therapy Daily Note ---
PT Daily Note-Current Subjective Pt laying Supine in bed upon arrival. Pt agrees to PT. Pain Section J - Health Conditions 1. Rarely or not at all 2. Occasionally 3. Frequently 4. Almost constantly 8. Unable to answer Pain Effect on Sleep: 1 Pain Interference with Therapy: 1 Pain Interference w/Day-to-Day: 1 Mental Status Patient Orientation: Person, Place, Time, Situation Transfers SCALE: Activities may be completed with or without assistive devices. 1-Eufwgumpzz-bujzped completes the activity by him/herself with no assistance from a helper. 5-Set-up or Clean-up Assistance-helper sets up or cleans up; patient completes activity. [place] assists only prior to or following the activity. 4-Supervision or Touching Assistance-helper provides verbal cues and/or touching/steadying and/or contact guard assistance as patient completes activity. Assistance may be provided throughout the activity or intermittently. 3-Partial/Moderate Assistance-helper does LESS THAN HALF the effort. [place] lifts, holds or supports trunk or limbs, but provides less than half the effort. 2-Substantial/Maximal Assistance-helper does MORE THAN HALF the effort. [place] lifts or holds trunk or limbs and provides more than half the effort. 6-Ivzwsrflc-gawyyg does ALL the effort. Patient does none of the effort to complete the activity. Or, the assistance of 2 or more helpers is required for the patient to complete the activity. If activity was not attempted, code reason: 7-Patient Refused. 9-Not Applicable-not attempted and the patient did not perform the activity before the current illness, exacerbation or injury. 10-Not Attempted due to Environmental Limitations-(lack of equipment, weather restraints, etc.). 88-Not Attempted due to Medical Conditions or Safety Concerns. Roll Left & Right (QC): 6 Sit to Lying (QC): 6 Lying to Sitting/Side of Bed(Q: 6 Sit to Stand (QC): 6 Chair/Cuh-ni-Ifraf Xfer(QC): 6 Toilet Transfer (QC): 6 Car Transfer (QC): 6 Weight Bearing Right Lower Extremity: Right Full Weight Bearing Left Lower Extremity: Left Full Weight Bearing Gait Training Does the Patient Walk?: Yes Distance: 600' Walk 10 feet (QC): 6 Walk 50 ft with 2 Turns(QC): 6 Walk 150 ft (QC): 6 Walking 10ft/uneven surface-QC: 6 Gait Assistive Device: None Wheelchair Training Does the Pt Use a Wheelchair?: No Stair Training Stair Training: Handrails/: 2 handrails #of Steps: 12 1 Step (curb) (QC): 6 4 Steps (QC): 6 12 Steps (QC): 6 Stairs: Pattern: Reciprocal Balance Picking up an Object (QC): 6 Exercises Seated Therapy Exercises: Ankle pumps, Sit to stand, Long arc quads, Hip flexion, Hip abd/add, Glut set Seated Reps: 15 Standing: Hip Abduction, Heel/toe raises, Marching, Mini squats, Weight shifts Standing Reps: 15 Treatments Pt completes QC scoring items listed above as well as amb extended distance and completes EX listed above. Pt returns to room at end of tx to rest w/all needs met, call light in hand. Assessment Current Status: Excellent Progress Pt karl. tx well. PT Half-Way Goals Half-Way Goals PT Half-Way Goals Time Frame: May 13, 2023 Roll Left & Right (QC): 6 (Pt will be Mod I with all aspects of functional mobility with the least restrictive AD. ) Sit to Lying (QC): 6 (Pt will be Mod I with all aspects of functional mobility with the least restrictive AD. ) Lying-Sitting on Side/Bed(QC): 6 (Pt will be Mod I with all aspects of functional mobility with the least restrictive AD. ) Sit to Stand (QC): 6 (Pt will be Mod I with all aspects of functional mobility with the least restrictive AD. ) Chair/Mcn-ky-Sixyl Xfer(QC): 6 (Pt will be Mod I with all aspects of functional mobility with the least restrictive AD. ) Toilet Transfer (QC): 6 (Pt will be Mod I with all aspects of functional mobility with the least restrictive AD. ) Car Transfer (QC): 6 (Pt will be Mod I with all aspects of functional mobility with the least restrictive AD. ) Does the Patient Walk: Yes Walk 10 feet (QC): 6 (Pt will be Mod I with all aspects of functional mobility with the least restrictive AD. ) Walk 50ft with 2 Turns (QC): 6 (Pt will be Mod I with all aspects of functional mobility with the least restrictive AD. ) Walk 150 ft (QC): 6 (Pt will be Mod I with all aspects of functional mobility with the least restrictive AD. ) Walking 10ft on Uneven Surface: 6 (Pt will be Mod I with all aspects of functional mobility with the least restrictive AD. ) 1 Step (curb) (QC): 6 (Pt will be Mod I with all aspects of functional mobility with the least restrictive AD. ) 4 Steps (QC): 6 (Pt will be Mod I with all aspects of functional mobility with the least restrictive AD. ) 12 Steps (QC): 6 (Pt will be Mod I with all aspects of functional mobility with the least restrictive AD. ) Picking up an Object (QC): 6 (Pt will be Mod I with all aspects of functional mobility with the least restrictive AD. ) Does the Pt use WC or Scooter?: No Wheel 50 feet with 2 turns (QC: 9 Type: N/A Wheel 150 feet: 9 Type: N/A PT Plan Treatment/Plan Treatment Plan: Continue Plan of Care Treatment Plan: Bed Mobility, Concurrent Therapy, Education, Functional Activity Luis Enrique, Functional Strength, Group Therapy, Gait, Safety, Therapeutic Exercise, Transfers Treatment Duration: May 13, 2023 Frequency: At least 5 of 7 days/Wk (IRF) Estimated Hrs Per Day: 1.5 hours per day Patient and/or Family Agrees t: Yes Time Time In: 800 Time Out: 930 DATE: May 10, 2023 Total Billed Treatment Time: 90 Total Billed Treatment 1, EX x2 (30m), GT x2 (30m) & FA x2 (30m) EMMY CHISHOLM TELEVISION STATION MANAGER May 10, 2023 10:58
[2023-05-10 11:00] VITALS: BP 167/88
--- NOTE | 2023-05-10 11:06 | Occupational Ther Daily Note ---
OT Current Status-Daily Note Subjective Pt found in room in bed. Alert and cooperative. Agreed to therapy. No pain mentioned. Mental Status/Objective Patient Orientation: Person, Place, Time, Situation ADL-Treatment Pt sat EOB independently. Pt ambulated to bathroom and completed toilet hygiene and toilet transfer independently. Pt retrieved all clothing and supplies for shower independently. Pt showered/bathed self, completed oral hygiene standing at sink, and grooming independently. Pt completed upper body and lower body dressing, independently. Pt ambulated to bed and sat EOB, and therapist educated on HEP and gave skilled instruction and redirection when pt was demonstrating and completing 20 reps 1 set. To address fine motor, coordination, and dexterity, pt used medium resistance theraputty, to locate 13 beads. Pt completed a functional activity including laundry management, to ready pt for home. Pt was left in room in bed, call light and phone within reach, all needs met in room. Therapy Code Descriptions/Definitions Functional [place] Measure: 0=Not Assessed/NA 4=Minimal Assistance 1=Total Assistance 5=Supervision or Setup 2=Maximal Assistance 6=Modified [place] 3=Moderate Assistance 7=Complete IndependenceSCALE: Activities may be completed with or without assistive devices. 6-Xrkwrttwxn-buiifhw completes the activity by him/herself with no assistance from a helper. 5-Set-up or Clean-up Assistance-helper sets up or cleans up; patient completes activity. [place] assists only prior to or following the activity. 4-Supervision or Touching Assistance-helper provides verbal cues and/or touching/steadying and/or contact guard assistance as patient completes activity. Assistance may be provided throughout the activity or intermittently. 3-Partial/Moderate Assistance-helper does LESS THAN HALF the effort. [place] lifts, holds or supports trunk or limbs, but provides less than half the effort. 2-Substantial/Maximal Assistance-helper does MORE THAN HALF the effort. [place] lifts or holds trunk or limbs and provides more than half the effort. 7-Rbvtqbwbv-nvnvoe does ALL the effort. Patient does none of the effort to complete the activity. Or, the assistance of 2 or more helpers is required for the patient to complete the activity. If activity was not attempted, code reason: 7-Patient Refused. 9-Not Applicable-not attempted and the patient did not perform the activity before the current illness, exacerbation or injury. 10-Not Attempted due to Environmental Limitations-(lack of equipment, weather restraints, etc.). 88-Not Attempted due to Medical Conditions or Safety Concerns. Eating (QC): 6 Oral Hygiene (QC): 6 Shower/Bathe Self (QC): 6 Upper Body Dressing (QC): 6 Lower Body Dressing (QC): 6 On/Off Footwear: 6 Toileting Hygiene (QC): 6 Toilet Transfer (QC): 6 Education OT Patient Education: Energy conservation, Home exercise program Teaching Recipient: Patient Teaching Methods: Demonstration Response to Teaching: Verbalize Understanding, Return Demonstration BIMS CAM BIMS Expression of Ideas and Wants: Without Difficulty Understanding Verbal Content: Understands Brief Interview/Mental Status: Yes IRF CHRISTIAN BIMS: IRF CHRISTIAN BIMS Response (Comments) Value Repitition of Three Words Three 3 Recalls Socks Yes, No Cue Required 2 Recalls Blue Yes, No Cue Required 2 Recalls Bed Yes, No Cue Required 2 Year Correct 3 Month Accurate Within 5 Days 2 Day Correct 1 Total 15 Patient Normally Able to Recal: Current Session, Location of own room, Staff Names and faces, That he/she in a [facility] Should Staff Asses. Mental St.: No Memory/Recall Ability: Current Season, Location of Own Room, Staff Names and Faces, That He/She in [facility] Mental Status Change/Baseline: 0 Inattention: 0 Disorganized thinkin Altered level of consciousness: 0 OT Short Term Goals Short Term Goals Time Frame: May 10, 2023 OT Retirement Goals Senior Physician Goals Time Frame: May 19, 2023 Acute change in mental status: 0 Inattention: 0 Disorganized thinkin Altered level of consciousness: 0 Eating (QC): 6 (met) Oral Hygiene (QC): 6 (met) Toileting Hygiene (QC): 6 (met) Shower/Bathe Self (QC): 6 (met) Upper Body Dressing (QC): 6 (met) Lower Body Dressing (QC): 6 (met) On/Off Footwear (QC): 6 (met) Additional Goals: 1-Demonstrate ADL Tasks, 2-Verbalize Understanding, 3- ImproveStrength/Luis Enrique 1=Demonstrate adherence to instructed precautions during ADL tasks. 2=Patient will verbalize/demonstrate understanding of assistive devices/modific ations for ADL. 3=Patient will improve strength/tolerance for activity to enable patient to perform ADL's. OT Education/Plan Problem List/Assessment Assessment: No Skilled OT Needs ID'd Discharge Recommendations Plan/Recommendations: Continue POC Treatment Plan/Plan of Care Patient would benefit from OT for education, treatment and training to promote independence in ADL's, mobility, safety and/or upper extremity function for ADL's. Plan of Care: ADL Retraining, Functional Mobility, Group Exercise/Act as Ind, U E Funct Exercise/Act, UE Neuromus Re-Ed/Coord Treatment Duration: May 19, 2023 Frequency: At least 5 of 7 days/Wk (IRF) Estimated Hrs Per Day: 1.5 hours per day Agreement: Yes Rehab Potential: Good Time Start Time: 09:45 Stop Time: 11:15 DATE: May 10, 2023 Total Time Billed (hr/min): 90 Billed Treatment Time 1 visit ADL 3 (45) EX 2 (30) FA 1 (15) Jayde Musa COTA May 10, 2023 11:06
[2023-05-10 20:07] VITALS: BP 162/88
[2023-05-10] MEDS: QUININE SULF PO SCH (21:50)
[2023-05-10] MEDS: DONEPEZIL 10 MG (ARICEPT) TAB PO SCH (21:50)
[2023-05-10] MEDS: FAMOTIDINE 20 MG (PEPCID) TABLET PO SCH (21:50)
[2023-05-10] MEDS: LIDOCAINE PATCH REMOVAL TP SCH (21:53)
[2023-05-11] MEDS ORDERED: RABE20TA30 PO (05:45)
[2023-05-11] MEDS ORDERED: ASPI-1238 PO (05:45)
[2023-05-11] MEDS ORDERED: ONDA-105 PO (05:45)
[2023-05-11] MEDS ORDERED: DULO30CA49 PO (05:45)
[2023-05-11] MEDS ORDERED: FAMO20TA5 PO (05:45)
[2023-05-11] MEDS ORDERED: TIOT4MIS3 IH (05:45)
[2023-05-11] MEDS ORDERED: SULI200T4 PO (05:45)
[2023-05-11] MEDS ORDERED: CYCL10TA25 PO (05:45)
[2023-05-11] MEDS ORDERED: NITR0.4T39 SL (05:45)
[2023-05-11] MEDS ORDERED: DULO60CA59 PO (05:45)
[2023-05-11] MEDS ORDERED: TRM50T PO (05:45)
[2023-05-11] MEDS ORDERED: ATOR40TA70 PO (05:45)
[2023-05-11] MEDS ORDERED: LISI20TA26 PO (05:45)
[2023-05-11] MEDS ORDERED: VIBE75TA PO (05:45)
[2023-05-11] MEDS ORDERED: BUPR-168 PO (05:45)
[2023-05-11] MEDS ORDERED: DICL100G13 TP (05:45)
[2023-05-11] MEDS ORDERED: DONE10TA41 PO (05:45)
[2023-05-11] MEDS ORDERED: QUIN324C4 PO (05:45)
[2023-05-11] MEDS ORDERED: CETI10TA17 PO (05:45)
[2023-05-11] MEDS ORDERED: ESTR0.62 PO (05:45)
[2023-05-11] MEDS ORDERED: CLOP-31 PO (05:45)
[2023-05-11] MEDS ORDERED: GABA-486 PO (05:45)
[2023-05-11] MEDS ORDERED: AMLO-250 PO (05:45)
--- NOTE | 2023-05-11 05:46 | Discharge Summary ---
Diagnosis/Chief Complaint Date of Admission May 05, 2023 at 15:15 Date of Discharge Discharge Date: May 11, 2023 Discharge Diagnosis Assessment: CVA with left-sided weakness History of CVA Hypertension Bladder cancer Stomach ulcer history Irritable bowel syndrome Plan: Supportive care Blood pressure Imodium PT and OT 05/06/2023: Continue aggressive rehab Supportive care 05/07/2023: Continue aggressive treatment 05/08/2023: Monitor closely Maintain Tely 05/09/2023: Continue aggressive treatment Monitor blood pressure 05/10/2023: Continue supportive care Discharge home tomorrow (1) Ischemic stroke Status: Acute Discharge Summary Discharge Physical Examination Allergies: Coded Allergies: No Known Drug Allergies (Unverified , 03/17/18) Vitals & I&Os Vital Signs Date Time Temp Pulse Resp B/P (MAP) Pulse Ox O2 Delivery O2 Flow Rate FiO2 05/11/23 11:30 36.0 88 20 131/69 97 Room Air 0.00 General Appearance: Alert, Oriented X3, Cooperative Respiratory: Clear to Auscultation Cardiovascular: Regular Rate Psych/Mental Status: Mental Status NL Hospital Course Was the Problem List Reviewed?: Yes Hospital course: Patient had an uneventful hospital course. Patient was adm itted following a CVA with left-sided weakness. Telemetry maintained by cardiology. Home meds were restarted. Overall she was able to regain back to near her baseline function and was deemed stable for discharge. Labs (last 24 hrs) Laboratory Tests 05/06/23 05:40: White Blood Count 9.4, Red Blood Count 4.45, Hemoglobin 13.1, Hematocrit 39, Mean Corpuscular Volume 88, Mean Corpuscular Hemoglobin 29, Mean Corpuscular Hemoglobin Concent 33, Red Cell Distribution Width 13.0, Platelet Count 413H, Mean Platelet Volume 9.8, Immature Granulocyte % (Auto) 1, Neutrophils (%) (Auto) 71, Lymphocytes (%) (Auto) 19, Monocytes (%) (Auto) 8, Eosinophils (%) (Auto) 1, Basophils (%) (Auto) 1, Neutrophils # (Auto) 6.6, Lymphocytes # (Auto) 1.7, Monocytes # (Auto) 0.7, Eosinophils # (Auto) 0.1, Basophils # (Auto) 0.1, Immature Granulocyte # (Auto) 0.1, Sodium Level 138, Potassium Level 3.6, Chloride Level 106, Carbon Dioxide Level 23, Anion Gap 9, Blood Urea Nitrogen 8, Creatinine 0.73, Estimat Glomerular Filtration Rate 87, BUN/Creatinine Ratio 11, Glucose Level 128H, Calcium Level 8.9, Corrected Calcium 9.2, Total Bilirubin 0.4, Aspartate Amino Transf (AST/SGOT) 26, Alanine Aminotransferase (ALT/SGPT) 23, Alkaline Phosphatase 58, Total Protein 6.1L, Albumin 3.6 05/10/23 04:56: White Blood Count 10.2, Red Blood Count 4.38, Hemoglobin 13.1, Hematocrit 39, Mean Corpuscular Volume 88, Mean Corpuscular Hemoglobin 30, Mean Corpuscular Hemoglobin Concent 34, Red Cell Distribution Width 13.1, Platelet Count 363, Mean Platelet Volume 10.0, Immature Granulocyte % (Auto) 1, Neutrophils (%) (Auto) 70, Lymphocytes (%) (Auto) 18, Monocytes (%) (Auto) 8, Eosinophils (%) (Auto) 2, Basophils (%) (Auto) 1, Neutrophils # (Auto) 7.2, Lymphocytes # (Auto) 1.9, Monocytes # (Auto) 0.8, Eosinophils # (Auto) 0.3, Basophils # (Auto) 0.1, Immature Granulocyte # (Auto) 0.1, Sodium Level 136, Potassium Level 3.8, Chloride Level 102, Carbon Dioxide Level 25, Anion Gap 9, Blood Urea Nitrogen 11, Creatinine 0.75, Estimat Glomerular Filtration Rate 85, BUN/Creatinine Ratio 15, Glucose Level 117H, Calcium Level 8.9, Corrected Calcium 9.2, Total Bilirubin 0.3, Aspartate Amino Transf (AST/SGOT) 21, Alanine Aminotransferase (ALT/SGPT) 20, Alkaline Phosphatase 58, Total Protein 5.9L, Albumin 3.6 Pending Labs Laboratory Tests 05/06/23 05:40: White Blood Count 9.4, Red Blood Count 4.45, Hemoglobin 13.1, Hematocrit 39, Mean Corpuscular Volume 88, Mean Corpuscular Hemoglobin 29, Mean Corpuscular Hemoglobin Concent 33, Red Cell Distribution Width 13.0, Platelet Count 413, Mean Platelet Volume 9.8, Immature Granulocyte % (Auto) 1, Neutrophils (%) (Auto) 71, Lymphocytes (%) (Auto) 19, Monocytes (%) (Auto) 8, Eosinophils (%) (Auto) 1, Basophils (%) (Auto) 1, Neutrophils # (Auto) 6.6, Lymphocytes # (Auto) 1.7, Monocytes # (Auto) 0.7, Eosinophils # (Auto) 0.1, Basophils # (Auto) 0.1, Immature Granulocyte # (Auto) 0.1, Sodium Level 138, Potassium Level 3.6, Chloride Level 106, Carbon Dioxide Level 23, Anion Gap 9, Blood Urea Nitrogen 8, Creatinine 0.73, Estimat Glomerular Filtration Rate 87, BUN/Creatinine Ratio 11, Glucose Level 128, Calcium Level 8.9, Corrected Calcium 9.2, Total Bilirubin 0.4, Aspartate Amino Transf (AST/SGOT) 26, Alanine Aminotransferase (ALT/SGPT) 23, Alkaline Phosphatase 58, Total Protein 6.1, Albumin 3.6 05/10/23 04:56: White Blood Count 10.2, Red Blood Count 4.38, Hemoglobin 13.1, Hematocrit 39, Mean Corpuscular Volume 88, Mean Corpuscular Hemoglobin 30, Mean Corpuscular Hemoglobin Concent 34, Red Cell Distribution Width 13.1, Platelet Count 363, Mean Platelet Volume 10.0, Immature Granulocyte % (Auto) 1, Neutrophils (%) (Auto) 70, Lymphocytes (%) (Auto) 18, Monocytes (%) (Auto) 8, Eosinophils (%) (Auto) 2, Basophils (%) (Auto) 1, Neutrophils # (Auto) 7.2, Lymphocytes # (Auto) 1.9, Monocytes # (Auto) 0.8, Eosinophils # (Auto) 0.3, Basophils # (Auto) 0.1, Immature Granulocyte # (Auto) 0.1, Sodium Level 136, Potassium Level 3.8, Chloride Level 102, Carbon Dioxide Level 25, Anion Gap 9, Blood Urea Nitrogen 11, Creatinine 0.75, Estimat Glomerular Filtration Rate 85, BUN/Creatinine Ratio 15, Glucose Level 117, Calcium Level 8.9, Corrected Calcium 9.2, Total Bilirubin 0.3, Aspartate Amino Transf (AST/SGOT) 21, Alanine Aminotransferase (ALT/SGPT) 20, Alkaline Phosphatase 58, Total Protein 5.9, Albumin 3.6 Discharge Home Medications: Active Scripts Active Duloxetine HCl 30 Mg Capsule.dr 30 Mg PO DAILY TAKES 60MG +30MG TOGETHER TO EQUAL 90MG Gemtesa (Vibegron) 75 Mg Tablet 75 Mg PO DAILY Tramadol HCl 50 Mg Tablet 150 Mg PO Q8H PRN TAKE 3 (50MG) TABS Rabeprazole Sodium 20 Mg Tablet.dr 20 Mg PO DAILY Quinine Sulfate 324 Mg Capsule 324 Mg PO HS Ondansetron HCl 4 Mg Tablet 4 Mg PO Q8H PRN Nitroglycerin 0.4 Mg Tab.subl 0.4 Mg SL UD PRN Gabapentin 100 Mg Capsule 200 Mg PO Q8H TAKES 2 (100MG) CAPS Famotidine 20 Mg Tablet 20 Mg PO HS Premarin (Estrogens, Conjugated) 0.625 Mg Tablet 0.625 Mg PO DAILY Donepezil HCl 10 Mg Tablet 10 Mg PO HS Diclofenac Sodium 1 % Gel..gram. 2-4 Gm TP QID APPLY TO AFFECTED AREA (AREA NOT SPECIFIED ON DISCHARGE ORDERS) Cyclobenzaprine HCl 10 Mg Tablet 10 Mg PO DAILY PRN Cetirizine HCl 10 Mg Tablet 10 Mg PO DAILY Bupropion HCl 75 Mg Tablet 37.5 Mg PO DAILY Amlodipine Besylate 5 Mg Tablet 5 Mg PO DAILY Lisinopril 20 Mg Tablet 20 Mg PO DAILY Aspirin EC (Aspirin) 81 Mg Tablet.dr 81 Mg PO DAILY W/FOOD Plavix (Clopidogrel Bisulfate) 75 Mg Tablet 75 Mg PO DAILY TAKE FOR 21 DAYS- THEN STOP Atorvastatin Calcium 40 Mg Tablet 40 Mg PO DAILY Duloxetine HCl 60 Mg Capsule.dr 60 Mg PO DAILY TAKES 60MG +30MG TOGETHER TO EQUAL 90MG Stiolto Respimat Inhal [place] (Tiotropium Br/Olodaterol HCl) 2.5 Mcg-2.5 Mcg/Actuation Mist.inhal 2 Puff IH DAILY Sulindac 200 Mg Tablet 200 Mg PO Q12H Reported Potassium (Potassium Gluconate) 595 Mg (99 Mg) Tablet 99 Mg PO DAILY Anti-Diarrheal (Loperamide HCl) 2 Mg Capsule 2 Mg PO UD PRN Lidocaine 5% Patch (Lidocaine) 5 % Adh..patch 1 Each TD DAILY Fluticasone Propionate 50 Mcg/Actuation [place].susp 1 [place] NSEACH DAILY Vitamin D3 (Cholecalciferol (Vitamin D3)) 50 Mcg (2000 Unit) Capsule 50 Mcg PO DAILY Artificial Tears 1.4 % Soln 1-2 Drops OU UD PRN Cyanocobalamin Injection (Cyanocobalamin) 1,000 Mcg/Ml Inj 1,000 Mcg IM MONTHLY Calcium (Calcium Carbonate) 500 Mg Calcium (1250 Mg) Tablet 500 Mg PO DAILY Tylenol 8 Hour (Acetaminophen) 650 Mg Tablet.er 1,850 Mg PO Q4H PRN TAKES 3 (650NG) TABS Instructions to patient/family Please see electronic discharge instructions given to patient. Diagnosis/Problems Diagnosis/Problems (1) Ischemic stroke Status: Acute JOHN AGUIRRE DO May 11, 2023 05:46
[2023-05-11] MEDS: STIOLTO IH SCH (06:43)
[2023-05-11] MEDS: RESPIMAT IH SCH (06:43)
[2023-05-11 08:00] VITALS: BP 131/69
--- NOTE | 2023-05-11 08:14 | Cardiology Progress Note ---
Subjective Date Seen by Provider: May 11, 2023 Time Seen by Provider: 08:13 Subjective/Events-last exam Patient sitting up in bed, no new complaints. Denies any chest pain or dyspnea. Objective-Cardiology Exam Last Set of Vital Signs Vital Signs 05/09/23 05/11/23 07:29 08:00 Temp 36.0 Pulse 88 Resp 20 B/P (MAP) 131/69 (89) Pulse Ox 97 O2 Delivery Room Air O2 Flow Rate 0.00 I&O Intake and Output 05/10/23 23:59 Intake Total 1800 ml Balance 1800 ml Intake Oral 1800 ml # Voids 9 # Bowel Movements 5 General: Alert, Oriented X3, Cooperative HEENT: Atraumatic, PERRLA Lungs: Clear to Auscultation, Normal Air Movement Heart: Regular Rate, Normal S1, Normal S2 Abdomen: Normal Bowel Sounds, Soft Psych/Mental Status: Mental Status NL, Mood NL A/P-Cardiology Admission Diagnosis Cryptogenic stroke Hypertension Hyperlipidemia Assessment/Plan CVA, cryptogenic stroke 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 Maintained on aspirin and Plavix Had work-up done at , did not identify a source of embolization Has been in [facility] on telemetry Continue on aspirin and Plavix Hypertension, controlled, monitor blood pressure Hyperlipidemia, monitor lipids. OK for discharge from cardiology standpoint. F/u in our office in 4 weeks. Supervisory-Addendum Brief Supervisory Addendum Participated in pt care: history, MDM, physical Personally performed: exam, history, MDM Care discussed with: YASMIN Results interpretation: Verified all documentation Notes: Patient was seen and evaluated with Mele, examination performed, management plan was discussed, agree with the current scribed note, I made few changes to the note using Italic font Patient was seen at bedside, sitting comfortably, feeling better Okay for discharge and follow-up as an outpatient Continue to monitor heart rate and blood pressure MELE REA May 11, 2023 08:14 ESTEBAN LUTZ MD May 11, 2023 09:10
[2023-05-11] MEDS: ETODOLAC 300 MG (LODINE) CAP PO SCH (08:27)
[2023-05-11] MEDS: ASPIRIN E.C. 81 MG (ECOTRIN) TAB PO SCH (08:27)
[2023-05-11] MEDS: buPROPion 75 MG (WELLBUTRIN) TAB PO SCH (08:27)
[2023-05-11] MEDS: DULoxetine 30 MG (CYMBALTA) CAP PO SCH (08:28)
[2023-05-11] MEDS: CALCIUM CARBONATE 600 MG (CALCARB) TAB PO SCH (08:29)
[2023-05-11] MEDS: VITAMIN D3 25 MCG (1,000 UNITS) TABLET PO SCH (08:29)
[2023-05-11] MEDS: LIDOCAINE 4% (SALONPAS) PATCH TP SCH (08:29)
[2023-05-11] MEDS: ESTROGENS CONJ 0.625 MG (PREMARIN) TAB PO SCH (08:29)
[2023-05-11] MEDS: GABAPENTIN 100 MG (NEURONTIN) CAP PO SCH (08:29)
[2023-05-11] MEDS: LORATADINE (CLARITIN) 10 MG TAB PO SCH (08:30)
[2023-05-11] MEDS: amLODIPine 5 MG (NORVASC) TAB PO SCH (08:30)
[2023-05-11] MEDS: CLOPIDOGREL 75 MG (PLAVIX) TABLET PO SCH (08:30)
[2023-05-11] MEDS: lisINopril 20 MG (PRINIVIL) TABLET PO SCH (08:30)
[2023-05-11] MEDS: RABEPRAZOLE 20 MG PO SCH (08:32)
[2023-05-11] MEDS: GEMTESA 75 MG PO SCH (08:32)
[2023-05-11] MEDS: FLUTICASONE NASAL SPRAY (FLONASE) 16 GM BTL NS SCH (08:33)
[2023-05-11] MEDS: DOCUSATE SODIUM 100 MG (COLACE) CAP PO SCH (08:35)
[2023-05-11] MEDS: polyethylene glycoL POWDER 17 GM (MIRALAX) PACK PO SCH (08:35)
[2023-05-11] MEDS: SENNA W/DOCUSATE (SENOKOT S) TABLET PO SCH (08:35)
[2023-05-11] MEDS: ENOXAPARIN 40 MG/0.4 ML (LOVENOX) SYR SC SCH (08:35)
[2023-05-11] MEDS: DICLOFENAC 1% GEL 100 GM (VOLTAREN) TUBE TP SCH (08:35)
--- NOTE | 2023-05-11 11:29 | Therapy Team Discharge Summary ---
Therapy Discharge Summary Discharge Recommendations Date of Discharge 05/11/2023 Therapy D/C Recommendations: Home Independently Physical Therapy Pt transferred to ARU on 05/05/2023 s/p CVA with L sided weakness. At [facility], pt was Ind with no AD and driving. At PT eval, pt was SBA for functional mobility with the FWW. PT worked on B LE strength, endurance, walking, balance, safety, and Ind. Pt progressed well with PT, pt met all set goals, pt is Mod I with all aspects of functional mobility, and pt is at [facility]. Pt d/c home on 05/11/2023, with no services, as she declined the need and did not think it was necessary. D/C from PT Roll Left to Right (QC): 6 Sit to Lying (QC): 6 Lying to Sitting/Side of Bed(Q: 6 Sit to Stand (QC): 6 Chair/Kog-qh-Wurwu Xfer(QC): 6 Toilet Transfer (QC): 6 Car Transfer (QC): 6 Does the Patient Walk: Yes Mode of Locomotion: Walk Anticipated Mode of Locomotion: Walk Walk 10 feet (QC): 6 Walk 50 ft with 2 Turns(QC): 6 Walk 150 ft (QC): 6 Walking 10ft on uneven surface: 6 Distance: 350ft Gait Assistive Device: None Does the Pt Use a Wheelchair: No Wheel 50 ft with 2 turns (QC): 9 Wheel 150 ft (QC): 9 Type of Wheelchair: N/A #of Steps: 12 1 Step (curb) (QC): 6 4 Steps (QC): 6 12 Steps (QC): 6 Balance Sitting Static: Normal Balance Sitting Dynamic: Normal Balance-Standing Static: Good Picking up an Object (QC): 6 Occupational Therapy No Skilled OT Needs ID'd Eating (QC): 6 Oral Hygiene (QC): 6 Shower/Bathe Self (QC): 6 Upper Body Dressing (QC): 6 Lower Body Dressing (QC): 6 On/Off Footwear (QC): 6 Toileting Hygiene (QC): 6 PT Chcf Goals Chcf Goals PT Chcf Goals Time Frame: May 13, 2023 Roll Left to Right (QC): 6 (Pt will be Mod I with all aspects of functional mobility with the least restrictive AD. ) Sit to Lying (QC): 6 (Pt will be Mod I with all aspects of functional mobility with the least restrictive AD. ) Lying-Sitting on Side/Bed(QC): 6 (Pt will be Mod I with all aspects of functio nal mobility with the least restrictive AD. ) Sit to Stand (QC): 6 (Pt will be Mod I with all aspects of functional mobility with the least restrictive AD. ) Chair/Iiw-eo-Esqyj Xfer(QC): 6 (Pt will be Mod I with all aspects of functional mobility with the least restrictive AD. ) Toilet/Commode Transfer (QC): 6 (Pt will be Mod I with all aspects of functional mobility with the least restrictive AD. ) Car Transfer (QC): 6 (Pt will be Mod I with all aspects of functional mobility with the least restrictive AD. ) Does the Patient Walk: Yes Walk 10 feet (QC): 6 (Pt will be Mod I with all aspects of functional mobility with the least restrictive AD. ) Walk 10ft-Uneven Surface(QC): 6 (Pt will be Mod I with all aspects of functional mobility with the least restrictive AD. ) Walk 50ft with 2 Turns (QC): 6 (Pt will be Mod I with all aspects of functional mobility with the least restrictive AD. ) Walk 150 ft (QC): 6 (Pt will be Mod I with all aspects of functional mobility with the least restrictive AD. ) Does the Pt use WC or Scooter?: No Wheel 50 feet with 2 turns (QC: 9 Type: N/A Wheel 150 feet: 9 Type: N/A 1 Step (curb) (QC): 6 (Pt will be Mod I with all aspects of functional mobility with the least restrictive AD. ) 4 Steps (QC): 6 (Pt will be Mod I with all aspects of functional mobility with the least restrictive AD. ) 12 Steps (QC): 6 (Pt will be Mod I with all aspects of functional mobility with the least restrictive AD. ) Picking up an Object (QC): 6 (Pt will be Mod I with all aspects of functional m obility with the least restrictive AD. ) OT Guide Foreign Tour Goals Guide Foreign Tour Goals Time Frame: May 19, 2023 Acute change in mental status: 0 Inattention: 0 Disorganized thinkin Altered level of consciousness: 0 Eating (QC): 6 (met) Oral Hygiene (QC): 6 (met) Toileting Hygiene (QC): 6 (met) Shower/Bathe Self (QC): 6 (met) Upper Body Dressing (QC): 6 (met) Lower Body Dressing (QC): 6 (met) On/Off Footwear (QC): 6 (met) Additional Goals: 1-Demonstrate ADL Tasks, 2-Verbalize Understanding, 3- ImproveStrength/Luis Enrique 1=Demonstrate adherence to instructed precautions during ADL tasks. 2=Patient will verbalize/demonstrate understanding of assistive devices/modifications for ADL. 3=Patient will improve strength/tolerance for activity to enable patient to perform ADL's. DINESH REDDY PT May 11, 2023 11:29
[2023-05-11 11:30] VITALS: BP 131/69
--- NOTE | 2023-05-13 15:06 | Therapy Team Discharge Summary ---
Therapy Discharge Summary Discharge Recommendations Date of Discharge May 11, 2023 at 10:20 Therapy D/C Recommendations: Home Independently Physical Therapy Roll Left to Right (QC): 6 Sit to Lying (QC): 6 Lying to Sitting/Side of Bed(Q: 6 Sit to Stand (QC): 6 Chair/Vpo-mk-Pniui Xfer(QC): 6 Toilet Transfer (QC): 6 Car Transfer (QC): 6 Does the Patient Walk: Yes Mode of Locomotion: Walk Anticipated Mode of Locomotion: Walk Walk 10 feet (QC): 6 Walk 50 ft with 2 Turns(QC): 6 Walk 150 ft (QC): 6 Walking 10ft on uneven surface: 6 Distance: 350ft Gait Assistive Device: None Does the Pt Use a Wheelchair: No Wheel 50 ft with 2 turns (QC): 9 Wheel 150 ft (QC): 9 Type of Wheelchair: N/A #of Steps: 12 1 Step (curb) (QC): 6 4 Steps (QC): 6 12 Steps (QC): 6 Balance Sitting Static: Normal Balance Sitting Dynamic: Normal Balance-Standing Static: Good Picking up an Object (QC): 6 Occupational Therapy Pt transferred to ARU on 05/05/2023 s/p CVA with L sided weakness. At [facility], pt was Ind with no AD, ADLS and driving. At [facility], pt was SBA for functional mobility with the FWW. OT worked on B UE strength, endurance, self care, balance, safety, and Ind. Pt progressed well with OT, pt met all set goals, pt is Mod I with all aspects of functional mobility, and pt is at [facility]. Pt d/c home on 05/11/2023, with no services, as she declined the need and did not think it was necessary. D/C from OT No Skilled OT Needs ID'd Eating (QC): 6 Oral Hygiene (QC): 6 Shower/Bathe Self (QC): 6 Upper Body Dressing (QC): 6 Lower Body Dressing (QC): 6 On/Off Footwear (QC): 6 Toileting Hygiene (QC): 6 PT Sorting Cows Worker Goals Prison Goals PT Sorting Cows Worker Goals Time Frame: May 13, 2023 Roll Left to Right (QC): 6 (Pt will be Mod I with all aspects of functional mobility with the least restrictive AD. ) Sit to Lying (QC): 6 (Pt will be Mod I with all aspects of functional mobility with the least restrictive AD. ) Lying-Sitting on Side/Bed(QC): 6 (Pt will be Mod I with all aspects of functional mobility with the least restrictive AD. ) Sit to Stand (QC): 6 (Pt will be Mod I with all aspects of functional mobility with the least restrictive AD. ) Chair/Bhw-ud-Irwlg Xfer(QC): 6 (Pt will be Mod I with all aspects of functional mobility with the least restrictive AD. ) Toilet/Commode Transfer (QC): 6 (Pt will be Mod I with all aspects of functional mobility with the least restrictive AD. ) Car Transfer (QC): 6 (Pt will be Mod I with all aspects of functional mobility with the least restrictive AD. ) Does the Patient Walk: Yes Walk 10 feet (QC): 6 (Pt will be Mod I with all aspects of functional mobility with the least restrictive AD. ) Walk 10ft-Uneven Surface(QC): 6 (Pt will be Mod I with all aspects of functional mobility with the least restrictive AD. ) Walk 50ft with 2 Turns (QC): 6 (Pt will be Mod I with all aspects of functional mobility with the least restrictive AD. ) Walk 150 ft (QC): 6 (Pt will be Mod I with all aspects of functional mobility with the least restrictive AD. ) Does the Pt use WC or Scooter?: No Wheel 50 feet with 2 turns (QC: 9 Type: N/A Wheel 150 feet: 9 Type: N/A 1 Step (curb) (QC): 6 (Pt will be Mod I with all aspects of functional mobility with the least restrictive AD. ) 4 Steps (QC): 6 (Pt will be Mod I with all aspects of functional mobility with the least restrictive AD. ) 12 Steps (QC): 6 (Pt will be Mod I with all aspects of functional mobility with the least restrictive AD. ) Picking up an Object (QC): 6 (Pt will be Mod I with all aspects of functional mobility with the least restrictive AD. ) OT Prison Goals Prison Goals Time Frame: May 19, 2023 Acute change in mental status: 0 Inattention: 0 Disorganized thinkin Altered level of consciousness: 0 Eating (QC): 6 (met) Oral Hygiene (QC): 6 (met) Toileting Hygiene (QC): 6 (met) Shower/Bathe Self (QC): 6 (met) Upper Body Dressing (QC): 6 (met) Lower Body Dressing (QC): 6 (met) On/Off Footwear (QC): 6 (met) Additional Goals: 1-Demonstrate ADL Tasks, 2-Verbalize Understanding, 3- ImproveStrength/Luis Enrique 1=Demonstrate adherence to instructed precautions during ADL tasks. 2=Patient will verbalize/demonstrate understanding of assistive devices/modifications for ADL. 3=Patient will improve strength/tolerance for activity to enable patient to perform ADL's. TARYN QUINN OT May 13, 2023 15:06
== END 2023-05-11 10:20 | disposition home or self-care (01) | DRG 57 ==
PROVIDERS: ADMIT Internal Medicine; ATTEND Internal Medicine
DX: I69.354 Hemiplegia and hemiparesis following cerebral infarction affecting left non-dominant side (principal); I10 Essential (primary) hypertension; K58.0 Irritable bowel syndrome with diarrhea; C67.9 Malignant neoplasm of bladder, unspecified; G40.909 Epilepsy, unspecified, not intractable, without status epilepticus; K21.9 Gastro-esophageal reflux disease without esophagitis; M19.90 Unspecified osteoarthritis, unspecified site; H54.3 Unqualified visual loss, both eyes; F41.9 Anxiety disorder, unspecified; E78.5 Hyperlipidemia, unspecified; F32.A Depression, unspecified; Z87.891 Personal history of nicotine dependence; Z79.02 Long term (current) use of antithrombotics/antiplatelets; Z79.82 Long term (current) use of aspirin; Z79.899 Other long term (current) drug therapy
CPT/HCPCS: 36415; 80053; 85025; 94640; 94760

== ENCOUNTER 2023-05-18 09:22 | Emergency (ER) | payer MEDICARE, OTHER ==
[~2023-05-18] VITALS: Ht 167.7 cm; Wt 77.6 kg
[~2023-05-18 09:22] MED LIST changes: +ACET-2840 PO; +AMLO-250 PO; +ASPI-1238 PO; +ATOR40TA70 PO; +BUPR-168 PO; +CALC-823 PO; +CETI10TA17 PO; +CHOL20003 PO; +CLOP-31 PO; +CNC1KV IM; +DICL100G13 TP; +DONE10TA41 PO; +DULO30CA49 PO; +ESTR0.62 PO; +FAMO20TA5 PO; +FLUT16SP22 NSEACH; +GABA-486 PO; +LIDO700A45 TD; +LISI20TA26 PO; +LOPE2CAP14 PO; +NITR0.4T39 SL; +ONDA-105 PO; +POLY15DR27 OU; +POTA99TA26 PO; +QUIN324C4 PO; +RABE20TA30 PO; +TRM50T PO; +VIBE75TA PO
[2023-05-18 09:30] VITALS: BP 154/87
--- NOTE | 2023-05-18 09:53 | ED Neurological Problem ---
General Chief Complaint: Neurological Problems Stated Complaint: LT SIDE NUMBNESS/TINGLING Source: patient, old records Exam Limitations: no limitations History of Present Illness Date Seen by Provider: May 18, 2023 Time Seen by Provider: 09:27 Initial Comments 72-year-old female with recent history of right-sided thalamic stroke with left- sided weakness and numbness coming in due to left-sided numbness. The patient was admitted to [facility] for the stroke roughly 3 weeks ago. She was discharged from rehab about a week ago. She states the numbness never really fully got better, the weakness has improved. At 3 AM she woke up and noticed the numbness felt slightly better from prior, and when she woke up this morning, it was back to where it was prior. She has taken all of her medications as prescribed including her aspirin and Plavix. Otherwise denies any difficulty eating, nausea, vomiting, diarrhea, fever, chills, chest pain, shortness of breath, headache, vision changes, or any other concerns. Allergies and Home Medications Allergies Coded Allergies: No Known Drug Allergies (Unverified , 03/17/18) Patient Home Medication List Home Medication List Reviewed: Yes Acetaminophen (Tylenol 8 Hour) 650 Mg Tablet.er, 1,850 MG PO Q4H PRN for PAIN- MILD (1-4), (Reported) Entered as Reported by: PRETTY COOL on 05/05/231415 Amlodipine Besylate (Amlodipine Besylate) 5 Mg Tablet, 5 MG PO DAILY Prescribed by: JOHN AGUIRRE on 05/11/23544 Artificial Tears (Artificial Tears) 1.4 % Soln, 1-2 DROPS OU UD PRN for DRY EYES, (Reported) Entered as Reported by: PRETTY COOL on 05/05/231415 Aspirin (Aspirin EC) 81 Mg Tablet.dr, 81 MG PO DAILY W/FOOD Prescribed by: JOHN AGUIRRE on 05/11/23544 Atorvastatin Calcium (Atorvastatin Calcium) 40 Mg Tablet, 40 MG PO DAILY Prescribed by: JOHN AGUIRRE on 05/11/23544 Bupropion HCl (Bupropion HCl) 75 Mg Tablet, 37.5 MG PO DAILY Prescribed by: JOHN AGUIRRE on 05/11/23544 Calcium Carbonate (Calcium) 500 Mg Calcium (1250 Mg) Tablet, 500 MG PO DAILY, (Reported) Entered as Reported by: PRETTY COOL on 05/05/231415 Cetirizine HCl (Cetirizine HCl) 10 Mg Tablet, 10 MG PO DAILY Prescribed by: JOHN AGUIRRE on 05/11/23544 Cholecalciferol (Vitamin D3) (Vitamin D3) 50 Mcg (2000 Unit) Capsule, 50 MCG PO DAILY, (Reported) Entered as Reported by: PRETTY COOL on 05/05/231415 Clopidogrel Bisulfate (Plavix) 75 Mg Tablet, 75 MG PO DAILY Prescribed by: JOHN AGUIRRE on 05/11/23544 Cyanocobalamin (Cyanocobalamin Injection) 1,000 Mcg/Ml Inj, 1,000 MCG IM MONTHLY, (Reported) Entered as Reported by: PRETTY COOL on 05/05/231415 Cyclobenzaprine HCl (Cyclobenzaprine HCl) 10 Mg Tablet, 10 MG PO DAILY PRN for MUSCLE CRAMPS Prescribed by: JOHN AGUIRRE on 05/11/23544 Diclofenac Sodium (Diclofenac Sodium) 1 % Gel..gram., 2-4 GM TP QID Prescribed by: JOHN AGUIRRE on 05/11/23544 Donepezil HCl (Donepezil HCl) 10 Mg Tablet, 10 MG PO HS Prescribed by: JOHN AGUIRRE on 05/11/23544 Duloxetine HCl (Duloxetine HCl) 60 Mg Capsule.dr, 60 MG PO DAILY Prescribed by: JOHN AGUIRRE on 05/11/23544 Duloxetine HCl (Duloxetine HCl) 30 Mg Capsule.dr, 30 MG PO DAILY Prescribed by: JOHN AGUIRRE on 05/11/23544 Estrogens, Conjugated (Premarin) 0.625 Mg Tablet, 0.625 MG PO DAILY Prescribed by: JOHN AGUIRRE on 05/11/23544 Famotidine (Famotidine) 20 Mg Tablet, 20 MG PO HS Prescribed by: JOHN AGUIRRE on 05/11/23544 Fluticasone Propionate (Fluticasone Propionate) 50 Mcg/Actuation [place].susp, 1 SPRAY NSEACH DAILY, (Reported) Entered as Reported by: PRETTY COOL on 05/05/231415 Gabapentin (Gabapentin) 100 Mg Capsule, 200 MG PO Q8H Prescribed by: JOHN AGUIRRE on 05/11/23544 Lidocaine (Lidocaine 5% Patch) 5 % Adh..patch, 1 EACH TD DAILY, (Reported) Entered as Reported by: PRETTY COOL on 05/05/23 1416 Lisinopril (Lisinopril) 20 Mg Tablet, 20 MG PO DAILY Prescribed by: JOHN AGUIRRE on 05/11/23544 Loperamide HCl (Anti-Diarrheal) 2 Mg Capsule, 2 MG PO UD PRN for DIARRHEA, (Reported) Entered as Reported by: PRETTY COOL on 05/05/23 141 Nitroglycerin (Nitroglycerin) 0.4 Mg Tab.subl, 0.4 MG SL UD PRN for CHEST PAIN Prescribed by: JOHN AGUIRRE on 05/11/23544 Ondansetron HCl (Ondansetron HCl) 4 Mg Tablet, 4 MG PO Q8H PRN for NAUSEA/VOMITING-1ST LINE Prescribed by: JOHN AGUIRRE on 05/11/23544 Potassium Gluconate (Potassium) 595 Mg (99 Mg) Tablet, 99 MG PO DAILY, (Reported) Entered as Reported by: PRETTY COOL on 05/05/23 1551 Quinine Sulfate (Quinine Sulfate) 324 Mg Capsule, 324 MG PO HS Prescribed by: JOHN AGUIRRE on 05/11/23544 Rabeprazole Sodium (Rabeprazole Sodium) 20 Mg Tablet.dr, 20 MG PO DAILY Prescribed by: JOHN AGUIRRE on 05/11/23544 Sulindac (Sulindac) 200 Mg Tablet, 200 MG PO Q12H Prescribed by: JOHN AGUIRRE on 05/11/23544 Tiotropium Br/Olodaterol HCl (Stiolto Respimat Inhal [place]) 2.5 Mcg-2.5 Mcg/Actuation Mist.inhal, 2 PUFF IH DAILY Prescribed by: JOHN AGUIRRE on 05/11/23544 Tramadol HCl (Tramadol HCl) 50 Mg Tablet, 150 MG PO Q8H PRN for PAIN-MODERATE (5-7) Prescribed by: JOHN AGUIRRE on 05/11/23545 Vibegron (Gemtesa) 75 Mg Tablet, 75 MG PO DAILY Prescribed by: JOHN AGUIRRE on 6/20/23 0545 Review of Systems Review of Systems Constitutional: No fever Eyes: No Symptoms Reported Ears, Nose, Mouth, Throat: no symptoms reported Respiratory: no symptoms reported Cardiovascular: no symptoms reported Gastrointestinal: no symptoms reported Genitourinary: no symptoms reported Musculoskeletal: no symptoms reported Skin: no symptoms reported Psychiatric/Neurological: See HPI Past Bhoymun-Ytzgcm-Drbhux Hx Immunizations Up To Date Tetanus Booster (TDap): Unknown PED Vaccines UTD: No First/Initial COVID19 Vaccinat: 2020 Second COVID19 Vaccination Santana: NONE Third COVID19 Vaccination Date: NONE Seasonal Allergies Seasonal Allergies: No Past Medical History Gallbladder, Hysterectomy, Tonsillectomy Asthma Hypertension, Irregular Heartbeat Seizure Disorder, Stroke Reproductive Disorders: No CORE SHAPER SIDES History: Hysterectomy Sexually Transmitted Disease: No HIV/AIDS: No UTI-Chronic Gastroesophageal Reflux, Chronic Constipation, Chronic Diarrhea, Polyps, Ulcer Arthritis, Chronic Back Pain Loss of Vision: Bilateral Hearing Impairment: Denies Anxiety, Depression Adverse Reaction/Blood Tranf: No (N/A) Family Medical History No Pertinent Family Hx Physical Exam Vital Signs Vital Signs - First Documented Capillary Refill : Height, Weight, BMI Height: 5'6.00" Weight: 170lbs. 9.0oz. 77.351816bx; 28.03 BMI Method: General Appearance: WD/WN, no apparent distress HEENT: PERRL/EOMI, normal ENT inspection, pharynx normal Neck: non-tender, full range of motion, supple, normal inspection Respiratory: chest non-tender, lungs clear, normal breath sounds, no respiratory distress, no accessory muscle use Cardiovascular: regular rate, rhythm, no edema Gastrointestinal: normal bowel sounds, non tender, soft; No distended, No guarding, No rebound Back: normal inspection, no CVA tenderness, no vertebral tenderness Extremities: normal range of motion, non-tender, normal inspection, no pedal edema, no calf tenderness, normal capillary refill Neurologic/Psychiatric: watermaster II-XII nml as tested, no motor/sensory deficits, alert, normal mood/affect, oriented x 3 Crainal Nerves: normal hearing, normal speech, PERRL, other (Normal visual reyez and visual acuity) Coordination/Gait: normal finger to nose, normal gait Motor/Sensory: no motor deficit, no sensory deficit, no pronator drift Skin: normal color, warm/dry Stroke Onset of Symptoms Date of Onset of Symptoms: May 18, 2023 Time of Symptom Onset: 03:00 Onset of Symptoms: Yes NIH Stroke Scale Assessment Select: Initial Level of Consciousness-Questions: 0=Answers both month/age (0), LOC Commands: 0=Performs both tasks (0), Gaze: Normal (0), Visual Reyez: 0=No visual loss (0), Facial Movement (Facial Paresis): 0=Normal symmetrical mnt (0), Motor Function-Arms Right: 0=No drift (0), Motor Function-Arms Left: 0=No drift (0), Motor Function-Legs Right: 0=No drift (0), Motor Function-Legs Left: 0=No drift (0), Limb Ataxia: 0=Absent (0), Sensory: 0=Normal:no loss (0), Best Language: 0=No aphasia (0), Dysarthria: 0=Normal (0), Extinction & Inattention: 0=No abnormality (0), Total: 0 Stroke Thrombolytic Exclusion Age 18 or Over: Yes History of CVA: Yes Improving Symptoms: Yes TPA Contraindication: Yes IV - TPa Received IV - TPa Procedure Performed?: No Progress/Results/Core Measures Results/Orders Lab Results Laboratory Tests Test 05/18/23 09:35 05/18/23 10:10 Range/Units White Blood Count 11.5 H 4.3-11.0 10^3/uL Red Blood Count 5.16 H 3.80-5.11 10^6/uL Hemoglobin 15.3 11.5-16.0 g/dL Hematocrit 46 35-52 % Mean Corpuscular Volume 89 80-99 fL Mean Corpuscular Hemoglobin 30 25-34 pg Mean Corpuscular Hemoglobin Concent 33 32-36 g/dL Red Cell Distribution Width 12.9 10.0-14.5 % Platelet Count 399 130-400 10^3/uL Mean Platelet Volume 10.7 9.0-12.2 fL Immature Granulocyte % (Auto) 1 % Neutrophils (%) (Auto) 79 H 42-75 % Lymphocytes (%) (Auto) 13 12-44 % Monocytes (%) (Auto) 5 0-12 % Eosinophils (%) (Auto) 2 0-10 % Basophils (%) (Auto) 1 0-10 % Neutrophils # (Auto) 9.1 H 1.8-7.8 10^3/uL Lymphocytes # (Auto) 1.5 1.0-4.0 10^3/uL Monocytes # (Auto) 0.6 0.0-1.0 10^3/uL Eosinophils # (Auto) 0.2 0.0-0.3 10^3/uL Basophils # (Auto) 0.1 0.0-0.1 10^3/uL Immature Granulocyte # (Auto) 0.1 0.0-0.1 10^3/uL Prothrombin Time 12.8 12.2-14.7 SEC INR Comment 0.9 0.8-1.4 Activated Partial Thromboplast Time 22 L 24-35 SEC Sodium Level 135 135-145 MMOL/L Potassium Level 3.9 3.6-5.0 MMOL/L Chloride Level 98 98-107 MMOL/L Carbon Dioxide Level 23 21-32 MMOL/L Anion Gap 14 5-14 MMOL/L Blood Urea Nitrogen 12 7-18 MG/DL Creatinine 0.80 0.60-1.30 MG/DL Estimat Glomerular Filtration Rate 78 BUN/Creatinine Ratio 15 Glucose Level 139 H 70-105 MG/DL Calcium Level 11.0 H 8.5-10.1 MG/DL Corrected Calcium 10.6 H 8.5-10.1 MG/DL Total Bilirubin 0.3 0.1-1.0 MG/DL Aspartate Amino Transf (AST/SGOT) 26 5-34 U/L Alanine Aminotransferase (ALT/SGPT) 26 0-55 U/L Alkaline Phosphatase 80 40-136 U/L Troponin I < 0.30 <0.30 NG/ML Total Protein 7.6 6.4-8.2 GM/DL Albumin 4.5 3.2-4.5 GM/DL Glucometer 102 70-110 MG/DL My Orders Orders - GOGO GREWAL MD Cbc With Automated Diff (05/18/23 09:39) Protime With Inr (05/18/23 09:39) Partial Thromboplastin Time (05/18/23 09:39) Comprehensive Metabolic Panel (05/18/23 09:39) Troponin I Fs (05/18/23 09:39) Ua Culture If Indicated (05/18/23 09:39) Chest 1 View Ap/Pa Only (05/18/23 09:39) Ekg Tracing (05/18/23 09:39) Accucheck Stat ONCE (05/18/23 09:39) Ed Iv/Invasive Line Start (05/18/23 09:39) Vital Signs Stroke Patient Q15M (05/18/23 09:39) Ct Head Wo-R/O Stroke (05/18/23 09:39) O2 (05/18/23 09:39) Monitor-Rhythm Ecg Trace Only (05/18/23 09:39) Dysphagia Screening Tool Q10MX1 (05/18/23 09:39) Vital Signs/I&O 05/18/23 05/18/23 09:30 09:30 Temp 35.8 Pulse 96 96 Resp 14 14 B/P (MAP) 154/87 (109) 154/87 Pulse Ox 97 97 O2 Delivery Room Air Progress Progress Note : Progress Note 70-year-old female with above history coming in due to left-sided numbness. ABCs were intact and vitals were stable on presentation. EKG ordered and interpreted by me showing sinus rhythm with no acute ischemic changes. On review of the chart, the patient had left-sided weakness and numbness from her stroke 3 weeks ago. She actually states that the numbness never got better, she thought it might have been better at 3 AM, but now she is realizing that she likely was just not feeling it how she was sleeping. When she woke up this morning it was really back to her baseline numbness, but she was concerned there could have been a change, so wanted to be evaluated. She states that she 100% is at her baseline right now. She has no objective numbness on exam and her NIH is 0. CT head negative for acute stroke, I do not see any hemorrhage on my interpretation. I discussed the case with the radiologist personally, and he does not see any acute findings. Basic labs obtained, white blood cell count slightly elevated which is nonspecific, normal creatinine, negative troponin. Harvey nash has a follow-up with her PCP in a couple days. I believe she stable for discharge with outpatient follow-up. She was sent home with strict return precautions. Initial ECG Impression Date: May 18, 2023 Initial ECG Impression Time: 09:43 Initial ECG Rate: 94 Initial ECG Rhythm: Normal Sinus Comment Narrow QRS, normal axis, no significant ST changes or T wave abnormality Diagnostic Imaging Diagonstic Imaging: Xray (chest), CT (head) Comments [facility] [place], [place] NAME: ED [facility]Y [facility] REC#: [id number] PT STATUS: REG ER : 1950 PHYSICIAN: GOGO GREWAL MD ADMIT DATE: 05/18/23/ER FS Draft Date of Exam:05/18/23 CT HEAD WO-R/O STROKE CLINICAL INDICATION: Patient with left-sided numbness and recent thalamic stroke. Exam: Axial CT scan of the brain without IV contrast with coronal and sagittal reformatted images. Auto Exposure Controls were utilized during the CT exam to meet ALARA standards for radiation dose reduction. Comparison: CT angiogram of the head/neck dated 05/02/2023 Findings: There is no evidence of acute cerebral infarct, intracranial hemorrhage, or gross mass effect. The brain parenchymal volume appears appropriate for patient's age. Stable small chronic infarct involving left frontal lobe region. Stable mild chronic small vessel ischemic disease. There is normal [place]-white matter distinction. There is no significant midline shift or herniation. There is no evidence of hydrocephalus. The basal cisterns are unremarkable. The skull, extracranial soft tissue, and orbits are unremarkable. There is a small area of consolidation involving the anterior aspect of the left ethmoid sinus which is stable. Temporal bones show no significant abnormality. Impression: Stable CT scan of the brain with no interval evidence of acute intracranial process. There is no dense vessel sign. Results of this report was discussed with Dr. Gogo Grewal via the telephone on 05/18/2023 at 1003 hours. Dictated on workstation # [id number] Dict: 05/18/23 0956 Trans: 05/18/23 1012 [id number] Interpreted by: PROSPER TANNER MD Electronically signed by: Departure Impression Primary Impression: Left sided numbness Additional Impression: History of CVA with residual deficit Disposition: 01 HOME, SELF-CARE Condition: Stable Departure-Patient Inst. Decision time for Depature: 10:45 Referrals: WILL CASIANO MD (PCP/Family) Primary Care Physician Patient Instructions: Recovery after stroke Add. Discharge Instructions: The numbness you are experiencing sounds like it was from the stroke that you already had. If you notice new numbness, new weakness, cannot speak, or any other concerns then please come back to the ER. Otherwise, please follow-up with your regular doctor as she stated later this week Work/School Note: Family Work Note Patient Received Medical Care In the Emergency Department On: May 18, 2023 Patient Will Be Able to Return to Work/School On: May 19, 2023 GOGO GREWAL MD May 18, 2023 09:52
[2023-05-18 10:03] LABS: BASOPHILS # (AUTO) 0.1 10^3/uL (0.0-0.1); BASOPHILS % (AUTO) 1 % (0-10); EOSINOPHILS # (AUTO) 0.2 10^3/uL (0.0-0.3); EOSINOPHILS % (AUTO) 2 % (0-10); HEMATOCRIT 46 % (35-52); HEMOGLOBIN 15.3 g/dL (11.5-16.0); LYMPHOCYTES # (AUTO) 1.5 10^3/uL (1.0-4.0); LYMPHOCYTES % (AUTO) 13 % (12-44); MEAN CORPUSCULAR HEMOGLOBIN 30 pg (25-34); MEAN CORPUSCULAR HGB CONC 33 g/dL (32-36); MEAN CORPUSCULAR VOLUME 89 fL (80-99); MEAN PLATELET VOLUME 10.7 fL (9.0-12.2); MONOCYTES # (AUTO) 0.6 10^3/uL (0.0-1.0); MONOCYTES % (AUTO) 5 % (0-12); NEUTROPHILS # (AUTO) 9.1 10^3/uL (1.8-7.8); NEUTROPHILS % (AUTO) 79 % (42-75); PLATELET COUNT 399 10^3/uL (130-400); WHITE BLOOD COUNT 11.5 10^3/uL (4.3-11.0)
--- NOTE | 2023-05-18 10:13 | Diagnostic Imaging Report ---
CLINICAL INDICATION: Patient with left-sided numbness and recent thalamic stroke. Exam: Axial CT scan of the brain without IV contrast with coronal and sagittal reformatted images. Auto Exposure Controls were utilized during the CT exam to meet ALARA standards for radiation dose reduction. Comparison: CT angiogram of the head/neck dated 05/02/2023 Findings: There is no evidence of acute cerebral infarct, intracranial hemorrhage, or gross mass effect. The brain parenchymal volume appears appropriate for patient's age. Stable small chronic infarct involving left frontal lobe region. Stable mild chronic small vessel ischemic disease. There is normal [place]-white matter distinction. There is no significant midline shift or herniation. There is no evidence of hydrocephalus. The basal cisterns are unremarkable. The skull, extracranial soft tissue, and orbits are unremarkable. There is a small area of consolidation involving the anterior aspect of the left ethmoid sinus which is stable. Temporal bones show no significant abnormality. Impression: Stable CT scan of the brain with no interval evidence of acute intracranial process. There is no dense vessel sign. Results of this report was discussed with Dr. Wallace Escamilla via the telephone on 05/18/2023 at 1003 hours. Dictated by: Dictated on workstation # [id number]
[2023-05-18 10:18] LABS: INR 0.9 (0.8-1.4); PROTHROMBIN TIME PATIENT 12.8 SEC (12.2-14.7)
[2023-05-18 10:22] LABS: ALANINE AMINOTRANSFERASE 26 U/L (0-55); ALKALINE PHOSPHATASE 80 U/L (40-136); BILIRUBIN,TOTAL 0.3 MG/DL (0.1-1.0); BUN/CREATININE RATIO 15; CARBON DIOXIDE 23 MMOL/L (21-32); CHLORIDE 98 MMOL/L (98-107); GFR ESTIMATED 78; GLUCOSE 139 MG/DL (70-105); POTASSIUM 3.9 MMOL/L (3.6-5.0); SODIUM 135 MMOL/L (135-145)
[2023-05-18 10:23] LABS: ALBUMIN 4.5 GM/DL (3.2-4.5); TOTAL PROTEIN 7.6 GM/DL (6.4-8.2)
[2023-05-18 10:53] VITALS: BP 150/91
--- NOTE | 2023-05-18 11:51 | Diagnostic Imaging Report ---
CHEST 1 VIEW AP/PA ONLY Indication: Chest pain. Comparison: None available. Findings: No focal airspace disease in the visualized lungs. 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 No pleural effusion or pneumothorax. Normal cardiomediastinal silhouette. Impression: 1. No acute cardiopulmonary process by portable radiography. Dictated by: Dictated on workstation # [id number]
== END 2023-05-18 10:53 | disposition home or self-care (01) ==
LOC: EDUNIT# 09:22 → ER FS 09:23
DX: R20.0 Anesthesia of skin (principal); D72.829 Elevated white blood cell count, unspecified; Z86.73 Personal history of transient ischemic attack (TIA), and cerebral infarction without residual deficits; Z28.311 Partially vaccinated for COVID-19
CPT/HCPCS: 36415; 70450; 71045; 80053; 82947; 84484; 85025; 85610; 85730; 93005; 93041

== ENCOUNTER 2023-07-18 12:33 | Emergency (ER) | payer MEDICARE ==
[~2023-07-18] VITALS: Ht 162.6 cm; Wt 73.5 kg
--- NOTE | 2023-07-18 12:57 | ED Neurological Problem ---
General Stated Complaint: RT-SIDED NUMBNESS Source: patient, old records Exam Limitations: no limitations History of Present Illness Date Seen by Provider: Jul 18, 2023 Time Seen by Provider: 12:38 Initial Comments 73-year-old female with past medical history most notable for recent stroke with left-sided weakness/numbness coming in due to tingling. She states the tingling never really went away on her left side of her body mostly in her hands and feet, worsening last night, and perhaps a little bit of tingling in her right foot this morning. She feels at her baseline right now. She states last night she felt like she had the "flu". And that her entire body was aching. She has had some nausea, no vomiting. Also denies any fever, chest pain, shortness of breath, abdominal pain, diarrhea, dysuria, focal weakness, headache, vision changes, or any other concerns. Allergies and Home Medications Allergies Coded Allergies: No Known Drug Allergies (Unverified , 03/17/18) Patient Home Medication List Home Medication List Reviewed: Yes Acetaminophen (Tylenol 8 Hour) 650 Mg Tablet.er, 1,850 MG PO Q4H PRN for PAIN- MILD (1-4), (Reported) Entered as Reported by: PRETTY COOL on 05/05/231415 Amlodipine Besylate (Amlodipine Besylate) 5 Mg Tablet, 5 MG PO DAILY Prescribed by: JOHN AGUIRRE on 05/11/23544 Artificial Tears (Artificial Tears) 1.4 % Soln, 1-2 DROPS OU UD PRN for DRY EYES, (Reported) Entered as Reported by: PRETTY COOL on 05/05/231415 Aspirin (Aspirin EC) 81 Mg Tablet.dr, 81 MG PO DAILY W/FOOD Prescribed by: JOHN AGUIRRE on 05/11/23544 Atorvastatin Calcium (Atorvastatin Calcium) 40 Mg Tablet, 40 MG PO DAILY Prescribed by: JOHN AGUIRRE on 05/11/23544 Bupropion HCl (Bupropion HCl) 75 Mg Tablet, 37.5 MG PO DAILY Prescribed by: JOHN AGUIRRE on 05/11/23544 Calcium Carbonate (Calcium) 500 Mg Calcium (1250 Mg) Tablet, 500 MG PO DAILY, (Reported) Entered as Reported by: PRETTY COOL on 05/05/231415 Cetirizine HCl (Cetirizine HCl) 10 Mg Tablet, 10 MG PO DAILY Prescribed by: JOHN AGUIRRE on 05/11/23544 Cholecalciferol (Vitamin D3) (Vitamin D3) 50 Mcg (2000 Unit) Capsule, 50 MCG PO DAILY, (Reported) Entered as Reported by: PRETTY COOL on 05/05/231415 Clopidogrel Bisulfate (Plavix) 75 Mg Tablet, 75 MG PO DAILY Prescribed by: JOHN AGUIRRE on 05/11/23544 Cyanocobalamin (Cyanocobalamin Injection) 1,000 Mcg/Ml Inj, 1,000 MCG IM MONTHLY, (Reported) Entered as Reported by: PRETTY COOL on 05/05/231415 Cyclobenzaprine HCl (Cyclobenzaprine HCl) 10 Mg Tablet, 10 MG PO DAILY PRN for MUSCLE CRAMPS Prescribed by: JOHN AGUIRRE on 05/11/23544 Diclofenac Sodium (Diclofenac Sodium) 1 % Gel..gram., 2-4 GM TP QID Prescribed by: JOHN AGUIRRE on 05/11/23544 Donepezil HCl (Donepezil HCl) 10 Mg Tablet, 10 MG PO HS Prescribed by: JOHN AGUIRRE on 05/11/23544 Duloxetine HCl (Duloxetine HCl) 60 Mg Capsule.dr, 60 MG PO DAILY Prescribed by: JOHN AGUIRRE on 05/11/23544 Duloxetine HCl (Duloxetine HCl) 30 Mg Capsule.dr, 30 MG PO DAILY Prescribed by: JOHN AGUIRRE on 05/11/23544 Estrogens, Conjugated (Premarin) 0.625 Mg Tablet, 0.625 MG PO DAILY Prescribed by: JOHN AGUIRRE on 05/11/23544 Famotidine (Famotidine) 20 Mg Tablet, 20 MG PO HS Prescribed by: JOHN AGUIRRE on 05/11/23544 Fluticasone Propionate (Fluticasone Propionate) 50 Mcg/Actuation Sperry.susp, 1 SPRAY NSEACH DAILY, (Reported) Entered as Reported by: PRETTY COOL on 05/05/231415 Gabapentin (Gabapentin) 100 Mg Capsule, 200 MG PO Q8H Prescribed by: JOHN AGUIRRE on 05/11/23544 Lidocaine (Lidocaine 5% Patch) 5 % Adh..patch, 1 EACH TD DAILY, (Reported) Entered as Reported by: PRETTY COOL on 05/05/23 1416 Lisinopril (Lisinopril) 20 Mg Tablet, 20 MG PO DAILY Prescribed by: JOHN AGUIRRE on 05/11/23544 Loperamide HCl (Anti-Diarrheal) 2 Mg Capsule, 2 MG PO UD PRN for DIARRHEA, (Reported) Entered as Reported by: PRETTY COOL on 05/05/23 141 Nitroglycerin (Nitroglycerin) 0.4 Mg Tab.subl, 0.4 MG SL UD PRN for CHEST PAIN Prescribed by: JOHN AGUIRRE on 05/11/23544 Ondansetron HCl (Ondansetron HCl) 4 Mg Tablet, 4 MG PO Q8H PRN for NAUSEA/VOMITING-1ST LINE Prescribed by: JOHN AGUIRRE on 05/11/23544 Potassium Gluconate (Potassium) 595 Mg (99 Mg) Tablet, 99 MG PO DAILY, (Reported) Entered as Reported by: PRETTY COOL on 05/05/23 1551 Quinine Sulfate (Quinine Sulfate) 324 Mg Capsule, 324 MG PO HS Prescribed by: JOHN AGUIRRE on 05/11/23544 Rabeprazole Sodium (Rabeprazole Sodium) 20 Mg Tablet.dr, 20 MG PO DAILY Prescribed by: JOHN AGUIRRE on 05/11/23544 Sulindac (Sulindac) 200 Mg Tablet, 200 MG PO Q12H Prescribed by: JOHN AGUIRRE on 05/11/23544 Tiotropium Br/Olodaterol HCl (Stiolto Respimat Inhal Sperry) 2.5 Mcg-2.5 Mcg/Actuation Mist.inhal, 2 PUFF IH DAILY Prescribed by: JOHN AGUIRRE on 05/11/23544 Tramadol HCl (Tramadol HCl) 50 Mg Tablet, 150 MG PO Q8H PRN for PAIN-MODERATE (5-7) Prescribed by: JOHN AGUIRRE on 05/11/23 05 Vibegron (Gemtesa) 75 Mg Tablet, 75 MG PO DAILY Prescribed by: JOHN AGUIRRE on 05/11/23544 Review of Systems Review of Systems Constitutional: No fever Eyes: No Symptoms Reported Ears, Nose, Mouth, Throat: no symptoms reported Respiratory: no symptoms reported Cardiovascular: no symptoms reported Gastrointestinal: see HPI Genitourinary: no symptoms reported Musculoskeletal: no symptoms reported Skin: no symptoms reported Psychiatric/Neurological: See HPI Past Hgbjtuc-Vlqycl-Xfmsko Hx Immunizations Up To Date Tetanus Booster (TDap): Unknown PED Vaccines UTD: No First/Initial COVID19 Vaccinat: 2020 Second COVID19 Vaccination Santana: NONE Third COVID19 Vaccination Date: NONE Seasonal Allergies Seasonal Allergies: No Past Medical History Surgery/Hospitalization HX: prior stroke, htn, sepression, acid reflux, high cholesterol gb, tonsils, partial hyster Gallbladder, Hysterectomy, Tonsillectomy Asthma Hypertension, Irregular Heartbeat Seizure Disorder, Stroke Reproductive Disorders: No 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 9.0oz. 77.039996us; 27.00 BMI Method: General Appearance: WD/WN, no apparent distress HEENT: PERRL/EOMI, normal ENT inspection, pharynx normal Neck: non-tender, full range of motion, supple, normal inspection Respiratory: chest non-tender, lungs clear, normal breath sounds, no respiratory distress, no accessory muscle use Cardiovascular: regular rate, rhythm, no edema Gastrointestinal: normal bowel sounds, non tender, soft; No distended, No guarding, No rebound Back: normal inspection, no CVA tenderness Extremities: normal range of motion, non-tender, normal inspection, no pedal edema, no calf tenderness, normal capillary refill Neurologic/Psychiatric: stain remover II-XII nml as tested, no motor/sensory deficits, alert, normal mood/affect, oriented x 3, other (Normal visual reyez and visual acuity) Crainal Nerves: normal hearing, normal speech, PERRL Coordination/Gait: normal finger to nose, normal gait Motor/Sensory: no motor deficit, no sensory deficit, no pronator drift Skin: normal color, warm/dry Stroke Onset of Symptoms Date of Onset of Symptoms: Jul 17, 2023 Time of Symptom Onset: 21:00 Onset of Symptoms: Yes NIH Stroke Scale Assessment Select: Initial Level of Consciousness: 0=Alert (0), Level of Consciousness-Questions: 0=Answers both month/age (0), LOC Commands: 0=Performs both tasks (0), Gaze: Normal (0), Visual Reyez: 0=No visual loss (0), Facial Movement (Facial Paresis): 0=Normal symmetrical mnt (0), Motor Function-Arms Right: 0=No drift (0), Motor Function-Arms Left: 0=No drift (0), Motor Function-Legs Right: 0=No drift (0), Motor Function-Legs Left: 0=No drift (0), Limb Ataxia: 0=Absent (0), Sensory: 0=Normal:no loss (0), Best Language: 0=No aphasia (0), Dysarthria: 0=Normal (0), Extinction & Inattention: 0=No abnormality (0), Total: 0 Stroke Thrombolytic Exclusion Age 18 or Over: Yes History of CVA: Yes Improving Symptoms: Yes TPA Contraindication: Yes IV - TPa Received IV - TPa Procedure Performed?: No Progress/Results/Core Measures Results/Orders Lab Results Laboratory Tests Test 07/18/23 12:50 07/18/23 12:59 07/18/23 13:00 Range/Units White Blood Count 10.8 4.3-11.0 10^3/uL Red Blood Count 4.40 3.80-5.11 10^6/uL Hemoglobin 13.0 11.5-16.0 g/dL Hematocrit 40 35-52 % Mean Corpuscular Volume 91 80-99 fL Mean Corpuscular Hemoglobin 30 25-34 pg Mean Corpuscular Hemoglobin Concent 32 32-36 g/dL Red Cell Distribution Width 13.1 10.0-14.5 % Platelet Count 422 H 130-400 10^3/uL Mean Platelet Volume 9.8 9.0-12.2 fL Immature Granulocyte % (Auto) 1 % Neutrophils (%) (Auto) 75 42-75 % Lymphocytes (%) (Auto) 16 12-44 % Monocytes (%) (Auto) 7 0-12 % Eosinophils (%) (Auto) 2 0-10 % Basophils (%) (Auto) 1 0-10 % Neutrophils # (Auto) 8.1 H 1.8-7.8 10^3/uL Lymphocytes # (Auto) 1.7 1.0-4.0 10^3/uL Monocytes # (Auto) 0.7 0.0-1.0 10^3/uL Eosinophils # (Auto) 0.2 0.0-0.3 10^3/uL Basophils # (Auto) 0.1 0.0-0.1 10^3/uL Immature Granulocyte # (Auto) 0.1 0.0-0.1 10^3/uL Prothrombin Time 12.8 12.2-14.7 SEC INR Comment 0.9 0.8-1.4 Activated Partial Thromboplast Time 30 24-35 SEC Sodium Level 135 135-145 MMOL/L Potassium Level 4.6 3.6-5.0 MMOL/L Chloride Level 99 98-107 MMOL/L Carbon Dioxide Level 25 21-32 MMOL/L Anion Gap 11 5-14 MMOL/L Blood Urea Nitrogen 12 7-18 MG/DL Creatinine 0.78 0.60-1.30 MG/DL Estimat Glomerular Filtration Rate 80 BUN/Creatinine Ratio 15 Glucose Level 133 H 70-105 MG/DL Calcium Level 9.5 8.5-10.1 MG/DL Corrected Calcium 9.7 8.5-10.1 MG/DL Total Bilirubin 0.3 0.1-1.0 MG/DL Aspartate Amino Transf (AST/SGOT) 22 5-34 U/L Alanine Aminotransferase (ALT/SGPT) 22 0-55 U/L Alkaline Phosphatase 94 40-136 U/L Troponin I < 0.30 <0.30 NG/ML Total Protein 6.5 6.4-8.2 GM/DL Albumin 3.7 3.2-4.5 GM/DL Glucometer 129 H 70-110 MG/DL Influenza Type A (RT-PCR) Not Detected Not Detecte Influenza Type B (RT-PCR) Not Detected Not Detecte SARS-CoV-2 RNA (RT-PCR) Not Detected Not Detecte My Orders Orders - GOGO GREWAL MD Cbc With Automated Diff (07/18/23 12:44) Protime With Inr (07/18/23 12:44) Partial Thromboplastin Time (07/18/23 12:44) Comprehensive Metabolic Panel (07/18/23 12:44) Troponin I Fs (07/18/23 12:44) Chest 1 View Ap/Pa Only (07/18/23 12:44) Ekg Tracing (07/18/23 12:44) Accucheck Stat ONCE (07/18/23 12:44) Ed Iv/Invasive Line Start (07/18/23 12:44) Vital Signs Stroke Patient Q15M (07/18/23 12:44) Ct Head Wo-R/O Stroke (07/18/23 12:44) O2 (07/18/23 12:44) Monitor-Rhythm Ecg Trace Only (07/18/23 12:44) Dysphagia Screening Tool Q10MX1 (07/18/23 12:44) Influenza A And B By Pcr (07/18/23 12:44) Covid 19 Inhouse Test (07/18/23 12:44) Vital Signs/I&O 07/18/23 07/18/23 12:37 12:37 Temp 36.8 Pulse 77 Resp 18 B/P (MAP) 158/78 (104) Pulse Ox 98 O2 Delivery Room Air Room Air Progress Progress Note : Progress Note 73-year-old female presenting due to body aches last night and tingling today. ABCs were intact and vitals were stable on presentation. Physical exam reassuring including a nonfocal neuro exam. Her NIH is 0 today. The patient has consistently had tingling on her left side since the stroke in April, it was just slightly worse last night. She had a thalamic stroke at that time confirmed on MRI at . CT head ordered and interpreted by me today showing no significant acute hemorrhage or finding. I personally discussed the case with the radiologist, and he sees the subacute to chronic thalamic stroke today which correlates with [facility]'s report. There were no acute findings. Otherwise her white blood cell count is normal, creatinine normal, electrolytes fairly unremarkable, troponin negative, flu and COVID testing negative. Chest x-ray ordered and interpreted by me showing no obvious pneumonia or abnormality. EKG ordered and interpreted by me showing normal sinus rhythm with no acute ischemic changes. In regards to the body aches, the patient likely does have some type of viral syndrome, no clinical signs of sepsis here. No dysuria or urinary frequency that would be concerning for UTI. She is at her baseline I believe stable for discharge with outpatient follow-up. She was sent home with strict return precautions Initial ECG Impression Date: Jul 18, 2023 Initial ECG Impression Time: 12:54 Initial ECG Rate: 75 Initial ECG Rhythm: Normal Sinus Comment Narrow QRS, normal axis, no significant ST changes or T wave abnormalities Diagnostic Imaging Diagonstic Imaging: Xray (chest), CT (head) Comments [facility] [place] [place] NAME: CH[facility]FORMERLY [facility] REC#: [id number] PT STATUS: REG ER : 1950 PHYSICIAN: GOGO GREWAL MD ADMIT DATE: 07/18/23/ER FS Draft Date of Exam:07/18/23 CT HEAD WO-R/O STROKE PROCEDURE: CT head wo r/o stroke. TECHNIQUE: Multiple contiguous axial images were obtained through the brain without the use of intravenous contrast. Auto Exposure Controls were utilized during the CT exam to meet ALARA standards for radiation dose reduction. INDICATION: Stroke. Bilateral numbness. COMPARISON: 05/18/2023. FINDINGS: Moderate generalized parenchymal volume loss. No CT evidence of a territorial infarction. Low-attenuation in the deep white matter. The right thalamus appears to be chronic but is new compared to 05/18/2023. No intracranial hemorrhage. No hydrocephalus or extra-axial fluid collections. No acute osseous findings. Visualized paranasal sinuses and mastoids are clear. IMPRESSION: 1. No CT evidence of an acute territorial infarction or hemorrhage. 2. Lacunar infarct in the right thalamus is likely subacute to chronic but is new compared to 05/18/2023. This could be further investigated with MRI. Findings discussed with Gogo Grewal at 1:31 PM on 07/18/2023. Dictated on workstation # [id number] Dict: 07/18/23 1327 Trans: 07/18/23 1335 [facility] [id number] Interpreted by: BONNIE OCHOA MD Electronically signed by: [facility] [place] NAME: CHERRYFORMERLY [facility] REC#: [id number] PT STATUS: REG ER : 1950 PHYSICIAN: GOGO GREWAL MD ADMIT DATE: 07/18/23/ER FS Draft Date of Exam:07/18/23 CHEST 1 VIEW AP/PA ONLY Indication: Stroke. Time of Exam: 1:16 PM Correlation is made with prior chest 05/18/2023. Heart size normal. Calcified granuloma right base is again noted. No infiltrates are seen. The pulmonary vascularity is normal. No effusion or pneumothorax is identified. Impression: No acute cardiopulmonary process is detected. Dictated on workstation # [id number] Dict: 07/18/23 1328 Trans: 07/18/23 1332 [facility] [id number] Interpreted by: WAQAR HA MD Electronically signed by: Departure Impression Primary Impression: Body aches Additional Impression: Tingling Disposition: 01 HOME, SELF-CARE Condition: Stable Departure-Patient Inst. Decision time for Depature: 14:05 Referrals: WILL CASIANO MD (PCP/Family) Primary Care Physician Patient Instructions: Stroke (DC) Add. Discharge Instructions: We only see the old strokes on the imaging today, no signs of new stroke. Your body aches seem more consistent with a viral illness like a flulike illness which can make old stroke symptoms worse. Your labs otherwise are unremarkable including negative for COVID. GOGO GREWAL MD Jul 18, 2023 12:57
[2023-07-18 13:09] LABS: BASOPHILS # (AUTO) 0.1 10^3/uL (0.0-0.1); BASOPHILS % (AUTO) 1 % (0-10); EOSINOPHILS # (AUTO) 0.2 10^3/uL (0.0-0.3); EOSINOPHILS % (AUTO) 2 % (0-10); HEMATOCRIT 40 % (35-52); LYMPHOCYTES # (AUTO) 1.7 10^3/uL (1.0-4.0); LYMPHOCYTES % (AUTO) 16 % (12-44); MEAN CORPUSCULAR HEMOGLOBIN 30 pg (25-34); MEAN CORPUSCULAR HGB CONC 32 g/dL (32-36); MEAN CORPUSCULAR VOLUME 91 fL (80-99); MEAN PLATELET VOLUME 9.8 fL (9.0-12.2); MONOCYTES # (AUTO) 0.7 10^3/uL (0.0-1.0); MONOCYTES % (AUTO) 7 % (0-12); NEUTROPHILS # (AUTO) 8.1 10^3/uL (1.8-7.8); NEUTROPHILS % (AUTO) 75 % (42-75); PLATELET COUNT 422 10^3/uL (130-400); WHITE BLOOD COUNT 10.8 10^3/uL (4.3-11.0)
[2023-07-18 13:21] LABS: INR 0.9 (0.8-1.4); PROTHROMBIN TIME PATIENT 12.8 SEC (12.2-14.7)
[2023-07-18 13:29] LABS: ALANINE AMINOTRANSFERASE 22 U/L (0-55); ALBUMIN 3.7 GM/DL (3.2-4.5); ALKALINE PHOSPHATASE 94 U/L (40-136); BILIRUBIN,TOTAL 0.3 MG/DL (0.1-1.0); BUN/CREATININE RATIO 15; CALCIUM 9.5 MG/DL (8.5-10.1); CARBON DIOXIDE 25 MMOL/L (21-32); CHLORIDE 99 MMOL/L (98-107); CREATININE SERUM 0.78 MG/DL (0.60-1.30); GFR ESTIMATED 80; GLUCOSE 133 MG/DL (70-105); POTASSIUM 4.6 MMOL/L (3.6-5.0); SODIUM 135 MMOL/L (135-145); TOTAL PROTEIN 6.5 GM/DL (6.4-8.2)
--- NOTE | 2023-07-18 13:32 | Diagnostic Imaging Report ---
Indication: Stroke. Time of Exam: 1:16 PM Correlation is made with prior chest 05/18/2023. Heart size normal. Calcified granuloma right base is again noted. No infiltrates are seen. The pulmonary vascularity is normal. No effusion or pneumothorax is identified. Impression: No acute cardiopulmonary process is detected. Dictated by: Dictated on workstation # [id number]
--- NOTE | 2023-07-18 13:36 | Diagnostic Imaging Report ---
PROCEDURE: CT head wo r/o stroke. TECHNIQUE: Multiple contiguous axial images were obtained through the brain without the use of intravenous contrast. Auto Exposure Controls were utilized during the CT exam to meet ALARA standards for radiation dose reduction. INDICATION: Stroke. Bilateral numbness. COMPARISON: 05/18/2023. FINDINGS: Moderate generalized parenchymal volume loss. No CT evidence of a territorial infarction. Low-attenuation in the deep white matter. The right thalamus appears to be chronic but is new compared to 05/18/2023. No intracranial hemorrhage. No hydrocephalus or extra-axial fluid collections. No acute osseous findings. Visualized paranasal sinuses and mastoids are clear. IMPRESSION: 1. No CT evidence of an acute territorial infarction or hemorrhage. 2. Lacunar infarct in the right thalamus is likely subacute to chronic but is new compared to 05/18/2023. This could be further investigated with MRI. Findings discussed with Wallace Escamilla at 1:31 PM on 07/18/2023. Dictated by: Dictated on workstation # [id number]
[2023-07-18 13:59] VITALS: BP 134/75
== END 2023-07-18 13:59 | disposition home or self-care (01) ==
LOC: EDUNIT# 12:33 → ER FS 12:34
DX: R20.2 Paresthesia of skin (principal); M79.10 Myalgia, unspecified site; R20.0 Anesthesia of skin; Z28.311 Partially vaccinated for COVID-19; Z86.73 Personal history of transient ischemic attack (TIA), and cerebral infarction without residual deficits; Z28.310 Unvaccinated for COVID-19; Z20.822 Contact with and (suspected) exposure to COVID-19
CPT/HCPCS: 36415; 70450; 71045; 80053; 82947; 84484; 85025; 85610; 85730; 87636; 93005; 93041